=== PATIENT | male | born 1965 | race Caucasian/White ===

== ENCOUNTER 2020-06-07 11:25 | Outpatient (CLI) | payer MEDICARE, MEDICAID, SELFPAY | END 2020-06-07 11:26 | disposition home or self-care (01) | LOC: ANHAUDIO 11:29 | PROVIDERS: PCP Internal Medicine; Visit Provider Internal Medicine | DX: H90.6 Mixed conductive and sensorineural hearing loss, bilateral (principal) | CPT/HCPCS: 92557; 92567 ==

== ENCOUNTER 2020-06-24 10:08 | Outpatient (RCR) | payer MEDICAID, SELFPAY | END 2020-06-24 23:59 | disposition home or self-care (01) | LOC: ANHAUDIO 10:08 | PROVIDERS: PCP Internal Medicine; Visit Provider Internal Medicine | DX: Z46.1 Encounter for fitting and adjustment of hearing aid (principal) | CPT/HCPCS: V5241; V5256 ==

== ENCOUNTER 2023-01-19 16:19 | Emergency (ER) | payer MEDICARE, MEDICAID, SELFPAY ==
[2023-01-19 16:40] VITALS: BP 128/65; PULSE 68; RESP 16; TEMP 36.3; O2SAT 98
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
== END 2023-01-19 17:21 | disposition home or self-care (01) ==
PROVIDERS: Emergency Provider Registered Nurse; PCP Internal Medicine
DX: Z04.1 Encounter for examination and observation following transport accident (principal); I10 Essential (primary) hypertension; V79.50XA Passenger on bus injured in collision with unspecified motor vehicles in traffic accident, initial encounter
CPT/HCPCS: 99211; G0463

== ENCOUNTER 2023-02-16 08:23 | Emergency (ER) | payer MEDICARE, MEDICAID, SELFPAY ==
--- NOTE | ~2023-02-16 | XR_ITS ---
XR ankle RT min 3V 02/16/2023 08:54 Indication: Right ankle pain Procedure: 4 views right ankle Comparison: No prior studies for comparison. Findings: Osteopenia. Ankle mortise intact. There is an oblique lucency of the calcaneus. Cannot excl ude nondisplaced fracture. Talar dome is unremarkable. Impression: 1: Possible nondisplaced calcaneal fracture. Recommend correlation with CT. Reviewed, dictated and finalized at location A. Impression: 1: Possible nondisplaced calcaneal fracture. Recommend correlation with CT.
[2023-02-16 08:39] VITALS: BP 117/65; PULSE 76; RESP 18; TEMP 36.3; O2SAT 99
--- NOTE | 2023-02-16 09:12 | ED.LOWEXIN ---
HPI - Extremity Injury (Lower) General Chief Complaint: Extremity Injury, Lower Stated Complaint: right foot/ankle injury Time Seen by Provider: 02/16/23 09:05 Source: patient, RN notes reviewed, old records reviewed and other (specialist wound care) Mode of arrival: wheelchair Limitations: no limitations History of Present Illness HPI Narrative: 57 year old male accompanied by caregiver presents to [facility] with stated injury to right foot which occurred this morning when he fell. Patient states he bent over to leaf size picker something off of the floor and fell causing pain to his right heel region. Patient does have some developmental disabilities lives in a jail setting. Patient has history of osteopenia and has had previous hip replacement. Caregiver reports that patient is not suppose to be up alone. Patient reports no other injury, states he did not hit his head. MD complaint: foot injury (heel pain posterior) Onset (ago): day(s) (this morning) Type of Injury: other (fall) Treatments prior to arrival: cold therapy Related Data Home Medications Medication Instructions Recorded Confirmed alfuzosin 10 mg tablet,extended 10 mg PO DAILY 01/19/23 02/16/23 release 24 hr aripiprazole 15 mg tablet 15 mg PO DAILY 01/19/23 02/16/23 ferrous sulfate 325 mg (65 mg 325 mg PO DAILY 01/19/23 02/16/23 iron) tablet (Iron (ferrous sulfate)) losartan 25 mg tablet 25 mg PO DAILY 01/19/23 02/16/23 potassium chloride 10 mEq 10 meq PO DAILY 01/19/23 02/16/23 tablet,extended release sertraline 100 mg tablet 100 mg PO DAILY 01/19/23 02/16/23 sertraline 50 mg tablet 50 mg PO DAILY 01/19/23 02/16/23 Allergies Allergy/AdvReac Type Severity Reaction Status Date / Time topiramate Allergy Intermediate Rash Verified 01/19/23 16:45 Review of Systems Review of Systems: CONSTITUTIONAL: Denies fever, chills, or sweats. EYES: Denies visual changes, redness, or discharge. ENT: Denies rhinorrhea, congestion, sore throat, or otalgia. CARDIOVASCULAR: Denies chest pain, palpitations, or edema. RESPIRATORY: Denies cough or dyspnea. GASTROINTESTINAL: Denies abdominal pain, nausea, vomiting, or diarrhea. GENITOURINARY: Denies dysuria or hematuria. SKIN: Denies rash or itching. MUSCULOSKELETAL: Denies back pain, positive joint pain right heel posterior aspect or myalgia. NEUROLOGIC: Denies headache, numbness, or weakness. PSYCHIATRIC: Positive history of anxiety or depression. All systems reviewed & are unremarkable except as noted in HPI and below PMFSH Past Medical History Medical History (Updated 02/18/23 @ 09:30 by Anjali Zavala NP) Anemia Bipolar disorder Eczema Hypertension Impaired vision Moderate intellectual disability Osteoarthritis Retinal detachment, left Urinary incontinence Surgical History Surgical History (Updated 01/22/23 @ 20:32 by Anjali Zavala NP) H/O bilateral hip replacements Social History Social History (Updated 01/22/23 @ 20:32 by Anjali Zavala NP) Living arrangements: jail Gender identity (if verbalized by the patient): Male Comments At time of signature, agree with nursing past medical, surgical, social and family history. There is no relevant family history pertinent to the presenting complaint Exam Narrative: GENERAL: Well-appearing, well-nourished, and in no acute distress. HEAD: Normocephalic, atraumatic. EYES: PERRLA and EOMI. is visually impaired ENT: Nares clear, no rhinorrhea or epistaxis. Mucous membranes moist.TM's normal throat pink with no swelling NECK: Supple.no lymphadenopathy CHEST: Clear to auscultation. No respiratory distress.SAO2 99% on room air HEART: Regular rate and rhythm. No murmur heard. Normal peripheral pulses. ABDOMEN: Soft, nontender, nondistended, normal active bowel sounds. EXTREMITIES: Normal range of motion. No edema. Positive for pain to posterior right heel region and to sides onf heel on palpation, able to flex and extend forefoot on own power, so
== END 2023-02-16 09:33 | disposition short-term general hospital (02) ==
PROVIDERS: Emergency Provider Registered Nurse; PCP Internal Medicine
DX: S92.001A Unspecified fracture of right calcaneus, initial encounter for closed fracture (principal); W19.XXXA Unspecified fall, initial encounter; I10 Essential (primary) hypertension; M19.90 Unspecified osteoarthritis, unspecified site; F71 Moderate intellectual disabilities; D64.9 Anemia, unspecified
CPT/HCPCS: 73610; 99213; G0463

== ENCOUNTER 2023-03-20 08:42 | Outpatient (CLI) | payer MEDICARE, MEDICAID, SELFPAY | END 2023-03-20 08:43 | disposition home or self-care (01) | LOC: ANHBWCAUD 08:58 | PROVIDERS: PCP Internal Medicine; Visit Provider Internal Medicine | DX: H91.93 Unspecified hearing loss, bilateral (principal) | CPT/HCPCS: 99199 ==

== ENCOUNTER 2023-08-10 16:17 | Emergency (ER) | payer MEDICARE, MEDICAID, SELFPAY ==
[2023-08-10 16:27] VITALS: BP 120/63; PULSE 63; RESP 16; TEMP 35.8; O2SAT 98
[2023-08-10 16:40] VITALS: BP 120/63; PULSE 63; RESP 16; TEMP 35.8; O2SAT 98
--- NOTE | 2023-08-10 16:40 | ED.SKABFB ---
HPI - Skin/Abscess/Foreign Bdy General Chief complaint: Wound/Laceration Stated complaint: Right foot sore History of Present Illness HPI narrative: Patient presents with right toe sore. No drainage no streaking to the toe and patient also has been treated for athlete's foot, but the insurance would not pay for the cream that was prescribed by his primary care provider. Related Data Home Medications Medication Instructions Recorded Confirmed alfuzosin 10 mg tablet,extended 10 mg PO DAILY 01/19/23 08/10/23 release 24 hr ferrous sulfate 325 mg (65 mg 325 mg PO DAILY 01/19/23 08/10/23 iron) tablet (Iron (ferrous sulfate)) potassium chloride 10 mEq 10 meq PO DAILY 01/19/23 08/10/23 tablet,extended release sertraline 100 mg tablet 100 mg PO DAILY 01/19/23 08/10/23 sertraline 50 mg tablet 50 mg PO DAILY 01/19/23 08/10/23 alendronate 70 mg tablet 70 mg PO DAILY 08/10/23 08/10/23 aripiprazole 20 mg tablet 20 mg PO DAILY 08/10/23 08/10/23 cholecalciferol (vitamin D3) 25 25 mcg PO DAILY 08/10/23 08/10/23 mcg (1,000 unit) tablet hydroxyzine HCl 25 mg tablet 25 mg PO DAILY 08/10/23 08/10/23 Allergies Allergy/AdvReac Type Severity Reaction Status Date / Time topiramate Allergy Intermediate Rash Verified 08/10/23 16:40 Review of Systems Review of Systems: CONSTITUTIONAL: Denies fever, chills, or sweats. EYES: Denies visual changes, redness, or discharge. ENT: Denies rhinorrhea, congestion, sore throat, or otalgia. CARDIOVASCULAR: Denies chest pain, palpitations, or edema. RESPIRATORY: Denies cough or dyspnea. GASTROINTESTINAL: Denies abdominal pain, nausea, vomiting, or diarrhea. GENITOURINARY: Denies dysuria or hematuria. SKIN: Denies rash or itching. MUSCULOSKELETAL: Denies back pain, joint pain, or myalgia. NEUROLOGIC: Denies headache, numbness, or weakness. PSYCHIATRIC: Denies anxiety or depression. [facility] Past Medical History Medical History (Updated 08/10/23 @ 16:45 by CARLI Lincoln) Anemia Bipolar disorder Eczema Hypertension Impaired vision Moderate intellectual disability Osteoarthritis Retinal detachment, left Urinary incontinence Surgical History Surgical History (Updated 01/22/23 @ 20:32 by Anjali Zavala NP) H/O bilateral hip replacements Social History Social History (Updated 01/22/23 @ 20:32 by Anjali Zavala NP) Living arrangements: alf Gender identity (if verbalized by the patient): Male Comments At time of signature, agree with nursing past medical, surgical, social and family history. There is no relevant family history pertinent to the presenting complaint Exam Narrative: GENERAL: Well-appearing, well-nourished, and in no acute distress. HEAD: Normocephalic, atraumatic. EYES: PERRLA and EOMI. ENT: Nares clear, no rhinorrhea or epistaxis. Mucous membranes moist. NECK: Supple. CHEST: Clear to auscultation. No respiratory distress. HEART: Regular rate and rhythm. No murmur heard. Normal peripheral pulses. ABDOMEN: Soft, nontender, nondistended, normal active bowel sounds. EXTREMITIES: Normal range of motion. No edema. SWELLING AND REDNESS AND FLUCTUANCE CONSISTENT WITH PARONYCHIA. NORMAL CAP REFILL. NORMAL SENSATION OF DISTAL TOE. NORMAL 2 POINT DISCRIMINATION. NORMAL MOVEMENT OF TOE AT PIP, DIP, MCP. NORMAL FOOT EXAM. NO STREAKING OR REDNESS INTO FOOT right great toe SKIN: Warm, dry, no rash. Dry scaly areas between toes consistent with athlete's foot no concern for secondary infection NEURO: No focal deficits. Alert and oriented x3. Carlos Coma Scale Eye Opening: Spontaneous 4 [place] Coma Scale Motor: Obeys Commands 6 Carlos Coma Scale Verbal: Oriented 5 Carlos Coma Scale Total 15 Course Course Level of Care: Express Care Visit Vital Signs Vital signs: Vital Signs Temperature 35.8 C L 08/10/23 16:27 Pulse Rate 63 08/10/23 16:27 Respiratory Rate 16 08/10/23 16:27 Blood Pressure 120/63 08/10/23 16:27 Pulse Oxim
== END 2023-08-10 16:51 | disposition home or self-care (01) ==
PROVIDERS: Emergency Provider Nurse Practitioner Family; PCP Internal Medicine
DX: L03.031 Cellulitis of right toe (principal); B35.3 Tinea pedis; I10 Essential (primary) hypertension; Z79.899 Other long term (current) drug therapy
CPT/HCPCS: 99213; G0463

== ENCOUNTER 2023-08-28 09:49 | Outpatient (CLI) | payer MEDICARE, MEDICAID, SELFPAY | END 2023-08-28 09:50 | disposition home or self-care (01) | LOC: ANHBWCAUD 09:51 | PROVIDERS: PCP Internal Medicine; Visit Provider Internal Medicine | DX: H90.42 Sensorineural hearing loss, unilateral, left ear, with unrestricted hearing on the contralateral side (principal); H90.71 Mixed conductive and sensorineural hearing loss, unilateral, right ear, with unrestricted hearing on the contralateral side | CPT/HCPCS: 92552; 92556; 92567 ==

== ENCOUNTER 2023-09-11 16:47 | Emergency (ER) | payer MEDICARE, MEDICAID, SELFPAY ==
--- NOTE | ~2023-09-11 | XR_ITS ---
EXAM: XR foot RT min 3V DATE: 09/11/2023 17:29 HISTORY: KNI.RASH/SWELLING OF RT. FOOT SINCE 2022. . COMPARISON: 02/16/2023. FINDINGS: Severely decreased mineralization. No fracture or dislocation. No lytic or blastic lesion. Scattered degenerative changes. Loss of the normal Boehler's angle and pes planus. No erosion or per iosteal change. Soft tissues within normal limits. IMPRESSION: Loss of the normal Boehler's angle due to partial collapse of the calcaneus from an old, likely now healed calcaneal fracture. Reviewed, dictated and finalized at location K. PICKER IMPRESSION: Loss of the normal Boehler's angle due to partial collapse of the c alcaneus from an old, likely now healed calcaneal fracture.
--- NOTE | 2023-09-11 16:58 | ED.SKABFB ---
HPI - Skin/Abscess/Foreign Bdy General Chief complaint: Skin/Abscess/Foreign Body Stated complaint: rash on right foot Source: patient and RN notes reviewed Mode of arrival: ambulatory Limitations: no limitations History of Present Illness HPI narrative: Patient is a 58-year-old male who presents to [facility] with staff member from [facility]. Staff member states that patient has had redness and swelling to the webbing of the right foot. She states that the discoloration has been present since May. She denies known foot/toe injury. States that patient has been treated for cellulitis of the foot and athlete's foot without improvement. Patient was given a course of Keflex in May and course of Doxycycline in July. He has also been getting Fluconazole and Tinactin without improvement. Staff member states that the redness and swelling increased in severity today. Patient is neurovascularly intact distally. She denies recent fevers in patient. 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 Related Data Home Medications Medication Instructions Recorded Confirmed alfuzosin 10 mg tablet,extended 10 mg PO DAILY 01/19/23 08/10/23 release 24 hr ferrous sulfate 325 mg (65 mg 325 mg PO DAILY 01/19/23 08/10/23 iron) tablet (Iron (ferrous sulfate)) potassium chloride 10 mEq 10 meq PO DAILY 01/19/23 08/10/23 tablet,extended release sertraline 100 mg tablet 100 mg PO DAILY 01/19/23 08/10/23 sertraline 50 mg tablet 50 mg PO DAILY 01/19/23 08/10/23 alendronate 70 mg tablet 70 mg PO DAILY 08/10/23 08/10/23 aripiprazole 20 mg tablet 20 mg PO DAILY 08/10/23 08/10/23 cholecalciferol (vitamin D3) 25 25 mcg PO DAILY 08/10/23 08/10/23 mcg (1,000 unit) tablet hydroxyzine HCl 25 mg tablet 25 mg PO DAILY 08/10/23 08/10/23 tolnaftate 1 % topical spray spray topical 09/11/23 (Tinactin) Allergies Allergy/AdvReac Type Severity Reaction Status Date / Time topiramate Allergy Intermediate Rash Verified 08/10/23 16:40 Review of Systems Review of Systems: ROS obtained from staff member. CONSTITUTIONAL: Denies fever, chills, or sweats. EYES: Denies visual changes, redness, or discharge. ENT: Denies otalgia and sore throat CARDIOVASCULAR: Denies chest pain, palpitations, or edema. RESPIRATORY: Denies cough or dyspnea. GASTROINTESTINAL: Denies abdominal pain, nausea, vomiting, or diarrhea. GENITOURINARY: Denies dysuria or hematuria. SKIN: Denies rash or itching. MUSCULOSKELETAL: Denies back pain or myalgia. Redness and swelling to the webbing of the right foot. NEUROLOGIC: Denies headache, numbness, or weakness. Pertinent positives per HPI. PMFSH Past Medical History Medical History Anemia Bipolar disorder Eczema Hypertension Impaired vision Moderate intellectual disability Osteoarthritis Retinal detachment, left Urinary incontinence Surgical History Surgical History H/O bilateral hip replacements Social History Social History Living arrangements: skilled nursing Gender identity (if verbalized by the patient): Male Comments At the time of my signature, I reviewed and agree with the nursing past medical, surgical, social, and family history. There is no relevant family history pertinent to the patient complaint. Exam Narrative: GENERAL: This is a well-nourished, well-developed patient, in no apparent distress. HEAD: normocephalic, atraumatic. EYES: PERRL. Sclera clear/white. Vision is grossly intact. EARS: External ears normal, auditory canals clear and without drainage, TMs normal without perforation. Hearing grossly intact. NOSE: External nose normal with no obvious nasal discharge, nares without redness, no rhinorrhea. THROAT: Mucous
[2023-09-11 17:04] VITALS: BP 97/56; PULSE 56; RESP 16; TEMP 36.1; O2SAT 96
== END 2023-09-11 17:47 | disposition home or self-care (01) ==
PROVIDERS: Emergency Provider Nurse Practitioner; PCP Internal Medicine
DX: L03.115 Cellulitis of right lower limb (principal); I10 Essential (primary) hypertension; M19.90 Unspecified osteoarthritis, unspecified site; F71 Moderate intellectual disabilities; D64.9 Anemia, unspecified; Z96.643 Presence of artificial hip joint, bilateral
CPT/HCPCS: 73630; 99213; G0463

== ENCOUNTER 2023-12-18 08:44 | Emergency (ER) | payer MEDICARE, MEDICAID, SELFPAY ==
[2023-12-18 08:52] VITALS: BP 108/62; PULSE 70; RESP 20; TEMP 37.1; O2SAT 98
--- NOTE | 2023-12-18 09:05 | ED.GENADULT ---
HPI - General Adult General Chief complaint: Skin/Abscess/Foreign Body Stated complaint: Left arm wound and left eye Time Seen by Provider: 12/18/23 09:06 Source: patient, RN notes reviewed, old records reviewed and other (usp caregiver) Mode of arrival: ambulatory (walker) Limitations: other (developmentally disabled) History of Present Illness HPI narrative: 58 year old developmentally disabled male accompanied by caregiver from [facility] presents [facility] care with complaints of bilateral eye crusting with mucoid drainage especially to the left eye for the past few days. Patient also has area to the left upper arm that caregiver reports that patient won't stop scratching and picking at it that was from where he had Flu shot in July. Patient has [id number] open wound area that is yellowish in appearance with some scabbing with total area with surrounding redness of skin [id number]. Patient has small area on face that is red with no open wound 0.5cm where caregiver states he has been scratching also. MD complaint: conjunctivitis, wound to left upper arm Onset (ago): month(s) (arm wound, eyes 2-3 days) Severity: mild Treatments prior to arrival: none Related Data Home Medications Medication Instructions Recorded Confirmed alfuzosin 10 mg tablet,extended 10 mg PO DAILY 01/19/23 12/18/23 release 24 hr ferrous sulfate 325 mg (65 mg 325 mg PO DAILY 01/19/23 12/18/23 iron) tablet (Iron (ferrous sulfate)) potassium chloride 10 mEq 10 meq PO DAILY 01/19/23 12/18/23 tablet,extended release sertraline 100 mg tablet 100 mg PO DAILY 01/19/23 12/18/23 sertraline 50 mg tablet 50 mg PO DAILY 01/19/23 12/18/23 alendronate 70 mg tablet 70 mg PO DAILY 08/10/23 12/18/23 aripiprazole 20 mg tablet 20 mg PO DAILY 08/10/23 12/18/23 cholecalciferol (vitamin D3) 25 25 mcg PO DAILY 08/10/23 12/18/23 mcg (1,000 unit) tablet hydroxyzine HCl 25 mg tablet 25 mg PO DAILY 08/10/23 12/18/23 calcium carbonate 500 mg-vitamin 1 tablet PO DAILY 12/18/23 12/18/23 D3 15 mcg (600 unit) tablet miconazole nitrate 2 % topical applic topical DAILY 12/18/23 powder (Miconazorb AF) multivitamin-iron sulfate 15 1 tablet PO DAILY 12/18/23 12/18/23 mg-folic acid 400 mcg tablet (Tab-A-Daria Multivitamin w-iron) Allergies Allergy/AdvReac Type Severity Reaction Status Date / Time topiramate Allergy Intermediate Rash Verified 12/18/23 08:51 Review of Systems Review of Systems: CONSTITUTIONAL: Denies fever, chills, or sweats. EYES: Denies visual changes,positive for bilateral eye redness, and mucoid discharge. ENT: Denies rhinorrhea, congestion, sore throat, or otalgia. CARDIOVASCULAR: Denies chest pain, palpitations, or edema. RESPIRATORY: Denies cough or dyspnea. GASTROINTESTINAL: Denies abdominal pain, nausea, vomiting, or diarrhea. GENITOURINARY: Denies dysuria or hematuria. SKIN: Open wound to left upper arm [id number] inner open tissue with surrounding redness, 0.5cm red area on left face with skin integrity intact MUSCULOSKELETAL: Denies back pain, joint pain, or myalgia. NEUROLOGIC: Denies headache, numbness, or weakness. PSYCHIATRIC: Positive forhistory of anxiety or depression. All systems reviewed & are unremarkable except as noted in HPI and below PMFSH Past Medical History Medical History Anemia Bipolar disorder Eczema Hypertension Impaired vision Moderate intellectual disability Osteoarthritis Retinal detachment, left Urinary incontinence Surgical History Surgical History H/O bilateral hip replacements Social History Social History Living arrangements: [facility] Gender identity (if verbalized by the patient): Male Comments At time of signature, agree with nursing past medical, surgical, social and family history. There is no relevant family history
== END 2023-12-18 09:23 ==
PROVIDERS: Emergency Provider Registered Nurse; PCP Internal Medicine
DX: L02.414 Cutaneous abscess of left upper limb (principal); H10.9 Unspecified conjunctivitis; I10 Essential (primary) hypertension; M19.90 Unspecified osteoarthritis, unspecified site; F79 Unspecified intellectual disabilities; D64.9 Anemia, unspecified
CPT/HCPCS: 99213; G0463

== ENCOUNTER 2024-02-06 08:42 | Emergency (ER) | payer MEDICARE, MEDICAID, SELFPAY ==
[2024-02-06 08:51] VITALS: BP 117/60; PULSE 70; RESP 20; TEMP 36.6; O2SAT 98
--- NOTE | 2024-02-06 09:01 | ED.EXTPRO ---
HPI - Extremity Problem General Chief complaint: Extremity Problem,Nontraumatic Stated complaint: swollen right knee Time Seen by Provider: 02/06/24 09:01 Source: patient, RN notes reviewed and old records reviewed Mode of arrival: ambulatory Limitations: no limitations History of Present Illness HPI Narrative: 58-year-old male to [facility] with caregiver for complaint of right knee pain for 1 week that is becoming increasingly worse and affecting patient's ability to sleep. Patient endorses that pain is worse with weight-bearing activities. Patient's caregiver states that patient had fluid removed from the same knee by ortho over a year ago. Patient's caregiver states they have not attempted to treat at home with OTC medications. Patient in no acute distress. Related Data Home Medications Medication Instructions Recorded Confirmed alfuzosin 10 mg tablet,extended 10 mg PO DAILY 01/19/23 02/06/24 release 24 hr ferrous sulfate 325 mg (65 mg 325 mg PO DAILY 01/19/23 02/06/24 iron) tablet (Iron (ferrous sulfate)) potassium chloride 10 mEq 10 meq PO DAILY 01/19/23 02/06/24 tablet,extended release sertraline 100 mg tablet 100 mg PO DAILY 01/19/23 02/06/24 alendronate 70 mg tablet 70 mg PO DAILY 08/10/23 02/06/24 aripiprazole 20 mg tablet 20 mg PO DAILY 08/10/23 02/06/24 hydroxyzine HCl 25 mg tablet 25 mg PO DAILY 08/10/23 02/06/24 multivitamin-iron sulfate 15 1 tablet PO DAILY 12/18/23 12/18/23 mg-folic acid 400 mcg tablet (Tab-A-Daria Multivitamin w-iron) meloxicam 7.5 mg tablet 7.5 mg PO DAILY 02/06/24 02/06/24 Allergies Allergy/AdvReac Type Severity Reaction Status Date / Time topiramate Allergy Intermediate Rash Verified 12/18/23 08:51 Review of Systems Review of Systems: All systems reviewed & are unremarkable except as noted in HPI and below Constitutional: Constitutional: Reports as per HPI and Denies fever(s) ENT: Reports system reviewed and no additional complaints, except as documented Cardiovascular: Cardiovascular: Reports no additional cardiovascular complaints, Denies chest pain and Denies dyspnea Respiratory: Respiratory: Reports no additional respiratory complaints, Denies cough and Denies dyspnea Musculoskeletal: Musculoskeletal: Reports as per HPI, Reports arthralgias, Reports joint swelling, Denies limited range of motion, Denies muscle cramps, Denies muscle weakness, Denies numbness and Denies tingling Comments: Right knee Neurologic: Reports system reviewed and no additional complaints, except as documented Psychiatric: Psychiatric: Reports no additional psychiatric complaints PMFSH Past Medical History Medical History Anemia Bipolar disorder Eczema Hypertension Impaired vision Moderate intellectual disability Osteoarthritis Retinal detachment, left Urinary incontinence Surgical History Surgical History H/O bilateral hip replacements Social History Social History Living arrangements: senior living Gender identity (if verbalized by the patient): Male Comments At the time of my signature, I reviewed and agree with the nursing past medical, surgical, social, and family history. There is no relevant family history pertinent to the patient complaint. Exam Const: General: cooperative, comfortable, no acute distress, alert and thin Nutritional Appearance: well nourished Orientation/consciousness: patient oriented x3 Limitations: no limitations HENMT: Head: normal to inspection Ears: external ears normal Face/Nose/Sinus: Normal external nose present, Normal nares present, normal facial exam, No erythema and No edema Face and sinus: normal facial exam, no erythema and no edema Mouth: Yes Normal oral and palatal mucosa present Eyes: General: appearance normal, both eyes and a
--- NOTE | 2024-02-06 09:03 | PC.NURSE ---
unable to get a weight due to scale timing out by the time pt stands on it and lets go of bars
== END 2024-02-06 09:48 | disposition home or self-care (01) ==
PROVIDERS: Emergency Provider Nurse Practitioner Family; PCP Internal Medicine
DX: M25.561 Pain in right knee (principal); I10 Essential (primary) hypertension; M19.90 Unspecified osteoarthritis, unspecified site; F71 Moderate intellectual disabilities; Z96.643 Presence of artificial hip joint, bilateral; D64.9 Anemia, unspecified
CPT/HCPCS: 99212; G0463

== ENCOUNTER 2024-05-22 08:38 | Emergency (ER) | payer MEDICARE, MEDICAID, SELFPAY ==
[2024-05-22 08:54] VITALS: BP 102/51; PULSE 75; RESP 20; TEMP 36.1; O2SAT 100
--- NOTE | 2024-05-22 09:04 | ED.WOUNDLAC ---
HPI - Wound/Laceration General Chief Complaint: Skin/Abscess/Foreign Body Stated Complaint: Left Leg Skin Sore History of Present Illness HPI narrative: patient is a 58-year-old male, past medical history significant for profound MR, presents to [facility] with staff member from a local alf with complaints of persistent left medial lower leg wound, for which he was started on Bactrim DS approximately 2-3 days ago. They suspect the area is secondary to a brace he was wearing following a knee surgery that is caused skin surface injury and subsequently resulted in folliculitis or furuncle. He was sent today by staff to re-evaluate. He started Bactrim DS on Sunday evening, no other modifying factors reported. He is no longer wearing the brace. He reports some discomfort to the area when palpated however no other complaints are reported. He has no known history of MRSA per staff at bedside. Related Data Home Medications Medication Instructions Recorded Confirmed alfuzosin 10 mg tablet,extended 10 mg PO DAILY 01/19/23 05/22/24 release 24 hr ferrous sulfate 325 mg (65 mg 325 mg PO DAILY 01/19/23 05/22/24 iron) tablet (Iron (ferrous sulfate)) potassium chloride 10 mEq 10 meq PO DAILY 01/19/23 05/22/24 tablet,extended release sertraline 100 mg tablet 100 mg PO DAILY 01/19/23 05/22/24 alendronate 70 mg tablet 70 mg PO DAILY 08/10/23 05/22/24 aripiprazole 20 mg tablet 20 mg PO DAILY 08/10/23 05/22/24 hydroxyzine HCl 25 mg tablet 25 mg PO DAILY 08/10/23 05/22/24 multivitamin-iron sulfate 15 1 tablet PO DAILY 12/18/23 05/22/24 mg-folic acid 400 mcg tablet (Tab-A-Daria Multivitamin w-iron) meloxicam 7.5 mg tablet 7.5 mg PO DAILY 02/06/24 05/22/24 calcium carbonate 500 mg-vitamin 1 tablet PO BID 05/22/24 05/22/24 D3 15 mcg (600 unit) tablet cholecalciferol (vitamin D3) 25 05/22/24 mcg (1,000 unit) tablet cholecalciferol (vitamin D3) 25 25 mcg PO DAILY 05/22/24 05/22/24 mcg (1,000 unit) tablet mirabegron 25 mg tablet,extended 25 mg PO DAILY 05/22/24 05/22/24 release 24 hr (Myrbetriq) pantoprazole 40 mg tablet,delayed 40 mg PO DAILY 05/22/24 05/22/24 release Allergies Allergy/AdvReac Type Severity Reaction Status Date / Time topiramate Allergy Intermediate Rash Verified 05/22/24 08:56 Review of Systems Integumentary/Breasts: Comments: Refer to [facility] Past Medical History Medical History Anemia Bipolar disorder Eczema Hypertension Impaired vision Moderate intellectual disability Osteoarthritis Retinal detachment, left Urinary incontinence Surgical History Surgical History H/O bilateral hip replacements Social History Social History Living arrangements: alf Gender identity (if verbalized by the patient): Male Exam Const: General: cooperative, healthy appearing, comfortable and no acute distress Nutritional Appearance: average body habitus Orientation/consciousness: Other orientation findings ( patient converses at baseline per staff) Limitations: other limitations ( cognitive delays) HENMT: Head: normal to inspection Ears: hearing grossly normal bilaterally Face and sinus: normal facial exam Mouth: Yes Normal oral and palatal mucosa present, Yes lip normal and Yes tongue normal Throat: posterior oropharynx normal Neck: Neck: normal visual inspection, full ROM, no lymphadenopathy and no meningeal signs Resp: Effort & Inspection: normal respiratory effort Auscultation: clear to auscultation bilaterally Percussion: percussion normal Cardio: Palpation: normal PMI Rate: regular rate Rhythm: regular rhythm Heart sounds: S1 normal heart sound present and S2 normal heart sound present Peripheral pulses: Peripheral pulses 2+ throughout Skin: Wounds: wounds noted left proximal
== END 2024-05-22 09:20 | disposition home or self-care (01) ==
PROVIDERS: Emergency Provider Nurse Practitioner Family
DX: L73.9 Follicular disorder, unspecified (principal); I10 Essential (primary) hypertension; M19.90 Unspecified osteoarthritis, unspecified site; F71 Moderate intellectual disabilities; Z96.643 Presence of artificial hip joint, bilateral; D64.9 Anemia, unspecified; Z86.14 Personal history of Methicillin resistant Staphylococcus aureus infection
CPT/HCPCS: 99213; G0463

== ENCOUNTER 2024-06-13 09:24 | Emergency (ER) | payer MEDICARE, MEDICAID, SELFPAY ==
[2024-06-13 09:30] VITALS: BP 105/62; PULSE 77; RESP 16; TEMP 36.2; O2SAT 96
--- NOTE | 2024-06-13 09:36 | ED.MALEGU ---
HPI - Male Genitourinary General Chief complaint: Urogenital-Male Stated complaint: Urinary Problems Time Seen by Provider: 06/13/24 09:36 Source: patient, RN notes reviewed and old records reviewed Mode of arrival: ambulatory Limitations: no limitations History of Present Illness HPI Narrative: 58-year-old male who resides in a intermediate presents with caregiver with complaints of abnormal urine color, abdominal discomfort, back pain. Vague symptoms started on Sunday, 2 days ago. Caregivers noted yesterday that he had a red tinged urine in his depends. Today it is black to brown in color. Brought into the [facility] for an evaluation. Onset (ago): day(s) (2) Related Data Home Medications Medication Instructions Recorded Confirmed alfuzosin 10 mg tablet,extended 10 mg PO DAILY 01/19/23 06/13/24 release 24 hr ferrous sulfate 325 mg (65 mg 325 mg PO DAILY 01/19/23 06/13/24 iron) tablet (Iron (ferrous sulfate)) potassium chloride 10 mEq 10 meq PO DAILY 01/19/23 06/13/24 tablet,extended release sertraline 100 mg tablet 100 mg PO DAILY 01/19/23 06/13/24 alendronate 70 mg tablet 70 mg PO DAILY 08/10/23 06/13/24 aripiprazole 20 mg tablet 20 mg PO DAILY 08/10/23 06/13/24 hydroxyzine HCl 25 mg tablet 25 mg PO DAILY 08/10/23 06/13/24 multivitamin-iron sulfate 15 1 tablet PO DAILY 12/18/23 06/13/24 mg-folic acid 400 mcg tablet (Tab-A-Daria Multivitamin w-iron) meloxicam 7.5 mg tablet 7.5 mg PO DAILY 02/06/24 06/13/24 calcium carbonate 500 mg-vitamin 1 tablet PO BID 05/22/24 06/13/24 D3 15 mcg (600 unit) tablet cholecalciferol (vitamin D3) 25 25 mcg PO DAILY 05/22/24 06/13/24 mcg (1,000 unit) tablet mirabegron 25 mg tablet,extended 25 mg PO DAILY 05/22/24 06/13/24 release 24 hr (Myrbetriq) pantoprazole 40 mg tablet,delayed 40 mg PO DAILY 05/22/24 06/13/24 release albuterol sulfate 2.5 mg/3 mL See Rx Instructions .Route .COMPLEX 06/13/24 06/13/24 (0.083 %) solution for nebulization albuterol sulfate 90 mcg/actuation 1 puff inhalation PRN PRN Wheezing 06/13/24 06/13/24 aerosol inhaler diphenhydramine HCl 25 mg capsule 25 mg PO QID PRN Constipation 06/13/24 06/13/24 (Banophen) docusate sodium 100 mg capsule 100 mg PO DAILY PRN Constipation 06/13/24 06/13/24 guaifenesin 100 mg/5 mL oral 200 mg PO Q4H PRN Cough 06/13/24 06/13/24 liquid (Cici-Tussin) naltrexone 50 mg tablet 50 mg PO DAILY 06/13/24 06/13/24 ondansetron HCl 4 mg tablet 4 mg PO DAILY PRN Nausea 06/13/24 06/13/24 sulfamethoxazole 800 1 tablet PO Q12H 06/13/24 06/13/24 mg-trimethoprim 160 mg tablet Allergies Allergy/AdvReac Type Severity Reaction Status Date / Time topiramate Allergy Intermediate Rash Verified 06/13/24 10:13 Review of Systems Review of Systems: All systems reviewed & are unremarkable except as noted in HPI and below Constitutional: Constitutional: Reports no additional constitutional complaints Eyes: Eyes: Reports no additional eye complaints ENT: Reports system reviewed and no additional complaints, except as documented Cardiovascular: Cardiovascular: Reports no additional cardiovascular complaints, Denies chest pain and Denies dyspnea Respiratory: Respiratory: Reports no additional respiratory complaints, Denies chest congestion, Denies cough and Denies dyspnea Gastrointestinal: Gastrointestinal: Reports no additional gastrointestinal complaints, Denies abdominal pain, Denies nausea and Denies vomiting Genitourinary: Genitourinary: Reports as per HPI Musculoskeletal: Musculoskeletal: Reports no additional musculoskeletal complaints Integumentary/Breasts: Skin/Breast: Reports system reviewed and no additional complaints, except as docu Neurologic: Reports system reviewed and no additional complaints, except as documented Psychiatric: Psychiatric: Reports no additional psychiatric complaints Allergic/Immunologic: Allergic/Immunologic: Reports no additional allergic/immunologic complaints PMFSH Past M
[2024-06-13 09:55] LABS: EDUAAPPEAR Cloudy; EDUABILI 3+; EDUABLOOD 3+; EDUACOLOR1 Brown; EDUAGLUCOSE Trace; EDUAKETONE 2+; EDUALEUKO 3+; EDUANITRATE Negative; EDUAPROTEIN 3+; EDUASPGRAVITY 1.025
== END 2024-06-13 10:00 | disposition short-term general hospital (02) ==
PROVIDERS: Emergency Provider Nurse Practitioner
DX: R82.90 Unspecified abnormal findings in urine (principal); I10 Essential (primary) hypertension; F71 Moderate intellectual disabilities; M19.90 Unspecified osteoarthritis, unspecified site; D64.9 Anemia, unspecified; Z96.643 Presence of artificial hip joint, bilateral
CPT/HCPCS: 81003; 99212; G0463

== ENCOUNTER 2025-01-01 13:15 | Emergency (ER) | payer MEDICARE, MEDICAID, SELFPAY ==
[2025-01-01 13:53] VITALS: BP 91/57; PULSE 73; RESP 16; TEMP 36.2; O2SAT 96
--- NOTE | 2025-01-01 14:06 | ED.EYEPROB ---
HPI - Eye Problem General Chief complaint: Eye Problems Stated complaint: Eye Problem Time Seen by Provider: 01/01/25 14:07 Source: patient Mode of arrival: ambulatory Limitations: no limitations History of Present Illness HPI Narrative: 59-year-old male with intellectual disability presented with caregiver from the custodial stating that the left eye is red and crusty. First reported today. Patient said it was crusted shut this morning. 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 Pt does not wear contact lenses. Denies eye pain, light sensitivity, foreign body, injury. Says his vision is at baseline. chief complaint: eye pain Related Data Home Medications ?Medication ?Instructions ?Recorded ?Confirmed ?Last Taken ?Type alfuzosin 10 mg tablet,extended 10 mg PO DAILY 01/19/23 01/01/25 Unknown History release 24 hr ferrous sulfate 325 mg (65 mg 325 mg PO DAILY 01/19/23 01/01/25 Unknown History iron) tablet (Iron (ferrous sulfate)) potassium chloride 10 mEq 10 meq PO DAILY 01/19/23 06/13/24 Unknown History tablet,extended release sertraline 100 mg tablet 100 mg PO DAILY 01/19/23 01/01/25 Unknown History alendronate 70 mg tablet 70 mg PO DAILY 08/10/23 01/01/25 Unknown History aripiprazole 20 mg tablet 20 mg PO DAILY 08/10/23 01/01/25 Unknown History hydroxyzine HCl 25 mg tablet 25 mg PO DAILY 08/10/23 01/01/25 Unknown History multivitamin-iron sulfate 15 1 tablet PO DAILY 12/18/23 06/13/24 Unknown History mg-folic acid 400 mcg tablet (Tab-A-Daria Multivitamin w-iron) meloxicam 7.5 mg tablet 7.5 mg PO DAILY 02/06/24 06/13/24 Unknown History calcium 500 mg (as 1 tablet PO BID 05/22/24 01/01/25 Unknown History carbonate)-vitamin D3 15 mcg (600 unit) tablet cholecalciferol (vitamin D3) 25 25 mcg PO DAILY 05/22/24 06/13/24 Unknown History mcg (1,000 unit) tablet mirabegron 25 mg tablet,extended 25 mg PO DAILY 05/22/24 06/13/24 Unknown History release 24 hr (Myrbetriq) pantoprazole 40 mg tablet,delayed 40 mg PO DAILY 05/22/24 01/01/25 Unknown History release albuterol sulfate 2.5 mg/3 mL See Rx Instructions .Route .COMPLEX 06/13/24 06/13/24 Unknown History (0.083 %) solution for nebulization albuterol sulfate 90 mcg/actuation 1 puff inhalation PRN PRN Wheezing 06/13/24 06/13/24 Unknown History aerosol inhaler diphenhydramine HCl 25 mg capsule 25 mg PO QID PRN Constipation 06/13/24 06/13/24 Unknown History (Banophen) docusate sodium 100 mg capsule 100 mg PO DAILY PRN Constipation 06/13/24 01/01/25 Unknown History guaifenesin 100 mg/5 mL oral 200 mg PO Q4H PRN Cough 06/13/24 06/13/24 Unknown History liquid (Cici-Tussin) naltrexone 50 mg tablet 50 mg PO DAILY 06/13/24 01/01/25 Unknown History ondansetron HCl 4 mg tablet 4 mg PO DAILY PRN Nausea 06/13/24 06/13/24 Unknown History sulfamethoxazole 800 1 tablet PO Q12H 06/13/24 06/13/24 Unknown History mg-trimethoprim 160 mg tablet Allergies Allergy/AdvReac Type Severity Reaction Status Date / Time topiramate Allergy Intermediate Rash Verified 01/01/25 13:51 Review of Systems Review of Systems: CONSTITUTIONAL: Denies body aches, fever, chills EYES:Endorses Itching and drainage from the left eye Denies visual changes, FB sensation, photophobia ENT: Denies rhinorrhea, congestion, sore throat, or otalgia. CARDIOVASCULAR: Denies chest pain, palpitations SKIN: Denies rash, itching, or wounds. NEUROLOGIC: Denies headache, numbness, tingling, or weakness. All systems reviewed & are unremarkable except as noted in HPI and below PMFSH Past Medical History Medical History Anemia Bipolar disorder Eczema Hypertension Impaired vision Moderate intellectual disability Osteoarthritis Retinal detachment, left Urinary incontinence Surgical History Surgical History H/O bilateral hip replacements Social History Social History (Reviewed 06/13/24 @ 09:55 by CHRISTY Mosher Living arrangements: custodial Gender identity (if verbalized by the patient): Male Comments At time of signature, I have reviewed and agree with nursing past medical, surgical, social and family history unless otherwise noted. Please see nursing chart for further information. There is no relevant family history pertinent to the presenting complaint Exam Narrative: GENERAL: Well-appearing HEAD: Normocephalic, atraumatic. EYES: Left eye with chronic cloudy iris/pupil. left conjunctival injection, thick purulent discharge and crust. no eye lid swelling. EOMI. Lid eversion shows no FB. ENT: Mucous membranes pink and moist. No rhinorrhea. TMs normal bilaterally. Throat normal. Uvula midline. CHEST: Clear to auscultation. HEART: Regular rate and rhythm. SKIN: Warm, dry, no rash. Normal skin turgor. NEURO: No focal deficits. Alert and oriented x3 PSYCH: Normal affect. Course Course Emergency Course: Patient is aware of diagnosis, understands and agrees to treatment plan. Anticipatory guidance given. Patient agrees to follow-up as directed and is aware of reasons to seek care at the emergency department. Portions of this record may have been created with voice recognition software Level of Care: Express Care Visit Vital Signs Vital signs: Vital Signs Temperature 97.1 F L 01/01/25 13:53 Pulse Rate 73 01/01/25 13:53 Respiratory Rate 16 01/01/25 13:53 Blood Pressure 91/57 L 01/01/25 13:53 Pulse Oximetry 96 01/01/25 13:53 Oxygen Delivery Room Air 01/01/25 13:53 Temperature 97.1 F L 01/01/25 13:53 Pulse Rate 73 01/01/25 13:53 Respiratory Rate 16 01/01/25 13:53 Blood Pressure 91/57 L 01/01/25 13:53 Pulse Oximetry 96 01/01/25 13:53 Oxygen Delivery Room Air 01/01/25 13:53 MDM - Eye Problem MDM Narrative Medical decision making narrative: Discussed physical exam findings c/w left bacterial conjunctivitis. Advised supportive measures and signs/symptoms to go to the ER. Pt is appropriate for outpt treatment and f/u. Differential Diagnosis Differential diagnosis: Likely corneal abrasion, conjunctivitis, acute iritis and other Discharge Plan Discharge Clinical Impression: Bacterial conjunctivitis Patient Disposition: Home, Self-Care Condition: Stable Instructions: Antibiotic Form, Conjunctivitis (ED) Additional Instructions: Avoid touching or rubbing your eye. Use over the counter lubricating eye drops as needed for irritation Use a warm or cool washcloth on your eye for comfort Use eyedrops as directed - you are contagious for 24 hours after starting the antibiotic Practice good handwashing and hygiene to prevent spread of infection You may take Tylenol or ibuprofen for pain Follow-up with PCP or cigarette paper tester if condition is not improving in 2-3days. Go to the emergency room if you have severe pain or pressure behind your eye, difficulty seeing, or other severe symptoms [facility] [phone] [facility] [phone] [facility] [phone] [facility] [phone] Patient Language: Sinhala Prescriptions: New polymyxin B sulf-trimethoprim 10,000 unit- 1 mg/mL drops 1 drp LEFT EYE Q3H 7 Days Qty: 10 0RF Rx Instructions: while awake; do not exceed 6 doses in 24 hours No Action Tab-A-Daria Multivitamin w-iron 15 mg iron- 400 mcg tablet 1 tablet PO DAILY meloxicam 7.5 mg tablet 7.5 mg PO DAILY naltrexone 50 mg Tablet 50 mg PO DAILY sulfamethoxazole-trimethoprim 800-160 mg Tablet 1 tablet PO Q12H albuterol sulfate 2.5 mg /3 mL (0.083 %) solution for nebulization See Rx Instructions .ROUTE .COMPLEX Rx Instructions: wheezing ondansetron HCl 4 mg tablet 4 mg PO DAILY PRN (Reason: Nausea) diphenhydramine HCl [Banophen] 25 mg capsule 25 mg PO QID PRN (Reason: Constipation) docusate sodium 100 mg capsule 100 mg PO DAILY PRN (Reason: Constipation) albuterol sulfate 90 mcg/actuation HFA aerosol inhaler 1 puff INHALATION PRN PRN (Reason: Wheezing) guaifenesin [Cici-Tussin] 100 mg/5 mL Liquid 200 mg PO Q4H PRN (Reason: Cough) sertraline 100 mg Tablet 100 mg PO DAILY potassium chloride 10 mEq Tablet Extended Release 10 meq PO DAILY ferrous sulfate [Iron (ferrous sulfate)] 325 mg (65 mg iron) Tablet 325 mg PO DAILY alfuzosin 10 mg Tablet Extended Release 24 Hr 10 mg PO DAILY Rx Instructions: administer after the same meal each day aripiprazole 20 mg tablet 20 mg PO DAILY alendronate 70 mg tablet 70 mg PO DAILY hydroxyzine HCl 25 mg tablet 25 mg PO DAILY pantoprazole 40 mg tablet,delayed release (DR/EC) 40 mg PO DAILY calcium carbonate-vitamin D3 500 mg-15 mcg (600 unit) tablet 1 tablet PO BID mirabegron [Myrbetriq] 25 mg tablet extended release 24 hr 25 mg PO DAILY cholecalciferol (vitamin D3) 25 mcg (1,000 unit) tablet 25 mcg PO DAILY mupirocin 2 % ointment 1 applic topical TID 7 Days Qty: 22 0RF Follow-up/Referrals: UNKNOWN,DOCTOR [Primary Care Provider] - Time of Disposition: 14:13
--- OUTSIDE RECORDS SUMMARY | 2025-01-01 14:33 | XMS_ITS | Referral Summary ---
Author Organization [facility] Medical Office Building B Address [address] [place] [address] Care Team Providers Care Seconds Handler Name Role Phone Carla Pavon MD Primary Care Provider [phone] Encounters Date Type Department Care Team Description 12/31/2024 2:00 PM LIFTER/DRIVER Therapy [facility] Occupational Therapy [address] [place] [address] Juan Miguel aCbrera OT Other specified arthritis, right knee; Other specified arthritis, left knee; Age-related osteoporosis with current pathological fracture, vertebra(e), sequela 12/30/2024 Telephone Radiology [address] [place] [address] Jyotsna De La Rosa NP 12/26/2024 12:30 PM LIFTER/DRIVER - 12/26/2024 11:59 PM LIFTER/DRIVER Hospital Encounter [facility] Nuclear Medicine [address] [place] [phone] Discharge Disposition: Discharge to home or self care 12/26/2024 8:41 AM LIFTER/DRIVER - 12/26/2024 11:59 PM LIFTER/DRIVER Hospital Encounter [facility] Nuclear Medicine [address] [place] [phone] Compression fracture of L1 lumbar vertebra, sequela Discharge Disposition: Discharge to home or self care 12/24/2024 Orders Only [facility] Medical [facility] Orthopedic and Sports Medicine [address] [place] [phone] Jay Lamas PA Primary osteoarthritis of right knee (Primary Dx); Acquired valgus deformity knee, right 12/24/2024 10:00 AM LIFTER/DRIVER Office Visit [facility] Medical [facility] Orthopedic and Sports Medicine [address] [place] [phone] Jay Lamas PA Primary osteoarthritis of right knee (Primary Dx); Acquired valgus deformity knee, right 12/15/2024 Telephone Radiology 1 [place] [address] Jyotsna De La Rosa NP 12/09/2024 8:36 AM LIFTER/DRIVER - 12/09/2024 11:59 PM LIFTER/DRIVER Hospital Encounter [facility] Pain Management Clinic 2 [facility], [place] [place] [address] Warren Sullivan MD Primary osteoarthritis of right knee; Acquired valgus deformity knee, right Discharge Disposition: Discharge to home or self care 12/08/2024 7:52 AM LIFTER/DRIVER - 12/08/2024 11:59 PM LIFTER/DRIVER Hospital Encounter [facility] Imaging Center [address] [place] [address] Compression fracture of L1 vertebra with delayed healing, subsequent encounter Discharge Disposition: Discharge to home or self care 11/24/2024 Telephone [facility] Medical [facility] Orthopedic and Sports Medicine [address] [place] [phone] Jay Lamas PA 11/19/2024 Orders Only [facility] Medical Group Orthopedic and Sports Medicine [address] [place] [phone] Jay Lamas PA Primary osteoarthritis of right knee (Primary Dx); Acquired valgus deformity knee, right 11/19/2024 9:40 AM LIFTER/DRIVER Ancillary Procedure [facility] Medical Group Imaging at [address] [phone] Chronic pain of both knees 11/19/2024 9:30 AM LIFTER/DRIVER Office Visit [facility] Medical [facility] Orthopedic and Sports Medicine [address] [place] [phone] Jay Lamas PA Primary osteoarthritis of right knee (Primary Dx); Acquired valgus deformity knee, right 11/11/2024 Telephone Radiology 1 [place] [address] Jyotsna De La Rosa, MOLLY 11/07/2024 Telephone Radiology 1 [place] [address] Jyotsna De La Rosa NP 11/05/2024 10:14 AM LIFTER/DRIVER - 11/05/2024 11:59 PM LIFTER/DRIVER Hospital Encounter [facility] Imaging Center [address] [place] [address] Compression fracture of L1 vertebra with delayed healing, subsequent encounter; Other osteoporosis without current pathological fracture Discharge Disposition: Discharge to home or self care 10/24/2024 1:50 PM LIFTER/DRIVER Clinical Support [facility] [address] [facility] 5th [place] [address] [place] [phone] custodial current use of bisphosphonates (Primary Dx); Compression fracture of L1 vertebra with delayed healing, subsequent encounter; Other osteoporosis without current pathological fracture; Osteoporosis, unspecified osteoporosis type, unspecified pathological fracture presence from Last 3 Months Allergies Active Allergy Reactions Criticality Noted Date Comments Topiramate Rash Medium 03/13/2011 Medications acetaminophen (TYLENOL) 325 mg tablet Take 2 tablets (650 mg total) by mouth every 4 (four) hours as needed for pain, headaches or fever Active alendronate (FOSAMAX) 70 mg tablet Take 1 tablet (70 mg total) by mouth every 7 days 1 tablet by mouth weekly on Sunday at least 30 minutes prior to meal with 8 oz water and sit upright for 1 hour. Active ferrous sulfate 325 mg (65 mg of elemental iron) tablet Take 1 tablet (325 mg total) by mouth daily with breakfast Active hydrocortisone 2.5 % cream Apply 1 Application topically 2 (two) times a day as needed for rash Apply a thin layer topically to rash on forehead and nose twice daily as needed. 11/15/19 18 Active POTASSIUM CHLORIDE ER 10 mEq CR tablet Take 1 tablet/capsule (10 mEq total) by mouth every evening 5pm 01/28/20 18 Active albuterol 2.5 mg /3 mL (0.083 %) nebulizer solution Take 3 mL (2.5 mg total) by nebulization every 6 (six) hours as needed for wheezing Active ARIPiprazole (ABILIFY) 10 mg tablet Take 2 tablets (20 mg total) by mouth every evening At 5 PM 06/15/20 21 Active bismuth subsalicylate (PEPTO-BISMOL) suspension Take 30 mL by mouth every 3 (three) hours as needed for diarrhea or indigestion Take 30 mL PO as needed for each loose stool or upset stomach. May repeat in 30 min under direction of nurse. Max 8 doses/24 hr. Active hydrOXYzine (ATARAX) 25 mg tablet Take 1 tablet (25 mg total) by mouth nightly 9PM 06/07/20 21 Active aluminum-magnesiu m hydroxide-simethi cone (MAALOX) suspension 200-200-20 mg/5 mL Take 30 mL by mouth every 4 (four) hours as needed for indigestion Take 30 mL by mouth every 4 hours as needed for indigestion. Not to exceed 6 doses in 24 hours. Active sertraline (ZOLOFT) 100 mg tablet Take 1 tablet (100 mg total) by mouth daily 06/15/20 21 Active alfuzosin ER (UROXATRAL) 10 mg 24 hr tablet Take 1 tablet (10 mg total) by mouth nightly At 9 PM Active calcium carbonate-vitamin D3 1,250 mg (500 mg elemental)-600 unit tablet Take 2 tablets by mouth daily Active carbamide peroxide (DEBROX) 6.5 % otic solution Administer 5 drops into the left ear 2 (two) times a day Instill 5 drops into affected ear (left) twice daily for 4 days for ear wax blockade (written February 28, 2024) Active miconazole 2 % powder Apply 1 g (1 Application total) topically 2 (two) times a day Apply a thin layer of feet twice daily until healed. Active multivitamin with iron tablet Take 1 tablet by mouth daily Active cholecalciferol, vitamin D3, 1,000 unit tablet,chewable Take 1 tablet/chew tab by mouth daily Active albuterol HFA (PROVENTIL HFA,VENTOLIN HFA,PROAIR HFA) 90 mcg/actuation inhaler Inhale 1 puff every 4 (four) hours as needed for wheezing Active bisacodyl EC (DULCOLAX EC) 5 mg EC tablet Take 1 tablet (5 mg total) by mouth daily as needed for constipation Take 2 tabs by mouth for 1 dose with 8 oz water as needed for constipation. If no BM may repeat dose in 24 hours. Max 2 doses/48 hours. Active guaiFENesin (ROBITUSSIN) syrup 100 mg/5 mL Take 10 mL by mouth every 4 (four) hours as needed (cough) Active ondansetron (ZOFRAN) 4 mg tablet Take 1 tablet (4 mg total) by mouth every 8 (eight) hours as needed for nausea or vomiting Active triamcinolone (KENALOG) 0.1 % cream Apply 1 g topically 2 (two) times a day as needed for irritation Apply a thin layer topically to scalp twice daily as needed. Active bacitracin-neomyc in-polymyxin B (NEOSPORIN) ointment Apply 1 Application topically every 4 (four) hours as needed (minor wounds) Apply thin layer topically to minor wounds every 4 hours as needed until healed Active pantoprazole DR (PROTONIX) 40 mg EC tabletIndications :Treatment of Non-Bleeding Gastric Disorder Take 1 tablet (40 mg total) by mouth 2 (two) times a day 60 tablet 3 03/05/20 24 Active mirabegron ER (MYRBETRIQ) 25 mg tablet extended release 24 hr Take 1 tablet (25 mg total) by mouth daily Active naltrexone (DEPADE) 50 mg tablet Take 1 tablet (50 mg total) by mouth daily Active polyethylene glycol (MIRALAX) 17 gram packetIndications :constipation Take 1 packet (17 g total) by mouth daily Active senna-docusate (PERICOLACE) 8.6-50 mg Take 1 tablet by mouth daily Active diphenhydrAMINE 25 mg capsule Take 1 tablet/capsule (25 mg total) by mouth every 6 (six) hours as needed for itching Active docusate sodium (DOK) 100 mg tabletIndications :constipation Take 1 tablet (100 mg total) by mouth daily as needed for constipation Active bacitracin 500 unit/gram ointment Apply topically 3 (three) times a day 07/25/20 24 Active cefdinir (OMNICEF) 300 mg capsule 08/12/20 24 Active cephalexin (KEFLEX) 500 mg capsule 07/25/20 24 Active ketoconazole (NIZORAL) 2 % cream Apply topically daily Active Tab-A-Daria Multivitamin w-iron 15 mg iron- 400 mcg tablet 08/15/20 24 Active mupirocin (BACTROBAN) 2 % ointment 05/22/20 24 Active nystatin ointment 07/15/20 24 Active simethicone (GAS-X) 180 mg capsule Take as directed per colon prep instructions 10/10/20 23 Active tolnaftate (Tinactin) 1 % aerosol,spray Apply topically 2 (two) times a day Active traMADoL (ULTRAM) 50 mg tablet Take 1 tablet (50 mg total) by mouth every 6 (six) hours as needed 07/25/20 24 Active Desitin 40 % paste 08/06/20 24 Active methocarbamoL (ROBAXIN) 500 mg tabletIndications :Compression fracture of L1 vertebra with delayed healing, subsequent encounter Take 1 tablet (500 mg total) by mouth 3 (three) times a day 90 tablet 1 09/11/20 24 Active celecoxib (CeleBREX) 100 mg capsuleIndication s:Osteoarthritis Take 1 capsule (100 mg total) by mouth 2 (two) times a day 60 capsule 1 12/24/19 25 025 Active celecoxib (CeleBREX) 100 mg capsuleIndication s:Osteoarthritis Take 1 capsule (100 mg total) by mouth 2 (two) times a day 60 capsule 1 11/19/19 25 025 Discontin ued(Reord er) Active Problems Problem Noted Date Diagnosed Date Conductive hearing loss, external ear 08/27/2024 Dysphagia 03/06/2024 Esophagitis 03/06/2024 Schatzki's ring 03/06/2024 Acute respiratory distress 03/05/2024 Food impaction of esophagus 03/04/2024 Moderate intellectual disability 03/04/2024 Syndrome of inappropriate vasopressin secretion 03/04/2024 Osteoarthritis of right knee 03/04/2024 Choking, initial encounter 03/03/2024 Impacted cerumen of left ear 06/27/2023 Assessment & Plan (06/27/2023 9:16 AM CDT): Continue Hearing aid Avoid ear cleaning techniques Follow up as needed Sensorineural hearing loss ( SNHL) of left ear with unrestricted hearing of right ear 06/27/2023 Assessment & Plan (06/27/2023 9:16 AM CDT): Continue Hearing aid Avoid ear cleaning techniques Follow up as needed Anemia 03/21/2023 Lower GI bleed 03/21/2023 Post-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 stricture 9 Incontinence 04/07/2016 Pain of left great toe 11/16/2015 Skin ulcer of left great toe with fat layer expo sed 11/16/2015 Bipolar affective disorder 12/30/2009 Arthralgia of hip 12/30/2009 Obsessive-compulsive disorder 12/30/2009 Immunizations Immunization Administration Dates Next Due Influenza, Quadrivalent, Lay l Culture-based MDCK, Antibiotic Free, Intramuscular 08/21/2019 Influenza, Quadrivalent, Spl it, Intramuscular 07/30/2021,07/30/2019,08/13/2017,08/25 Influenza, Quadrivalent, Spl it, Preservative Free, Intramuscular 07/19/2023,08/03/2022,08/01/2021,08/12,07/25/2018,08/16/2017 Influenza, Trivalent, IM (MDV) 5,07/28/2015,08/04/2014,10/10 Influenza, Unspecified 07/27/2023,08/17/2022,09/2016 Moderna SARS-CoV-2 Monovalen t Vaccination (12+ YRS) 09/20/2021 Pneumococcal Polysaccharide PPV23 08/28/2009 TD Preservative Free 04/23/2015 Tdap 03/27/2013,07/08/2007 Social History Tobacco Use Types Packs/Day Years Used Date Smoking Tobacco: Never Smokeless Tobacco: Never Tobacco Cessation:Counseling Given: No Alcohol Use Standard Drinks/Week Comments No 0 (1 standard drink = 0.6 oz pur e alcohol) [facility] Utilities Answer Date Recorded In the past 12 months has [employer], gas, oil, or water [employer] threatened to shut off services in your home? No 03/04/2024 Social Connection and Isolation Panel [NHANES] A nswer Date Recorded In a typical week, how many times do you talk on the phone with family, friends, or neighbors? Patient unable to answer 03/04/2024 How often do you get togethe r with friends or relatives? Patient unable to answer 03/04/2024 How often do you attend chur or anglican services? Patient unable to answer 03/04/2024 Do you belong to any clubs o r organizations such as episcopal groups, unions, fraternal or athletic groups, or school groups? Patient unable to answer 03/04/2024 How often do you attend meet ings of the clubs or organizations you belong to? Patient unable to answer 03/04/2024 Are you , , di vorced, , never , or living with a partner? Never 03/04/2024 AUDIT-C Answer Date Recorded Q1: How often do you have a drink containing alcohol? Never 12/24/2024 Q2: How many drinks containi ng alcohol do you have on a typical day when you are drinking? Patient does not drink Q3: How often do you have si x or more drinks on one occasion? Never 12/24/2024 Overall Financial Resource Strain (CARDIA) Answe r Date Recorded How hard is it for you to pa y for the very basics like food, housing, medical care, and heating? Hard 03/04/2024 PHQ-2 Answer Date Recorded PHQ-2 Total Score (If total score is 3 or more points, staff should administer the PHQ-9) 2 12/09/2024 PRAPARE - Transportation Answer Date Re corded In the past 12 months, has l ack of transportation kept you from medical appointments or from getting medications? No 04/2024 In the past 12 months, has l ack of transportation kept you from meetings, work, or from getting things needed for daily living? No 03/04/2024 Housing Stability Vital Sign Answer Steven e Recorded In the last 12 months, was t here a time when you were not able to pay the mortgage or rent on time? Patient unable to answer 03/04/2024 Number of Places Lived in the Last Year Not on f ile 03/04/2024 In the last 12 months, was t here a time when you did not have a steady place to sleep or slept in a usp (including now)? Patient unable to answer 03/04/2024 PHQ-9 Answer Date Recorded PHQ-9 Total Score 5 12/09/2024 Personal Safety Answer Date Recorded Have you ever been in or are you currently in a harmful physical or emotional relationship or is someone making you feel afraid or unsafe? Denies 08/18/2024 Sex and Gender Information Value Date Recorded Sex Assigned at Not on file Legal Sex Male 3:46 AM LIFTER/DRIVER Gender Identity Not on file Sexual Orientation Not on file Last Filed Vital Signs Vital Sign Reading Time Taken Comments Blood Pressure 105/64 12/24/2024 10:12 AM LIFTER/DRIVER Pulse 76 12/24/2024 10:12 AM LIFTER/DRIVER Temperature 37.1 C (98.8 F) 08/18/2024 12:56 PM CDT Respiratory Rate 17 12/09/2024 8:53 AM LIFTER/DRIVER Oxygen Saturation 98% 12/09/2024 8:53 AM LIFTER/DRIVER Inhaled Oxygen Concentration - - Weight 58.1 kg (128 lb) 12/24/2024 10:12 AM LIFTER/DRIVER Height 157.5 cm (5' 2 ) 12/24/2024 10:12 AM LIFTER/DRIVER Body Mass Index 23.41 12/24/2024 10:12 AM LIFTER/DRIVER Plan of Treatment Not on file Procedures Procedure Name Priority Date/Time Associated Diagnosis Comments NM BONE IMAGING SPECT/CT Schedule Routine, Read Routine (OP Routine) 12/26/2024 3:01 PM LIFTER/DRIVER Compression fracture of L1 lumbar vertebra, sequela XR SPINE THORACIC 3 VIEWS Schedule Routine, Read Routine (OP Routine) 12/08/2024 8:13 AM LIFTER/DRIVER Compression fracture of L1 vertebra with delayed healing, subsequent encounter XR SPINE LUMBAR 2 OR 3 VIEWS Schedule Routine, Read Routine (OP Routine) 12/08/2024 8:13 AM LIFTER/DRIVER Compression fracture of L1 vertebra with delayed healing, subsequent encounter XR KNEE BILATERAL 4 OR MORE VIEWS Schedule Routine, Read Routine (OP Routine) 11/19/2024 9:45 AM LIFTER/DRIVER Chronic pain of both knees XR SPINE LUMBAR 2 OR 3 VIEWS Schedule Routine, Read Routine (OP Routine) 11/05/2024 10:22 AM LIFTER/DRIVER Compression fracture of L1 vertebra with delayed healing, subsequent encounter Other osteoporosis without current pathological fracture DEXA AXIAL SKELETON BONE DENSITY 1 OR MORE SITES Schedule Routine, Read Routine (OP Routine) 10/24/2024 3:26 PM LIFTER/DRIVER Compression fracture of L1 vertebra with delayed healing, subsequent encounter Other osteoporosis without current pathological fracture from Last 3 Months Results * NM Bone Imaging SPECT/CT (12/26/2024 3:01 PM LIFTER/DRIVER) Anatomical Region Laterality Modality N/A Nuclear Medicine 12/26/2024 4:57 PM LIFTER/DRIVER Impressions 12/26/2024 4:57 PM LIFTER/DRIVER FINDINGS/IMPRESSION: Examination is compromised by significant degree of motion artifact. Also bilateral hip replacements demonstrating a marked degree of artifact as well. There is a moderate degree of spinal scoliosis. There appears to be moderate increased activity through the width of the T12 which is nearly 75-80% compressed on recent CT images and is the last rib containing vertebral body and with moderately increased activity consistent with acute to subacute compression fracture... Slightly less but increased activity is seen at T11 could be degenerative or subacute mild compression.. Another small focus of acutely increased activity is seen in one of the upper posterior ribs or vertebral body perhaps around the T3 or T4 level which is difficult to exactly localize because of the limited spatial resolution but most likely represents an acute compression fracture of the vertebra.. There is increased activity generally throughout the manubrium of the sternum.. Electronically signed by: Toan Graham M.D. Narrative 12/26/2024 4:57 PM LIFTER/DRIVER EXAMINATION: NM BONE IMAGING SPECT/CT HISTORY: Multiple compression fractures suspected especially at L1 with back pain ORDER DATE: 12/26/2024 9:30 AM TECHNIQUE: A thoracoabdominal SPECT nuclear bone scan is obtained. The imaging study utilized 24.9 mCi of technetium labeled MDP. Procedure Note Toan Graham MD - 12/26/2024 EXAMINATION: NM BONE IMAGING SPECT/CT HISTORY: Multiple compression fractures suspected especially at L1 with back pain ORDER DATE: 12/26/2024 9:30 AM TECHNIQUE: A thoracoabdominal SPECT nuclear bone scan is obtained. The imaging study utilized 24.9 mCi of technetium labeled MDP. IMPRESSION: FINDINGS/IMPRESSION: Examination is compromised by significant degree of motion artifact. Also bilateral hip replacements demonstrating a marked degree of artifact as well. There is a moderate degree of spinal scoliosis. There appears to be moderate increased activity through the width of the T12 which is nearly 75-80% compressed on recent CT images and is the last rib containing vertebral body and with moderately increased activity consistent with acute to subacute compression fracture... Slightly less but increased activity is seen at T11 could be degenerative or subacute mild compression.. Another small focus of acutely increased activity is seen in one of the upper posterior ribs or vertebral body perhaps around the T3 or T4 level which is difficult to exactly localize because of the limited spatial resolution but most likely represents an acute compression fracture of the vertebra.. There is increased activity generally throughout the manubrium of the sternum.. Electronically signed by: Toan Graham M.D. Jyotsna Nena De La Rosa FLY SETTER IMG NM PROCEDURES Fin al Result * XR Spine Lumbar 2 or 3 Views (12/08/2024 8:13 AM LIFTER/DRIVER) Anatomical Region Laterality Modality Spine N/A Computed Radiogr aphy 12/09/2024 12:1 1 PM LIFTER/DRIVER Narrative 12/09/2024 12:22 PM LIFTER/DRIVER EXAM DESCRIPTION: XR SPINE THORACIC 3 VIEWS; XR SPINE LUMBAR 2 OR 3 VIEWS REASON FOR STUDY: L1 compression fracture and questionable T12 compression fracture. Fx 1 yr ago Scoliosis No surgery No recent injury TECHNIQUE: Frontal, lateral and swimmer's radiographic view(s) of the thorax spine. Frontal, lateral and cone-down radiographic view(s) of the lumbar spine. COMPARISON: Thoracic and lumbar spine MRI dated 08/18/2024. Scoliosis radiographs dated 09/11/2024. Lumbar spine radiographs dated 11/05/2024. FINDINGS: There is transitional anatomy. To maintain continuity with nomenclature used on the thoracic and lumbar spine MRI dated 08/18/2024 there is lumbarized S1 segment and the last well-formed disc space will be labeled as S1-S2. In this system of nomenclature the L1 vertebral body severe compression deformity is again seen. The T12 superior endplate irregularity is grossly similar when compared to the lumbar spine radiographs dated 11/05/2024. The T10 vertebral body deformity appears more pronounced when compared to the previous MRI dated 08/09/2024. The T4 and T7 vertebral body deformities are again seen. Dextroconvex thoracic and levoconvex lumbar curvature. [id number] intervertebral disc height loss with endplate degenerative changes and marginal spur formation. Mid to lower lumbar predominant facet arthropathy. Partially imaged bilateral hip joint prosthesis. IMPRESSION: 1. There is transitional anatomy. The nomenclature used on the thoracic and lumbar spine radiographs dated 08/18/2024 will be adopted for the current radiographs. This system differs from the nomenclature used on the lumbar spine radiographs dated 11/05/2024. 2. The L1 vertebral body severe compression fracture as seen on the lumbar spine radiographs dated 11/05/2024. 3. The T12 superior endplate irregularity is similar when compared to the lumbar spine radiographs dated 11/05/2024. 4. The T10 vertebral body deformity appears more pronounced when compared to the thoracic spine MRI dated 08/18/2024. 5. The thoracolumbar degenerative changes are similar. 6. Further evaluation with MRI as clinically indicated. THIS IS AN ELECTRONICALLY VERIFIED FINAL REPORT 12/09/2024 12:22 PM - Electronically signed by Ankit Ware D.O. AP: AP Report ID: [id number] Reading Location: [place] [id number] Procedure Note Ankit Ware, DO - 12/09/2024 EXAM DESCRIPTION: XR SPINE THORACIC 3 VIEWS; XR SPINE LUMBAR 2 OR 3 VIEWS REASON FOR STUDY: L1 compression fracture and questionable T12 compression fracture. Fx 1 yr ago Scoliosis No surgery No recent injury TECHNIQUE: Frontal, lateral and swimmer's radiographic view(s) of thethorax spine. Frontal, lateral and cone-down radiographic view(s) of the lumbarspine. COMPARISON: Thoracic and lumbar spine MRI dated 08/18/2024. Scoliosis radiographs dated 09/11/2024. Lumbar spine radiographs dated 11/05/2024. FINDINGS: There is transitional anatomy. To maintain continuity with nomenclatureused on the thoracic and lumbar spine MRI dated 08/18/2024 there is lumbarizedS1 segment and the last well-formed disc space will be labeled as S1-S2. Inthis system of nomenclature the L1 vertebral body severe compression deformityis again seen. The T12 superior endplate irregularity is grossly similarwhen compared to the lumbar spine radiographs dated 11/05/2024. The [id number] body deformity appears more pronounced when compared to the previous MRIdated 08/09/2024. The T4 and T7 vertebral body deformities are again seen. Dextroconvex thoracic and levoconvex lumbar curvature. [id number] intervertebral disc height loss with endplate degenerative changes and marginal spur formation. Mid to lower lumbar predominant facetarthropathy. Partially imaged bilateral hip joint prosthesis. IMPRESSION: 1. There is transitional anatomy. The nomenclature used on the thoracicand lumbar spine radiographs dated 08/18/2024 will be adopted for the current radiographs. This system differs from the nomenclature used on the lumbar spine radiographs dated 11/05/2024. 2. The L1 vertebral body severe compression fracture as seen on thelumbar spine radiographs dated 11/05/2024. 3. The T12 superior endplate irregularity is similar when compared tothe lumbar spine radiographs dated 11/05/2024. 4. The T10 vertebral body deformity appears more pronounced whencompared to the thoracic spine MRI dated 08/18/2024. 5. The thoracolumbar degenerative changes are similar. 6. Further evaluation with MRI as clinically indicated. THIS IS AN ELECTRONICALLY VERIFIED FINAL REPORT 12/09/2024 12:22 PM - Electronically signed by Ankit Ware D.O. AP: AP Report ID: [id number] Reading Location: [place] [id number] Jyotsna De La Rosa NP IMG XR PROCEDURES Fin al Result * XR Spine Thoracic 3 Vw (12/08/2024 8:13 AM LIFTER/DRIVER) Anatomical Region Laterality Modality Spine N/A Computed Radiogr aphy 12/09/2024 12:1 1 PM LIFTER/DRIVER Narrative 12/09/2024 12:22 PM LIFTER/DRIVER EXAM DESCRIPTION: XR SPINE THORACIC 3 VIEWS; XR SPINE LUMBAR 2 OR 3 VIEWS REASON FOR STUDY: L1 compression fracture and questionable T12 compression fracture. Fx 1 yr ago Scoliosis No surgery No recent injury TECHNIQUE: Frontal, lateral and swimmer's radiographic view(s) of the thorax spine. Frontal, lateral and cone-down radiographic view(s) of the lumbar spine. COMPARISON: Thoracic and lumbar spine MRI dated 08/18/2024. Scoliosis radiographs dated 09/11/2024. Lumbar spine radiographs dated 11/05/2024. FINDINGS: There is transitional anatomy. To maintain continuity with nomenclature used on the thoracic and lumbar spine MRI dated 08/18/2024 there is lumbarized S1 segment and the last well-formed disc space will be labeled as S1-S2. In this system of nomenclature the L1 vertebral body severe compression deformity is again seen. The T12 superior endplate irregularity is grossly similar when compared to the lumbar spine radiographs dated 11/05/2024. The T10 vertebral body deformity appears more pronounced when compared to the previous MRI dated 08/09/2024. The T4 and T7 vertebral body deformities are again seen. Dextroconvex thoracic and levoconvex lumbar curvature. Ezhg-an-ywqwwkxj intervertebral disc height loss with endplate degenerative changes and marginal spur formation. Mid to lower lumbar predominant facet arthropathy. Partially imaged bilateral hip joint prosthesis. IMPRESSION: 1. There is transitional anatomy. The nomenclature used on the thoracic and lumbar spine radiographs dated 08/18/2024 will be adopted for the current radiographs. This system differs from the nomenclature used on the lumbar spine radiographs dated 11/05/2024. 2. The L1 vertebral body severe compression fracture as seen on the lumbar spine radiographs dated 11/05/2024. 3. The T12 superior endplate irregularity is similar when compared to the lumbar spine radiographs dated 11/05/2024. 4. The T10 vertebral body deformity appears more pronounced when compared to the thoracic spine MRI dated 08/18/2024. 5. The thoracolumbar degenerative changes are similar. 6. Further evaluation with MRI as clinically indicated. THIS IS AN ELECTRONICALLY VERIFIED FINAL REPORT 12/09/2024 12:22 PM - Electronically signed by Ankit Ware D.O. AP: AP Report ID: [id number] Reading Location: [place] [id number] Procedure Note Ankit Ware, DO - 12/09/2024 EXAM DESCRIPTION: XR SPINE THORACIC 3 VIEWS; XR SPINE LUMBAR 2 OR 3 VIEWS REASON FOR STUDY: L1 compression fracture and questionable T12 compression fracture. Fx 1 yr ago Scoliosis No surgery No recent injury TECHNIQUE: Frontal, lateral and swimmer's radiographic view(s) of thethorax spine. Frontal, lateral and cone-down radiographic view(s) of the lumbarspine. COMPARISON: Thoracic and lumbar spine MRI dated 08/18/2024. Scoliosis radiographs dated 09/11/2024. Lumbar spine radiographs dated 11/05/2024. FINDINGS: There is transitional anatomy. To maintain continuity with nomenclatureused on the thoracic and lumbar spine MRI dated 08/18/2024 there is lumbarizedS1 segment and the last well-formed disc space will be labeled as S1-S2. Inthis system of nomenclature the L1 vertebral body severe compression deformityis again seen. The T12 superior endplate irregularity is grossly similarwhen compared to the lumbar spine radiographs dated 11/05/2024. The [id number] body deformity appears more pronounced when compared to the previous MRIdated 08/09/2024. The T4 and T7 vertebral body deformities are again seen. Dextroconvex thoracic and levoconvex lumbar curvature. Iykq-ot-fhasggdr intervertebral disc height loss with endplate degenerative changes and marginal spur formation. Mid to lower lumbar predominant facetarthropathy. Partially imaged bilateral hip joint prosthesis. IMPRESSION: 1. There is transitional anatomy. The nomenclature used on the thoracicand lumbar spine radiographs dated 08/18/2024 will be adopted for the current radiographs. This system differs from the nomenclature used on the lumbar spine radiographs dated 11/05/2024. 2. The L1 vertebral body severe compression fracture as seen on thelumbar spine radiographs dated 11/05/2024. 3. The T12 superior endplate irregularity is similar when compared tothe lumbar spine radiographs dated 11/05/2024. 4. The T10 vertebral body deformity appears more pronounced whencompared to the thoracic spine MRI dated 08/18/2024. 5. The thoracolumbar degenerative changes are similar. 6. Further evaluation with MRI as clinically indicated. THIS IS AN ELECTRONICALLY VERIFIED FINAL REPORT 12/09/2024 12:22 PM - Electronically signed by Ankit Ware D.O. AP: AP Report ID: [id number] Reading Location: [place] [id number] [place] Jyotsna Nena Juengling FLY SETTER IMG XR PROCEDURES Fin al Result * XR Knee Bilateral 4 or More Views (11/19/2024 9:45 AM LIFTER/DRIVER) Anatomical Region Laterality Modality Lower Extremities, Knee Digital Radiography Narrative 11/19/2024 10:03 AM LIFTER/DRIVER Four views of bilateral knees are negative for acute fracture dislocation or osseous lesion. Severe arthritic changes noted on the right side with a valgus deformity and remodeling of the lateral compartment. Left knee demonstrates moderate arthritic changes noted. Jay GILBERT IMG XR PROCEDURES Final Res ult * XR Spine Lumbar 2 or 3 Views (11/05/2024 10:22 AM LIFTER/DRIVER) Anatomical Region Laterality Modality Spine N/A Computed Radiogr aphy 11/06/2024 5:34 AM LIFTER/DRIVER Narrative 11/06/2024 5:38 AM LIFTER/DRIVER EXAM DESCRIPTION: XR SPINE LUMBAR 2 OR 3 VIEWS REASON FOR STUDY: F/u L1 compression fracture F/u L1 compression fracture No surgery TECHNIQUE: Three views COMPARISON: 09/11/2024, 08/18/2024. FINDINGS: 5 non rib-bearing lumbar type vertebra demonstrated. Severe compression deformity T12 vertebra redemonstrated unchanged. T11 vertebra demonstrates irregularity along superior endplate which could indicate severe degenerative change with mild compression deformity probably less likely and not defined on prior exams. This region is somewhat obscured. Other lumbar vertebra maintain height demonstrating zore-mc-deovlfup degenerative changes along endplates most severe T12-L1, L1-L2. No subluxation. SI joints demonstrate moderate degenerative change. Paravertebral soft tissues are unremarkable. IMPRESSION: Severe compression deformity T12 vertebra unchanged from previous. Irregularity T11 vertebra could indicate severe degenerative change with mild compression deformity probably less likely. THIS IS AN ELECTRONICALLY VERIFIED FINAL REPORT 11/06/2024 5:38 AM - Electronically signed by Cosmo Beal M.D. RB: NICOLA Report ID: [id number] Reading Location: [id number] Procedure Note Cosmo Beal MD - 11/06/2024 EXAM DESCRIPTION: XR SPINE LUMBAR 2 OR 3 VIEWS REASON FOR STUDY: F/u L1 compression fracture F/u L1 compression fracture No surgery TECHNIQUE: Three views COMPARISON: 09/11/2024, 08/18/2024. FINDINGS: 5 non rib-bearing lumbar type vertebra demonstrated. Severe compression deformity T12 vertebra redemonstrated unchanged. T11 vertebra demonstrates irregularity along superior endplate which could indicate severe degenerative change with mild compression deformityprobably less likely and not defined on prior exams. This region is somewhatobscured. Other lumbar vertebra maintain height demonstrating cgov-jk-fmcqpjvq degenerative changes along endplates most severe T12-L1, L1-L2. No subluxation. SI joints demonstrate moderate degenerative change. Paravertebral soft tissues are unremarkable. IMPRESSION: Severe compression deformity T12 vertebra unchanged from previous. Irregularity T11 vertebra could indicate severe degenerative change withmild compression deformity probably less likely. THIS IS AN ELECTRONICALLY VERIFIED FINAL REPORT 11/06/2024 5:38 AM - Electronically signed by Cosmo Beal M.D. RB: NICOLA Report ID: [id number] Reading Location: [place] [id number] Jyotsna De La Rosa FLY SETTER IMG XR PROCEDURES Fin al Result * DEXA Axial Skeleton Bone Density Multi Site (10/24/2024 3:26 PM LIFTER/DRIVER) Anatomical Region Laterality Modality Body N/A Radiographic Kaylah ging Narrative 10/24/2024 4:53 PM LIFTER/DRIVER Patient Name: Cosmo Alvarado Date of : 1965 Date of scan: 10/24/2024 Bone mineral density was performed on a [employer] Densitometer. Based on machine cross-calibration and precision studies the least significant changes of this densitometer is 0.024 g/cm2 at the spine, 0.020 g/cm2 at the total proximal femur, and 0.014g/cm2 at the forearm. HISTORY: This is a 59 y.o. male with a history of asthma, osteoporosis, and vitamin D deficiency. He reports that he has never smoked. He has never used smokeless tobacco. Currently on treatment with vitamin D and alendronate (Fosamax). INDICATIONS: Vitamin D deficiency and history of osteoporosis. FINDINGS: BONE MINERAL DENSITY OF THE LUMBAR SPINE Bone Mineral Density (BMD) of the lumbar spine was measured from L2-L4 and the average density was calculated to be 0.794 gm/cm2. This corresponds to a T-score (standard deviations from the mean of young adults) of -2.9. There is no previous study available for comparison. BONE MINERAL DENSITY OF THE FOREARM Bone Mineral density (BMD) of the left proximal 1/3 of the radius measures 0.618 gm/cm2. This corresponds to a T-score (standard deviations from the mean of young adults) of -3.8. There is no previous study available for comparison. A forearm bone density study was performed instead of a proximal femur study due to bilateral hip replacements SUMMARY: Bone mineral density shows evidence of osteoporosis and marked increase risk of fracture. L1 excluded from bone mineral density analysis of the lumbar spine due to history of compression deformity. ADDITIONAL COMMENTS: Postmenopausal Women and Men Over 50: Diagnostic criteria: Osteoporosis: BMD at or below -2.5 T-score; Osteopenia (low bone mass): BMD between -1.0 and -2.5 T-score. If the patient has a history of a fragility fracture, a fracture that occurred with trauma equivalent to a fall from a standing position or less, then the diagnosis is osteoporosis regardless of bone density. The history and data sections of the bone mineral density scan were prepared by Addie Walters) NNAMDI who is accredited by the International Society of Clinical Densitometry. The overall patient assessment and scan interpretation were performed by Dayana Dai M.D. who is certified by the International Society of Clinical Densitometry. [id number] Azael Newman NP IM DXA PROCEDURES Final Result from Last 3 Months Insurance MEDICARE [facility] MEDIC[place] [facility] [place] [id number] MEDICARE [facility] MEDICARE [facility] Advance Directives For more information, please contact: [phone] * Full Code (Latest Code Status on File) Date Activated Date Inactivated Comments 06/26/2024 1:41 PM 06/26/2024 8:06 PM * Full Code Date Activated Date Inactivated Comments 06/26/2024 1:41 PM 06/26/2024 1:41 PM * Full Code Date Activated Date Inactivated Comments 03/04/2024 2:40 PM 03/05/2024 5:47 PM * Full Code Date Activated Date Inactivated Comments 03/03/2024 7:33 AM 03/04/2024 2:40 PM * Full Code Date Activated Date Inactivated Comments 03/03/2024 1:37 AM 03/03/2024 7:33 AM Care Teams Seconds Handler Relationship Specialty Start Date End Date Carla Pavon MD [address] [place] [address] DR SUÁREZ [address] [place] [id number] PCP - General Family Medicine 02/28/24
--- OUTSIDE RECORDS SUMMARY | 2025-01-01 14:33 | XMS_ITS | Encounter Summary ---
Author Organization [facility] Healthcare Address [address] [place] [address] Care Team Providers Care Museum Service Scheduler Name Role Phone Carla Pavon MD Primary Care Provider [phone] Reason for Visit * Reason Comments OT Initial Eval Mobility evaluation * Consultation (Routine) - Closed Specialty Diagnoses / Procedures Referred By Contac t Referred To Contact Occupational Therapy Diagnoses Other specified arthritis, right knee Other specified arthritis, left knee Age-related osteoporosis with current pathological fracture, vertebra(e), sequela Carla Pavon MD [address] [place] [id number] Phone: tel: fax: [facility] Occupational Therapy [address] [place] [address] Phone: tel: fax: Referral ID Status Reason Start Date Expiration Date V isits Requested Visits Authorized [id number] Closed Evaluate and Treat 12/19/2024 01/18/2026 1 1 Encounter Details Date Type Department Care Team (Late st Contact Info) Description 12/31/2024 2:00 PM TICKET TAKER Therapy [facility] Occupational Therapy [address] [place] [id number] Juan Miguel Cabrera, SONAL Other specified arthritis, right knee; Other specified arthritis, left knee; Age-related osteoporosis with current pathological fracture, vertebra(e), sequela Social History Tobacco Use Types Packs/Day Years Used Date Smoking Tobacco: Never Smokeless Tobacco: Never Alcohol Use Standard Drinks/Week Comments No 0 (1 standard drink = 0.6 oz pur e alcohol) [facility] Utilities Answer Date Recorded In the past 12 months has th e electric, gas, oil, or water company threatened to shut off services in your [...] 03/04/2024 How often do you attend chur ch or yazidism services? Patient unable to answer 03/04/2024 Do you belong to any clubs o r organizations such as anabaptism groups, unions, fraternal or athletic groups, or [...] place to sleep or slept in a fpc (including now)? Patient unable to answer 03/04/2024 [...] on file Legal Sex Male 3:46 AM TICKET TAKER Gender Identity Not on file Sexual Orientation Not on file documented as of this encounter Progress Notes * Juan Miguel Cabrera OT - 12/31/2024 2:00 PM CST Images from the original note were not included. OT Initial Eval Time in: 1:58 PM Time out:2:56 PM [facility] 3701H ([id number]) [id number] Seating/Mobility Evaluation To be completed by Technology Architect or Physical/Occupational Therapist In Association With Mobility Device Specialist PATIENT INFORMATION: Name:Jovani Wade : 1965 Sex:M Evaluation Date: 12/31/24 [address]: [address] [place] [id number] Physician:Carla Pavon MD [address] [place] [address] Mobility Device Therapist: Juan Miguel Cabrera OT License #: [id number] Phone #: [phone] This form will serve as the LMN for the following suppliers: Primary: [facility] Contact Name: Elliot Zuluaga Phone #: [phone] Fax #: [phone] Phone #: [phone] Mobility Device Specialist: Title & Phone#: [employer] Program or 2nd Supplier: Contact Name: Phone #: Spouse / Parent / Caregiver / Guardian Name: Tami Connell (Other) [phone] (Home Phone) Primary Therapist: Phone #: Insurance / Payer:MEDICARE PART A & B Patient Recipient #: Reason for Referral: Lt brake does not lock on current chair, reports maintenance fixes regularly but still does not lock Patient Goals: Pt does not state specific goals. Caregiver Goals and Specific Limitations that May Effect Care: Pt's caregiver, Shannon states that she would like brakes that will lock safely to improve independence and safety with transfer. MEDICAL HISTORY: Primary Diagnosis: frequent falls at [facility], compression fracture: thoracic spine, wears TLSO at all times, bilateral knee pain. Onset: ongoing, several years Secondary Diagnoses : moderate intellectual disability and bipolar disorder, arthritis, osteoporosis, hypertension, Osteoporosis, Urinary retention, and Vitamin D deficiency, gabino hip arthroplasty, [ ] Progressive Disease Relevant Past and Future Surgeries: bilateral hip arthroplasties Height: 5'2 Weight: 128 pounds Describe Changes Past 2-5 years - Include Seating Measurements If Relevant: pt's caregiver reports pt had significant weight loss over last year from 180 to 124, his caregiver states he is gaining back slowly. Cardio Status: Functional Limitations: fatigues with activity, H/O HTN, [ ] Intact [ X ] Impaired [ ] Severely Impaired Respiratory Status: Functional Limitations: [ X ] Intact [ ] Impaired [ ] Severely Impaired Orthotics: TLSO Amputee [ ] Yes [ X ] No HOME ENVIRONMENT: [ X ] House [ ] Condo / Town Home [ ] Apartment [ ] Asst Living [ ] LTCF [ ] Own [ ] Rent [ ] Lives Alone [ X ] Lives with Others (Who?): [facility] with 3 other residents, Jovani has 1:1 care Hours with caregiver: 21/05 Home is Accessible to Equipment Storage of Wheelchair: [ X ] In Home [ ] Other: Stairs: [ ] Yes [ X ] No Ramp: [ ] Yes [ X ] No level entry Comments:(Describe management of equipment if stairs present - Describe security of Storage if Other is Checked) COMMUNITY ADL: TRANSPORTATION: [ ] Car [ ] Van [ ] Public Transportation [ ] Adapted W/C Lift [ ] Ambulance [ ] Other: [ X ] Sits in Wheelchair During Transport Where is W/C Stored During Transport? 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 School:N/A Specific Requirements Pertaining to Mobility: Other: FUNCTIONAL/SENSORY PROCESSING SKILLS: Handedness: [ X ] Right [ ] Left Comments: Visual Acuity is Adequate For Safe Wheelchair Operation: [ ] Yes [ X ] No Jovani states he is able to see lights and sometimes shadows Processing Skills are Adequate for Safe Wheelchair Operation: [ X ] Yes [ ] No Comments - Describe Limitations: decreased safety with w/c mobility due to cognition and history ofmoderate intellectual disability and bipolar disorder. COMMUNICATION: Verbal Communication [ X ] WFL Receptive [ X ] WFL Expressive [ X ] Understandable [ ] Difficult to Understand [ ] Non-Communicative [ ] Uses an Augmentative Communication Device - Plastic Technician/Model : AAC Mount Needed: SENSATION and SKIN ISSUES: Sensation [ X ] Intact [ ] Impaired [ ] Absent [ ] Hyposensate [ ] Hypersensate [ ] Defensiveness Level of sensation: Pressure Relief: Able to Perform Effective Pressure Relief : [ ] Yes [ X ] No Method: If not, Why?: Skin Issues/Skin Integrity Current Skin Issues [ ] Yes [ ] No [ X ] Intact [ ] Red Area [ ] Open Area [ ] Scar Tissue [ ] At Risk from Prolonged Sitting Where: History of Skin Issues [ ] Yes [ X ] No Where: When: per caregiver, pt has had sores on arms and legs due to digging but no pressure areas Hx of Skin Flap Surgeries [ ]Yes [ X ] No Where: When: Complaint of Pain: (Describe Location, Severity (Scale 1-10), Acute or Chronic, And How It Interferes With Ability To Operate Equip.): Pt reports no pain at this time, does reportthat standing and transfers cause knee pain. Jovani is wearing TLSO at this time, he states this alleviates back pain with sitting. ADL STATUS (In Reference to Wheelchair Use): Indep Assist Unable Indep with Equipment Not assessed Comments Dressing X Caregiver assists with dressing Eating X Describe Oral Motor Skills: WFL, ind with self feeding after setup Grooming/Hygiene X Independent after setup Meal Prep X Caregiver completes all meal prep IADLS X Caregiver completes all IADLs Bowel Mngmnt: [ ] Continent [ ] Incontinent [ X ] Accidents Comments: pt has had increased accidents in bed and chair recently Bladder Mngmnt: [ ] Continent [ ] Incontinent [ X ] Accidents Comments: pt has had increased accidents in bed and chair recently CURRENT SEATING / MOBILITY: Current Mobility Base: [ ] None [ ] Dependent [ ] Dependent with Tilt [ X ] Manual [ ] Scooter [ ] Power Type of Control: Plastic Technician: EDUS Size: Model: Jensen Butler Serial #: Pediatric [ ] Adult [ X ] Color: black/españa Age: uncertain Current Condition of Mobility Base: used, worn, tires with tread worn off, Current Seating System: Age of Seating System: COMPONENT METAL FITTERS AND MACHINISTS/CONDITION Seat Base Sling seat Cushion Back Sling seat Lateral Trunk Supports Thigh Support Knee Support Foot Support No leg rests on chair Foot Strap Head Support Pelvic Stabilization Anterior Chest Shoulder Support UE support Long arm supports Other (Tilt/Recline, etc) When Relevant: Overall Seat Height: Overall W/C Length: Overall W/C Width: Describe Posture in Present Seating System: Number of Hours/Day Spent in Wheelchair? Pt spends all time out of bed up in chair, he does not ambulate and transfers with assist of one only. WHEELCHAIR SKILLS: (Shown by Trial) PT. IS TOTALLY DEPENDENT FOR MOBILITY YES [ ] NO [ ] Indep Assist Dependent/ Unable N/A Comments Bed<->W/C Chair Transfers X CGA of one and cues for locking brakes with each transfer W/C<->Commode Transfers X CGA of one and cues to lock breaks for each transfer Manual W/C Propulsion: [ X ] UE or LE Strength and Endurance Sufficient to Participate in ADLs using Manual Wheelchair Arm: [ ] Left [ ] Right [ X ] Both Foot: [ ] Left [ ] Right [ X ] Both Operate Scooter: [ ] Strength, Hand Grinding Machine Operator, Balance, Transfer Appropriate for Use [ ] Living Environment Appropriate for Scooter Use Indep Assist Dependent/ Unable N/A Comments Operate Power W/C: Std. Joystick X [ ] Safe [ ] Functional Distance: Operate Power W/C: W/Alternative Controls X [ ] Safe [ ] Functional Distance: MOBILITY/BALANCE: Balance Balance Transfers Ambulation Sitting Balance Standing Balance [ ] Independent [ ] Independent [ X ] WFL [ ] WFL [ X ] Min Assist CGA [ ] Ambulates with Assist [ ] Uses UE for Balance in Sitting [ X] Min Assist [ ] Mod Assist [ ] Ambulates with Device [ ] Min Assist [ ] Mod Assist [ ] Max Assist [ ] Indep Short Distance Only [ ] Mod Assist [ ] Max Assist [ ] Dependent [ X ] Unable to Ambulate [ ] Max Assist [ ] Unable [ ] Sliding Board [ ] Unable [ ] Lift / Sling Required Comments:pt unable to ambulate due to limited RT knee ROM, OA, pain with weight bearing and weakness. MAT EVALUATION: per ATP Measurements in Sitting: Left Right Measurments in Sitting: A: Shoulder Width H: Seat to Top of Shoulder B: Chest Width I: Acromion Process C: Chest Depth (Front - Back) J: Inferior Angle of Scapula D: Hip Width K: Seat to Elbow E: Between Knees L: Seat to Iliac Crest F: Top of Head M: Upper leg length G: Occiput N: Lower leg length ++ Overall Width (asymmetrical width for windswept legs or scoliotic posture O: Foot Length Additional Comments: Hamstring flexibility: Pelvis to thigh angle [ ] accommodate greater than 90 Thigh to calf angle [ ] accommodate less than 90 DESCRIBE REFLEXES/TONAL INFLUENCE ON BODY: UB tone WFL, LB tone decreased due to weakness EXPLAIN WHY PATIENT IS NON-AMBULATORY: pt limited due to RT knee pain with h/o arthritis as well asfrequent falls with thoracic compression fx. POSTURE: COMMENTS: PELVIS [ ] [ X ] [ ] Neutral Posterior Anterior [ ] Fixed [ ] Other [ X ] Partly Flexible [ ] Flexible [ ] [ ] [ X ] WFL R elev L elev [ ] Fixed [ ] Other [ X ] Partly Flexible [ ] Flexible PELVIS [ X ] [ ] [ ] WFL Right Left Anterior Anterior [ ] Fixed [ ] Other [ X ] Partly Flexible [ ] Flexible TRUNK [ ] [ X ] [ ] WFL Inc. Thoracic Inc. Lumbar Kyphosis Lordosis [ ] Fixed [ ] Flexible [ X ] Partly Flexible [ ] Other [ ] [ X ] [ ] WFL Convex Convex Left Right [ ] c-curve [ ] s-curve [ ] multiple [ ] Fixed [ ] Flexible [ X ] Partly Flexible [ X ] Other Has TLSO at this time, unable to fully assess, does lean to RT in chair TRUNK [ X ] Neutral [ ] Left-anterior [ ] Right-anterior [ ] Fixed [ ] Flexible [ ] Partly Flexible [ ] Other Describe LE Neurological Influence/Tone: POSTURE: COMMENTS: HIPS [ X ] [ ] [ ] Neutral ABduct Adduct [ ] Fixed [ ] Subluxed [ X] Partly Flexible [ ] Dislocated [ ] Flexible [ X ] [ ] [ ] Neutral Right Left [ ] Fixed [ ] Other [ X ] Partly Flexible [ ] Flexible HIPS Hip Flexion / Extension Limitations: hip ROM WFL, strength grossly 3+/5 HIPS Hip Internal / External Range of Motion Limitations: ROM WFL, strength grossly 3+/5 KNEES & FEET Knee ROM: Left Right [ X ] WFL [ ] WFL [ ] Limitations [ X ] Limitations RT knee lacking 15* extension, crepitus noted at bilateral knee extension and flexion with strength3+/5 and c/o pain with MMT. Foot Positioning: [ X ] WFL [ ] L [ ] R Foot positioning WFL while seated on mat, strength grossly 3+/5 ROM concerns: Dorsiflexed [ ] L [ ] R Plantarflexed [ ] L [ ] R Inversion [ ] L [ ] R Eversion [ ] L [ ] R POSTURE: COMMENTS: HEAD & NECK [ ] Functional [ X ] Flexed [ ] Extended [ ] Rotated L [ ] Lat Flexed L [ ] Rotated R [ ] Lat Flexed R [ ] Cervical Hyperextension [ X ] Good Head Control [ ] Adequate Head Control [ ] Limited Head Control [ ] Absent Head Control Describe Tone / Movement Of Head And Neck: UPPER EXTREMITY SHOULDERS Left Right [X] Functional [X] Functional [ ] Elev / Dep [ ] Elev / Dep [ ] Pro-retract [ ] Pro-retract [ ] Subluxed [ ] Subluxed ROM for Upper Extremity [ ] WNL [ X ] WFL Limitations: UE Strength (X/5): [ ] N/A [ ] None [ ] Concerns: Describe Tone / Movement Of UE: ROM WFL, strength grossly 4/5 UPPER EXTREMITY ELBOWS Left Right ROM WFL Strength (4/5) Strength concerns: WRIST & HAND Left Right [ ] Fisting Strength / Dexterity: (4/5) Goals for Wheelchair Mobility [ X ] [place] with mobility in the home and mobility related ADLs (MRADLs) in the community [ X ] [place] with MRADLs in the community [ X ] Provide dependent mobility (in the community) [ ] Provide recline [ ] Provide tilt [ ] Goals for Seating system [ X ] Optimize pressure distribution [ X ] Provide support needed to facilitate function or safety [ X ] Provide corrective forces to assist with maintaining or improving posture [ X ] Accommodate client???s posture: current seated postures and positions are not flexible or wilnot tolerate corrective forces [ ] Client to be independent with relieving pressure in the wheelchair [ ] Enhance physiological function such as breathing, swallowing, digestion Equipment Trial: (Must be of adequate duration to demonstrate independence for patient with previous dependent mobility. Describe Duration and Location of Trial: Not completed at this time Patient Demonstrated Ability To Use Equipment Safely & Efficiently [ ] Yes [ ] No Comments: State why other equipment was unsuccessful: RECOMMENDATIONS & JUSTIFICATION (Lowest Appropriate Group Must Be Recommended) MOBILITY BASE JUSTIFICATION [facility]:K0005 Model: Seat Width: Seat Depth: Can Be Grown To: (Must Complete) Seat Width: Seat Depth: [ X ] provide transport from point A to B [ X ] non- standard width/depth necessary [ X ] promote Indep mobility to accommodate anatomical measurement [ X] is not a safe, functional ambulator [ X ] walker or cane inadequate [ ] [ X] Manual Mobility Base [ X ] non-functional ambulator [ ] Scooter / POV [ ] can safely operate [ ] has adequate trunk stability [ ] can safely transfer [ ] can not functionally propel manual wheelchair [ ] Power Mobility Base [ ] non-ambulatory [ ] can not functionally and safely [ ] can not functionally propel operate scooter / POV Manual wheelchair [ ] Stroller Base [ ] / child [ ] non-functional ambulator [ ] unable to propel manual wheelchair [ ] non-functional UE [ ] allows for growth [ ] Indep mobility is not a goal at this time Reasons This Particular WC Was Chosen for Patient? Why Isn???t a Lower Group Appropriate for Patient? MOBILITY BASE JUSTIFICATION Tilt Base or added [ ] Forward [ ] Backward [ ] Powered tilt on powered chair [ ] Powered tilt on manual chair [ ] Manual tilt on manual base [ ] change position against gravitational [ ] management of tone Force on head and shoulders [ ] rest periods [ ] change in position for pressure [ ] control edema Relief/ Can not weight shift [ ] facilitate postural control [ ] transfers [ ] Recline [ ] Power recline on power base [ ] Manual recline on manual base [ ] accommodate femur to back angle [ ] rest periods [ ] bring to full recline for ADL care [ ] repositioning for transfers or [ ] change position for pressure clothing / diaper / catheter changes Relief / can not weight shift [ ] head positioning Transportation tie-down option [ ] to provide crash tested tie down brackets Elevator on Mobility Base [ ] Wheelchair [ ] Scooter [ ] Increase Indep in transfers [ ] raise height for communication at [ ] Increase Indep in ADLs standing level [ ] Push handles [ ] extended [ ] angle adjustable [ X ] standard [ X ] caregiver access [ ] allows hooking to enable [ X ] caregiver assist increased ability to perform ADL's or maintain balance Cinder Block Maker weight required X [ X ] self propulsion [ ] [ X ] lifting Heavy Duty required [ ] user weight greater than 250 pounds [ ] broken frame on previous chair [ ] extreme tone [ ] multiple seat functions [ ] over active movement [ ] Specific seat height required Floor to seat height [ ] foot propulsion [ ] access to table or desk top [ ] transfers [ ] [ ] accommodation of leg length MOBILITY BASE JUSTIFICATION Rear wheel placement / Axle Adjustability [ ] None [ ] semi adjustable [ X ] fully adjustable [ X ] improved UE access to wheels [ ] 1-arm drive access [ ] improved stability [ ] amputee placement [ ] changing angle in space for Improvement of postural stability Angle Adjustable Back X [ X] postural control [ X ] UE functional control [ ] control of tone / spasticity [ X ] accommodation for seating system [ ] accommodation of range of motion POWER WHEELCHAIR CONTROLS [ ] Proportional Type Body Parts Left Right [ ] Non-proportional / switches Type Body Parts Upgraded Electronics [ ] [ ] Display box [ ] Digital interface electronics [ ] ASL Head Array [ ] Sip and puff tubing kit [ ] Upgraded tracking electronics [ ] Safety Reset Switches [ ] Single or Multiple Actuator Control Module [ ] provides access for controlling wheelchair [ ] lacks motor control to operate proportional drive control [ ] unable to understand proportional controls [ ] programming for accurate control [ ] progressive disease / changing condition [ ] needed in order to operate power / tilt Through joystick control [ ] allows user to see in which mode and drive the wheelchair is set; necessary for alternate drive controls [ ] allows w/c to operate when using [ ] non-proportional drive alternative drive controls control needed (Explain) [ ] allows client to operate wheelchair through switches placed in tri-panel headrest [ ] needed to operate sip and puff drive controls [ ] increase safety when driving [ ] correct tracking when on uneven surfaces [ ] Used to change modes and stop the wheelchair when driving in latch mode [ ] Allow the client to operate the power seat function(s) through the joystick control If Expandable Controller Recommended, Provide Additional Narrative In Space At End Of Form regarding Why Patient Requires Expandable Controller vs. Non-Expandable Controller MOBILITY BASE JUSTIFICATION JUSTIFICATION [ ] Mount for switches or joystick [ ] attaches switches to w/c [ ] Swing away for acces or transfers [ ] midline for optimal placement [ ] provides for consistent access Attendant controlled joystick plus mount [ ] safety [ ] long distance driving [ ] operation of seat functions [ ] compliance with transportation regulations [ ] Battery [ ] power motor on wheelchair Maturity Checker [ ] charge battery for wheelchair Push rim active assist [ ] enable propulsion of manual wheelchair on sloped terrain [ ] enable propulsion of manual wheelchair for distance Hangers / Leg rests [ ] 60 [ X ] 70 [ ] 90 [ ] elevating [ ]heavy duty [ ] articulating [ ] fixed [ X ] lift off [ ] swing away [ ] rotational picture hanger brackets [ ] adjustable knee angle [ ] adjustable calf panel [ ] Longer extension tube [ X ] provide LE support [ ] accommodate to hamstring tightness [ ] elevate legs during recline [ ] provide change in position for Les [ X ] maintain placement of feet on footplate [ ] durability [ X ] enable transfers [ ] decrease edema [ ] Accommodate lower leg length [ ] Foot support [ ] adjustable Footplate [ ] R [ ] L [ ] flip up [ ] depth/angle adjustable [ ] provide foot support [ ] accommodate to ankle ROM [ ] allow foot to go under wheelchair base [ ] transfers [ ] Armrests [ ] fixed [ X ] adjustable height [ X ] removable [ ] swing away [ ] flip back [ ] reclining [ ] full length pads [ ] desk [ ] pads tubular [X ] provide support with elbow at 90 [ ] provide support for w/c tray [ ] change of height / angles for variable activities [ X ] remove for transfers [ X ] allow to come closer to table top [ X ] remove for access to tables [ ] Side guards X [ X] prevent clothing getting caught in wheel or becoming soiled Wheel size: Wheel style [ ] mag [ ] spokes [ ] [ ] increase access to wheel [ ] allow for seating system to fit on base [ ] increase propulsion ability [ ] maintenance [ ] Quick Release Wheels X [ X ] allows wheels to be removed to decrease width of w/c for storage [ X ] decrease weight for lifting [ ] Wheel rims / hand rims [ ] metal [ X ] plastic coated [ ] vertical projections [ ] oblique projections [ X ] provide ability to propel manual wheelchair [ ] increase self-propulsion with hand weakness / decreased venetian blind assembler Tires: [ X ] pneumatic [ ] flat free inserts [ ] solid [ ] decrease maintenance [ ] prevent frequent flats [X] increase shock absorbency [ X ] decrease pain from road shock [ ] decrease spasms from road shock [ ] Radha housing: Radha size: Style: [ ] maneuverabilty [ ] stability of wheelchair [ ] increase shock absorbency [ ] durability [ ] maintenance [ ] angle adjustment for posture [ ] decrease pain from road shock [ ] decrease spasms from road shock [ ] allow for feet to come under wheelchair base [ ] allows change in seat to floor height [ ] Shock absorbers [ ] decrease vibration [ ] provide smoother ride over rough terrain Spoke Protector [ ] prevent hands from getting caught in spokes [ ] One armed device [ ] L [ ] R [ ] enable propulsion of manual wheelchair with one arm [ ] Anti-tippers X [ X ] prevent wheelchair from tipping backward [ ] Amputee adapter [ ] provide support for stump/residual extremity [ ] Crutch/cane mcdaniel [ ] Oxygen Cylinder mcdaniel [ ] IV picture hanger [ ] stabilize accessory on wheelchair Brake/wheel lock extension [ X ] R [ X ] L [ X ] increase indep in applying wheel locks Other: Other: SEATING COMPONENT RECOMMENDATIONS AND JUSTIFICATION Component Manuf/mod/size Justification Justification Seat Cushion X [ X ] accommodate impaired sensation [ ] decubitus ulcers present [ X ] prevent pelvic extension [ X ] low maintenance [ X ] stabilize pelvis [ ] accommodate obliquity [ ] accommodate multiple deformity [ ] neutralize LE [ X ] increase pressure distribution [ ] Seat Wedge [ ] accommodate ROM [ ] Provide increased aggressiveness of seat shape to decrease sliding down in the seat Cover Replacement X [ X ] protect back or seat cushion [ ] Mounting hardware Lateral trunk supports Headrest Medial thigh support Back Seat Fixed Swing away for: [ ] attach seat platform / cushion to w/c frame [ ] attach back cushion to w/c frame [ ] mount headrest [ ] swing medial thigh support away [ ] swing lateral supports away for transfers Seat Board Back Board [ ] support cushion to prevent hammocking [ ] allows attachment of cushion to mobility base Back [ ] provide lateral trunk support [ ] accommodate deformity [ ] accommodate or decrease tone [ ] facilitate tone [ ] provide posterior trunk support [ ] provide lumbar/sacral support [ ] support trunk in midline [ ] Lateral pelvic/thigh support [ ] pelvis in neutral [ ] accommodate pelvis [ ] position upper legs [ ] accommodate tone [ ] removable for transfers [ ] Medial Knee Support [ ] decrease adduction [ ] accommodate ROM [ ] remove for transfers [ ] alignment Foot Support [ ] position foot [ ] accommodate deformity [ ] stability [ ] decrease tone [ ] control position Ankle strap/heel loops [ ] support foot on foot support [ ] decrease extraneous [ ] provide input to heel [ ] protect foot movement Lateral trunk supports [ ] R [ ] L [ ] decrease lateral trunk leaning [ ] accommodate asymmetry [ ] contour for increased contact [ ] safety [ ] control of tone [ ] Anterior chest strap, vest, or shoulder retractors [ ] decrease forward movement of shoulder [ ] accommodation of TLSO decrease forward movement of trunk [ ] added abdominal support [ ] alignment [ ] assistance with shoulder control [ ] decrease shoulder elevation [ ] Headrest [ ] provide posterior head support [ ] provide posterior neck support [ ] provide lateral head support [ ] provide anterior head support [ ] support during tilt and recline [ ] improve feeding [ ] improve respiration [ ] placement of switches [ ] safety [ ] accommodate ROM [ ] accommodate tone [ ] improve visual orientation Neck Support [ ] decrease neck rotation [ ] decrease forward neck flexion Upper Extremity Support Arm trough Posterior hand support 1/2 tray Full tray Swivel mount [ ] R [ ] L [ ] decrease edema [ ] decrease subluxation [ ] control tone [ ] provide work surface [ ] placement for AAC/Computer/EADL [ ] decrease gravitational pull on shoulders [ ] provide midline positioning [ ] provide support to increase UE function [ ] provide hand support in natural position Pelvic Positioner Belt X SubASIS bar Dual Pull [ ] stabilize tone [ X ] decrease falling out of chair will not decrease potential for sliding due to pelvic tilting [ ] prevent excessive rotation [ ] pad for protection over maya prominence [ ] prominence comfort [ ] special pull angle to control rotation [ ] Bag or pouch Holds: [ ] medicines [ ] special food [ ] orthotics [ ] clothing changes [ ] diapers [ ] catheter / hygiene [ ] ostomy supplies [ ] OTHER: Pt cannot use an appropriately fitted cane or walker due to 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 Pt requires K5 ultralightweight wheelchair with an adjustable stiven to allow for efficient propulsion compared to the lesser wheelchair which requires more strokes with less distance achieved. Patient requires adjustable axle placement will load greater trochanters and femurs for anterior/ posterior dispersion to significantly decrease risk of pressure injury, and restore upright midline postural control for functional mobility and ADLs. K1-K4 do not allow for custom configuration of center of gravity, or adjustable axle placement to remedy patient destructive postural tendencies. 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 ADDITIONAL NARRATIVE DOCUMENTATION (MUST BE LEGIBLE): Jovani is 59 year old male who lives in a [facility] and receives 1:1 care at all times. He has hadfrequent falls and currently has a thoracic compression fracture, he wears a TLSO at all times. He also has a history of bilateral knee pain, moderate intellectual disability and bipolar disorder, arthritis, legally blind, osteoporosis, hypertension, Osteoporosis, Urinary retention, and Vitamin D deficiency, and gabino hip arthroplasty. He is unable to safely ambulate with an adaptive device and assistance, he has had falls during pivot transfers and he has a history of bilateral hip arthroplasty,thoracic compression fx, bilateral knee OA with RT knee ROM limitation and gabino LE weakness. 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 His caregiver Shannon who accompanies Jovani at this mobility evaluation states his current chair is broken and is not safe due to wheels that do not lock. She also reports that his coatis always dirty or getting caught in his wheels as he does not have guards on his current chair. Jovani will require a K-5 wheelchair with adjustable axle, angle adjustable back, and pressure relief cushion. SIGNATURES SHOWN BELOW MUST BE COMPLETED! Patient/Client/Caregiver/ Guardian Signature: Date: Therapist Name/Title Printed: Juan Miguel Cabrrea OT Therapist???s Signature: Juan Miguel Cabrera OT Date:12/31/24 Supplier???s Rep/Title Printed: Supplier???s Rep Signature: Date: This is to certify that I, the above signed therapist have the following affiliations: [ ] This DME Provider [ ] Plastic Technician of Recommended Equipment [ ] Patient???s [facility] [ X ] None of the above My signature below certifies that I agree with the recommendations above and order the equipment shown on the provider???s itemized haque list. Physician???s Signature: Date: HFS [id number] () [id number] ET TAKER documented in this encounter Plan of Treatment Not on file documented as of this encounter Visit Diagnoses Diagnosis Other specified arthritis, right knee Other specified arthritis, left knee Age-related osteoporosis with current pathological fracture, vertebra(e), sequela documented in this encounter Orders Outpatient Referral Count Last Ordered Date st Ordered Date AMB REFERRAL ORDER TO OCCUPATIONAL THERAPY 1 12/31/2024 documented in this encounter Care Teams Museum Service Scheduler Relationship Specialty Start Date End Date Carla Pavon MD [address] [facility] [place] [address] PCP - General Family Medicine 02/28/24 documented as of this encounter
--- OUTSIDE RECORDS SUMMARY | 2025-01-01 14:33 | XMS_ITS | Patient Health Summary ---
Author Organization [facility] Address [address] [place] [address] Care Team Providers Care Gravity Meter Observer Name Role Phone Unavailable Primary Care Provider Unavailabl e Note from [facility],non-owned Affiliates and Associated Physician Practices is amultiple site organization consisting of ambulatory clinics and hospital sitesin [place], [place], [place] and [place]. This disclosure is being madepursuant to the Care Everywhere program and may not contain all information available regarding this patient. Last updated 18.[facility] [employer] Allergies * Topiramate(Rash) -Low Criticality Medications * Be aware that medications may not be up to date on this document. Alwaysverify current medications with the patient. * alendronate (FOSAMAX) 70 MG tablet Take 70 mg by mouth every 14 days. Take in morning with full glass of water on empty stomach and remain upright for 30 min * ARIPiprazole (ABILIFY) 20 MG tablet Take 20 mg by mouth daily. * sertraline (ZOLOFT) 100 MG tablet Take 150 mg by mouth daily after breakfast. * multivitamin daily (THERAGRAN) tablet Take 1 Tab by mouth daily with food. * calcium carbonate (TUMS) 500 MG chew tablet Take 1 Tab by mouth daily with food. * potassium chloride (KLOR-CON) 10 MEQ tablet Take 10 mEq by mouth at bedtime. * hydrocodone-acetaminophen (NORCO) 5-325 MG tablet(Started 03/31/2011) Take 1-2 Tabs by mouth every 6 hours as needed for Pain. * ranitidine (ZANTAC) 150 MG tablet(Started 03/31/2011) Take 1 Tab by mouth at bedtime. FOR 6 WEEKS * calcium carbonate-vitamin D (OYSTER CALCIUM 500 + D) 500-200 MG-UNIT tablet Take 1 Tab by mouth 2 times daily. * Simethicone LIQD Use 30 mL every 4 hours. * ferrous sulfate 325 (65 FE) MG tablet(Started 06/02/2011) Take 1 Tab by mouth daily with breakfast. * docusate sodium (COLACE) 100 MG capsule(Started 06/02/2011) Take 1 Cap by mouth 2 times daily as needed for Constipation. Immunizations * PNEUMOCOCCAL PPSV23(Given 08/28/2009) Social History Tobacco Use Types Packs/Day Years Used Date Smoking Tobacco: Never Smokeless Tobacco: Never Alcohol Use Standard Drinks/Week Comments No 0 (1 standard drink = 0.6 oz pur e alcohol) Sex and Gender Information Value Date Recorded Sex Assigned at Not on file Gender Identity Not on file Sexual Orientation Not on file Last Filed Vital Signs Vital Sign Reading Time Taken Comments Blood Pressure 129/94 06/02/2011 6:47 AM CDT Pulse 83 06/02/2011 6:47 AM CDT Temperature 37 C (98.6 F) 06/02/2011 6:47 AM CDT Respiratory Rate 18 06/02/2011 6:47 AM CDT Oxygen Saturation 99% 06/02/2011 6:47 AM CDT Inhaled Oxygen Concentration - - Weight 66.2 kg (146 lb) 05/30/2011 8:59 AM CDT Height 165.1 cm (5' 5 ) 05/30/2011 8:59 AM CDT Body Mass Index 24.3 05/30/2011 8:59 AM CDT Procedures * XR HIP RIGHT 2VW OR MORE(Performed 03/21/2012) Performed for Pain in joint, pelvic region and thigh * XR HIP LEFT 2VW OR MORE(Performed 03/21/2012) Performed for Pain in joint, pelvic region and thigh * IP CONSULT TO HOME HEALTH CARE(Performed 06/02/2011) * HGB HCT PANEL(Performed 06/01/2011) * IP CONSULT TO CASE MANAGEMENT FOR HOME(Performed 05/31/2011) * HGB HCT PANEL(Performed 05/31/2011) * IP CONSULT TO HOSPITALIST(Performed 05/30/2011) * XR HIP RIGHT 1VW(Performed 05/30/2011) Performed for Primary localized osteoarthrosis, pelvic region and thigh * OT EVAL AND TREAT(Performed 05/30/2011) * URINALYSIS REFLEX MICROSCOPIC REFLEX CULTURE(Performed 05/26/2011) Performed for Unspecified pre-operative examination * COMPREHENSIVE METABOLIC PANEL(Performed 05/26/2011) Performed for Unspecified pre-operative examination * CBC W AUTO DIFFERENTIAL(Performed 05/26/2011) Performed for Unspecified pre-operative examination * CULTURE MSSA/MRSA(Performed 05/26/2011) Performed for Unspecified pre-operative examination * LAB RESULTS ORDER(Performed 04/01/2011) * IMAGING/RADIOLOGY/XRAY RESULTS ORDER(Performed 04/01/2011) * CARDIAC EKG ORDER(Performed 04/01/2011) * HGB HCT PANEL(Performed 03/30/2011) * HGB HCT PANEL(Performed 03/29/2011) * XR HIP LEFT 1VW(Performed 03/28/2011) Performed for Osteoarth NOS-unspec * CARDIAC EKG ORDER(Performed 03/14/2011) * URINALYSIS REFLEX TO MICROSCOPIC NO CULTURE(Performed 03/13/2011) Performed for Other specified pre-operative examination * CULTURE MSSA/MRSA(Performed 03/13/2011) Performed for Other specified pre-operative examination Results * XR HIP 2+ VW RIGHT (03/21/2012 12:24 PM CDT) Anatomical Region Laterality Modality Pelvis, Lower Extremity Other Narrative 03/21/2012 12:24 PM CDT Yoana Kim 03/21/2012 12:24 PM See progress notes for results Procedure Note Yoana Kim - 03/21/2012 12:24 PM CDT See progress notes for results Thomas Nino IV, MD DIAGNOSTIC IMAGING O RDERABLES * XR HIP 2+ VW LEFT (03/21/2012 12:24 PM CDT) Anatomical Region Laterality Modality Pelvis, Lower Extremity Other Narrative 03/21/2012 12:24 PM CDT Yoana Kim 03/21/2012 12:24 PM See progress notes for results Procedure Note Yoana Kim - 03/21/2012 12:24 PM CDT See progress notes for results Thomas Nino IV, MD DIAGNOSTIC IMAGING O RDERABLES * IP CONSULT TO HOME CARE (06/02/2011 10:54 AM CDT) Thomas Nino IV, MD INPATIENT ANCILLARY CONSULT * (ABNORMAL) HGB HCT PANEL (06/01/2011 3:45 AM CDT) Only the most recent of4 resultswithin the time period is included. Hemoglobin 8.7(L) 13.0 - 18.0 gm/dl [facility] Hematocrit 26.7(L) 39.0 - 54.0 % [facility] BLOOD SPECIMEN / Unknown 06/01/2011 3:45 AM CDT 06/01/2011 4:13 AM CDT Thomas Nino IV, MD LAB - HEMATOLOGY ORD ERABLES [facility] [address] [place] [address] * NURSING REFERRAL TO CASE MANAGEMENT FOR DISCHARGE PLANNING (05/31/2011 9:46 AM CDT) Thomas Nino IV, MD INPATIENT ANCILLARY CONSULT * IP CONSULT TO HOSPITALIST (05/30/2011 2:06 PM CDT) Thomas Nino IV, MD INPATIENT CONSULT OR DERABLES * XR HIP 1 VW RIGHT AP (IN PACU) (05/30/2011 1:18 PM CDT) Anatomical Region Laterality Modality Pelvis, Lower Extremity Radiogra phic Imaging 05/30/2011 1:29 PM CDT Narrative 05/30/2011 3:13 PM CDT PORTABLE RADIOGRAPH OF THE RIGHT HIP CLINICAL INDICATION: Right hip arthroplasty. COMPARISON: Correlation is made to left hip radiograph dated 03/28/2011. FINDINGS: The patient is status post right total hip arthroplasty. There is no evidence of jaspreet implant fracture. The femoral head overlies the acetabular component. There is slight irregularity of the superolateral aspect of the acetabulum which appears thinned; correlation with preoperative radiographs would be recommended. The pubis symphysis remains widened, measuring 1.8 cm. Procedure Note Tae Melendez MD - 05/30/2011 PORTABLE RADIOGRAPH OF THE RIGHT HIP CLINICAL INDICATION: Right hip arthroplasty. COMPARISON: Correlation is made to left hip radiograph dated 03/28/2011. FINDINGS: The patient is status post right total hip arthroplasty. There is no evidence of jaspreet implant fracture. The femoral head overlies the acetabular component. There is slight irregularity of the superolateral aspect of the acetabulum which appears thinned; correlation with preoperative radiographs would be recommended. The pubis symphysis remains widened, measuring 1.8 cm. Thomas Nino IV, MD DIAGNOSTIC IMAGING O [place] * CULTURE MSSA/MRSA (05/26/2011 9:25 AM CDT) Only the most recent of2 resultswithin the time period is included. Result [facility] Comment: Final CULTURE NO growth S.aureus/NO growth S.aureus (MRSA) SPECIMEN FROM NASAL FOSSAE / Unknown 05/26/2011 9:25 AM CDT 05/26/2011 9:55 AM CDT Narrative Resulting Agency Comment Performed By [facility];[address];[place] [address] Thomas Nino IV, MD LAB - MICROBIOLOGY O [place] Performing Organization Address City/State/[facility] Co de Phone Number [facility] [address] [place] [address] * URINALYSIS ROUTINE W/REFLEX TO CULTURE (05/26/2011 9:25 AM CDT) Color UA YELLOW [facility] Character UA CLOUDY [facility] Specific Bim UA 1.016 1.005 - 1.0300 [facility] pH UA 7.0 4.6 - 8.0 pH Units [facility] Leukocyte UA NEGATIVE Negative /ul [facility] Nitrite UA NEGATIVE Negative [facility] Protein UA NEGATIVE Negative mg/dl [facility] Glucose UA NEGATIVE Normal mg/dl [facility] Ketone UA NEGATIVE Negative mg/dl [facility] Urobilinogen UA 0.2 Normal [place] Units [facility] Bilirubin UA NEGATIVE Negative mg/dl [facility] Blood UA NEGATIVE Negative /ul [facility] WBC UA 0-2 <5 /HPF [facility] RBC UA 2-5 <5 /HPF [facility] Epithelial Cell UA 0-2 <5 /HPF [facility] Casts UA 0-2 <2 /LPF [facility] Bacteria UA NEGATIVE [facility] Urine Culture No culture to be done per protocol. [facility] URINE SPECIMEN OBTAINED BY CLEAN CATCH PROCEDURE / Unknown 05/26/2011 9:25 AM CDT 05/26/2011 9:55 AM CDT Thomas Nino IV, MD LAB - URINALYSIS ORD ERABLES Performing Organization Address City/[facility] Co de Phone Number [facility] [address] [place] [address] * (ABNORMAL) CBC W AUTO DIFFERENTIAL (05/26/2011 9:25 AM CDT) WBC 5.9 4.5 - 11.0 1000/mm3 [facility] RBC 4.68(L) 4.7 - 6.1 10X6 [facility] Hemoglobin 12.5(L) 13.0 - 18.0 gm/dl [facility] Hematocrit 38.5(L) 39.0 - 54.0 % [facility] MCV 82.3 80.0 - 99.0 fl [facility] MCH 26.7 25.0 - 31.0 pg [facility] MCHC 32.5 32.0 - 36.0 gm/dl [facility] RDW 13.8 11.5 - 14.5 % [facility] Platelet Count 296 130.0 - 400.0 1000/mm3 [facility] Granulocytes % 60.7 40.0 - 70.0 % [facility] Lymphocytes % 26.5 22.0 - 40.0 % [facility] Monocytes % 10.2(H) 2.0 - 10.0 % [facility] Eosinophils % 1.2 0.0 - 6.0 % [facility] Basophils % 1.4 0.0 - 3.0 % [facility] Granulocytes Absolute 3.56 1.8 - 7.7 [facility] Lymphocytes Absolute 1.55 1.0 - 5.4 [facility] Monocytes Absolute 0.60 0.1 - 1.1 [facility] Eosinophils Absolute 0.07 0.0 - 0.7 [facility] Basophils Absolute 0.08 0.0 - 0.2 [facility] Comment Manual Diff Not Indicated [facility] BLOOD SPECIMEN / Unknown 05/26/2011 9:25 AM CDT 05/26/2011 9:54 AM CDT Thomas Nino IV, MD LAB - HEMATOLOGY ORD ERABLES Performing Organization Address City/State/[facility] Co de Phone Number [facility] [address] [place] [address] * (ABNORMAL) COMPREHENSIVE METABOLIC PANEL (05/26/2011 9:25 AM CDT) BUN 14 9.0 - 20.0 mg/dl [facility] Sodium 141 137 - 145 mmol/L [facility] Potassium 4.3 3.6 - 5.0 mmol/L [facility] Chloride 99 98.0 - 107.0 mmol/L [facility] Glucose 75 70 - 105 mg/dl [facility] Creatinine 0.6(L) 0.66 - 1.25 mg/dl [facility] AST 49 17.0 - 59.0 U/L [facility] Alkaline Phosphatase 94 38.0 - 126.0 U/L [facility] Calcium 9.1 8.4 - 10.2 mg/dl [facility] Bilirubin Total 0.2 0.2 - 1.3 mg/dl [facility] Albumin 4.2 3.5 - 5.0 gm/dl [facility] Protein Total 8.2 6.3 - 8.2 gm/dl [facility] CO2 32(H) 22.0 - 30.0 mEq/L [facility] ALT 17(L) 21.0 - 72.0 U/L [facility] eGFR by MDRD 147.05 mL/min/1.7 3m2 [facility] BLOOD SPECIMEN / Unknown 05/26/2011 9:25 AM CDT 05/26/2011 9:54 AM CDT Thomas Nino IV, MD LAB - CHEMISTRY [facility] Organization Address City/State/ZIP Co de Phone Number [facility] [address] [place] [address] * LAB RESULTS ORDER (04/01/2011 1:52 PM CDT) Narrative Procedure Note Document, Scanned - 04/01/2011 1:52 PM CDT Scanned Document LAB - THERAPEUTIC DR ADRIAN MONITORING ORDERABLES * IMAGING/RADIOLOGY/XRAY RESULTS ORDER (04/01/2011 1:52 PM CDT) Anatomical Region Laterality Modality Other Narrative Procedure Note Document, Scanned - 04/01/2011 1:52 PM CDT Scanned Document IMAGING * CARDIAC EKG ORDER (04/01/2011 1:52 PM CDT) Only the most recent of2 resultswithin the time period is included. Narrative Procedure Note Document, Scanned - 04/01/2011 1:52 PM CDT Scanned Document CARDIAC SERVICES ORD ERABLES * XR HIP 1 VW LEFT AP (IN PACU) (03/28/2011 2:46 PM CDT) Anatomical Region Laterality Modality Pelvis, Lower Extremity Radiogra [facility] 03/28/2011 3:10 PM CDT Narrative 03/28/2011 3:32 PM CDT SINGLE PORTABLE AP VIEW OF THE LEFT HIP CLINICAL INDICATION: Left hip pain and left hip surgery. FINDINGS: There is a noncemented prosthesis in place. Soft tissue swelling and gas noted. Skin phillip are present. No immediate hardware complications. Procedure Note Johanny Dubois MD - 03/28/2011 SINGLE PORTABLE AP VIEW OF THE LEFT HIP CLINICAL INDICATION: Left hip pain and left hip surgery. FINDINGS: There is a noncemented prosthesis in place. Soft tissue swelling and gas noted. Skin phillip are present. No immediate hardware complications. Thomas Nino IV, MD DIAGNOSTIC IMAGING O RDERABLES * URINALYSIS ROUTINE AUTO (03/13/2011 11:40 AM CDT) Color UA YELLOW [facility] Character UA CLEAR [facility] Specific Bim UA 1.019 1.005 - 1.0300 [facility] pH UA 7.0 4.6 - 8.0 pH Units [facility] Leukocyte UA SMALL Negative /ul [facility] Nitrite UA NEGATIVE Negative [facility] Protein UA NEGATIVE Negative mg/dl [facility] Glucose UA NEGATIVE Normal mg/dl [facility] Ketone UA NEGATIVE Negative mg/dl [facility] Urobilinogen UA 0.2 Normal [place] Units [facility] Bilirubin UA NEGATIVE Negative mg/dl [facility] Blood UA NEGATIVE Negative /ul [facility] WBC UA 2-5 <5 /HPF [facility] RBC UA 5-10 <5 /HPF [facility] Epithelial Cell UA 0-2 <5 /HPF [facility] Casts UA 0-2 <2 /LPF [facility] Bacteria UA NEGATIVE [facility] URINE / Unknown 03/13/2011 1 1:40 AM CDT 03/13/2011 11:44 AM CDT Thomas Nino IV, MD LAB - URINALYSIS ORD ERABLES [facility] [address] [place] [address]
--- OUTSIDE RECORDS SUMMARY | 2025-01-01 14:33 | XMS_ITS | Clinical Summary ---
Author Organization [facility] Address [address] [place] [address] Care Team Providers Care Building Trades Teacher Name Role Phone Unavailable Primary Care Provider Unavailabl e Source Comments [facility],non-owned Affiliates and Associated Physician Practices is amultiple site organization consisting of ambulatory clinics and hospital sitesin [place], [place], [place] and [place]. This disclosure is being madepursuant to the Care Everywhere program and may not contain all information available regarding this patient. Last updated 18.[facility] Allergies Active Allergy Reactions Criticality Noted Date Comments Topiramate Rash Low 03/13/2011 Medications * Be aware that medications may not be up to date on this document. Alwaysverify current medications with the patient. Medication Sig Dispensed Refills Start Date End Date Status alendronate (FOSAMAX) 70 MG tablet Take 70 mg by mouth every 14 days. Take in morning with full glass of water on empty stomach and remain upright for 30 min Active ARIPiprazole (ABILIFY) 20 MG tablet Take 20 mg by mouth daily. Active sertraline (ZOLOFT) 100 MG tablet Take 150 mg by mouth daily after breakfast. Active multivitamin daily (THERAGRAN) tablet Take 1 Tab by mouth daily with food. Active calcium carbonate (TUMS) 500 MG chew tablet Take 1 Tab by mouth daily with food. Active potassium chloride (KLOR-CON) 10 MEQ tablet Take 10 mEq by mouth at bedtime. Active hydrocodone-acetaminop hen (NORCO) 5-325 MG tablet Take 1-2 Tabs by mouth every 6 hours as needed for Pain. 03/31/2011 Active ranitidine (ZANTAC) 150 MG tablet Take 1 Tab by mouth at bedtime. FOR 6 WEEKS 30 Tab 0 03/31/2011 Active calcium carbonate-vitamin D (OYSTER CALCIUM 500 + D) 500-200 MG-UNIT tablet Take 1 Tab by mouth 2 times daily. Active Simethicone LIQD Use 30 mL every 4 hours. Active ferrous sulfate 325 (65 FE) MG tablet Take 1 Tab by mouth daily with breakfast. 30 0 06/02/2011 Active docusate sodium (COLACE) 100 MG capsule Take 1 Cap by mouth 2 times daily as needed for Constipation. 60 0 06/02/2011 Active Immunizations Name Administration Dates Next Due PNEUMOCOCCAL PPSV23 08/28/2009 Social History Tobacco Use Types Packs/Day Years [...] Mass Index 24.3 05/30/2011 8:59 AM CDT Plan of Treatment Health Maintenance Due Date Last Done Comments COLOGUARD (AGES 45-75) - COL ON CA SCREENING 1967 COLON MONITORING 1967 COLONOSCOPY - COLON CA SCREENING 1967 CT COLONOGRAPHY - COLON CA SCREENING 1967 Colorectal Cancer Screening 1967 FIT - COLON CA SCREENING 1967 FLEX SIG - COLON CA SCREENING 1967 LIPID TESTING 1967 MEDICARE AWV 12 MONTHS 1967 HIV SCREENING 1982 HEPATITIS C SCREENING 06/26/1985 DTAP/TDAP/TD VACCINES (1 - Tdap) 1986 HEPATITIS B VACCINE (1 of 3 - 19+ 3-dose series) 1986 PNEUMOCOCCAL VACCINE 50+ (2 of 2 - PCV) 2017 08/28/2009 ZOSTER VACCINE (1 of 2) 2017 COVID-19 VACCINE (1 - 2023-2 5 season) 2024 INFLUENZA VACCINE (#1) 2024 DEPRESSION SCREENING 10/29/2024 PNEUMOCOCCAL VACCINE Aged Out 08/28/2009 No long er eligible based on patient's age to complete this topic HIB VACCINE Aged Out No longer eligi ble based on patient's age to complete this topic HPV VACCINE Aged Out No longer eligi ble based on patient's age to complete this topic MENINGOCOCCAL (Group B) VACCINE Aged Out No longer eligible based on patient's age to complete this topic MENINGOCOCCAL VACCINE Aged Out No thong balbina eligible based on patient's age to complete this topic Additional Health Concerns Infection Onset Date Last 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
--- OUTSIDE RECORDS SUMMARY | 2025-01-01 14:33 | XMS_ITS | Encounter Summary ---
Author Organization [facility] Address [address] [place] [address] Phone Care Team Providers Care Assistant Office Manager Name Role Phone Aparna Lester MD Primary Care Provider Farhana Chino WIND UP OPERATOR, CONSOLE OPERATOR Unavailable Faraz Ozuna MD Unavailable Jorje Hicks LIMOUSINE AND HEARSE UPHOLSTERER, CONSOLE OPERATOR Unavailable [phone] Rebeca Chisholm MD Unavailable [phone] Kerrie Wilson APRN, CONSOLE OPERATOR Unavailable Carla Pavon MD Primary Care Provider Encounter Details Date Type Department Care Team (Late st Contact Info) Description 07/25/2024 Telephone [facility] [address] [place] [address] Rebeca Chisholm MD [address] [address] Social History Tobacco Use Types Packs/Day Years Used Date Smoking Tobacco: Never Smokeless Tobacco: Never Alcohol Use Standard Drinks/Week Comments No 0 (1 standard drink = 0.6 oz pur e alcohol) Sexually Active Control Partners Comments Never Sex and Gender Information Value Date Recorded Sex Assigned at Not on file Legal Sex Male 11:08 PM CDT Gender Identity Not on file Sexual Orientation Not on file documented as of this encounter Miscellaneous Notes * Telephone Encounter - Serena Morales - 07/28/2024 1:18 PM CDT Pt scheduled 08-05-2024 with Ari * Telephone Encounter - Rebeca Chisholm MD - 07/25/2024 3:53 PM CDT OV with Ari in 1-2 weeks for voiding trial, wound check documented in this encounter Plan of Treatment Upcoming Encounters Date Type Department Care Team (Latest Contact Info) Description 01/07/2025 8:00 AM CDT Appointment [facility] [address] [place] [address] Jorje Hicks, LIMOUSINE AND HEARSE UPHOLSTERER, CONSOLE OPERATOR [address] [place] [address] Discharge Disposition: Discharged to home or Selfcare 01/13/2025 3:00 PM CDT Physical [facility] [address] [facility], [address] [phone] Jay Lamas, PAC [address] [place] [address] Kizzy Trujillo, PT [place] Discharge Disposition: Discharged to home or Selfcare 03/16/2025 9:00 AM CDT [facility] - [place] [address] [place] [id number] Faraz Ozuna MD #[address] [address] documented as of this encounter Visit Diagnoses Not on filedocumented in this encounter Additional Health Concerns Infection Onset Date Last Indicated Resolved Time 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 12/18/2024 documented as of this encounter Care Teams Assistant Office Manager Relationship Specialty Start Date End Date Aparna Lester MD [address] [facility] [place] [address] PCP - General Internal Medicine 10/26/15 11/11/24 Carla Pavon MD [address] [place] [address] [address] [place] [address] PCP - General Family Medicine 11/12/24 Farhana Chino APN, CONSOLE OPERATOR [address] [place] [address] [address] [facility] [place] [address] Nurse Practitioner Advanced Practice Nurse 04/07/16 Faraz Ozuna MD #2 [facility] [address] [place] [address] Consulting Physician Internal Medicine 06/23/16 Jorje Hicks APRN, CONSOLE OPERATOR [address] [place] [address] Nurse Practitioner Advanced Practice Nurse 06/06/22 Rebeca Chisholm MD #2 [facility] [address] [place] [address] Consulting Physician Urology 09/15/22 Kerrie Wilson APRN, CONSOLE OPERATOR [address]2 [place] [address] Nurse Practitioner Advanced Practice Nurse 08/14/23 documented as of this encounter
--- OUTSIDE RECORDS SUMMARY | 2025-01-01 14:33 | XMS_ITS | Encounter Summary ---
Author Organization [facility] Address [facility] [place] [address] Phone Care Team Providers Care It Service Delivery Manager Name Role Phone Farhana Chino APN, RECOVERY AUDITOR Unavailable Faraz Ozuna MD Unavailable Jorje Hicks APRN, RECOVERY AUDITOR Unavailable [phone] Rebeca Chisholm MD Unavailable [phone] Kerrie Wilson APRN, RECOVERY AUDITOR Unavailable Carla Pavon MD Primary Care Provider [phone] Encounter Details Date Type Department Care Team (Late st Contact Info) Description 12/23/2024 Results Follow-Up [facility] [address]2 [place] [phone] Jorje Hicks APRN, RECOVERY AUDITOR [address]2 [place] [address] 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) Social History Tobacco Use Types Packs/Day Years [...] on file documented as of this encounter Plan of Treatment Upcoming Encounters Date Type Department Care Team (Latest Contact Info) Description 01/07/2025 8:00 AM CDT [facility] [address] [place] [address] Jorje Hicks APRN, RECOVERY AUDITOR [address] [place] [address] Discharge Disposition: Discharged to home or Selfcare 01/13/2025 3:00 PM CDT Physical [facility] [address] [facility], [facility] [address] [place] [address] Jay Lamas PAC [address] [place] [address] Kizzy Trujillo, PT [place] Discharge Disposition: Discharged to home or Selfcare 03/16/2025 9:00 AM CDT Office Visit [facility] - Endocrinology 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 [address] [place] [address] PCP - General Family Medicine 11/12/24 Farhana Chino, LEAD NETWORK ARCHITECT, RECOVERY AUDITOR Nurse Practitioner Advanced Practice Nurse 04/07/16 [facility]az Oz[facility] MD [facility] [address] [place] [address] Consulting Physician Internal Medicine 06/23/16 Jorje Hicks APRN, RECOVERY AUDITOR [address]2 [place] [address] Nurse Practitioner Advanced Practice Nurse 06/06/22 Rebeca [facility]isholm MD [facility] [facility] [address] Consulting Physician Urology 09/15/22 Kerrie Wilson APRN, RECOVERY AUDITOR [address]2 [place] [address] Nurse Practitioner Advanced Practice Nurse 08/14/23 documented as of this encounter
--- OUTSIDE RECORDS SUMMARY | 2025-01-01 14:33 | XMS_ITS | Referral Summary ---
Author Organization [facility] Address [address] [place] [address] Care Team Providers Care Senior Net Application Developer Name Role Phone Unavailable Primary Care Provider Unavailabl e Source Comments [facility],non-owned Affiliates and Associated Physician Practices is amultiple site organization consisting of ambulatory clinics and hospital sitesin [place], [place], [place] and [place]. This disclosure is being madepursuant to the Care Everywhere program and may not contain all information available regarding this patient. Last updated 18.[facility] Allergies Active Allergy Reactions Criticality Noted Date [...] 05/30/2011 8:59 AM CDT Plan of Treatment Not on file Additional Health Concerns Infection Onset Date Last Indicated MRSA 03/15/2011 03/15/2011 Advance Directives Documents on File Type Date Recorded Patient Sealer Sander Expl anation Adv Directive/Living Will/POA 04/01/2011 11:57 AM * FULL RESUSCITATION (Latest Code Status on File) Date Activated Date Inactivated Comments 05/30/2011 12:47 PM 06/03/2011 12:27 AM * Full Code Date Activated Date Inactivated Comments 03/28/2011 2:15 PM 04/01/2011 5:27 AM
--- OUTSIDE RECORDS SUMMARY | 2025-01-01 14:33 | XMS_ITS | Encounter Summary ---
Author Organization [facility] Address [address] [place], [place] [address] [place] [address] Phone Care Team Providers Care Elocution Teacher Name Role Phone Farhana Chino APN, MUNITIONS FACTORY WORKER Unavailable Faraz Ozuna MD Unavailable Jorje Hicks EXTENSION DIVISION DIRECTOR, MUNITIONS FACTORY WORKER Unavailable Rebeca Chisholm MD Unavailable [phone] Kerrie Wilson APRN, MUNITIONS FACTORY WORKER Unavailable Carla Pavon MD Primary Care Provider Reason for Referral * PT/OT/ST (Routine) - Authorized Specialty Diagnoses / Procedures Referred By Hari lanza Referred To Contact Physical Therapy Diagnoses Primary osteoarthritis of right knee Acquired valgus deformity knee, right Jay Lamas PAC [address] [place] [address] Phone: tel: fax: [facility] [address], [place] [address] [address] Phone: tel: fax: Referral ID Status Reason Start Date Expiration Date V isits Requested Visits Authorized [id number] Authorized 12/24/2024 50 50 Scheduling Instructions IGN LANGUAGE PROFESSOR Encounter Details Date Type Department Care Team (Latest Contact Info) Description 12/24/2024 Transcribe Orders [facility] [address] [place] [address] Jay Lamas, PAC [address] [place] [address] Primary osteoarthritis of right knee (Primary Dx); Acquired valgus deformity knee, right Social History Tobacco Use Types Packs/Day Years [...] Info) Description 01/07/2025 8:00 AM CDT Appointment [facility] [address] [place] [address] Jorje Hicks, EXTENSION DIVISION DIRECTOR, MUNITIONS FACTORY WORKER [address] [place] [address] Discharge Disposition: Discharged to home or Selfcare 01/13/2025 3:00 PM CDT Physical Therapy [facility] at [address], [address] [phone] Jay Lamas, PAC [address] [place] [address] Kizzy Trujillo, PT [place] Discharge Disposition: Discharged to home or Selfcare 03/16/2025 9:00 AM CDT [facility] Visit [facility] - [place] [address]2 [place] [address] Faraz Ozuna MD #[address] [address] Scheduled Referrals Name Type Priority Associated Diagnoses Orde r Schedule PHYSICAL THERAPY REFERRAL Outpatient Referral Routine Primary osteoarthritis of right knee Acquired valgus deformity knee, right Expected: 12/24/2024, Expires: 12/24/2025 documented as of this encounter Visit Diagnoses Diagnosis Primary osteoarthritis of right knee- Primary Primary localized osteoarthrosis, lower leg Acquired valgus deformity knee, right documented in this encounter Additional Health Concerns Infection Onset Date Last Indicated Resolved Time 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 12/18/2024 documented as of this encounter Care Teams Elocution Teacher Relationship Specialty Start Date End Date Carla Pavon MD [address] [place] [address] [address] [place] [address] PCP - General Family Medicine 11/12/24 Farhana Chino APN, MUNITIONS FACTORY WORKER Nurse Practitioner Advanced Practice Nurse 04/07/16 Faraz Ozuna MD #2 [facility] [address] [place] [address] Consulting Physician Internal Medicine 06/23/16 Jorje Hicks APRN, MUNITIONS FACTORY WORKER [address] [place] [address] Nurse Practitioner Advanced Practice Nurse 06/06/22 Rebeca Chisholm MD #2 [facility] [address] [place] [address] Consulting Physician Urology 09/15/22 Kerrie Wilson APRN, MUNITIONS FACTORY WORKER [address]2 [place] [address] Nurse Practitioner Advanced Practice Nurse 08/14/23 documented as of this encounter
--- OUTSIDE RECORDS SUMMARY | 2025-01-01 14:33 | XMS_ITS | Clinical Summary ---
Author Organization [facility] Address [address] [place] [address] Phone Care Team Providers Care Livestock Rancher Name Role Phone Farhana Chino APN, AUTOMOTIVE WORKER Unavailable Faraz Ozuna MD Unavailable Jorje Hicks INFANTRYMAN, AUTOMOTIVE WORKER Unavailable Rebeca Chisholm MD Unavailable [phone] Kerrie Wilson APRN, AUTOMOTIVE WORKER Unavailable Carla Pavon MD Primary Care Provider [phone] Allergies Active Allergy Reactions Criticality Noted Date Comments Topiramate Unknown 11/16/2015 Medications acetaminophen (TYLENOL) 325 MG Tablet Take 650 mg by mouth every 4 hours as needed. Active alendronate (FOSAMAX) 70 MG Tablet Take 70 mg by mouth once a week. Takes on Sunday Active calcium carbonate (TUMS) 500 MG Chewable Tablet 1 Tablet daily. Acti ve ferrous sulfate 325 (65 FE) MG Tablet Take 325 mg by mouth every morning. Active Potassium Chloride (KLOR-CON 10 PO) Take 10 mg by mouth every evening. Active bisacodyl EC (DULCOLAX) 5 MG Tablet Delayed ResponseIndicati ons:IF NO BM FOR 2 DAYS Take 10 mg by mouth daily as needed for Constipation - 1st line. Indications: IF NO BM FOR 2 DAYS Active albuterol (PROVENTIL, VENTOLIN) (2.5 MG/3ML) 0.083% Nebulizer Soln 2.5 mg by Nebulization route every 6 hours as needed. Active Oyster Shell 500 MG Tablet Take by mouth 2 times daily. Active hydrocortisone 2.5 % Cream Apply 2 times daily as needed for Rash (APPLY TO FOREHEAD AND NOSE). prn Active selenium sulfide (SELSUN) 2.5 % Lotion Apply daily. Apply, leave 10min, rinse. Use daily x 7 days, then monthly x 3 months. Active betamethasone dipropionate (DIPROLENE) 0.05 % Ointment 2 times daily. 06/24/20 Active mupirocin (BACTROBAN) 2 % Ointment Apply daily. Apply to small wounds twice daily til healed 07/02/20 Active QUEtiapine Fumarate 300 MG Tablet 2 times daily. 06/26/20 Active Nutritional Supplements (ENSURE NUTRITION SHAKE PO)Indications:v anilla Take 1 Can by mouth 2 times daily. Active Cholecalciferol (VITAMIN D3) 1000 UNIT Tablet Take 1,000 Units by mouth every morning. Active sertraline (ZOLOFT) 50 MG Tablet Take 150 mg by mouth daily. Active Multiple Vitamins-Iron (TAB-A-OMI/IRON PO) Take 1 Tablet by mouth every morning. Active bismuth subsalicylate (PEPTO-BISMOL) 262 MG/15ML Suspension Take 30 mL by mouth as needed. Active aluminum & magnesium hydroxide-simeth icone (MAALOX, MYLANTA) 200-200-20 MG/5ML Suspension Take 30 mL by mouth every 6 hours as needed. Active guaiFENesin (ROBITUSSIN) 100 MG/5ML Syrup Take 10 mL by mouth every 4 hours as needed for Cough. Active triamcinolone (KENALOG) 0.1 % Lotion Apply daily as needed. Apply thin film to affected area(s) twice daily until healed. Active losartan (COZAAR) 25 MG Tablet Take by mouth daily. Active Aripiprazole 20 MG Tablet Take 20 mg by mouth every evening. 12/16/19 Active hydrOXYzine (ATARAX) 25 MG Tablet Take 25 mg by mouth nightly. 06/07/20 Active triamcinolone (KENALOG) 0.1 % Cream Apply 2 times daily as needed for Other (APPLY TO SCALP). 07/12/20 Active sertraline (ZOLOFT) 100 MG Tablet Take 100 mg by mouth every morning. 06/15/20 22 Active hydrocortisone (ANUSOL-HC) 25 MG Suppository 25 mg by Rectal route daily. 30 Suppository 1 03/23/20 23 Active ondansetron (ZOFRAN-ODT) 4 MG TABLET DISPERSIBLE Take 1 Tablet by mouth every 6 hours as needed for Nausea - 1st line. 10 Tablet 03/23/20 23 Active polyethylene glycol (GLYCOLAX, MIRALAX) 17 g Pack Take 1 Packet by mouth daily. Dissolve in 4-8 oz of liquid. 90 Packet 03/23/20 23 Active ondansetron (ZOFRAN) 4 MG Tablet Take 1 Tablet by mouth every 8 hours as needed for Nausea - 1st line. 15 Tablet 10/10/20 23 Active polyethylene glycol (MiraLax) 17 GM/SCOOP Powder Mix one 238 bottle of Miralax with 64 ounces of fluid of choice 238 g 1 10/10/20 23 Active simethicone (Gas-X Ultra Strength) 180 MG Capsule Follow instructions per colonoscopy prep 6 Capsule 10/10/20 23 Active alfuzosin (UROXATRAL) 10 MG TABLET SR 24 HR Take 10 mg by mouth nightly. Active Calcium Carb-Cholecalcif anjelica (CALCIUM + VITAMIN D3 PO) Take 2 Tablets by mouth daily. Active ketoconazole (NIZORAL) 2 % Cream Apply daily. APPLY TO RIGHT FOOT Active Tolnaftate (Tinactin) 1 % Aerosol by Apply externally route 2 times daily. RASH ON RIGHT FOOT Active albuterol 108 (90 Base) MCG/ACT Aerosol Solution take 1 Puff by inhalation every 4 hours as needed for Wheezing. Active Calcium & Magnesium Carbonates (MYLANTA PO) Take 30 mL by mouth every 4 hours as needed for Other (INDIGESTION). Active docusate sodium (COLACE) 100 MG Capsule Take 100 mg by mouth daily as needed for Constipation - 1st line. Active Neomycin-Bacitra cobry-Polymyxin (HCA TRIPLE ANTIBIOTIC OINTMENT EX) Apply 2 times daily as needed for Other (MINOR WOUNDS). Active polyethylene glycol (MiraLax) 17 GM/SCOOP PowderIndication s:Anal bleeding Disepense two 238 gram bottle of Miralax (Polyethylene Glycol) 238 g 1 11/06/19 24 Active Additional Information Patient not taking.Reported on 09/15/2024 simethicone (Gas-X Ultra Strength) 180 MG CapsuleIndicatio ns:Anal bleeding Take as directed per double colon prep instructions 8 Capsule 11/06/19 24 Active meloxicam (MOBIC) 7.5 MG Tablet Take 7.5 mg by mouth daily. Active miconazole 2 % Powder Apply 2 times daily. Active polyethylene glycol (MiraLax) 17 GM/SCOOP Powder Disepense two 238 gram bottle of Miralax (Polyethylene Glycol), take per colonoscopy double prep instructions 238 g 1 11/23/19 24 Active simethicone (Gas-X Ultra Strength) 180 MG Capsule Take as directed per colon prep instructions 6 Capsule 11/23/19 24 Active Mirabegron ER (Myrbetriq) 25 MG TABLET SR 24 HRIndications:Ur ge incontinence of urine,Nocturnal enuresis Take 25 mg by mouth daily. 30 Tablet 1 05/05/20 24 Active naltrexone (DEPADE) 50 MG Tablet Take 50 mg by mouth daily. Active pantoprazole (PROTONIX) 40 MG Tablet Delayed Response Take 40 mg by mouth daily. Active OMEPRAZOLE PO Take 1 Tablet by mouth daily. Active traMADol (ULTRAM) 50 MG TabletIndication s:Phimosis Take 1 Tablet by mouth every 6 hours as needed for Severe pain. 10 Tablet 07/25/20 24 Active bacitracin 500 UNIT/GM Ointment Apply 2 times daily. Application Site: Apply to penis incision twice a day (Description and Location) 30 g 1 07/25/20 24 Active bacitracin 500 UNIT/GM OintmentIndicati ons:Phimosis Apply 3 times daily. Application Site: foreskin 28 g 1 08/12/20 24 Active zinc 0xide (Desitin) 40 % Paste 08/06/20 24 Active nystatin (MYCOSTATIN) 358700 UNIT/GM Ointment 07/15/20 24 Active levoFLOXacin (LEVAQUIN) 500 MG TabletIndication s: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 diseases classified elsewhere Take 1 Tablet by mouth daily for 7 days. 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 stricture 9 Frequency 04/07/2016 Incontinence 04/07/2016 Pain of left great toe 11/16/2015 Skin ulcer of left great toe with fat layer expo sed 11/16/2015 Conductive hearing loss, external ear Impacted cerumen of both ears Encounters Date Type Department Care Team Description 12/24/2024 Transcribe Orders [facility] [address] [place] [address] Jay Lamas PAC Primary osteoarthritis of right knee (Primary Dx); Acquired valgus deformity knee, right 12/23/2024 Results Follow-Up [facility] [address] [place] [address] Jorje Hicks APRN, CNP 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) 12/18/2024 11:00 AM SPOTLIGHT OPERATOR Clinical Support [facility] [address] [place] [address] NurseChaitanya Urology Burning with urination (Primary Dx) Discharge Disposition: Discharged to home or Selfcare 12/18/2024 Travel 11/11/2024 Results Follow-Up [facility] [address] [place] [address] Jorje Hicks APRN, CNP Acquired renal cyst of right kidney (Primary Dx) 11/05/2024 8:29 AM SPOTLIGHT OPERATOR - 11/05/2024 11:59 PM SPOTLIGHT OPERATOR Hospital Encounter [facility]ound [address] [place] [address] Jorje Hicks APRN, CNP Discharge Disposition: Discharged to home or Selfcare 11/05/2024 Travel from Last 3 Months Immunizations Immunization Administration Dates Next Due Covid-19, Mrna, Lnp-s, Pf, 1 00 Mcg Or 50 Mcg Dose (MODERNA) 09/20/2021 Influenza Vaccine greater than 3 yrs 08/10/2015 Influenza Vaccine, Quadrivalent, PF 06/30,08/03/2022,08/01/2021,2019,07/25/2018,08/16/2017 Influenza Vaccine,unspecifie d Formulation 07/27/2023,08/17/2022,08/09/2016 Influenza, Injectable, Mdck,quadrivalent,with Preservative 08/21/2019 Influenza, Injectable, Quadrivalent 11/2020,07/30/2019,08/13/2017,2015 Influenza, Seasonal, Injecta ble, Undefined 07/28/2015,08/04/2014,10/10/2013 Influenza,Split Virus,Trivalent,Injectable,PF 07/23/2024 Pneumococcal Vaccine Adult - 23 Valent 08/28/2009 Sars-cov-2 (Covid-19) Vaccin e, Unspecified 12/27/2022 TDAP Vaccine 03/27/2013,07/08/2007 Td Vaccine (preservative free) 04/23/2015 Social History Tobacco Use Types Packs/Day Years Used Date Smoking Tobacco: Never Smokeless Tobacco: Never Tobacco Cessation:Counseling Given: Not Answered Alcohol Use Standard Drinks/Week Comments No 0 (1 standard drink = 0.6 oz pur e alcohol) Sexually Active Control Partners Comments Never Sex and Gender Information Value Date Recorded Sex Assigned at Not on file Legal Sex Male 11:08 PM CDT Gender Identity Not on file Sexual Orientation Not on file Last Filed Vital Signs Vital Sign Reading Time Taken Comments Blood Pressure 112/76 09/15/2024 2:06 PM SPOTLIGHT OPERATOR Pulse 72 09/15/2024 2:06 PM SPOTLIGHT OPERATOR Temperature 36.3 C (97.3 F) 09/15/2024 2:06 PM SPOTLIGHT OPERATOR Respiratory Rate 22 09/15/2024 2:06 PM SPOTLIGHT OPERATOR Oxygen Saturation 98% 09/15/2024 2:06 PM SPOTLIGHT OPERATOR Inhaled Oxygen Concentration - - Weight 45.4 kg (100 lb) 12/18/2024 10:56 AM SPOTLIGHT OPERATOR Height 157.5 cm (5' 2 ) 12/18/2024 10:56 AM SPOTLIGHT OPERATOR Body Mass Index 18.29 12/18/2024 10:56 AM SPOTLIGHT OPERATOR Plan of Treatment Upcoming Encounters Date Type Department Care Team (Latest Contact Info) Description 01/07/2025 8:00 AM CDT Appointment [facility] [address] [place] [address] Jorje Hicks, INFANTRYMAN, AUTOMOTIVE WORKER [address] [place] [address] Discharge Disposition: Discharged to home or Selfcare 01/13/2025 3:00 PM CDT Physical Therapy [facility] [address], [address] [place] [address] Jay Lamas, PAC [address] [place] [address] Kizzy Trujillo, PT [place] Discharge Disposition: Discharged to home or Selfcare 03/16/2025 9:00 AM CDT [facility] Visit [facility] [address] [place] [phone] Faraz Ozuna MD [address] [address] Health Maintenance Due Date Last Done Comments Hepatitis C Virus (HCV) Screening 1965 Hepatitis B Immunization (1 of 3 - 19+ 3-dose series) 1986 Cologuard 2017 Immunochemical Fecal Occult Blood 2017 Pneumococcal Immunization (50+ years) (2 of 2 - PCV) 2017 08/28/2009 Zoster Immunization (1 of 2) 2017 Td Immunization Every 10 Years (Adults With 1 Tdap) 04/23/2025 04/23/2015, 03/27/2013, 07/08/2007 Colonoscopy 11/27/2033 11/27/2023, 03/23/2023 Colorectal Cancer Screening 11/27/2033 Respiratory Syncytial Virus (RSV) Immunization (Adult) (1 - 1-dose 75+ series) 2042 11/27/2023, 03/23/2023 Pneumococcal Immunization Combined Discontinued 08/28/2009 DTaP/Tdap/Td Immunization Discontinued 2014, 03/27/2013, 07/08/2007 PSA Discussion Completed 08/29/2023, 09/30, 07/18/2016 Influenza Immunization Completed 4, 07/27/2023, 07/19/2023, Additional history exists SARS-COV-2 Immunization Completed 07/23/20 24, 09/24/2023, 12/27/2022, Additional history exists Meningococcal Immunization (ACWY) Aged Out No longer eligible based on patient's age to complete this topic Rotavirus Immunization Aged Out No lo nger eligible based on patient's age to complete this topic Procedures Procedure Name Priority Date/Time Associated Diagnosis Comments CULTURE, URINE Routine 12/18/2024 10:47 AM SPOTLIGHT OPERATOR Burning with urination RENAL COMPLETE Routine 11/05/2024 9:0 5 AM SPOTLIGHT OPERATOR Incomplete bladder emptying Acquired renal cyst of right kidney PSA SCREEN 08/29/2023 12:00 AM CDT from Last 3 Months or Most Recently Relevant to Health Maintenance Results * CULTURE, URINE (12/18/2024 10:47 AM SPOTLIGHT OPERATOR) CULTURE RESULTS PSEUDOMONAS AERUGINOSA 12/20/2024 9:22 PM SPOTLIGHT OPERATOR [facility] CULTURE RESULTS METHICILLIN RESISTANT STAPHYLOCOCCUS AUREUS 12/20/2024 9:22 PM SPOTLIGHT OPERATOR [facility] Comment:SENSITIVITY NOT PERF ORMED Culture URINE SPECIMEN OBTAINED BY CLEAN CATCH PROCEDURE / Unknown Non-Phlebotomy Collection / Unknown 12/18/2024 10:47 AM SPOTLIGHT OPERATOR 12/18/2024 10:47 AM SPOTLIGHT OPERATOR Narrative Organism Antibiotic Method Susceptibility Pseudomonas aeruginosa Cefepime ETEST 2 mcg/ml: Susceptible Pseudomonas aeruginosa Levofloxacin ETEST 0.25 mcg/ml: Susceptible Pseudomonas aeruginosa Meropenem ETEST 0.5 mcg/ml: Susceptible Pseudomonas aeruginosa Piperacillin/Tazobactam RAMONE FORBES 32 mm: Susceptible Pseudomonas aeruginosa Tobramycin RAMONE GAINES 26 mm: Susceptible Jorje Hicks INFANTRYMAN, AUTOMOTIVE WORKER MICROBIOLOGY - GENERAL ORDERABLES Final Result [facility] [address] [place] [address], [place] * US RENAL COMPLETE (11/05/2024 9:05 AM SPOTLIGHT OPERATOR) Anatomical Region Laterality Modality , Abdomen N/A Ultrasound 11/05/2024 3:37 PM SPOTLIGHT OPERATOR Impressions 11/05/2024 3:40 PM SPOTLIGHT OPERATOR IMPRESSION: The previously described right renal cyst is not visualized secondary to bowel gas. Consider MRI if characterization desired. Debris within the bladder. Correlate with urinalysis. Narrative 11/05/2024 3:40 PM SPOTLIGHT OPERATOR EXAM DESCRIPTION: US RENAL COMPLETE REASON FOR STUDY: right renal cyst TECHNIQUE: Ultrasound of the kidneys and urinary bladder was performed with grayscale imaging. COMPARISON: 05/05/2024 FINDINGS: RIGHT KIDNEY: The right kidney measures 11.1 cm in length. There is no hydronephrosis. There is normal cortical thickness and echogenicity. The inferior pole of the right kidney is obscured secondary to bowel gas. The previously described cyst is not visualized. LEFT KIDNEY: The left kidney measures 11.0 cm in length. There is no hydronephrosis. There is normal cortical thickness and echogenicity. URINARY BLADDER: Debris is seen within the bladder. Postvoid residual 74 mL. Ureteral jets are not visualized. OTHER: No other additional findings. THIS IS AN ELECTRONICALLY VERIFIED FINAL REPORT 11/05/2024 3:37 PM - Electronically signed by Mayur Henry M.D. KN: [id number] Report ID: [id number] Reading Location: [id number] Procedure Note Mayur Henry MD - 11/05/2024 EXAM DESCRIPTION: US RENAL COMPLETE REASON FOR STUDY: right renal cyst TECHNIQUE: Ultrasound of the kidneys and urinary bladder was performed with grayscale imaging. COMPARISON: 05/05/2024 FINDINGS: RIGHT KIDNEY: The right kidney measures 11.1 cm in length. There is no hydronephrosis. There is normal cortical thickness and echogenicity. The inferior pole of the right kidney is obscured secondary to bowel gas. The previously described cyst is not visualized. LEFT KIDNEY: The left kidney measures 11.0 cm in length. There is no hydronephrosis. There is normal cortical thickness and echogenicity. URINARY BLADDER: Debris is seen within the bladder. Postvoid residual 74 mL. Ureteral jets are not visualized. OTHER: No other additional findings. THIS IS AN ELECTRONICALLY VERIFIED FINAL REPORT 11/05/2024 3:37 PM - Electronically signed by Mayur Henry M.D. KN: [email or web address] Report ID: [id number] Reading Location: [id number] IMPRESSION: The previously described right renal cyst is not visualized secondary to bowel gas. Consider MRI if characterization desired. Debris within the bladder. Correlate with urinalysis. 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 PRE-ARREST: Use entire range of life support measures to stabilize the patient. Care Teams Livestock Rancher Relationship Specialty Start Date End Date Carla Pavon MD [address] [place] [address] [address] [place] [address] PCP - General Family Medicine 11/12/24 Farhana Chino APN, AUTOMOTIVE WORKER Nurse Practitioner Advanced Practice Nurse 04/07/16 Faraz Ozuna MD [address] [facility] [address] [place] [id number] Consulting Physician Internal Medicine 06/23/16 Jorje Hicks APRN, AUTOMOTIVE WORKER [address] [place] [address] Nurse Practitioner Advanced Practice Nurse 06/06/22 Rebeca Chisholm MD #[address] [facility] [address] [place] [address] Consulting Physician Urology 09/15/22 Kerrie Wilson APRN, AUTOMOTIVE WORKER [address] [place] [address] Nurse Practitioner Advanced Practice Nurse 08/14/23
--- OUTSIDE RECORDS SUMMARY | 2025-01-01 14:33 | XMS_ITS | Clinical Summary ---
Author Organization [facility] Medical Office Building B Address [address] [place] [address] Care Team Providers Care Arts Manager Name Role Phone Carla Pavon MD Primary Care Provider [phone] Allergies Active Allergy Reactions Criticality Noted Date [...] Arthralgia of hip 12/30/2009 Obsessive-compulsive disorder 12/30/2009 Encounters Date Type Department Care Team Description 12/31/2024 2:00 PM LEGISLATIVE ASSISTANT Therapy [facility] Occupational Therapy [address] [place] [address] Juan Miguel Cabrera OT Other specified arthritis, right knee; Other specified arthritis, left knee; Age-related osteoporosis with current pathological fracture, vertebra(e), sequela 12/30/2024 Telephone Radiology [address] [place] [address] Jyotsna De La Rosa NP 12/26/2024 12:30 PM LEGISLATIVE ASSISTANT - 12/26/2024 11:59 PM LEGISLATIVE ASSISTANT Hospital Encounter [facility] Nuclear Medicine [id number] [place] [id number] Discharge Disposition: Discharge to home or self care 12/26/2024 8:41 AM LEGISLATIVE ASSISTANT - 12/26/2024 11:59 PM LEGISLATIVE ASSISTANT Hospital Encounter [facility] Nuclear Medicine [id number] [place] [phone] Compression fracture of L1 lumbar vertebra, sequela Discharge Disposition: Discharge to home or self care 12/24/2024 10:00 AM LEGISLATIVE ASSISTANT Office Visit [facility] Orthopedic and Sports Medicine [address] [place] [phone] Jay Lamas PA Primary osteoarthritis of right knee (Primary Dx); Acquired valgus deformity knee, right 12/24/2024 Orders Only [facility] Orthopedic and Sports Medicine [address] [place] [phone] Jay Lamas PA Primary osteoarthritis of right knee (Primary Dx); Acquired valgus deformity knee, right 12/15/2024 Telephone Radiology [address] [place] [address] Jyotsna De La Rosa NP 12/09/2024 8:36 AM LEGISLATIVE ASSISTANT - 12/09/2024 11:59 PM LEGISLATIVE ASSISTANT Hospital Encounter [facility] 2 [facility] [address], [place] [place] [address] Warren Sullivan MD Primary osteoarthritis of right knee; Acquired valgus deformity knee, right Discharge Disposition: Discharge to home or self care 12/08/2024 7:52 AM LEGISLATIVE ASSISTANT - 12/08/2024 11:59 PM LEGISLATIVE ASSISTANT Hospital Encounter [facility] [address] [place] [phone] Compression fracture of L1 vertebra with delayed healing, subsequent encounter Discharge Disposition: Discharge to home or self care 11/24/2024 Telephone [facility] Orthopedic and Sports Medicine [address] [place] [phone] Jay Lamas PA 11/19/2024 9:40 AM LEGISLATIVE ASSISTANT Ancillary Procedure [facility] Imaging at [address] [phone] Chronic pain of both knees 11/19/2024 9:30 AM LEGISLATIVE ASSISTANT Office Visit [facility] Orthopedic [facility] Sports Medicine [address] [place] [phone] Jay Lamas PA Primary osteoarthritis of right knee (Primary Dx); Acquired valgus deformity knee, right 11/19/2024 Orders Only [facility] Orthopedic and Sports Medicine [address] [place] [phone] Jay Lamas PA Primary osteoarthritis of right knee (Primary Dx); Acquired valgus deformity knee, right 11/11/2024 Telephone Radiology [address] [place] [address] Jyotsna De La Rosa, MOLLY 11/07/2024 Telephone Radiology [address] [place] [address] Jyotsna De La Rosa, MOLLY 11/05/2024 10:14 AM LEGISLATIVE ASSISTANT - 11/05/2024 11:59 PM LEGISLATIVE ASSISTANT Hospital Encounter [facility] [address] [place] [phone] Compression fracture of L1 vertebra with delayed healing, subsequent encounter; Other osteoporosis without current pathological fracture Discharge Disposition: Discharge to home or self care 10/24/2024 1:50 PM LEGISLATIVE ASSISTANT Clinical Support [address] [place] [address] [place] [address] [facility] current use of bisphosphonates (Primary Dx); Compression fracture of L1 vertebra with delayed healing, subsequent encounter; Other osteoporosis without current pathological fracture; Osteoporosis, unspecified osteoporosis type, unspecified pathological fracture presence from Last 3 Months Immunizations Immunization Administration Dates Next Due Influenza, Quadrivalent, Lay l Culture-based MDCK, Antibiotic Free, Intramuscular 08/21/2019 Influenza, Quadrivalent, Spl it, Intramuscular 07/30/2021,07/30/2019,08/13/2017,08/25 Influenza, Quadrivalent, Spl it, Preservative Free, Intramuscular 07/19/2023,08/03/2022,08/01/2021,08/12,07/25/2018,08/16/2017 Influenza, Trivalent, IM (MDV) 5,07/28/2015,08/04/2014,10/10 Influenza, Unspecified 07/27/2023,08/17/2022,09/2016 Moderna SARS-CoV-2 Monovalen t Vaccination (12+ YRS) 09/20/2021 Pneumococcal Polysaccharide PPV23 08/28/2009 TD Preservative Free 04/23/2015 Tdap 03/27/2013,07/08/2007 Surgical History Surgery Date Site/Laterality Comments OTHER SURGICAL HISTORY B hip surgery HIP ARTHROPLASTY Bilateral Medical History Medical History Date Comments Hx Other Medical moderate mental retardation Hypertension Hypertension Hx Other Medical hearing impaire ment. Asthma Anemia Arthritis Vitamin D deficiency Osteoporosis Urinary retention Eczema Organic mental disorder Anxiety Depression Social History Tobacco Use Types Packs/Day Years Used Date Smoking Tobacco: Never Smokeless Tobacco: Never Tobacco Cessation:Counseling Given: No Alcohol Use Standard Drinks/Week Comments No 0 (1 standard drink = 0.6 oz pur e alcohol) [employer] Answer Date Recorded In the past 12 months has [employer], oil, or water [employer] threatened to shut off services in your [...] answer 03/04/2024 How often do you attend [facility] or church services? Patient unable to answer 03/04/2024 Do you belong to any clubs o r organizations such as [employer] groups, unions, fraternal or athletic groups, or [...] place to sleep or slept in a skilled nursing (including now)? Patient unable to answer 03/04/2024 [...] on file Legal Sex Male 3:46 AM LEGISLATIVE ASSISTANT Gender Identity Not on file Sexual Orientation Not on file Obstetrics History Last Filed Vital Signs Vital Sign Reading Time Taken Comments Blood Pressure 105/64 12/24/2024 10:12 AM LEGISLATIVE ASSISTANT Pulse 76 12/24/2024 10:12 AM LEGISLATIVE ASSISTANT Temperature 37.1 C (98.8 F) 08/18/2024 12:56 PM CDT Respiratory Rate 17 12/09/2024 8:53 AM LEGISLATIVE ASSISTANT Oxygen Saturation 98% 12/09/2024 8:53 AM LEGISLATIVE ASSISTANT Inhaled Oxygen Concentration - - Weight 58.1 kg (128 lb) 12/24/2024 10:12 AM LEGISLATIVE ASSISTANT Height 157.5 cm (5' 2 ) 12/24/2024 10:12 AM LEGISLATIVE ASSISTANT Body Mass Index 23.41 12/24/2024 10:12 AM LEGISLATIVE ASSISTANT Plan of Treatment Health Maintenance Due Date Last Done Comments Colon Cancer Screening-Colonoscopy 1965 Hepatitis C Screening 1965 Prostate Cancer Screening-PSA 1965 Hepatitis B Screening 1985 Regular Well Visit/Exam 18-64 1985 Zoster Vaccine (1 of 2) 2017 Covid-19 Vaccine ( - 2023- season) 2024 09/20/2021, 12/29/2020, 11/30/2020 DTaP/Tdap/Td Vaccine (4 - Td or Tdap) 04/23/2025 04/23/2015, 03/27/2013, 07/08/2007 Depression Screening 12/09/2025 12/09/2024, 12/09/19 25 Pneumococcal vaccine <65 Aged Out 08/28/2009 No longer eligible based on patient's age to complete this topic Influenza Vaccine Completed 07/23/2024, , 07/19/2023, Additional history exists Procedures Procedure Name Priority Date/Time Associated Diagnosis Comments NM BONE IMAGING SPECT/CT Schedule Routine, Read Routine (OP Routine) 12/26/2024 3:01 PM LEGISLATIVE ASSISTANT Compression fracture of L1 lumbar vertebra, sequela XR SPINE THORACIC 3 VIEWS Schedule Routine, Read Routine (OP Routine) 12/08/2024 8:13 AM LEGISLATIVE ASSISTANT Compression fracture of L1 vertebra with delayed healing, subsequent encounter XR SPINE LUMBAR 2 OR 3 VIEWS Schedule Routine, Read Routine (OP Routine) 12/08/2024 8:13 AM LEGISLATIVE ASSISTANT Compression fracture of L1 vertebra with delayed healing, subsequent encounter XR KNEE BILATERAL 4 OR MORE VIEWS Schedule Routine, Read Routine (OP Routine) 11/19/2024 9:45 AM LEGISLATIVE ASSISTANT Chronic pain of both knees XR SPINE LUMBAR 2 OR 3 VIEWS Schedule Routine, Read Routine (OP Routine) 11/05/2024 10:22 AM LEGISLATIVE ASSISTANT Compression fracture of L1 vertebra with delayed healing, subsequent encounter Other osteoporosis without current pathological fracture DEXA AXIAL SKELETON BONE DENSITY 1 OR MORE SITES Schedule Routine, Read Routine (OP Routine) 10/24/2024 3:26 PM LEGISLATIVE ASSISTANT Compression fracture of L1 vertebra with delayed healing, subsequent encounter Other osteoporosis without current pathological fracture from Last 3 Months Results * NM Bone Imaging SPECT/CT (12/26/2024 3:01 PM LEGISLATIVE ASSISTANT) Anatomical Region Laterality Modality N/A Nuclear Medicine 12/26/2024 4:57 PM LEGISLATIVE ASSISTANT Impressions 12/26/2024 4:57 PM LEGISLATIVE ASSISTANT FINDINGS/IMPRESSION: Examination is compromised by significant degree [...] Toan Graham M.D. Narrative 12/26/2024 4:57 PM LEGISLATIVE ASSISTANT EXAMINATION: NM BONE IMAGING SPECT/CT HISTORY: Multiple compression fractures suspected especially at L1 with back pain ORDER DATE: 12/26/2024 9:30 AM TECHNIQUE: A thoracoabdominal SPECT nuclear bone scan is obtained. The imaging study utilized 24.9 mCi of technetium labeled MDP. Procedure Note Toan Graham MD - 12/26/2024 EXAMINATION: [place] BONE IMAGING SPECT/CT HISTORY: Multiple compression fractures [...] Electronically signed by: Toan Graham M.D. Jyotsna De La Rosa NP [facility] PROCED[facility] Fin al Result * XR Spine Lumbar 2 or 3 Views (12/08/2024 8:13 AM LEGISLATIVE ASSISTANT) Anatomical Region Laterality Modality Spine N/A Computed Radiogr aphy 12/09/2024 12:1 1 PM LEGISLATIVE ASSISTANT Narrative 12/09/2024 12:22 PM LEGISLATIVE ASSISTANT EXAM DESCRIPTION: XR SPINE THORACIC 3 VIEWS; [...] seen. Dextroconvex thoracic and levoconvex lumbar curvature. Mdhs-tq-dlotkmfv intervertebral disc height loss with endplate degenerative [...] Ankit Ware D.O. AP: AP Report ID: [id number] Reading Location: [place] [address] Procedure Note Ankit Ware, DO - 12/09/2024 [...] the lumbar spine radiographs dated 11/05/2024. The [id number] body deformity appears more pronounced when compared to the previous MRIdated 08/09/2024. The T4 and T7 vertebral body deformities are again seen. Dextroconvex thoracic and levoconvex lumbar curvature. Vkci-ly-grbqgrvv intervertebral disc height loss with endplate degenerative [...] 12:22 PM - Electronically signed by Ankit Chaz Ware D.O. AP: AP Report ID: [id number] Reading Location: [id number] Jyotsna Barrett Estrella BARNES IMG XR PROCEDURES Fin al Result * XR Spine Thoracic 3 Vw (12/08/2024 8:13 AM LEGISLATIVE ASSISTANT) Anatomical Region Laterality Modality Spine N/A Computed Radiogr aphy 12/09/2024 12:1 1 PM LEGISLATIVE ASSISTANT Narrative 12/09/2024 12:22 PM LEGISLATIVE ASSISTANT EXAM DESCRIPTION: XR SPINE THORACIC 3 VIEWS; [...] seen. Dextroconvex thoracic and levoconvex lumbar curvature. Asxl-pk-msnqawdz intervertebral disc height loss with endplate degenerative [...] Ankit Ware D.O. AP: AP Report ID: [id number] Reading Location: [place] [address] Procedure Note Ankit Ware, DO - 12/09/2024 [...] the lumbar spine radiographs dated 11/05/2024. The [id number] body deformity appears more pronounced when compared to the previous MRIdated 08/09/2024. The T4 and T7 vertebral body deformities are again seen. Dextroconvex thoracic and levoconvex lumbar curvature. Fwvm-ts-cwemzbse intervertebral disc height loss with endplate degenerative [...] Ankit Ware D.O. AP: AP Report ID: [id number] Reading Location: [place] [address] Jyotsna De La Rosa NP IMG XR PROCEDURES Fin al Result * XR Knee Bilateral 4 or More Views (11/19/2024 9:45 AM LEGISLATIVE ASSISTANT) Anatomical Region Laterality Modality Lower Extremities, Knee Digital Radiography Narrative 11/19/2024 10:03 AM LEGISLATIVE ASSISTANT Four views of bilateral knees are negative for acute fracture dislocation or osseous lesion. Severe arthritic changes noted on the right side with a valgus deformity and remodeling of the lateral compartment. Left knee demonstrates moderate arthritic changes noted. Jay GILBERT IMG XR PROCEDURES Final Res ult * XR Spine Lumbar 2 or 3 Views (11/05/2024 10:22 AM LEGISLATIVE ASSISTANT) Anatomical Region Laterality Modality Spine N/A Computed Radiogr aphy 11/06/2024 5:34 AM LEGISLATIVE ASSISTANT Narrative 11/06/2024 5:38 AM LEGISLATIVE ASSISTANT EXAM DESCRIPTION: XR SPINE LUMBAR 2 OR [...] obscured. Other lumbar vertebra maintain height demonstrating bmes-fz-zwvkcwht degenerative changes along endplates most severe T12-L1, [...] Cosmo Beal M.D. RB: NICOLA Report ID: [id number] Reading Location: [id number] Procedure Note Cosmo Beal MD - 11/06/2024 [...] somewhatobscured. Other lumbar vertebra maintain height demonstrating knxl-xo-zqvqgqwg degenerative changes along endplates most severe T12-L1, [...] Cosmo Beal M.D. RB: NICOLA Report ID: [id number] Reading Location: [id number] [place] Jyotsna De La Rosa MOLLY IMG XR PROCEDURES Fin al Result * DEXA Axial Skeleton Bone Density Multi Site (10/24/2024 3:26 PM LEGISLATIVE ASSISTANT) Anatomical Region Laterality Modality Body N/A Radiographic Kaylah ging Narrative 10/24/2024 4:53 PM LEGISLATIVE ASSISTANT Patient Name: Cosmo Wade Date of : 1965 Date of scan: 10/24/2024 Bone mineral density was performed on a [employer] Densitometer. Based on machine cross-calibration and [...] by the International Society of Clinical Densitometry. [id number] Azael Newman NP IMG DXA PROCEDURES Final Result from Last 3 Months Insurance MEDICARE [facility] MEDICARE [facility] MEDICARE [place] MEDICARE [employer] Advance Directives For more information, please contact: [phone] * Full Code (Latest Code Status on [...] 1:37 AM 03/03/2024 7:33 AM Care Teams Arts Manager Relationship Specialty Start Date End Date Carla Pavon MD [address] [place] [address] [place] [address] PCP - General Family Medicine 02/28/24
== END 2025-01-01 14:28 | disposition home or self-care (01) ==
PROVIDERS: Emergency Provider Nurse Practitioner Family
DX: H10.9 Unspecified conjunctivitis (principal); I10 Essential (primary) hypertension; M19.90 Unspecified osteoarthritis, unspecified site; D64.9 Anemia, unspecified; F70 Mild intellectual disabilities; Z96.643 Presence of artificial hip joint, bilateral
CPT/HCPCS: 99213; G0463

== ENCOUNTER 2025-02-09 16:16 | Emergency (ER) | payer MEDICARE, MEDICAID, SELFPAY ==
[2025-02-09 16:34] VITALS: BP 105/60; PULSE 60; RESP 16; TEMP 36.2; O2SAT 100
--- NOTE | 2025-02-09 16:46 | ED.SKABFB ---
HPI - Skin/Abscess/Foreign Bdy General Chief complaint: Skin/Abscess/Foreign Body Stated complaint: Skin Sore/Right Leg Time Seen by Provider: 02/09/25 16:46 Source: patient Mode of arrival: ambulatory Limitations: no limitations History of Present Illness HPI narrative: 59-year-old male presents with staff from detention with concern for cellulitis to right knee. Has had redness, swelling and pain to medial aspect of right knee for the past 1-2 days. Staff reports that she worked with patient last on Sunday and at that time he did not have any of the symptoms. Patient denies injury. Patient is wheelchair-bound. All systems reviewed and negative except as noted above. Related Data Home Medications ?Medication ?Instructions ?Recorded ?Confirmed ?Last Taken ?Type alfuzosin 10 mg tablet,extended 10 mg PO DAILY 01/19/23 01/01/25 Unknown History release 24 hr ferrous sulfate 325 mg (65 mg 325 mg PO DAILY 01/19/23 01/01/25 Unknown History iron) tablet (Iron (ferrous sulfate)) potassium chloride 10 mEq 10 meq PO DAILY 01/19/23 06/13/24 Unknown History tablet,extended release sertraline 100 mg tablet 100 mg PO DAILY 01/19/23 01/01/25 Unknown History alendronate 70 mg tablet 70 mg PO DAILY 08/10/23 01/01/25 Unknown History aripiprazole 20 mg tablet 20 mg PO DAILY 08/10/23 01/01/25 Unknown History hydroxyzine HCl 25 mg tablet 25 mg PO DAILY 08/10/23 01/01/25 Unknown History multivitamin-iron sulfate 15 1 tablet PO DAILY 12/18/23 06/13/24 Unknown History mg-folic acid 400 mcg tablet (Tab-A-Daria Multivitamin w-iron) meloxicam 7.5 mg tablet 7.5 mg PO DAILY 02/06/24 06/13/24 Unknown History calcium 500 mg (as 1 tablet PO BID 05/22/24 01/01/25 Unknown History carbonate)-vitamin D3 15 mcg (600 unit) tablet cholecalciferol (vitamin D3) 25 25 mcg PO DAILY 05/22/24 06/13/24 Unknown History mcg (1,000 unit) tablet mirabegron 25 mg tablet,extended 25 mg PO DAILY 05/22/24 06/13/24 Unknown History release 24 hr (Myrbetriq) pantoprazole 40 mg tablet,delayed 40 mg PO DAILY 05/22/24 01/01/25 Unknown History release albuterol sulfate 2.5 mg/3 mL See Rx Instructions .Route .COMPLEX 06/13/24 06/13/24 Unknown History (0.083 %) solution for nebulization albuterol sulfate 90 mcg/actuation 1 puff inhalation PRN PRN Wheezing 06/13/24 06/13/24 Unknown History aerosol inhaler diphenhydramine HCl 25 mg capsule 25 mg PO QID PRN Constipation 06/13/24 06/13/24 Unknown History (Banophen) docusate sodium 100 mg capsule 100 mg PO DAILY PRN Constipation 06/13/24 01/01/25 Unknown History guaifenesin 100 mg/5 mL oral 200 mg PO Q4H PRN Cough 06/13/24 06/13/24 Unknown History liquid (Cici-Tussin) naltrexone 50 mg tablet 50 mg PO DAILY 06/13/24 01/01/25 Unknown History ondansetron HCl 4 mg tablet 4 mg PO DAILY PRN Nausea 06/13/24 06/13/24 Unknown History methocarbamol 500 mg tablet mg 02/09/25 Unknown History Allergies Allergy/AdvReac Type Severity Reaction Status Date / Time topiramate Allergy Intermediate Rash Verified 01/01/25 13:51 Review of Systems Review of Systems: CONSTITUTIONAL: Denies fever, chills, or sweats. EYES: Denies visual changes, redness, or discharge. ENT: Denies rhinorrhea, congestion, sore throat, or otalgia. CARDIOVASCULAR: Denies chest pain, palpitations, or edema. RESPIRATORY: Denies cough or dyspnea. GASTROINTESTINAL: Denies abdominal pain, nausea, vomiting, or diarrhea. GENITOURINARY: Denies dysuria or hematuria. SKIN: Denies rash or itching. Reports redness, warmth, swelling to right knee. MUSCULOSKELETAL: Denies back pain, joint pain, or myalgia. NEUROLOGIC: Denies headache, numbness, or weakness. PSYCHIATRIC: Denies anxiety or depression. All other systems reviewed are negative, except as documented in HPI. [facility] Past Medical History Medical History Anemia Bipolar disorder Eczema Hypertension Impaired vision Moderate intellectual disability Osteoarthritis Retinal detachment, left Urinary incontinence Surgical History Surgical History H/O bilateral hip replacements Social History Social History Living arrangements: detention Gender identity (if verbalized by the patient): Male Comments At time of signature, agree with nursing past medical, surgical, social and family history. There is no relevant family history pertinent to the presenting complaint. Exam Narrative: GENERAL: This is a well-nourished, well-developed patient, in no apparent distress. HEAD: normocephalic, atraumatic. EYES: PERRL. Sclera clear/white. Vision is grossly intact. EARS: External ears normal NOSE: External nose normal NECK: Neck supple, non-tender without lymphadenopathy, masses or thyromegaly. CARDIOVASCULAR: Regular rate and rhythm without murmurs, gallops, or rubs. RESPIRATORY: Clear to auscultation. Breath sounds equal bilaterally. No wheezes, rales, or rhonchi. SKIN: warm, Dry, intact with no suspicious lesions or rash, good texture and turgor. Erythema to medial aspect of right knee approximately 6 x 6 cm. Warm on palpation With swelling. No fluctuance concerning for abscess. Small abrasion noted to center. No drainage. NEURO: awake, alert, and oriented to person, place and time. There were no obvious focal neurologic abnormalities. EXTREMITIES: No joint tenderness, effusion, or edema noted. Course Course Level of Care: Express Care Visit Vital Signs Vital signs: Vital Signs Temperature 36.2 C L 02/09/25 16:34 Pulse Rate 60 02/09/25 16:34 Respiratory Rate 16 02/09/25 16:34 Blood Pressure 105/60 02/09/25 16:34 Pulse Oximetry 100 02/09/25 16:34 Oxygen Delivery Room Air 02/09/25 16:34 Temperature 36.2 C L 02/09/25 16:34 Pulse Rate 60 02/09/25 16:34 Respiratory Rate 16 02/09/25 16:34 Blood Pressure 105/60 02/09/25 16:34 Pulse Oximetry 100 02/09/25 16:34 Oxygen Delivery Room Air 02/09/25 16:34 Reviewed MDM - Skin/Abscess/Foreign Bdy MDM Narrative Medical decision making narrative: will treat cellulitis with Clindamycin. Patient lives at detention, not able to get antibiotic until tomorrow. Will give patient ceftriaxone IM today. Patient is alert, nontoxic. Please be advised this is a medical document. It is intended for iczf-hi-jnvh communication. It is written in medical language and may contain unfamiliar abbreviations or verbiage. Medical documents are intended to carry relevant information, facts as evident, and the clinical opinion of the practitioner at the time of the encounter. This report may have been done utilizing a voice recognition system. Attempts have been made to correct errors. However, there may be uncorrected grammatical, spelling, and recognition errors present. The file time of this note does not necessarily represent the time of service. Discharge Plan Discharge Clinical Impression: Cellulitis of knee, right Patient Disposition: Home Condition: Stable Instructions: Antibiotic Form, Cellulitis (ED) Additional Instructions: Give antibiotic as prescribed until gone. Give tylenol every 6 to 8 hours as needed for pain. Follow up with primary care physician in 1 week. For any worsening of infection or fever go to the ER. Patient Language: Portuguese Prescriptions: New clindamycin HCl [Cleocin HCl] 300 mg capsule 300 mg PO QID 7 Days Qty: 28 0RF No Action Tab-A-Daria Multivitamin w-iron 15 mg iron- 400 mcg tablet 1 tablet PO DAILY meloxicam 7.5 mg tablet 7.5 mg PO DAILY naltrexone 50 mg Tablet 50 mg PO DAILY albuterol sulfate 2.5 mg /3 mL (0.083 %) solution for nebulization See Rx Instructions .ROUTE .COMPLEX Rx Instructions: wheezing ondansetron HCl 4 mg tablet 4 mg PO DAILY PRN (Reason: Nausea) diphenhydramine HCl [Banophen] 25 mg capsule 25 mg PO QID PRN (Reason: Constipation) docusate sodium 100 mg capsule 100 mg PO DAILY PRN (Reason: Constipation) albuterol sulfate 90 mcg/actuation HFA aerosol inhaler 1 puff INHALATION PRN PRN (Reason: Wheezing) guaifenesin [Cici-Tussin] 100 mg/5 mL Liquid 200 mg PO Q4H PRN (Reason: Cough) sertraline 100 mg Tablet 100 mg PO DAILY potassium chloride 10 mEq Tablet Extended Release 10 meq PO DAILY ferrous sulfate [Iron (ferrous sulfate)] 325 mg (65 mg iron) Tablet 325 mg PO DAILY alfuzosin 10 mg Tablet Extended Release 24 Hr 10 mg PO DAILY Rx Instructions: administer after the same meal each day aripiprazole 20 mg tablet 20 mg PO DAILY alendronate 70 mg tablet 70 mg PO DAILY hydroxyzine HCl 25 mg tablet 25 mg PO DAILY pantoprazole 40 mg tablet,delayed release (DR/EC) 40 mg PO DAILY calcium carbonate-vitamin D3 500 mg-15 mcg (600 unit) tablet 1 tablet PO BID mirabegron [Myrbetriq] 25 mg tablet extended release 24 hr 25 mg PO DAILY cholecalciferol (vitamin D3) 25 mcg (1,000 unit) tablet 25 mcg PO DAILY mupirocin 2 % ointment 1 applic topical TID 7 Days Qty: 22 0RF polymyxin B sulf-trimethoprim 10,000 unit- 1 mg/mL drops 1 drp LEFT EYE Q3H 7 Days Qty: 10 0RF Rx Instructions: while awake; do not exceed 6 doses in 24 hours methocarbamol 500 mg tablet Follow-up/Referrals: PHYSICIAN NOT ON STAFF,NONSTAFF [Primary Care Provider] - Time of Disposition: 17:08
[2025-02-09] MEDS: cefTRIAXone 1 GM, LIDOCAINE 1% LOCAL INJ 2.1 ML IM (17:01)
--- OUTSIDE RECORDS SUMMARY | 2025-02-09 17:40 | XMS_ITS | Clinical Summary ---
Author Organization [facility] Medical Office Building B Address [address] [place] [address] Care Team Providers Care Extracorporeal Technician Name Role Phone Carla Pavon MD Primary Care Provider [phone] Allergies Active Allergy Reactions Criticality Noted Date Comments Topiramate Rash Medium 03/13/2011 Medications acetaminophen (TYLENOL) 325 mg tablet Take 2 tablets (650 mg total) by mouth every 4 (four) hours as needed for pain, headaches or fever Active ferrous sulfate 325 mg (65 mg [...] 2 % cream Apply topically daily Active mupirocin (BACTROBAN) 2 % ointment 05/22/20 [...] 07/25/20 24 Active Desitin 40 % paste 10/09/20 24 Active methocarbamoL (ROBAXIN) 500 mg tabletIndications :Compression fracture of L1 vertebra with delayed healing, subsequent encounter Take 1 tablet (500 mg total) by mouth 3 (three) times a day 90 tablet 1 09/11/20 24 Active celecoxib (CeleBREX) 100 mg capsuleIndication s:Osteoarthritis Take 1 capsule (100 mg total) by mouth 2 (two) times a day 60 capsule 1 12/24/19 25 025 Active alendronate (FOSAMAX) 70 mg tablet Take 1 tablet (70 mg total) by mouth every 7 days 1 tablet by mouth weekly on Sunday at least 30 minutes prior to meal with 8 oz water and sit upright for 1 hour. 025 Discontin ued(Thera py completed ) Tab-A-Daria Multivitamin w-iron 15 mg iron- 400 mcg tablet 08/15/20 24 025 Discontin ued(Dupli cindi order) Active Problems Problem Noted Date Diagnosed Date Osteoporosis 02/06/2025 Conductive hearing loss, external ear 08/27/2024 Dysphagia [...] Encounters Date Type Department Care Team Description 02/02/2025 9:45 AM CDT Lab [facility] at [address] [place] [address] Osteoporosis, unspecified osteoporosis type, unspecified pathological fracture presence 02/02/2025 8:00 AM CDT Office Visit [address] Medical Office Building [address] [place] [address] Thelma Bach MD Osteoporosis, unspecified osteoporosis type, unspecified pathological fracture presence (Primary Dx) 02/02/[address] Office Building [address] [place] [address] Thelma Bach MD Treatment Plan Update (New reclast) 01/09/[address] Medical Office Building [address] [place] [address] Thelma Bach MD 01/08/2025 Plan of Care Documentation [facility] Occupational Therapy [address] [place] [address] 12/31/2024 2:00 PM PICKER BOX OPERATOR Therapy [facility] Occupational Therapy [address] [place] [address] Juan Miguel Cabrera, OT Other specified arthritis, right knee; Other specified arthritis, left knee; Age-related osteoporosis with current pathological fracture, vertebra(e), sequela 12/30/2024 Telephone Radiology 1 [place] [address] Jyotsna De La Rosa NP 12/26/2024 12:30 PM PICKER BOX OPERATOR - 12/26/2024 11:59 PM PICKER BOX OPERATOR Hospital Encounter [facility] Nuclear Medicine [address] [place] [address] Discharge Disposition: Discharge to home or self care 12/26/2024 8:41 AM PICKER BOX OPERATOR - 12/26/2024 11:59 PM PICKER BOX OPERATOR Hospital Encounter [facility] Nuclear Medicine [address] [place] [address] Compression fracture of L1 lumbar vertebra, sequela Discharge Disposition: Discharge to home or self care 12/24/2024 10:00 AM PICKER BOX OPERATOR Office Visit [facility] Orthopedic and Sports Medicine [address] [place] [phone] Jay Lamas PA Primary osteoarthritis of right knee (Primary Dx); Acquired valgus deformity knee, right 12/24/2024 Orders Only [facility] Orthopedic and Sports Medicine [address] [place] [phone] Jay Lamas PA Primary osteoarthritis of right knee (Primary Dx); Acquired valgus deformity knee, right 12/15/2024 Telephone Radiology 1 [place] [address] Jyotsna De La Rosa NP 12/09/2024 8:36 AM PICKER BOX OPERATOR - 12/09/2024 11:59 PM PICKER BOX OPERATOR Hospital Encounter [facility] [address] [facility], [place] [place] [address] Warren Sullivan MD Primary osteoarthritis of right knee; Acquired valgus deformity knee, right Discharge Disposition: Discharge to home or self care 12/08/2024 7:52 AM PICKER BOX OPERATOR - 12/08/2024 11:59 PM PICKER BOX OPERATOR Hospital Encounter [facility] Imaging Center [address] [place] [address] Compression fracture of L1 vertebra with delayed healing, subsequent encounter Discharge Disposition: Discharge to home or self care 11/24/2024 Telephone [facility] Orthopedic [facility] Sports Medicine [address] [place] [phone] Jay Lamas PA 11/19/2024 9:40 AM PICKER BOX OPERATOR Ancillary Procedure [facility] Imaging at [address] [phone] Chronic pain of both knees 11/19/2024 9:30 AM PICKER BOX OPERATOR Office Visit [facility] Orthopedic [facility] Sports Medicine [address] [place] [phone] Jay Lamas PA Primary osteoarthritis of right knee (Primary Dx); Acquired valgus deformity knee, right 11/19/2024 Orders Only [facility] Orthopedic and Sports Medicine [facility] [place] [address] Jay Lamas PA Primary osteoarthritis of right knee (Primary Dx); Acquired valgus deformity knee, right 11/11/2024 Telephone Radiology 1 [place] [address] Jyotsna De La Rosa NP from Last 3 Months Immunizations Immunization Administration [...] retention Eczema Organic mental disorder Anxiety Depression Family History Medical History Relation Name Comments Broken bones Neg Hx Hip fracture Neg Hx Kyphosis Neg Hx Osteoporosis Neg Hx Scoliosis Neg Hx Social History Tobacco Use Types Packs/Day Years Used Date Smoking Tobacco: Never Smokeless Tobacco: Never Tobacco Cessation:Counseling Given: No Alcohol Use Standard Drinks/Week Comments No 0 (1 standard drink = 0.6 oz pur e alcohol) [facility] Utilities Answer Date Recorded In the past 12 months has [employer], gas, oil, or water [employer] threatened to shut off services in your [...] often do you attend chur ch or muslim services? Patient unable to answer 03/04/2024 Do you belong to any clubs o r organizations such as buddhist groups, unions, fraternal or athletic groups, or [...] place to sleep or slept in a long-term (including now)? Patient unable to answer 03/04/2024 [...] on file Legal Sex Male 3:46 AM PICKER BOX OPERATOR Gender Identity Not on file Sexual Orientation Not on file Obstetrics History Last Filed Vital Signs Vital Sign Reading Time Taken Comments Blood Pressure 105/64 12/24/2024 10:12 AM PICKER BOX OPERATOR Pulse 76 12/24/2024 10:12 AM PICKER BOX OPERATOR Temperature 37.1 C (98.8 F) 08/18/2024 12:56 PM CDT Respiratory Rate 17 12/09/2024 8:53 AM PICKER BOX OPERATOR Oxygen Saturation 98% 12/09/2024 8:53 AM PICKER BOX OPERATOR Inhaled Oxygen Concentration - - Weight 58.1 kg (128 lb) 02/02/2025 8:17 AM CDT Height 157.5 cm (5' 2 ) 02/02/2025 8:17 AM CDT Body Mass Index 23.41 02/02/2025 8:17 AM CDT Plan of Treatment Health Maintenance [...] Procedure Name Priority Date/Time Associated Diagnosis Comments IMMUNOTYPING Routine 02/02/2025 9:24 AM CDT Osteoporosis, unspecified osteoporosis type, unspecified pathological fracture presence EGFR Routine 02/02/2025 9:24 AM CDT Osteoporosis, unspecified osteoporosis type, unspecified pathological fracture presence PHOSPHORUS Routine 02/02/2025 9:24 AM CDT Osteoporosis, unspecified osteoporosis type, unspecified pathological fracture presence PROTEIN ELECTROPHORESIS, WITH REFLEX, SERUM Routine 02/02/2025 9:24 AM CDT Osteoporosis, unspecified osteoporosis type, unspecified pathological fracture presence PTH Routine 02/02/2025 9:24 AM CDT Osteoporosis, unspecified osteoporosis type, unspecified pathological fracture presence VITAMIN D 25 HYDROXY Routine 02/02/2025 9:24 AM CDT Osteoporosis, unspecified osteoporosis type, unspecified pathological fracture presence COMPREHENSIVE METABOLIC PANEL Routine 02/02/2025 9:24 AM CDT Osteoporosis, unspecified osteoporosis type, unspecified pathological fracture presence OSTEOCALCIN Routine 02/02/2025 9:24 AM CDT Osteoporosis, unspecified osteoporosis type, unspecified pathological fracture presence BETA-CROSSLAPS (BETA-CTX) Routine 02/02/2025 9:24 AM CDT Osteoporosis, unspecified osteoporosis type, unspecified pathological fracture presence NM BONE IMAGING SPECT/CT Schedule Routine, Read Routine (OP Routine) 12/26/2024 3:01 PM PICKER BOX OPERATOR Compression fracture of L1 lumbar vertebra, sequela XR SPINE THORACIC 3 VIEWS Schedule Routine, Read Routine (OP Routine) 12/08/2024 8:13 AM PICKER BOX OPERATOR Compression fracture of L1 vertebra with delayed healing, subsequent encounter XR SPINE LUMBAR 2 OR 3 VIEWS Schedule Routine, Read Routine (OP Routine) 12/08/2024 8:13 AM PICKER BOX OPERATOR Compression fracture of L1 vertebra with delayed healing, subsequent encounter XR KNEE BILATERAL 4 OR MORE VIEWS Schedule Routine, Read Routine (OP Routine) 11/19/2024 9:45 AM PICKER BOX OPERATOR Chronic pain of both knees from Last 3 Months Results * Immunotyping, serum with interpretation (02/02/2025 9:24 AM CDT) Immunosubtraction See Comment Comment: IMMUNOTYPING INTERPRETATION: No Monoclonal Protein Detected Testing performed by: [facility], [facility], [place]., [address] Blood 02/02/2025 9:24 AM CDT 02/02/2025 2:16 PM CDT Narrative ZULEMA HUANG - 02/03/2025 1:18 PM CDT Reflex Immunotyping, Ser Thelma Bach MD LAB BLOOD ORDERABLE S Final Result [facility] [address] [facility]. Department [place] [address] * eGFR (02/02/2025 9:24 AM CDT) eGFR >90 >=60 mL/min/1. 73 m2 Comment: Interpretive Data Reference Interval Normal >/= 90 mL/min/1.73m2 Mildly decreased* 60 - 89 mL/min/1.73m2 Mildly to moderately decreased 45 - 59 mL/min/1.73m2 Moderately to severely decreased 30 - 44 mL/min/1.73m2 Severely decreased 15 - 29 mL/min/1.73m2 Kidney Failure < 15 mL/min/1.73m2 *Relative to young adult level Estimated glomerular filtration rate is determined by the 2020 CKD-EPI equation recommended by the National Kidney Foundation (A Unifying Approach to GFR Estimation: Recommendations of the NKF-ASK Task Force on Reassessing the Inclusion of Race in Diagnosing Kidney Disease, JASN 2020). The CKD-EPI equation should not be used for patients with unstable renal function and has not been validated in children and those over 70. Current interpretive data was last reviewed 2021. Testing performed by: [facility], [address], [place] [address] Blood 02/02/2025 9:24 AM CDT 02/02/2025 9:41 AM CDT Thelma Bach MD LAB BLOOD ORDERABLE S Final Result Performing Organization Address [facility] Co de Phone Number [facility] [address] [facility] [facility] [employer] [place] [address] * Beta-CrossLaps (Beta-CTx) (02/02/2025 9:24 AM CDT) Beta-CTx 387 pg/mL Comment: Interpretive Data Female: Premenopausal: 136 - 689 pg/mL Postmenopausal: 177 - 1015 pg/mL Male: 30 - 50 years: 131 - 670 pg/mL 51 - 70 years: 171 - 1060 pg/mL > 70 years: 152 - 858 pg/mL Current interpretive data was last revised on 2024. Testing performed by: [facility], [address] [place]., [address] Blood 02/02/2025 9:24 AM CDT 02/02/2025 2:13 PM CDT Thelma Bach MD LAB BLOOD ORDERABLE S Final Result Performing Organization Address City/[facility] de Phone Number [facility] [address] [facility] [facility] [employer] [place] [address] * Osteocalcin (02/02/2025 9:24 AM CDT) Osteocalcin 24.5 ng/mL Comment: Interpretive Data Female: Premenopausal: 7.6 - 35.1 ng/mL Postmenopausal: 7.3 - 38.5 ng/mL Male: 30 - 50 years: 8.4 - 36.7 ng/mL > 50 years: 9.9 - 35.6 ng/mL Current interpretive data was last revised on 2022. Testing performed by: [facility], [address] [place]., [address] Blood 02/02/2025 9:24 AM CDT 02/02/2025 2:13 PM CDT Thelma Bach MD LAB BLOOD ORDERABLE S Final Result Performing Organization Address [facility]/ZIP Co de Phone Number [facility] [address] [facility]. Department of [facility] [employer] [place] [address] * Vitamin D 25 hydroxy (02/02/2025 9:24 AM CDT) Pathologist [facility] Vitamin D 25-OH 45 30 - 80 ng/mL Comment:Testing performed by : [facility], [address] [place] [address] Blood 02/02/2025 9:24 AM CDT 02/02/2025 9:41 AM CDT Thelma Bach MD LAB BLOOD ORDERABLE S Edited Result - Final Performing Organization Address [facility] Co de Phone Number [facility] [address] [facility]. Department of [facility] [employer] [place] [address] * Protein electrophoresis with reflex, serum with interpretation (02/02/2025 9:24 AM CDT) Pathologist [facility] Protein, sr 7.0 6.2 - 8.2 g/dL Comment:Testing performed by : [facility], [address] [place] [address]., [address] Albumin 3.7 3.2 - 5.0 g/dL [facility]ULEMA [facility] Comment:Testing performed by : [facility], [address] [place] [address]., [address] Alpha-1 globulin 0.3 0.2 - 0.4 g/dL ZULEMA HUANG Comment:Testing performed by : [facility], [address] [place] [address]., [address] Alpha-2 globulin 0.7 0.5 - 1.0 g/dL ZULEMA ROSARIO Comment:Testing performed by : [facility], [address] [place] [address]., [address] Beta-1 globulin 0.4 0.3 - 0.6 g/dL ZULEMA ROSARIO Comment:Testing performed by : [facility], [address] [place] [address]., [address] Beta-2 globulin 0.2 0.2 - 0.6 g/dL ZULEMA ROSARIO Comment:Testing performed by : [facility], [address] [place] [address]., [address] Gamma globulin 1.6 0.5 - 1.7 g/dL ZULEMA HUANG Comment:Testing performed by : [facility], [address] [place] [address]., [address] SPEP interp See Comment ZULEMA HUANG Comment: SPEP INTERPRETATION: No apparent monoclonal protein. Polyclonal increase in gamma globulins. Testing performed by: [facility], [address] [place] [address]., [id number] Immunotyping See Immunotyping Results [facility] Comment:Testing performed by : [facility], [address] [place] [address]., [id number] Blood 02/02/2025 9:24 AM CDT 02/02/2025 2:16 PM CDT us Thelma Bach MD LAB BLOOD ORDERABLE S Final Result [facility] [address] [facility] Department of Laboratories [place], [place] [id number] * Phosphorus (02/02/2025 9:24 AM CDT) Pathologist [facility] Phosphorus, pl 3.6 2.3 - 4.5 mg/dL Comment:Testing performed by : [facility], [address] [place] [address] Blood 02/02/2025 9:24 AM CDT 02/02/2025 9:41 AM CDT Thelma Bach MD LAB BLOOD ORDERABLE S Edited Result - Final Performing Organization Address [facility] Co de Phone Number [facility] [address] [facility] [place] [address] * PTH (02/02/2025 9:24 AM CDT) [facility] PTH 24 15 - 65 pg/mL Comment:Testing performed by : [facility], [address], [place], [place] [address] Blood 02/02/2025 9:24 AM CDT 02/02/2025 9:41 AM CDT Thelma Bach MD LAB BLOOD ORDERABLE S Final Result Performing Organization Address [facility] de Phone Number [facility] [address] [facility] [employer] [place] [address] * (ABNORMAL) Comprehensive metabolic panel (02/02/2025 9:24 AM CDT) Pathologist [facility] Sodium 133(L) 135 - 145 mmol/L Comment:Testing performed by : [facility], [address] [place] [address] Potassium, pl 4.2 3.3 - 4.9 mmol/L CERSETH [facility] Comment:Testing performed by : [facility], [address], [place] [address] Chloride 96(L) 97 - 110 mmol/L CERSETH [facility] Comment:Testing performed by : [facility], [address], [place] [address] CO2 28 22 - 32 mmol/L CERNER [facility] Comment:Testing performed by : [facility], [address], [place] [address] Anion gap 9 2 - 15 mmol/L CERNER [facility] Comment:Testing performed by : [facility], [address], [place] [address] BUN 17 6 - 25 mg/dL CERNER [facility] Comment:Testing performed by : [facility], [address], [place] [address] Creatinine 0.50(L) 0.80 - 1.30 mg/dL CERNER [facility] Comment:Testing performed by : [facility], [address], [place] [address] Glucose 90 70 - 199 mg/dL CERNER [facility] Comment: Interpretive Data Fasting glucose >/= 126 mg/dl is diagnostic for diabetes. Fasting is defined as no caloric intake for at least 8 hours. Fasting glucose between 100 mg/dl to 125 mg/dl is diagnostic of prediabetes. In a patient with classic symptoms of hyperglycemia or hyperglycemic crisis, a random glucose >/= 200 mg/dl is diagnostic for diabetes. In the absence of unequivocal hyperglycemia, results should be confirmed by repeat testing. The classification and Diagnosis of Diabetes Diabetes Care 202; 46: S19-S40. Current interpretive data was last revised 2022. Testing performed by: [facility], [address], [place] [address] Calcium 9.3 8.5 - 10.3 mg/dL CERNER [facility] Comment:Testing performed by : [facility], [address], [place] [address] Bilirubin, total 0.2 0.1 - 1.2 mg/dL CERNER [facility] Comment:Testing performed by : [facility], [address], [place] [address] Protein, pl 7.4 6.5 - 8.5 g/dL CERNER [facility] Comment:Testing performed by : [facility], [address], [place] [address] Albumin 4.0 3.5 - 5.0 g/dL CERNER [facility] Comment:Testing performed by : [facility], [address], [place] [address] Alk phos 103 40 - 130 Units/L ZULEMA [facility] Comment:Testing performed by : [facility], [address], [place] [address] ALT 15 7 - 55 Units/L CERSETH [facility] Comment:Testing performed by : [facility], [address], [place] [address] AST 23 10 - 50 Units/L ZULEMA [facility] Comment:Testing performed by : [facility], [address], [place] [address] Blood 02/02/2025 9:24 AM CDT 02/02/2025 9:41 AM CDT us Thelma Bach MD LAB BLOOD ORDERABLE S Edited Result - Final [facility]ULEMA [facility]AR[facility] [address]. Department [place] [address] * NM Bone Imaging SPECT/CT (12/26/2024 3:01 PM PICKER BOX OPERATOR) Anatomical Region Laterality Modality N/A Nuclear Medicine 12/26/2024 4:57 PM PICKER BOX OPERATOR Impressions 12/26/2024 4:57 PM PICKER BOX OPERATOR FINDINGS/IMPRESSION: Examination is compromised by significant degree [...] Toan Graham M.D. Narrative 12/26/2024 4:57 PM PICKER BOX OPERATOR EXAMINATION: NM BONE IMAGING SPECT/CT HISTORY: Multiple [...] Graham M.D. Jyotsna De La Rosa NP IMG NM PROCEDURES Fin al Result * XR Spine Lumbar 2 or 3 Views (12/08/2024 8:13 AM PICKER BOX OPERATOR) Anatomical Region Laterality Modality Spine N/A Computed Radiogr aphy 12/09/2024 12:1 1 PM PICKER BOX OPERATOR Narrative 12/09/2024 12:22 PM PICKER BOX OPERATOR EXAM DESCRIPTION: XR SPINE THORACIC 3 VIEWS; [...] seen. Dextroconvex thoracic and levoconvex lumbar curvature. Efgq-qj-jfwnfwea intervertebral disc height loss with endplate degenerative [...] Ankit Ware D.O. AP: AP Report ID: [id number] Reading Location: [id number] Procedure Note Ankit Ware, DO - 12/09/2024 [...] the lumbar spine radiographs dated 11/05/2024. The [id number] body deformity appears more pronounced when compared to the previous MRIdated 08/09/2024. The T4 and T7 vertebral body deformities are again seen. Dextroconvex thoracic and levoconvex lumbar curvature. Arcz-km-cvokuhmh intervertebral disc height loss with endplate degenerative [...] Ankit Ware D.O. AP: AP Report ID: [id number] Reading Location: [place] [address] [place] Jyotsna De La Rosa NP IMG XR PROCEDURES Fin al Result * XR Spine Thoracic 3 Vw (12/08/2024 8:13 AM PICKER BOX OPERATOR) Anatomical Region Laterality Modality Spine N/A Computed Radiogr aphy 12/09/2024 12:1 1 PM PICKER BOX OPERATOR Narrative 12/09/2024 12:22 PM PICKER BOX OPERATOR EXAM DESCRIPTION: XR SPINE THORACIC 3 VIEWS; [...] seen. Dextroconvex thoracic and levoconvex lumbar curvature. Mzdy-qo-xjtvuwwy intervertebral disc height loss with endplate degenerative [...] Ankit Ware D.O. AP: AP Report ID: [id number] Reading Location: [place] [address] Procedure Note Ankit Ware, DO - 12/09/2024 [...] the lumbar spine radiographs dated 11/05/2024. The [id number] body deformity appears more pronounced when compared to the previous MRIdated 08/09/2024. The T4 and T7 vertebral body deformities are again seen. Dextroconvex thoracic and levoconvex lumbar curvature. Wzeq-rz-tjqldkjq intervertebral disc height loss with endplate degenerative [...] Ankit Ware D.O. AP: AP Report ID: [id number] Reading Location: [place] [address] Jyotsna De La Rosa NP IMG XR PROCEDURES Fin al Result * XR Knee Bilateral 4 or More Views (11/19/2024 9:45 AM PICKER BOX OPERATOR) Anatomical Region Laterality Modality Lower Extremities, Knee Digital Radiography Narrative 11/19/2024 10:03 AM PICKER BOX OPERATOR Four views of bilateral knees are negative for acute fracture dislocation or osseous lesion. Severe arthritic changes noted on the right side with a valgus deformity and remodeling of the lateral compartment. Left knee demonstrates moderate arthritic changes noted. Jay GILBERT IMG XR PROCEDURES Final Res ult from Last 3 Months Insurance MEDICARE IDPA MEDICARE IDPA MEDICARE [place] MEDICARE [place] Advance Directives For more information, please contact: [phone] * Full Code (Latest Code Status on [...] 1:37 AM 03/03/2024 7:33 AM Care Teams Extracorporeal Technician Relationship Specialty Start Date End Date Carla Pavon MD [address] [place] [address] [address] SU[address]REZ [address] [place] [address] PCP - General Family Medicine 02/28/24
--- OUTSIDE RECORDS SUMMARY | 2025-02-09 17:40 | XMS_ITS | Encounter Summary ---
Author Organization [facility] Address [facility] [place] [address] Phone Care Team Providers Care Gas Distribution Plant Operator Name Role Phone Farhana Chino APN, SOFTWARE REVERSE ENGINEER Unavailable [phone] Faraz Ozuna MD Unavailable Jorje Hicks APRN, SOFTWARE REVERSE ENGINEER Unavailable [phone] Rebeca Chisholm MD Unavailable [phone] Kerrie Wilson APRN, SOFTWARE REVERSE ENGINEER Unavailable Carla Pavon MD Primary Care Provider Reason for Referral * Radiology Services (Routine) - Authorized Specialty Diagnoses / Procedures Referred By Hari lanza Referred To Contact Radiology Diagnoses Acquired renal cyst of right kidney Procedures US RENAL COMPLETE Jorje Hicks APRN, ROSIE [address] [place] [address] Phone: tel: fax: Referral ID Status Reason Start Date Expiration Date V isits Requested Visits Authorized [id number] Authorized 01/19/2025 1 1 Encounter Details Date Type Department Care Team (Late st Contact Info) Description 01/19/2025 Results Follow-Up [facility] [address] [place] [phone] Jorje Hicks APRN, SOFTWARE REVERSE ENGINEER [address] [place] [address] Acquired renal cyst of right kidney (Primary Dx) Social History Tobacco Use Types [...] Department Care Team (Latest Contact Info) Description 02/17/2025 4:15 PM CDT Physical [facility] [address] [facility], [place] [address] [phone] Jay Lamas, PAC [address] [place] [address] Melanie Vega, [place] Discharge Disposition: Discharged to home or Selfcare 02/25/2025 4:15 PM CDT Physical [facility] [address] [facility], [place] [address] [address] Jay Lamas, PAC [address] [place] [address] Melanie Vega, PT [place] 03/05/2025 4:15 PM CDT Physical [facility] [address] [facility], [place] [address] [place] [address] Jay Lamas, PAC [address] [place] [address] Melanie Vega, PT [place] 03/12/2025 4:15 PM CDT Physical Therapy [facility] [address] [facility], [place] [address] [place] [phone] Jay Lamas, PAC [address] [place] [address] Melanie Vega, PT [place] 03/16/2025 9:00 AM CDT Office Visit [facility] #2 [facility] [place] [address] Faraz Ozuna MD #[address] [address] 03/19/2025 4:15 PM CDT Physical [facility] [address] [facility], [place] [address] [phone] Jay Lamas, PAC [address] [place] [address] Melanie Vega, PT [place] 03/26/2025 3:30 PM CDT Physical [facility] [address] [facility], [place] [address] [phone] Jay Lamas, PAC [address] [place] [address] Melanie Vega, PT [place] 04/02/2025 4:15 PM CDT Physical [facility] [address] [facility], [place] [address] [place] [phone] Jay Lamas, PAC [address] [place] [address] Melanie Vega PT [place] 07/22/2025 9:30 AM CDT Appointment [facility] Ultrasound 1 [place] [address] Jorje Hicks APRN, SOFTWARE REVERSE ENGINEER [address] [place] [address] Discharge Disposition: Discharged to home or Selfcare 08/04/2025 10:00 AM CDT Office Visit [facility] [address] [place] [address] Jorje Hicks APRN, SOFTWARE REVERSE ENGINEER [address] [place] [address] Scheduled Orders Name Type Priority Associated Diagnoses Orde r Schedule US RENAL COMPLETE Imaging Routine Acquired renal cyst of right kidney Expected: 07/22/2025, Expires: 01/19/2026 documented as of this encounter Visit Diagnoses Diagnosis Acquired renal cyst of right kidney- Primary Acquired cyst of kidney documented in this encounter Additional Health Concerns Infection Onset Date Last Indicated Resolved Time 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 12/18/2024 documented as of this encounter Care Teams Gas Distribution Plant Operator Relationship Specialty Start Date End Date Carla Pavon MD [address] [place] [address] PCP - General Family Medicine 11/12/24 Farhana Chino, ORTHODONTIC LABORATORY TECHNICIAN, SOFTWARE REVERSE ENGINEER Nurse Practitioner Advanced Practice Nurse 04/07/16 Faraz Ozuna MD #2 [facility] [address] [place] [address] Consulting Physician Internal Medicine 06/23/16 Jorje Hicks APRN, SOFTWARE REVERSE ENGINEER [address] [place] [address] Nurse Practitioner Advanced Practice Nurse 06/06/22 Rebeca Chisholm MD #[address] [address] Consulting Physician Urology 09/15/22 Kerrie Wilson APRN, SOFTWARE REVERSE ENGINEER [address]2 [place] [address] Nurse Practitioner Advanced Practice Nurse 08/14/23 documented as of this encounter
--- OUTSIDE RECORDS SUMMARY | 2025-02-09 17:40 | XMS_ITS | Referral Summary ---
Author Organization [facility] Medical Office Building B Address [address] [place] [address] Care Team Providers Care Paint Roller Cover Machine Setter Name Role Phone Carla Pavon MD Primary Care Provider [phone] Encounters Date Type Department Care Team Description 02/02/[address] Medical Office Building [address] [place] [phone] Thelma Bach MD Treatment Plan Update (New reclast) 02/02/2025 9:45 AM CDT Lab [facility] at [address] [phone] Osteoporosis, unspecified osteoporosis type, unspecified pathological fracture presence 02/02/2025 8:00 AM CDT Office Visit [address] Medical Office Building [address] [place] [phone] Thelma Bach MD Osteoporosis, unspecified osteoporosis type, unspecified pathological fracture presence (Primary Dx) 01/09/[address] Office Building [address] [place] [phone] Thelma Bach MD 01/08/2025 Plan of Care Documentation [facility] Occupational Therapy [address] [place] [address] 12/31/2024 2:00 PM LIQUEFIED PETROLEUM GASFITTER Therapy [facility] Occupational Therapy 1 [place] [address] Juan Miguel Cabrera OT Other specified arthritis, right knee; Other specified arthritis, left knee; Age-related osteoporosis with current pathological fracture, vertebra(e), sequela 12/30/2024 Telephone Radiology 1 [place] [address] Jyotsna De La Rosa NP 12/26/2024 12:30 PM LIQUEFIED PETROLEUM GASFITTER - 12/26/2024 11:59 PM LIQUEFIED PETROLEUM GASFITTER Hospital Encounter [facility] Nuclear Medicine [id number] [place] [address] Discharge Disposition: Discharge to home or self care 12/26/2024 8:41 AM LIQUEFIED PETROLEUM GASFITTER - 12/26/2024 11:59 PM LIQUEFIED PETROLEUM GASFITTER Hospital Encounter [facility] Medicine [address] [place] [address] Compression fracture of L1 lumbar vertebra, sequela Discharge Disposition: Discharge to home or self care 12/24/2024 Orders Only [facility] Medical Group Orthopedic and Sports Medicine [address] [place] [phone] Jay Lamas PA Primary osteoarthritis of right knee (Primary Dx); Acquired valgus deformity knee, right 12/24/2024 10:00 AM LIQUEFIED PETROLEUM GASFITTER Office Visit [facility] Group Orthopedic and Sports Medicine [address] [place] [phone] Jay Lamas PA Primary osteoarthritis of right knee (Primary Dx); Acquired valgus deformity knee, right 12/15/2024 Telephone Radiology 1 [place] [address] Jyotsna De La Rosa NP 12/09/2024 8:36 AM LIQUEFIED PETROLEUM GASFITTER - 12/09/2024 11:59 PM LIQUEFIED PETROLEUM GASFITTER Hospital Encounter [facility] Pain Management Clinic [address] [facility] [address], [place] [place] [address] Warren Sullivan MD Primary osteoarthritis of right knee; Acquired valgus deformity knee, right Discharge Disposition: Discharge to home or self care 12/08/2024 7:52 AM LIQUEFIED PETROLEUM GASFITTER - 12/08/2024 11:59 PM LIQUEFIED PETROLEUM GASFITTER Hospital Encounter [facility] Imaging Center 1 [place] [address] Compression fracture of L1 vertebra with delayed healing, subsequent encounter Discharge Disposition: Discharge to home or self care 11/24/2024 Telephone [facility] Medical [facility] Orthopedic and Sports Medicine [address] [place] [phone] Jay Lamas PA 11/19/2024 Orders Only [facility] Orthopedic and Sports Medicine [address] [place] [phone] Jay Lamas PA Primary osteoarthritis of right knee (Primary Dx); Acquired valgus deformity knee, right 11/19/2024 9:40 AM LIQUEFIED PETROLEUM GASFITTER Ancillary Procedure [facility] Imaging at [address] [phone] Chronic pain of both knees 11/19/2024 9:30 AM LIQUEFIED PETROLEUM GASFITTER Office Visit [facility] Orthopedic and Sports Medicine [address] [place] [phone] Jay Lamas PA Primary osteoarthritis of right knee (Primary Dx); Acquired valgus deformity knee, right 11/11/2024 Telephone [address] [place] [address] Jyotsna De La Rosa NP from Last 3 Months Allergies Active Allergy [...] Immunization Administration Dates Next Due Influenza, Quadrivalent, Aly l Culture-based MDCK, Antibiotic Free, Intramuscular 08/21/2019 [...] drink = 0.6 oz pur e alcohol) [facility] Utilities Answer Date Recorded In the past 12 months has [email or web address], gas, oil, or water company threatened to [...] often do you attend chur ch or denominational services? Patient unable to answer 03/04/2024 Do you belong to any clubs o r organizations such as rastafarian groups, unions, fraternal or athletic groups, or [...] place to sleep or slept in a halfway (including now)? Patient unable to answer 03/04/2024 [...] on file Legal Sex Male 3:46 AM LIQUEFIED PETROLEUM GASFITTER Gender Identity Not on file Sexual Orientation Not on file Last Filed Vital Signs Vital Sign Reading Time Taken Comments Blood Pressure 105/64 12/24/2024 10:12 AM LIQUEFIED PETROLEUM GASFITTER Pulse 76 12/24/2024 10:12 AM LIQUEFIED PETROLEUM GASFITTER Temperature 37.1 C (98.8 F) 08/18/2024 12:56 PM CDT Respiratory Rate 17 12/09/2024 8:53 AM LIQUEFIED PETROLEUM GASFITTER Oxygen Saturation 98% 12/09/2024 8:53 AM LIQUEFIED PETROLEUM GASFITTER Inhaled Oxygen Concentration - - Weight 58.1 kg (128 lb) 02/02/2025 8:17 AM CDT Height 157.5 cm (5' 2 ) 02/02/2025 8:17 AM CDT Body Mass Index 23.41 02/02/2025 8:17 AM CDT Plan of Treatment Not on file Procedures [...] Read Routine (OP Routine) 12/26/2024 3:01 PM LIQUEFIED PETROLEUM GASFITTER Compression fracture of L1 lumbar vertebra, sequela XR SPINE THORACIC 3 VIEWS Schedule Routine, Read Routine (OP Routine) 12/08/2024 8:13 AM LIQUEFIED PETROLEUM GASFITTER Compression fracture of L1 vertebra with delayed healing, subsequent encounter XR SPINE LUMBAR 2 OR 3 VIEWS Schedule Routine, Read Routine (OP Routine) 12/08/2024 8:13 AM LIQUEFIED PETROLEUM GASFITTER Compression fracture of L1 vertebra with delayed healing, subsequent encounter XR KNEE BILATERAL 4 OR MORE VIEWS Schedule Routine, Read Routine (OP Routine) 11/19/2024 9:45 AM LIQUEFIED PETROLEUM GASFITTER Chronic pain of both knees from Last 3 Months Results * Immunotyping, serum with interpretation (02/02/2025 9:24 AM CDT) Immunosubtraction See Comment Comment: IMMUNOTYPING INTERPRETATION: No Monoclonal Protein Detected Testing performed by: [facility], [facility], [place]., [address] Blood 02/02/2025 9:24 AM CDT 02/02/2025 2:16 PM CDT Narrative ZULEMA HUANG - 02/03/2025 1:18 PM CDT Reflex Immunotyping, Ser us Thelma Bach MD LAB BLOOD ORDERABLE S Final Result ZULEMA VASQUEZCH [address] [facility]. [place] [address] * eGFR (02/02/2025 9:24 AM [...] was last reviewed 2021. Testing performed by: [facility], [address] [facility], [place] [address] Blood 02/02/2025 9:24 AM CDT 02/02/2025 9:41 AM CDT Thelma Bach MD LAB BLOOD ORDERABLE S Final Result [facility] [address] [facility]. Department [place] [address] * Beta-CrossLaps (Beta-CTx) (02/02/2025 9:24 AM CDT) Beta-CTx 387 pg/mL Comment: Interpretive Data Female: Premenopausal: 136 - 689 pg/mL Postmenopausal: 177 - 1015 pg/mL Male: 30 - 50 years: 131 - 670 pg/mL 51 - 70 years: 171 - 1060 pg/mL > 70 years: 152 - 858 pg/mL Current interpretive data was last revised on 2024. Testing performed by: [facility], [address] [place]., [address] Blood 02/02/2025 9:24 AM CDT 02/02/2025 2:13 PM CDT Thelma Bach MD LAB BLOOD ORDERABLE S Final Result Performing Organization Address [facility] Co de Phone Number [facility] [address] [facility] Department [place] [address] * Osteocalcin (02/02/2025 9:24 AM CDT) Osteocalcin 24.5 ng/mL Comment: Interpretive Data Female: Premenopausal: 7.6 - 35.1 ng/mL Postmenopausal: 7.3 - 38.5 ng/mL Male: 30 - 50 years: 8.4 - 36.7 ng/mL > 50 years: 9.9 - 35.6 ng/mL Current interpretive data was last revised on 2022. Testing performed by: [facility], [address] [facility], [place]., [address] Blood 02/02/2025 9:24 AM CDT 02/02/2025 2:13 PM CDT us Thelma Bach MD LAB BLOOD ORDERABLE S Final Result Performing Organization Address City/[facility] Co de Phone Number [facility] [address] [facility] Department [place] [address] * Vitamin D 25 hydroxy (02/02/2025 9:24 AM CDT) Vitamin D 25-OH 45 30 - 80 ng/mL Comment:Testing performed by : [facility], [address] [facility], [place] [address] Blood 02/02/2025 9:24 AM CDT 02/02/2025 9:41 AM CDT Thelma Bach MD LAB BLOOD ORDERABLE S Edited Result - Final [facility] [address] [facility] Department [place] [address] * Protein electrophoresis with reflex, serum with interpretation (02/02/2025 9:24 AM CDT) Protein, sr 7.0 6.2 - 8.2 g/dL Comment:Testing performed by : [facility], [address] [place] [address]., [address] Albumin 3.7 3.2 - 5.0 g/dL ZULEMA ROSARIOCH Comment:Testing performed by : [facility], [address] [place] [address]., [address] Alpha-1 globulin 0.3 0.2 - 0.4 g/dL ZULEMA ROSARIOCH Comment:Testing performed by : [facility], [address] [place] [address]., [address] Alpha-2 globulin 0.7 0.5 - 1.0 g/dL ZULEMA VASQUEZWCH Comment:Testing performed by : [facility], [address] [place] [address]., [address] Beta-1 globulin 0.4 0.3 - 0.6 g/dL ZULEMA BJWCH Comment:Testing performed by : [facility], [address] [place] [address]., [address] Beta-2 globulin 0.2 0.2 - 0.6 g/dL ZULEMA BJWCH Comment:Testing performed by : [facility], [address] [place] [address]., [address] Gamma globulin 1.6 0.5 - 1.7 g/dL ZULEMA BJWCH Comment:Testing performed by : [facility], [address] [place] [address]., [address] SPEP interp See Comment ZULEMA BJWCH Comment: SPEP INTERPRETATION: No apparent monoclonal protein. Polyclonal increase in gamma globulins. Testing performed by: [facility], [address] [place] [address]., [address] Immunotyping See Immunotyping Results ZULEMA HUANG Comment:Testing performed by : [facility], [address] [place] [address]., [address] Blood 02/02/2025 9:24 AM CDT 02/02/2025 2:16 PM CDT Thelma Bach MD LAB BLOOD ORDERABLE S Final Result [facility] [address] [facility]. Department [place] [address] * Phosphorus (02/02/2025 9:24 AM CDT) Phosphorus, pl 3.6 2.3 - 4.5 mg/dL Comment:Testing performed by : [facility], [address] [place] [address] Blood 02/02/2025 9:24 AM CDT 02/02/2025 9:41 AM CDT Thelma Bach MD LAB BLOOD ORDERABLE S Edited Result - Final Performing Organization Address [facility]/ZIP Co de Phone Number [facility] [address] [facility]. Department [place] [address] * PTH (02/02/2025 9:24 AM CDT) PTH 24 15 - 65 pg/mL Comment:Testing performed by : [facility], [address] [place] [address] Blood 02/02/2025 9:24 AM CDT 02/02/2025 9:41 AM CDT us Thelma Bach MD LAB BLOOD ORDERABLE S Final Result [facility] [address] [facility]. Department [place] [address] * (ABNORMAL) Comprehensive metabolic panel (02/02/2025 9:24 AM CDT) Sodium 133(L) 135 - 145 mmol/L Comment:Testing performed by : [facility], [address] [facility], [place] [address] Potassium, pl 4.2 3.3 - 4.9 mmol/L [facility] Comment:Testing performed by : [facility], [address], [place] [address] Chloride 96(L) 97 - 110 mmol/L CERSETH BJCH Comment:Testing performed by : [facility], [address], [place] [address] CO2 28 22 - 32 mmol/L CERSETH [facility] Comment:Testing performed by : [facility], [address] [facility], [place] [address] Anion gap 9 2 - 15 mmol/L [facility] Comment:Testing performed by : [facility], [address] [facility], [place] [address] BUN 17 6 - 25 mg/dL CERNER [facility] Comment:Testing performed by : [facility], [address] [facility], [place] [address] Creatinine 0.50(L) 0.80 - 1.30 mg/dL [facility] Comment:Testing performed by : [facility], [address] [facility], [place] [address] Glucose 90 70 - 199 mg/dL CERNER [...] was last revised 2022. Testing performed by: [facility], [address], [place] [address] Calcium 9.3 8.5 - 10.3 mg/dL CERNER BJW[facility] Comment:Testing performed by : [facility], [address], [place] [address] Bilirubin, total 0.2 0.1 - 1.2 mg/dL CERNER [facility] Comment:Testing performed by : [facility], [address], [place] [address] Protein, pl 7.4 6.5 - 8.5 g/dL CERNER [facility] Comment:Testing performed by : [facility], [address], [place] [address] Albumin 4.0 3.5 - 5.0 g/dL CERNER [facility] Comment:Testing performed by : [facility], [address], [place] [address] Alk phos 103 40 - 130 Units/L CERNER [facility] Comment:Testing performed by : [facility], [address], [place] [address] ALT 15 7 - 55 Units/L CERNER [facility] Comment:Testing performed by : [facility], [address], [place] [address] AST 23 10 - 50 Units/L CERNER [facility] Comment:Testing performed by : [facility], [address], [place] [address] Blood 02/02/2025 9:24 AM CDT 02/02/2025 9:41 AM CDT us Thelma Bach MD LAB BLOOD ORDERABLE S Edited Result - Final ZULEMA BJW[facility] [address] Department [place] [address] * NM Bone Imaging SPECT/CT (12/26/2024 3:01 PM LIQUEFIED PETROLEUM GASFITTER) Anatomical Region Laterality Modality N/A Nuclear Medicine 12/26/2024 4:57 PM LIQUEFIED PETROLEUM GASFITTER Impressions 12/26/2024 4:57 PM LIQUEFIED PETROLEUM GASFITTER FINDINGS/IMPRESSION: Examination is compromised by significant degree [...] Toan Graham M.D. Narrative 12/26/2024 4:57 PM LIQUEFIED PETROLEUM GASFITTER EXAMINATION: NM BONE IMAGING SPECT/CT HISTORY: Multiple [...] sternum.. Electronically signed by: Toan Graham M.D. us Jyotsna De La Rosa NP IMG NM PROCEDURES Fin al Result * XR Spine Lumbar 2 or 3 Views (12/08/2024 8:13 AM LIQUEFIED PETROLEUM GASFITTER) Anatomical Region Laterality Modality Spine N/A Computed Radiogr aphy 12/09/2024 12:1 1 PM LIQUEFIED PETROLEUM GASFITTER Narrative 12/09/2024 12:22 PM LIQUEFIED PETROLEUM GASFITTER EXAM DESCRIPTION: XR SPINE THORACIC 3 VIEWS; [...] seen. Dextroconvex thoracic and levoconvex lumbar curvature. Spro-fw-bffanqqy intervertebral disc height loss with endplate degenerative [...] Ankit Ware D.O. AP: AP Report ID: [id number] Reading Location: [place] [address] Procedure Note Ankit Ware, DO - 12/09/2024 [...] the lumbar spine radiographs dated 11/05/2024. The [id number] body deformity appears more pronounced when compared to the previous MRIdated 08/09/2024. The T4 and T7 vertebral body deformities are again seen. Dextroconvex thoracic and levoconvex lumbar curvature. Cgop-zd-txftbdju intervertebral disc height loss with endplate degenerative [...] Ankit Ware D.O. AP: AP Report ID: [id number] Reading Location: [place] [address] Jyotsna De La Rosa NP IMG XR PROCEDURES Fin al Result * XR Spine Thoracic 3 Vw (12/08/2024 8:13 AM LIQUEFIED PETROLEUM GASFITTER) Anatomical Region Laterality Modality Spine N/A Computed Radiogr aphy 12/09/2024 12:1 1 PM LIQUEFIED PETROLEUM GASFITTER Narrative 12/09/2024 12:22 PM LIQUEFIED PETROLEUM GASFITTER EXAM DESCRIPTION: XR SPINE THORACIC 3 VIEWS; [...] seen. Dextroconvex thoracic and levoconvex lumbar curvature. Kkev-di-yplrgemg intervertebral disc height loss with endplate degenerative [...] Ankit Ware D.O. AP: AP Report ID: [id number] Reading Location: [id number] Procedure Note Ankit Ware, DO - 12/09/2024 [...] the lumbar spine radiographs dated 11/05/2024. The [id number] body deformity appears more pronounced when compared to the previous MRIdated 08/09/2024. The T4 and T7 vertebral body deformities are again seen. Dextroconvex thoracic and levoconvex lumbar curvature. Qdju-yu-wvfdtqid intervertebral disc height loss with endplate degenerative [...] Ankit Ware D.O. AP: AP Report ID: [id number] Reading Location: [place] [address] us Jyotsna De La Rosa NP IMG XR PROCEDURES Fin al Result * XR Knee Bilateral 4 or More Views (11/19/2024 9:45 AM LIQUEFIED PETROLEUM GASFITTER) Anatomical Region Laterality Modality Lower Extremities, Knee Digital Radiography Narrative 11/19/2024 10:03 AM LIQUEFIED PETROLEUM GASFITTER Four views of bilateral knees are negative for acute fracture dislocation or osseous lesion. Severe arthritic changes noted on the right side with a valgus deformity and remodeling of the lateral compartment. Left knee demonstrates moderate arthritic changes noted. us Jay GILBERT IMG XR PROCEDURES Final Res ult from Last 3 Months Insurance MEDICARE [facility] MEDICARE [facility] MEDICARE [facility] MEDICARE [facility] Address: [address] [address] [place] [address] [employer] Advance Directives For more information, please contact: [phone] * Full Code (Latest Code Status on [...] 1:37 AM 03/03/2024 7:33 AM Care Teams Paint Roller Cover Machine Setter Relationship Specialty Start Date End Date Carla Pavon MD [address] [place] [address] [place] [address] PCP - General Family Medicine 02/28/24
--- OUTSIDE RECORDS SUMMARY | 2025-02-09 17:40 | XMS_ITS | Encounter Summary ---
Author Organization [facility] Address [facility] [place] [address] Phone Care Team Providers Care Merchandising Professor Name Role Phone Farhana Chino APN, CREW ATTENDANT Unavailable Faraz Ozuna MD Unavailable Jorje Hicks APRN, CREW ATTENDANT Unavailable [phone] Rebeca Chisholm MD Unavailable [phone] Kerrie Wilson APRN, CREW ATTENDANT Unavailable Carla Pavon MD Primary Care Provider [phone] Encounter Details Date Type Department Care Team (Late st Contact Info) Description 12/23/2024 Results Follow-Up [facility] UR[facility] #2 [place] [phone] Jorje Hicks APRN, CREW ATTENDANT #2 [place] [address] Pseudomonas (aeruginosa) (mallei) (pseudomallei) as the cause [...] Description 02/17/2025 4:15 PM CDT Physical Therapy [facility] at [address], [address] [place] [address] Jay Lamas, PAC #1 [place] [address] Melanie Vega, PT [place] Discharge Disposition: Discharged to home or Selfcare 02/25/2025 4:15 PM CDT Physical Therapy [facility] Rehab at [address], [address] [place] [phone] Jay Lamas, PAC #1 [place] [address] Melanie Vega, PT [place] 03/05/2025 4:15 PM CDT Physical Therapy [facility] Rehab at [address], [address] [place] [address] Jay Lamas, PAC #1 [place] [address] Melanie Vega, PT [place] 03/12/2025 4:15 PM CDT Physical Therapy [facility] Rehab at [address], [address] [place] [address] Jay Lamas, PAC #1 [place] [address] Melanie Vega, PT [place] 03/16/2025 9:00 AM CDT Office Visit [facility] #2 [place] [address] Faraz Ozuna MD #2 [facility] [address] [place] [address] 03/19/2025 4:15 PM CDT Physical Therapy [facility] Rehab at [facility] [address] [facility], [address] [place] [address] Jay Lamas, PAC #1 [place] [address] Melanie Vega, PT [place] 03/26/2025 3:30 PM CDT Physical Therapy [facility] Rehab at [facility] [address] [facility], [address] [place] [address] Jay Lamas, PAC #1 [place] [address] Melanie Vega, PT [place] 04/02/2025 4:15 PM CDT Physical Therapy [facility] Rehab at [facility] [address] [facility], [address] [place] [address] Jay Lamas, PAC #1 [place] [address] Melanie Vega, PT [place] 07/22/2025 9:30 AM CDT Appointment [facility] Ultrasound 1 [place] [address] Jorje Hicks APRN, CREW ATTENDANT #2 [place] [address] Discharge Disposition: Discharged to home or Selfcare 08/04/2025 10:00 AM CDT Office Visit [facility] #2 [place] [address] Jorje Hicks APRN, CREW ATTENDANT #2 [place] [address] documented as of this encounter Visit Diagnoses Diagnosis 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 diseases classified elsewhere- Primary documented in this encounter Additional Health Concerns Infection Onset Date Last Indicated Resolved Time 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 12/18/2024 documented as of this encounter Care Teams Merchandising Professor Relationship Specialty Start Date End Date Carla Pavon MD [address] [place] [address] PCP - General Family Medicine 11/12/24 Farhana Chino APN, CREW ATTENDANT Nurse Practitioner Advanced Practice Nurse 04/07/16 Faraz Ozuna MD #[address] [phone] Consulting Physician Internal Medicine 06/23/16 Jorje Hicks APRN, CREW ATTENDANT #2 [place] [address] Nurse Practitioner Advanced Practice Nurse 06/06/22 Rebeca Chisholm MD #2 [facility] [address] [place] [address] Consulting Physician Urology 09/15/22 Kerrie Wilson APRN, CREW ATTENDANT #2 [place] [address] Nurse Practitioner Advanced Practice Nurse 08/14/23 documented as of this encounter
--- OUTSIDE RECORDS SUMMARY | 2025-02-09 17:40 | XMS_ITS | Encounter Summary ---
Author Organization [facility] Address [address] [place], [place] [address]n [place] [address] Phone Care Team Providers Care Cover Stripper Name Role Phone Farhana Chino APN, FLEET SERVICE CLERK Unavailable Faraz Ozuna MD Unavailable Jorje Hicks SAFETY INVESTIGATOR/CAUSE ANALYST, FLEET SERVICE CLERK Unavailable Rebeca Chisholm MD Unavailable [phone] Kerrie Wilson APRN, FLEET SERVICE CLERK Unavailable Carla Pavon MD Primary Care Provider Reason for Referral * PT/OT/ST (Routine) - Authorized Specialty Diagnoses / Procedures Referred By Hari lanza Referred To Contact Physical Therapy Diagnoses Primary osteoarthritis of right knee Acquired valgus deformity knee, right Jay Lamas PAC #1 [place] [address] Phone: tel: fax: [facility] at [facility] [address], [address] [address] Phone: tel: fax: Referral ID Status Reason Start Date Expiration Date V isits Requested Visits Authorized [id number] Authorized 12/24/2024 50 50 Scheduling Instructions T RUNNER Encounter Details Date Type Department Care Team (Latest Contact Info) Description 12/24/2024 Transcribe Orders [facility] [address] [place] [address] Jay Lamas, PAC [address] [place] [address] Primary osteoarthritis of right knee (Primary Dx); [...] Description 02/17/2025 4:15 PM CDT Physical [facility] at [address], [address] [place] [address] Jay Lamas, PAC #1 [place] [address] Melanie Vega, PT [place] Discharge Disposition: Discharged to home or Selfcare 02/25/2025 4:15 PM CDT Physical Therapy [facility] [address], [address] [place] [address] Jay Lamas, PAC #1 [place] [address] Melanie Vega, PT [place] 03/05/2025 4:15 PM CDT Physical Therapy [facility] at [facility] [address], [address] [place] [address] Jay Lamas, PAC #1 [place] [address] Melanie Vega, PT [place] 03/12/2025 4:15 PM CDT Physical Therapy [facility] at [facility] [address], [address] [place] [address] Jay Lamas, PAC #1 [place] [address] Melanie Vega, PT [place] 03/16/2025 9:00 AM CDT Office Visit [facility] - Endocrinology [facility] [place] #2 [place] [address] Faraz Ozuna MD #[address] [address] 03/19/2025 4:15 PM CDT Physical Therapy [facility] [address] [facility], [address] [place] [address] Jay Lamas, PAC #1 [place] [address] Melanie Vega, PT [place] 03/26/2025 3:30 PM CDT Physical Therapy [facility] at [facility] [address], [address] [place] [address] Jay Lamas, PAC #1 [place] [address] Melanie Vega, PT [place] 04/02/2025 4:15 PM CDT Physical Therapy [facility] at [facility] [address], [address] [place] [address] Jay Lamas, PAC #1 [place] [address] Melanie Vega PT [place] 07/22/2025 9:30 AM CDT Appointment [facility] Ultrasound 1 [place] [address] Jorje Hicks APRN, FLEET SERVICE CLERK #2 [place] [address] Discharge Disposition: Discharged to home or Selfcare 08/04/2025 10:00 AM CDT Office Visit [facility] #2 [place] [address] Jorje Hicks APRN, FLEET SERVICE CLERK #2 [place] [address] Scheduled Referrals Name Type Priority Associated Diagnoses [...] documented as of this encounter Care Teams Cover Stripper Relationship Specialty Start Date End Date Carla Pavon MD [address] [place] [address] PCP - General Family Medicine 11/12/24 Farhana Chino, COUNSELOR MARRIAGE AND FAMILY, FLEET SERVICE CLERK Nurse Practitioner Advanced Practice Nurse 04/07/16 Faraz Ozuna MD #2 [facility] [address] [place] [address] Consulting Physician Internal Medicine 06/23/16 Jorje Hicks APRN, FLEET SERVICE CLERK #2 [place] [address] Nurse Practitioner Advanced Practice Nurse 06/06/22 Rebeca Chisholm MD #[address] [address] Consulting Physician Urology 09/15/22 Kerrie Wilson APRN, FLEET SERVICE CLERK #2 [place] [address] Nurse Practitioner Advanced Practice Nurse 08/14/23 documented as of this encounter
--- OUTSIDE RECORDS SUMMARY | 2025-02-09 17:40 | XMS_ITS | Encounter Summary ---
Author Organization [facility] Address [address] [place] [address] Phone Care Team Providers Care Drapery Estimator Name Role Phone Aparna Lester MD Primary Care Provider Farhana Chino SOFTWARE ENGINEER BACKEND, FINANCIAL SECRETARY Unavailable Faraz Ozuna MD Unavailable Jorje Hicks PRODUCTION COST ESTIMATOR, FINANCIAL SECRETARY Unavailable Rebeca Chisholm MD Unavailable [phone] Kerrie Wilson APRN, FINANCIAL SECRETARY Unavailable Carla Pavon MD Primary Care Provider [phone] Encounter Details Date Type Department Care Team (Late st Contact Info) Description 07/25/2024 Telephone [facility] #2 [place] [address] Rebeca Chisholm MD #[address] [address] Social History Tobacco Use Types Packs/Day Years [...] Description 02/17/2025 4:15 PM CDT [facility] [address], [address] [place] [address] Jya Lamas, PAC #1 [place] [address] Melanie Vega, PT [place] Discharge Disposition: Discharged to home or Selfcare 02/25/2025 4:15 PM CDT [facility] [address], [address] [place] [address] Jay Lamas, PAC #1 [place] [address] Melanie Vega, PT [place] 03/05/2025 4:15 PM CDT [facility] [address], [address] [place] [address] Jay Lamas, PAC #1 [place] [address] Melanie Vega, PT [place] 03/12/2025 4:15 PM CDT Physical [facility] [address], [address] [place] [address] Jay Lamas, PAC #1 [facility] [address] Melanie Vega, PT [place] 03/16/2025 9:00 AM CDT Office Visit [facility] #2 [place] [address] Faraz Ozuna MD #[address] [address] 03/19/2025 4:15 PM CDT Physical Therapy [facility] at [facility] [address], [address] [place] [address] Jay Lamas, PAC #1 [place] [address] Melanie Vega, PT [place] 03/26/2025 3:30 PM CDT Physical Therapy [facility] at [facility] [address], [address] [address] Jay Lamas, PAC #1 [place] [address] Melanie Vega, PT [place] 04/02/2025 4:15 PM CDT Physical [facility] [address], [address] [place] [address] Jay Lamas, PAC #1 [place] [address] Melanie Vega, [place] 07/22/2025 9:30 AM CDT Appointment [facility] Ultrasound 1 [place] [address] Jorje Hicks, PRODUCTION COST ESTIMATOR, FINANCIAL SECRETARY #2 [place] [address] Discharge Disposition: Discharged to home or Selfcare 08/04/2025 10:00 AM CDT Office Visit [facility] UR[facility] #2 [place] [address] Jorje Hicks, PRODUCTION COST ESTIMATOR, FINANCIAL SECRETARY #2 [place] [address] documented as of this encounter Visit Diagnoses Not on filedocumented in this encounter Additional Health Concerns Infection Onset Date Last Indicated Resolved Time 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 12/18/2024 documented as of this encounter Care Teams Drapery Estimator Relationship Specialty Start Date End Date Aparna Lester MD [address] [facility] [address] [place] [address] PCP - General Internal Medicine 10/26/15 11/11/24 Carla Pavon MD [address] [place] [address] [address] [place] [address] PCP - General Family Medicine 11/12/24 Farhana Chino APN, FINANCIAL SECRETARY [address] [place] [address] [place] [address] Nurse Practitioner Advanced Practice Nurse 04/07/16 Faraz Ozuna MD #2 [facility] [address] [place] [address] Consulting Physician Internal Medicine 06/23/16 Jorje Hicks APRN, FINANCIAL SECRETARY #2 [place] [address] Nurse Practitioner Advanced Practice Nurse 06/06/22 Rebeca Chisholm MD #[address] [address] Consulting Physician Urology 09/15/22 Kerrie Wilson APRN, FINANCIAL SECRETARY #2 [place] [address] Nurse Practitioner Advanced Practice Nurse 08/14/23 documented as of this encounter
--- OUTSIDE RECORDS SUMMARY | 2025-02-09 17:40 | XMS_ITS | Clinical Summary ---
Author Organization [facility] Address [address] [place] [address] Care Team Providers Care Marzipan Molder Name Role Phone Unavailable Primary Care Provider Unavailabl e Source Comments [facility],non-owned Affiliates and Associated Physician Practices is amultiple site organization consisting of ambulatory clinics and hospital sitesin [place], [place], [place] and [place]. This disclosure is being madepursuant to the Care Everywhere program and may not contain all information available regarding this patient. Last updated 18.[facility] Allergies Active Allergy Reactions Criticality Noted Date Comments Topiramate Rash Low 03/13/2011 Medications * Be aware that medications may not be up to date on this document. Alwaysverify current medications with the patient. alendronate (FOSAMAX) 70 MG tablet Take 70 [...] 10 mEq by mouth at bedtime. Active hydrocodone-ketan taminophen (NORCO) 5-325 MG tablet Take 1-2 Tabs by mouth every 6 hours as needed for Pain. 03/31/2011 Active ranitidine (ZANTAC) 150 MG tablet Take 1 Tab by mouth at bedtime. FOR 6 WEEKS 30 Tab 0 03/31/2011 Active calcium carbonate-vitam in D (OYSTER CALCIUM 500 + D) 500-200 MG-UNIT tablet Take 1 Tab by mouth 2 times daily. Active Simethicone LIQD Use 30 mL every 4 hours. Active ferrous sulfate 325 (65 FE) MG tablet Take 1 Tab by mouth daily with breakfast. 30 0 06/02/2011 Active docusate sodium (COLACE) 100 MG capsule Take 1 Cap by mouth 2 times daily as needed for Constipation . 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 Gender Identity Not on file Sexual Orientation [...] VACCINE (1 - 2023-2 5 season) 2024 DEPRESSION SCREENING 10/29/2024 INFLUENZA VACCINE (Season Ended) 2025 PNEUMOCOCCAL VACCINE Aged Out 08/28/2009 No long er eligible based on patient's age to complete this topic HIB VACCINE Aged Out No longer eligi ble based on patient's age to complete this topic HPV VACCINE Aged Out No longer eligi ble based on patient's age to complete this topic MENINGOCOCCAL (Group B) VACC INE SHARED DECISION-MAKING Aged Out No longer eligibl e based on patient's age to complete this topic MENINGOCOCCAL GROUPS A/C/Y/W VACCINE Aged Out No longer eligible b ased on patient's age to complete this topic Additional Health Concerns Infection Onset Date Last Indicated MRSA 03/15/2011 03/15/2011 Insurance [place] Advance Directives Documents on File Type Date Recorded Patient Production Helper Expl anation Adv Directive/Living Will/POA 04/01/2011 11:57 AM * FULL RESUSCITATION (Latest Code Status on File) Date Activated Date Inactivated Comments 05/30/2011 12:47 PM 06/03/2011 12:27 AM * Full Code Date Activated Date Inactivated Comments 03/28/2011 2:15 PM 04/01/2011 5:27 AM
--- OUTSIDE RECORDS SUMMARY | 2025-02-09 17:40 | XMS_ITS | Clinical Summary ---
Author Organization [facility] Address [address] [place] [address] Phone Care Team Providers Care Railway Switch Operator Name Role Phone Farhana Chino APN, PICTURE PAINTER Unavailable [phone] Faraz Ozuna MD Unavailable Jorje Hicks PLANT CONTROLS SPECIALIST, PICTURE PAINTER Unavailable Rebeca Chisholm MD Unavailable [phone] Kerrie Wilson APRN, PICTURE PAINTER Unavailable Carla Pavon MD Primary Care Provider [phone] Allergies Active Allergy Reactions Criticality Noted Date Comments Topiramate Unknown 11/16/2015 Medications acetaminophen (TYLENOL) 325 MG Tablet Take 650 mg by mouth every 4 hours as needed. Active alendronate (FOSAMAX) 70 MG Tablet Take 70 mg by mouth once a week. Takes on Sunday Active calcium carbonate (TUMS) 500 MG Chewable Tablet 1 Tablet daily. Active ferrous sulfate 325 (65 FE) MG Tablet Take 325 mg by mouth every morning. Active Potassium Chloride (KLOR-CON 10 PO) Take 10 mg by mouth every evening. Active bisacodyl EC (DULCOLAX) 5 MG Tablet Delayed ResponseIndicatio ns:IF NO BM FOR 2 DAYS Take 10 [...] 06/26/20 Active Nutritional Supplements (ENSURE NUTRITION SHAKE PO)Indications:va nilla Take 1 Can by mouth 2 times [...] mouth as needed. Active aluminum & magnesium hydroxide-simethi cone (MAALOX, MYLANTA) 200-200-20 MG/5ML Suspension Take 30 [...] 10 mg by mouth nightly. Active Calcium Carb-Cholecalcife rol (CALCIUM + VITAMIN D3 PO) Take 2 [...] needed for Constipation - 1st line. Active Neomycin-Bacitrac in-Polymyxin (HCA TRIPLE ANTIBIOTIC OINTMENT EX) Apply 2 times daily as needed for Other (MINOR WOUNDS). Active polyethylene glycol (MiraLax) 17 GM/SCOOP PowderIndications :Anal bleeding Disepense two 238 gram bottle of Miralax (Polyethylene Glycol) 238 g 1 11/06/19 24 Active Additional Information Patient not taking.Reported on 09/15/2024 simethicone (Gas-X Ultra Strength) 180 MG CapsuleIndication s:Anal bleeding Take as directed per double colon [...] ER (Myrbetriq) 25 MG TABLET SR 24 HRIndications:Urg e incontinence of urine,Nocturnal enuresis Take 25 mg by mouth daily. 30 Tablet 1 05/05/20 24 Active naltrexone (DEPADE) 50 MG Tablet Take 50 mg by mouth daily. Active pantoprazole (PROTONIX) 40 MG Tablet Delayed Response Take 40 mg by mouth daily. Active OMEPRAZOLE PO Take 1 Tablet by mouth daily. Active traMADol (ULTRAM) 50 MG TabletIndications :Phimosis Take 1 Tablet by mouth every 6 hours as needed for Severe pain. 10 Tablet 07/25/20 24 Active bacitracin 500 UNIT/GM Ointment Apply 2 times daily. Application Site: Apply to penis incision twice a day (Description and Location) 30 g 1 07/25/20 24 Active bacitracin 500 UNIT/GM OintmentIndicatio ns:Phimosis Apply 3 times daily. Application Site: foreskin 28 g 1 08/12/20 24 Active zinc 0xide (Desitin) 40 % Paste 08/06/20 24 Active nystatin (MYCOSTATIN) 641695 UNIT/GM Ointment 07/15/20 24 Active Active Problems Problem Noted Date Diagnosed Date [...] Encounters Date Type Department Care Team Description 01/30/2025 Plan of Care Documentation [facility] [address], [address] [place] [address] 01/29/2025 4:15 PM CDT Physical Therapy [facility] [address], [address] [place] [address] Jay Lamas PAC Bogowith, Kelly A, PT Gait difficulty (Primary Dx); Primary osteoarthritis of right knee; Acquired valgus deformity knee, right Discharge Disposition: Discharged to home or Selfcare 01/29/2025 Travel 01/19/2025 Results Follow-Up [facility] [address] [place] [address] Jorje Hicks APRN, CNP Acquired renal cyst of right kidney (Primary Dx) 01/07/2025 7:40 AM CDT - 01/07/2025 11:59 PM CDT Hospital Encounter [facility] [address] [place] [address] Jorje Hicks APRN, CNP Discharge Disposition: Discharged to home or Selfcare 01/07/2025 Travel 12/24/2024 Transcribe Orders [facility] [address] [place] [address] Jay Lamas PAC Primary osteoarthritis of right knee (Primary Dx); Acquired valgus deformity knee, right 12/23/2024 Results Follow-Up [facility] [address] [place] [address] Jorje Hicks APRN, CNP 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) 12/18/2024 11:00 AM INSEMINATOR Clinical Support [facility] [place] [phone] NurseChaitanya Urology Burning with urination (Primary Dx) Discharge Disposition: Discharged to home or Selfcare 12/18/2024 Travel 11/11/2024 Results Follow-Up [facility] [address] [place] [address] Jorje Hicks, PLANT CONTROLS SPECIALIST, PICTURE PAINTER Acquired renal cyst of right kidney (Primary Dx) from Last 3 Months Immunizations Immunization Administration [...] Comments Blood Pressure 112/76 09/15/2024 2:06 PM INSEMINATOR Pulse 72 09/15/2024 2:06 PM INSEMINATOR Temperature 36.3 C (97.3 F) 09/15/2024 2:06 PM INSEMINATOR Respiratory Rate 22 09/15/2024 2:06 PM INSEMINATOR Oxygen Saturation 98% 09/15/2024 2:06 PM INSEMINATOR Inhaled Oxygen Concentration - - Weight 45.4 kg (100 lb) 12/18/2024 10:56 AM INSEMINATOR Height 157.5 cm (5' 2 ) 12/18/2024 10:56 AM INSEMINATOR Body Mass Index 18.29 12/18/2024 10:56 AM INSEMINATOR Plan of Treatment Upcoming Encounters Date Type Department Care Team (Latest Contact Info) Description 02/17/2025 4:15 PM CDT Physical Therapy [facility] [address] [facility], [address] [place] [address] Jay Lamas, PAC [address] [place] [address] Melanie Vega, PT [place] Discharge Disposition: Discharged to home or Selfcare 02/25/2025 4:15 PM CDT Physical Therapy [facility] [address] [facility], [address] [place] [address] Jay Lamas, PAC [address] [place] [address] Melanie Vega, PT [place] 03/05/2025 4:15 PM CDT Physical Therapy [facility] [address], [address] [place] [address] Jay Lamas, PAC [address] [place] [address] Melanie Vega, PT [place] 03/12/2025 4:15 PM CDT Physical Therapy [facility] [address] [facility], [address] [address] Jay Lamas, PAC [address] [place] [address] Melanie Vega, PT [place] 03/16/2025 9:00 AM CDT [facility] Visit [facility] [address] [facility] [place] [address] Faraz Ozuna MD [address] [address] 03/19/2025 4:15 PM CDT Physical Therapy [facility] [address] [facility], [address] [address] Jay Lamas, PAC [address] [place] [address] Melanie Vega, PT [place] 03/26/2025 3:30 PM CDT Physical Therapy [facility] [address] [facility], [address] [address] Jay Lamas, PAC [address] [place] [address] Melanie Vega, PT [place] 04/02/2025 4:15 PM CDT Physical Therapy [facility] [address] [facility], [address] [place] [address] Jay Lamas, PAC [address] [place] [address] Melanie Vega, PT [place] 07/22/2025 9:30 AM CDT Appointment [facility] [address] [place] [address] Jorje Hicks APRN, PICTURE PAINTER [address] [place] [address] Discharge Disposition: Discharged to home or Selfcare 08/04/2025 10:00 AM CDT Office Visit [facility] [address] [place] [address] Jorje Hicks APRN, PICTURE PAINTER [address] [place] [address] Health Maintenance Due Date Last Done Comments [...] Completed 08/29/2023, 09/30, 07/18/2016 Influenza Immunization Completed , 07/27/2023, 07/19/2023, Additional history exists SARS-COV-2 Immunization Completed 07/23/20 24, 09/24/2023, 12/27/2022, Additional history exists Meningococcal Immunization (ACWY) Aged Out No longer eligible based on patient's age to complete this topic Rotavirus Immunization Aged Out No lo nger eligible based on patient's age to complete this topic Procedures Procedure Name Priority Date/Time Associated Diagnosis Comments CT ABDOMEN PELVIS W/WO CONTRAST Routine 01/07/2025 8:10 AM CDT Acquired renal cyst of right kidney POCT CREATININE Routine 01/07/2025 7:58 AM CDT CULTURE, URINE Routine 12/18/2024 10:47 AM INSEMINATOR Burning with urination PSA SCREEN 08/29/2023 12:00 AM CDT from Last 3 Months or Most Recently Relevant to Health Maintenance Results * CT ABDOMEN PELVIS W/WO CONTRAST (01/07/2025 8:10 AM CDT) Anatomical Region Laterality Modality Abdomen N/A Computed Tomogra phy 01/11/2025 12:2 0 PM CDT Impressions 01/11/2025 12:23 PM CDT IMPRESSION: The previously described 1.5 cm lesion in the lower pole of the right kidney shows no significant enhancement and likely represents a hemorrhagic or proteinaceous cyst. This previously measured 1.2 cm in 2018. There is a 5 mm interpolar intermediate attenuation lesion in the right kidney which was not definitely seen previously and is too small to characterize. Consider follow-up renal ultrasound in 6 months if clinically warranted. Nonobstructing 4 mm calculus in the interpolar right kidney. There are two calculi in a bladder diverticulum measuring 4 mm. Previously there were 4 calculi in this bladder diverticulum. Bilateral hip prostheses. The right prosthesis may be partially subluxed posteriorly. Correlation with symptoms recommended. Narrative 01/11/2025 12:23 PM CDT EXAM DESCRIPTION: CT ABDOMEN PELVIS W/WO CONTRAST REASON FOR STUDY: Follow-up of right renal cyst from 05/05/2024. TECHNIQUE: CT scan of the abdomen and pelvis performed without and with intravenous and without oral contrast using helical scanning technique with dynamic intravenous contrast injection. Precontrast, nephrographic phase, and excretory phases were acquired. Reconstructed coronal and sagittal MPR images reviewed. All images stored on PACS. Automated exposure control was used as a dose optimization technique for this examination. CONTRAST TYPE/DOSE: 100mL of IOPAMIDOL 76 % IV SOLN injected via Intravenous COMPARISON: CT abdomen and pelvis 08/01/2018, renal ultrasound 11/05/2024, 05/05/2024 FINDINGS: KIDNEYS: The previously described 1.5 cm lesion in the lower pole of the right kidney shows no significant enhancement and likely represents a hemorrhagic or proteinaceous cyst. This previously measured 1.2 cm in 2018. Nonobstructing 4 mm calculus in the interpolar right kidney. There is a 5 mm interpolar intermediate attenuation lesion in the right kidney (image 51) which was not definitely seen previously and is too small to characterize. Low-attenuation lesion measuring 6 mm in the anterior interpolar right kidney (image 49) is unchanged from 2018 and likely a cyst. No hydronephrosis. URETERS AND BLADDER: Portions of the distal ureter are not well evaluated due to streak artifact. There are two calculi in a bladder diverticulum measuring 4 mm. Previously there were 4 calculi in this bladder diverticulum. ABDOMEN/PELVIS: LOWER CHEST: No significant pulmonary abnormalities. No pleural effusion. LIVER: No focal liver lesion. GALLBLADDER: No calcified gallstones. BILE DUCTS: No intrahepatic or extrahepatic ductal dilatation. SPLEEN: Normal size. No focal lesions. PANCREAS: No masses. No adjacent inflammation or peripancreatic fluid collections. No pancreatic ductal dilatation. ADRENALS: Normal. GI: Portions of the lower pelvis are obscured by streak artifact. Moderate to large amount of stool within the rectal vault. No dilated loops of bowel to suggest obstruction. The appendix is not seen with certainty. No pericecal inflammatory change. PERITONEUM: No ascites or free air. RETROPERITONEUM: No mass or lymphadenopathy. REPRODUCTIVE: No significant abnormality. VASCULATURE: No abdominal aortic aneurysm. MUSCULOSKELETAL: Bilateral hip prostheses. The right prosthesis may be partially subluxed posteriorly. Moderate thoracolumbar spondylosis. Severe compression fracture of L1 is unchanged with retropulsion and moderate narrowing of the spinal canal. OTHER: No other abnormality. THIS IS AN ELECTRONICALLY VERIFIED FINAL REPORT 01/11/2025 12:20 PM - Electronically signed by Jaspreet Merchant M.D. LB: MEET Report ID: [id number] Reading Location: [id number] Procedure Note Jaspreet Merchant MD - 01/11/2025 EXAM DESCRIPTION: CT ABDOMEN PELVIS W/WO CONTRAST REASON FOR STUDY: Follow-up of right renal cyst from 05/05/2024. TECHNIQUE: CT scan of the abdomen and pelvis performed without and with intravenous and without oral contrast using helical scanning technique with dynamic intravenous contrast injection. Precontrast, nephrographic phase, and excretory phases were acquired. Reconstructed coronal and sagittal MPR images reviewed. All images stored on PACS. Automated exposure control was used as a dose optimization technique for this examination. CONTRAST TYPE/DOSE: 100mL of IOPAMIDOL 76 % IV SOLN injected via Intravenous COMPARISON: CT abdomen and pelvis 08/01/2018, renal ultrasound 11/05/2024, 05/05/2024 FINDINGS: KIDNEYS: The previously described 1.5 cm lesion in the lower pole of the right kidney shows no significant enhancement and likely represents a hemorrhagic or proteinaceous cyst. This previously measured 1.2 cm in 2018. Nonobstructing 4 mm calculus in the interpolar right kidney. There is a 5 mm interpolar intermediate attenuation lesion in the right kidney (image 51) which was not definitely seen previously and is too small to characterize. Low-attenuation lesion measuring 6 mm in the anterior interpolar right kidney (image 49) is unchanged from 2018 and likely a cyst. No hydronephrosis. URETERS AND BLADDER: Portions of the distal ureter are not well evaluated due to streak artifact. There are two calculi in a bladder diverticulum measuring 4 mm. Previously there were 4 calculi in this bladder diverticulum. ABDOMEN/PELVIS: LOWER CHEST: No significant pulmonary abnormalities. No pleural effusion. LIVER: No focal liver lesion. GALLBLADDER: No calcified gallstones. BILE DUCTS: No intrahepatic or extrahepatic ductal dilatation. SPLEEN: Normal size. No focal lesions. PANCREAS: No masses. No adjacent inflammation or peripancreatic fluid collections. No pancreatic ductal dilatation. ADRENALS: Normal. GI: Portions of the lower pelvis are obscured by streak artifact. Moderate to large amount of stool within the rectal vault. No dilated loops of bowel to suggest obstruction. The appendix is not seen with certainty. No pericecal inflammatory change. PERITONEUM: No ascites or free air. RETROPERITONEUM: No mass or lymphadenopathy. REPRODUCTIVE: No significant abnormality. VASCULATURE: No abdominal aortic aneurysm. MUSCULOSKELETAL: Bilateral hip prostheses. The right prosthesis may be partially subluxed posteriorly. Moderate thoracolumbar spondylosis. Severe compression fracture of L1 is unchanged with retropulsion and moderate narrowing of the spinal canal. OTHER: No other abnormality. THIS IS AN ELECTRONICALLY VERIFIED FINAL REPORT 01/11/2025 12:20 PM - Electronically signed by Jaspreet Merchant M.D. LB: MEET Report ID: [id number] Reading Location: [id number] IMPRESSION: The previously described 1.5 cm lesion in the lower pole of the right kidney shows no significant enhancement and likely represents a hemorrhagic or proteinaceous cyst. This previously measured 1.2 cm in 2018. There is a 5 mm interpolar intermediate attenuation lesion in the right kidney which was not definitely seen previously and is too small to characterize. Consider follow-up renal ultrasound in 6 months if clinically warranted. Nonobstructing 4 mm calculus in the interpolar right kidney. There are two calculi in a bladder diverticulum measuring 4 mm. Previously there were 4 calculi in this bladder diverticulum. Bilateral hip prostheses. The right prosthesis may be partially subluxed posteriorly. Correlation with symptoms recommended. us Jorje Hicks PLANT CONTROLS SPECIALIST, PICTURE PAINTER IMG CT ORDERABLES Kendra cheng Result * POCT Creatinine (01/07/2025 7:58 AM CDT) CREATININE - POCT 0.6 0.6 - 1.3 mg/dL 01/07/2025 8:00 AM CDT [facility] Blood 01/07/2025 7:58 AM CDT 01/07/2025 7:59 AM CDT us None Provider POINT OF CARE TESTING Final Resu lt [facility] [address] [place] [address] * CULTURE, URINE (12/18/2024 10:47 AM INSEMINATOR) CULTURE RESULTS PSEUDOMONAS AERUGINOSA 12/20/2024 9:22 PM INSEMINATOR [facility] CULTURE RESULTS METHICILLIN RESISTANT STAPHYLOCOCCUS AUREUS 12/20/2024 9:22 PM INSEMINATOR [facility] Comment:SENSITIVITY NOT PERF ORMED Culture URINE SPECIMEN OBTAINED BY CLEAN CATCH PROCEDURE / Unknown Non-Phlebotomy Collection / Unknown 12/18/2024 10:47 AM INSEMINATOR 12/18/2024 10:47 AM INSEMINATOR Narrative Organism Antibiotic Method Susceptibility Pseudomonas aeruginosa Cefepime ETEST 2 mcg/ml: Susceptible Pseudomonas aeruginosa Levofloxacin ETEST 0.25 mcg/ml: Susceptible Pseudomonas aeruginosa Meropenem ETEST 0.5 mcg/ml: Susceptible Pseudomonas aeruginosa Piperacillin/Tazobactam RAMONE FORBES 32 mm: Susceptible Pseudomonas aeruginosa Tobramycin RAOMNE GAINES 26 mm: Susceptible Jorje Hicks PLANT CONTROLS SPECIALIST, PICTURE PAINTER MICROBIOLOGY - GENERAL ORDERABLES Final Result [facility] [address] [place] [address], * PSA SCREEN (08/29/2023 12:00 AM CDT) PSA (PROSTATE SPECIFIC ANTIGEN) 0.2 ng/mL 08/29/2023 Provider Scan CHEMISTRY ORDERABLES Final Resul t from Last 3 Months or Most Recently Relevant to Health Maintenance Additional Health Concerns Infection Onset Date Last Indicated 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 12/18/2024 Insurance [place]ICAID [place] Advance Directives Documents on File Type Date Recorded Patient Pricing Supervisor Expl anation Guardian of Person 03/21/2023 4:50 PM GUAR [employer]IP, 04/25/2022 * Full Code (Latest Code Status on File) Date Activated Date Inactivated Comments 03/21/2023 4:58 PM 03/23/2023 5:10 PM CPR-Full Jostin atment: FULL ARREST: Attempt Resuscitation/CPR wit intubation and mechanical ventilation. PRE-ARREST: Use entire range of life support measures to stabilize the patient. Care Teams Railway Switch Operator Relationship Specialty Start Date End Date Carla Pavon MD [address] [place] [id number] PCP - General Family Medicine 11/12/24 Farhana Chino, CUSTOMER SUPPORT TECHNICIAN, PICTURE PAINTER Nurse Practitioner Advanced Practice Nurse 04/07/16 Faraz Ozuna MD [address] [address] Consulting Physician Internal Medicine 06/23/16 Jorje Hicks APRN, PICTURE PAINTER [address] [place] [address] Nurse Practitioner Advanced Practice Nurse 06/06/22 Rebeca [facility]isholm MD [address] [facility] [address] Consulting Physician Urology 09/15/22 Kerrie Wilson APRN, PICTURE PAINTER [address] [facility] [place] [address] Nurse Practitioner Advanced Practice Nurse 08/14/23
== END 2025-02-09 17:20 | disposition home or self-care (01) ==
PROVIDERS: Emergency Provider Nurse Practitioner Family
DX: L03.115 Cellulitis of right lower limb (principal); I10 Essential (primary) hypertension; D64.9 Anemia, unspecified; F31.9 Bipolar disorder, unspecified; Z99.3 Dependence on wheelchair
CPT/HCPCS: 96372; 99213; G0463; J0696; J2003

== ENCOUNTER 2025-03-09 17:15 | Emergency (ER) | payer MEDICARE, MEDICAID, SELFPAY ==
[2025-03-09 17:23] VITALS: BP 96/52; PULSE 57; RESP 20; TEMP 36.1; O2SAT 97
--- OUTSIDE RECORDS SUMMARY | 2025-03-09 17:30 | XMS_ITS | Referral Summary ---
Author Organization [facility] Building B Address [address] [place] [address] Care Team Providers Care Power Wheelchair Mechanic Name Role Phone Carla Pavon MD Primary Care Provider [phone] Encounters Date Type Department Care Team Description 03/05/2025 9:12 AM CDT - 03/05/2025 11:59 PM CDT Hospital Encounter [address] [address] Osteoporosis, unspecified osteoporosis type, unspecified pathological fracture presence (Primary Dx) Discharge Disposition: Discharge to home or self care 03/03/[address] [address] Jyotsna Power MA 02/12/[address] [place] [address] Thelma Bach MD 02/11/2025 Orders Only [address] [address] Melly Shannon RN 02/02/[address] [place] [address] Thelma Bach MD Treatment Plan Update (New reclast) 02/02/2025 9:45 AM CDT Lab [facility] at [address] [phone] Osteoporosis, unspecified osteoporosis type, unspecified pathological fracture presence 02/02/2025 8:00 AM CDT Office Visit [address] [place] [phone] Thelma Bach MD Osteoporosis, unspecified osteoporosis type, unspecified pathological fracture presence (Primary Dx) 01/09/[address] [place] [phone] Thelma Bach MD 01/08/2025 Plan of Care Documentation [facility] Occupational Therapy [address] [place] [address] 12/31/2024 2:00 PM GROUND LAYER Therapy [facility] Occupational Therapy [address] [place] [phone] Juan Miguel Cabrera OT Other specified arthritis, right knee; Other specified arthritis, left knee; Age-related osteoporosis with current pathological fracture, vertebra(e), sequela 12/30/2024 Telephone Radiology 1 [place] [address] Jyotsna De La Rosa NP 12/26/2024 12:30 PM GROUND LAYER - 12/26/2024 11:59 PM GROUND LAYER Hospital Encounter [facility] Nuclear Medicine [address] [place] [address] Discharge Disposition: Discharge to home or self care 12/26/2024 8:41 AM GROUND LAYER - 12/26/2024 11:59 PM GROUND LAYER Hospital Encounter [facility] Nuclear Medicine [address] [place] [address] Compression fracture of L1 lumbar vertebra, sequela Discharge Disposition: Discharge to home or self care 12/24/2024 Orders Only [facility] Orthopedic and Sports Medicine [address] [place] [phone] Jay Lamas PA Primary osteoarthritis of right knee (Primary Dx); Acquired valgus deformity knee, right 12/24/2024 10:00 AM GROUND LAYER Office Visit [facility] Orthopedic and Sports Medicine [address] [place] [phone] Jay Lamas PA Primary osteoarthritis of right knee (Primary Dx); Acquired valgus deformity knee, right 12/15/2024 Telephone Radiology 1 [place] [address] Jyotsna De La Rosa NP from Last [...] (two) times a day 60 tablet 3 05/08/20 24 Active mirabegron ER (MYRBETRIQ) 25 mg [...] a day 60 capsule 1 12/24/19 25 Active Active Problems Problem Noted Date Diagnosed [...] drink = 0.6 oz pur e alcohol) [facility] Utilities Answer Date Recorded In the past [...] often do you attend chur ch or jainism services? Patient unable to answer 03/04/2024 Do you belong to any clubs o r organizations such as yarsanism groups, unions, fraternal or athletic groups, or [...] place to sleep or slept in a custodial (including now)? Patient unable to answer 03/04/2024 [...] on file Legal Sex Male 3:46 AM GROUND LAYER Gender Identity Not on file Sexual Orientation Not on file Last Filed Vital Signs Vital Sign Reading Time Taken Comments Blood Pressure 115/63 03/05/2025 10:45 AM CDT Pulse 63 03/05/2025 10:45 AM CDT Temperature 36.9 C (98.5 F) 03/05/2025 10:45 AM CDT Respiratory Rate 18 03/05/2025 10:45 AM CDT Oxygen Saturation 97% 03/05/2025 10:45 AM CDT Inhaled Oxygen Concentration - - Weight 58.1 [...] Read Routine (OP Routine) 12/26/2024 3:01 PM GROUND LAYER Compression fracture of L1 lumbar vertebra, sequela from Last 3 Months Results * Immunotyping, serum with interpretation (02/02/2025 9:24 AM CDT) Immunosubtraction See Comment Comment: IMMUNOTYPING INTERPRETATION: No Monoclonal Protein Detected Testing performed by: [facility], [address] [facility], [place]., [address] Blood 02/02/2025 9:24 AM CDT 02/02/2025 2:16 PM CDT Narrative ZULEMA VASQUEZWCH - 02/03/2025 1:18 PM CDT Reflex Immunotyping, Ser Thelma Bach MD LAB BLOOD ORDERABLE S Final Result Performing Organization Address [facility] Co de Phone Number ZULEMA [facility] [address] [facility]. Department [place] [address] * eGFR (02/02/2025 9:24 AM CDT) eGFR [...] was last reviewed 2021. Testing performed by: [facility], [address] [facility], [place] [address] Blood 02/02/2025 9:24 AM CDT 02/02/2025 9:41 AM CDT Thelma Bach MD LAB BLOOD ORDERABLE S Final Result Performing Organization Address [facility] Co de Phone Number ZULEMA [facility] [address] [facility]. [place] [address] * Beta-CrossLaps (Beta-CTx) (02/02/2025 9:24 AM CDT) Beta-CTx 387 pg/mL Comment: Interpretive Data Female: Premenopausal: 136 - 689 pg/mL Postmenopausal: 177 - 1015 pg/mL Male: 30 - 50 years: 131 - 670 pg/mL 51 - 70 years: 171 - 1060 pg/mL > 70 years: 152 - 858 pg/mL Current interpretive data was last revised on 2024. Testing performed by: [facility], [address] [place]., [address] Blood 02/02/2025 9:24 AM CDT 02/02/2025 2:13 PM CDT Thelma Bach MD LAB BLOOD ORDERABLE S Final Result Performing Organization Address City/[facility]/ZIP Co de Phone Number [facility] [address] [address]. [place] [address] * Osteocalcin (02/02/2025 9:24 AM CDT) Osteocalcin 24.5 ng/mL Comment: Interpretive Data Female: Premenopausal: 7.6 - 35.1 ng/mL Postmenopausal: 7.3 - 38.5 ng/mL Male: 30 - 50 years: 8.4 - 36.7 ng/mL > 50 years: 9.9 - 35.6 ng/mL Current interpretive data was last revised on 2022. Testing performed by: [facility], [address] [place]., [address] Blood 02/02/2025 9:24 AM CDT 02/02/2025 2:13 PM CDT Thelma Bach MD LAB BLOOD ORDERABLE S Final Result [facility] [address] [address]. [place] [address] * Vitamin D 25 hydroxy (02/02/2025 9:24 AM CDT) Vitamin D 25-OH 45 30 - 80 ng/mL Comment:Testing performed by : [facility], [address] [place] [address] Blood 02/02/2025 9:24 AM CDT 02/02/2025 9:41 AM CDT Thelma Bach MD LAB BLOOD ORDERABLE S Edited Result - Final [facility] [address] [facility] Department [place] [address] * Protein electrophoresis with reflex, serum with interpretation (02/02/2025 9:24 AM CDT) Pathologist [facility] Protein, sr 7.0 6.2 - 8.2 g/dL Comment:Testing performed by : [facility], [address] [place] [address]., [address] Albumin 3.7 3.2 - 5.0 g/dL CERNER BJWCH Comment:Testing performed by : [facility], [address] [place] [address]., [address] Alpha-1 globulin 0.3 0.2 - 0.4 g/dL CERNER BJWCH Comment:Testing performed by : [facility], [address] [place] [address]., [address] Alpha-2 globulin 0.7 0.5 - 1.0 g/dL CERNER BJWCH Comment:Testing performed by : [facility], [address] [place] [address]., [address] Beta-1 globulin 0.4 0.3 - 0.6 g/dL CERNER BJWCH Comment:Testing performed by : [facility], [address] [place] [address]., [address] Beta-2 globulin 0.2 0.2 - 0.6 g/dL CERNER BJW[facility] Comment:Testing performed by : [facility], [address] [place] [address]., [address] Gamma globulin 1.6 0.5 - 1.7 g/dL CERNER BJWCH Comment:Testing performed by : [facility], [address] [place] [address]., [address] SPEP interp See Comment ZULEMA HUANG Comment: SPEP INTERPRETATION: No apparent monoclonal protein. Polyclonal increase in gamma globulins. Testing performed by: [facility], [address] [place] [address]., [address] Immunotyping See Immunotyping Results ZULEMA HUANG Comment:Testing performed by : [facility], [address] [place] [address]., [id number] Blood 02/02/2025 9:24 AM CDT 02/02/2025 2:16 PM CDT Thelma Bach MD LAB BLOOD ORDERABLE S Final Result Performing Organization Address [facility] Co de Phone Number ZULEMA [facility] [address] [facility]. [facility] [place] [address] * Phosphorus (02/02/2025 9:24 AM CDT) Phosphorus, pl 3.6 2.3 - 4.5 mg/dL Comment:Testing performed by : [facility], [address] [place] [address] Blood 02/02/2025 9:24 AM CDT 02/02/2025 9:41 AM CDT Thelma Bach MD LAB BLOOD ORDERABLE S Edited Result - Final Performing Organization Address City/[facility] Co de Phone Number [facility] [address] [facility]. [facility] [place] [address] * PTH (02/02/2025 9:24 AM CDT) PTH 24 15 - 65 pg/mL Comment:Testing performed by : [facility], [address] [place] [address] Blood 02/02/2025 9:24 AM CDT 02/02/2025 9:41 AM CDT us Thelma Bach MD LAB BLOOD ORDERABLE S Final Result [facility] [address] [address]. Department [place] [address] * (ABNORMAL) Comprehensive metabolic panel (02/02/2025 9:24 AM CDT) Sodium 133(L) 135 - 145 mmol/L Comment:Testing performed by : [facility], [address], [place] [address] Potassium, pl 4.2 3.3 - 4.9 mmol/L CERSETH BJWCH Comment:Testing performed by : [facility], [address], [place] [address] Chloride 96(L) 97 - 110 mmol/L CERSETH BJWCH Comment:Testing performed by : [facility], [address], [place] [address] CO2 28 22 - 32 mmol/L CERNER BJWCH Comment:Testing performed by : [facility], [address], [place] [address] Anion gap 9 2 - 15 mmol/L CERNER BJWCH Comment:Testing performed by : [facility], [address], [place] [address] BUN 17 6 - 25 mg/dL CERNER BJWCH Comment:Testing performed by : [facility], [address], [place] [address] Creatinine 0.50(L) 0.80 - 1.30 mg/dL CERNER BJW[facility] Comment:Testing performed by : [facility], [address], [place] [address] Glucose 90 70 - 199 mg/dL CERNER [...] was last revised 2022. Testing performed by: [facility], [address], [place] [address] Calcium 9.3 8.5 - 10.3 mg/dL CERNER BJWCH Comment:Testing performed by : [facility], [address], [place] [address] Bilirubin, total 0.2 0.1 - 1.2 mg/dL CERNER BJWCH Comment:Testing performed by : [facility], [address], [place] [address] Protein, pl 7.4 6.5 - 8.5 g/dL CERNER BJWCH Comment:Testing performed by : [facility], [address], [place] [address] Albumin 4.0 3.5 - 5.0 g/dL CERNER BJW[facility] Comment:Testing performed by : [facility], [address], [place] [address] Alk phos 103 40 - 130 Units/L CERNER BJWCH Comment:Testing performed by : [facility], [address], [place] [address] ALT 15 7 - 55 Units/L CERNER BJWCH Comment:Testing performed by : [facility], [address], [place] [address] AST 23 10 - 50 Units/L CERNER BJWCH Comment:Testing performed by : [facility], [address], [place] [address] Blood 02/02/2025 9:24 AM CDT 02/02/2025 9:41 AM CDT us Thelma Bach MD LAB BLOOD ORDERABLE S Edited Result - Final [facility] [address] Department [place] [address] * NM Bone Imaging SPECT/CT (12/26/2024 3:01 PM GROUND LAYER) Anatomical Region Laterality Modality N/A Nuclear Medicine 12/26/2024 4:57 PM GROUND LAYER Impressions 12/26/2024 4:57 PM GROUND LAYER FINDINGS/IMPRESSION: Examination is compromised by significant degree [...] Toan Graham M.D. Narrative 12/26/2024 4:57 PM GROUND LAYER EXAMINATION: NM BONE IMAGING SPECT/CT HISTORY: Multiple [...] Toan Graham M.D. Jyotsna De La Rosa DINING SERVER IMG NM PROCEDURES Fin al Result from Last 3 Months Insurance MEDICARE [facility] MEDICARE [facility] MEDICARE [facility] MEDICARE IDPA Advance Directives For more information, please contact: [phone] * Full Code (Latest Code Status on [...] 1:37 AM 03/03/2024 7:33 AM Care Teams Power Wheelchair Mechanic Relationship Specialty Start Date End Date Carla Pavon MD [address] [place] [address] [place] [address] PCP - General Family Medicine 02/28/24
--- OUTSIDE RECORDS SUMMARY | 2025-03-09 17:30 | XMS_ITS | Encounter Summary ---
Author Organization [facility] Address [facility] [address] Phone Care Team Providers Care Manager Storage Name Role Phone Farhana Chino APN, BOOKER Unavailable Faraz Ozuna MD Unavailable Jorje Hicks APRN, BOOKER Unavailable Rebeca Chisholm MD Unavailable [phone] Kerrie Wilson APRN, BOOKER Unavailable Carla Pavon MD Primary Care Provider Reason for Visit * Reason Onset Date Comments Results 03/08/2025 Encounter Details Date Type Department Care Team (Late st Contact Info) Description 03/08/2025 Results Follow-Up [facility] - Endocrinology - [place] [address] [place] [address] Faraz Ozuna MD [address] [phone] CMP (COMPREHENSIVE METABOLIC PANEL), OSMOLALITY SERUM, UR OSMOLALITY, UR SODIUM (NA) RANDOM Social History Tobacco Use Types Packs/Day Years [...] encounter Miscellaneous Notes * Telephone Encounter - Faraz Ozuna MD - 03/08/2025 11:17 PM CDT Please inform him that laboratory test showed mild hyponatremia. However, simultaneously measured serum osmolality was within the reference range. We will discuss it further at the next visit. documented in this encounter Plan of Treatment Upcoming Encounters Date Type Department Care Team (Latest Contact Info) Description 03/12/2025 4:15 PM CDT [facility] [address] [facility], [address] [place] [phone] Jay Lamas, PAC [address] [place] [address] Melanie Vega, PT [place] 03/16/2025 9:00 AM CDT Office Visit [facility] - Endocrinology - [place] [address] [facility] [place] [address] Faraz Ozuna MD [address] [place] [address] 03/19/2025 4:15 PM CDT Physical Therapy [facility] [address], [address] [place] [address] Jay Lmaas, PAC [address] [place] [address] Melanie Vega, PT [place] 03/26/2025 3:30 PM CDT Physical Therapy [facility] [address], [address] [place] [phone] Jay Lamas, PAC [address] [place] [address] Melanie Vega, PT [place] 04/02/2025 4:15 PM CDT Physical Therapy [facility] [address], [facility] [address] [place] [phone] Jay Lamas, PAC [address] [place] [address] Melanie Vega, PT [place] 07/22/2025 9:30 AM CDT [facility]ment [facility] 1 [place] [phone] Jorje Hicks APRN, BOOKER [address] [place] [address] Discharge Disposition: Discharged to home or Selfcare 08/04/2025 10:00 AM CDT Office Visit 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 documented as of this encounter Care Teams Manager Storage Relationship Specialty Start Date End Date Carla Pavon MD [address] [place] [address] [address] PCP - General Family Medicine 11/12/24 Farhana Chino, SUPERVISOR TANK STORAGE, BOOKER Nurse Practitioner Advanced Practice Nurse 6/10/16 Faraz Ozuna MD [address] [phone] Consulting Physician Internal Medicine 06/23/16 Jorje Hicks APRN, BOOKER [address] [place] [address] Nurse Practitioner Advanced Practice Nurse 06/06/22 Rebeca Chisholm MD #[address] [address] Consulting Physician Urology 09/15/22 Kerrie Wilson APRN, BOOKER [address] [place] [address] Nurse Practitioner Advanced Practice Nurse 08/14/23 documented as of this encounter
--- OUTSIDE RECORDS SUMMARY | 2025-03-09 17:30 | XMS_ITS | Clinical Summary ---
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 [address] [place] [address] Osteoporosis, unspecified osteoporosis type, unspecified pathological fracture presence (Primary Dx) Discharge Disposition: Discharge to home or self care 03/03/2025 Documentation [facility] [address] [place] [address] Jyotsna Power MA 02/12/[address] Medical Office Building [address] [place] [address] Thelma Bach MD 02/11/2025 Orders Only [address] [address] Melly Shannon RN 02/02/2025 9:45 AM CDT Lab [facility] at [address] [phone] Osteoporosis, unspecified osteoporosis type, unspecified pathological fracture presence 02/02/2025 8:00 AM CDT Office Visit [address] Medical Office Building [address] [place] [phone] Thelma Bach MD Osteoporosis, unspecified osteoporosis type, unspecified pathological fracture presence (Primary Dx) 02/02/[address] Medical Office Building [address] [place] [address] Thelma Bach MD Treatment Plan Update (New reclast) 01/09/[address] Medical Office Building [address] [place] [address] Thelma Bach MD 01/08/2025 Plan of Care Documentation [facility] Occupational Therapy [address] [place] [address] 12/31/2024 2:00 PM OIL RIGGER Therapy [facility] Occupational Therapy [address] [place] [address] Juan Miguel Cabrera, SONAL Other specified arthritis, right knee; Other specified arthritis, left knee; Age-related osteoporosis with current pathological fracture, vertebra(e), sequela 12/30/2024 Telephone Radiology [address] [place] [address] Jyotsna De La Rosa NP 12/26/2024 12:30 PM OIL RIGGER - 12/26/2024 11:59 PM OIL RIGGER Hospital Encounter [address] [address] Discharge Disposition: Discharge to home or self care 12/26/2024 8:41 AM OIL RIGGER - 12/26/2024 11:59 PM OIL RIGGER Hospital Encounter [address] [address] Compression fracture of L1 lumbar vertebra, sequela Discharge Disposition: Discharge to home or self care 12/24/2024 10:00 AM OIL RIGGER Office Visit [facility] Medical [facility] [address] [place] [phone] Jay Lamas PA Primary osteoarthritis of right knee (Primary Dx); Acquired valgus deformity knee, right 12/24/2024 Orders Only [facility] [address] [place] [phone] Jay Lamas PA Primary osteoarthritis of right knee (Primary Dx); Acquired valgus deformity knee, right 12/15/2024 Telephone Radiology [address] [place] [address] Jyotsna De La Rosa, MOLLY from Last 3 Months Immunizations Immunization Administration [...] drink = 0.6 oz pur e alcohol) [facility] Utilities Answer Date Recorded In the past [...] often do you attend chur ch or mu-ism services? Patient unable to answer 03/04/2024 Do [...] place to sleep or slept in a care home (including now)? Patient unable to answer 03/04/2024 [...] on file Legal Sex Male 3:46 AM OIL RIGGER Gender Identity Not on file Sexual Orientation [...] Vaccine (1 of 2) 2017 Covid-19 Vaccine (4 - 2023- season) 2024 09/20/2021, 12/29/2020, 11/30/2020 [...] Read Routine (OP Routine) 12/26/2024 3:01 PM OIL RIGGER Compression fracture of L1 lumbar vertebra, sequela from Last 3 Months Results * Immunotyping, serum with interpretation (02/02/2025 9:24 AM CDT) Immunosubtraction See Comment Comment: IMMUNOTYPING INTERPRETATION: No Monoclonal Protein Detected Testing performed by: [facility], [address] [place] [address]., [address] Blood 02/02/2025 9:24 AM CDT 02/02/2025 2:16 PM CDT Narrative ZULEMA VASQUEZWCH - 02/03/2025 1:18 PM CDT Reflex Immunotyping, Ser us Thelma Bach MD LAB BLOOD ORDERABLE S Final Result [facility]LEMA VASQUEZ[facility] [address] [facility]. [place] [address] * eGFR (02/02/2025 9:24 AM [...] was last reviewed 2021. Testing performed by: [facility], [address] [facility], [place] [address] Blood 02/02/2025 9:24 AM CDT 02/02/2025 9:41 AM CDT Thelma Bach MD LAB BLOOD ORDERABLE S Final Result Performing Organization Address [facility] de Phone Number [facility] [address] [facility]. [place] [address] * Beta-CrossLaps (Beta-CTx) (02/02/2025 9:24 AM CDT) Beta-CTx 387 pg/mL Comment: Interpretive Data Female: Premenopausal: 136 - 689 pg/mL Postmenopausal: 177 - 1015 pg/mL Male: 30 - 50 years: 131 - 670 pg/mL 51 - 70 years: 171 - 1060 pg/mL > 70 years: 152 - 858 pg/mL Current interpretive data was last revised on 2024. Testing performed by: [facility], [address] [place]., [address] Blood 02/02/2025 9:24 AM CDT 02/02/2025 2:13 PM CDT Thelma Bach MD LAB BLOOD ORDERABLE S Final Result Performing Organization Address [facility] de Phone Number [facility] [address] [facility]. [facility] [place] [address] * Osteocalcin (02/02/2025 9:24 AM CDT) Osteocalcin 24.5 ng/mL Comment: Interpretive Data Female: Premenopausal: 7.6 - 35.1 ng/mL Postmenopausal: 7.3 - 38.5 ng/mL Male: 30 - 50 years: 8.4 - 36.7 ng/mL > 50 years: 9.9 - 35.6 ng/mL Current interpretive data was last revised on 2022. Testing performed by: [facility], [address] [place]., [address] Blood 02/02/2025 9:24 AM CDT 02/02/2025 2:13 PM CDT Thelma Bach MD LAB BLOOD ORDERABLE S Final Result Performing Organization Address City/[facility]/ZIP Co de Phone Number [facility] [address] [facility]. Department [employer] [place], [place] [id number] * Vitamin D 25 hydroxy (02/02/2025 9:24 AM CDT) [facility] Vitamin D 25-OH 45 30 - 80 ng/mL Comment:Testing performed by : [facility], [address] [place] [address] Blood 02/02/2025 9:24 AM CDT 02/02/2025 9:41 AM CDT Thelma Bach MD LAB BLOOD ORDERABLE S Edited Result - Final [facility] [address] [facility] [address] * Protein electrophoresis with reflex, serum with interpretation (02/02/2025 9:24 AM CDT) [facility] Protein, sr 7.0 6.2 - 8.2 g/dL Comment:Testing performed by : [facility], [address] [facility], [place]., [address] Albumin 3.7 3.2 - 5.0 g/dL ZULEMA HUANG Comment:Testing performed by : [facility], [address] [place] [address]., [address] Alpha-1 globulin 0.3 0.2 - 0.4 g/dL ZULEMA HUANG Comment:Testing performed by : [facility], [address] [place] [address]., [address] Alpha-2 globulin 0.7 0.5 - 1.0 g/dL ZULEMA HUANG Comment:Testing performed by : [facility], [address] [place] [address]., [address] Beta-1 globulin 0.4 0.3 - 0.6 g/dL ZULEMA ROSARIO Comment:Testing performed by : [facility], [address] [place] [address]., [address] Beta-2 globulin 0.2 0.2 - 0.6 g/dL ZULEMA HUANG Comment:Testing performed by : [facility], [address] [place] [address]., [address] Gamma globulin 1.6 0.5 - 1.7 g/dL ZULEMA ROSAIRO Comment:Testing performed by : [facility], [address] [place] [address]., [address] SPEP interp See Comment ZULEMA HUANG Comment: SPEP INTERPRETATION: No apparent monoclonal protein. Polyclonal increase in gamma globulins. Testing performed by: [facility], [address] [place] [address]., [address] Immunotyping See Immunotyping Results ZULEMA HUANG Comment:Testing performed by : [facility], [address] [place] [address]., [address] Blood 02/02/2025 9:24 AM CDT 02/02/2025 2:16 PM CDT us Thelma Bach MD LAB BLOOD ORDERABLE S Final Result [facility] [address] [facility] [place] [address] * Phosphorus (02/02/2025 9:24 AM CDT) Pathologist [facility] Phosphorus, pl 3.6 2.3 - 4.5 mg/dL Comment:Testing performed by : [facility], [address] [place] [address] Blood 02/02/2025 9:24 AM CDT 02/02/2025 9:41 AM CDT Thelma Bach MD LAB BLOOD ORDERABLE S Edited Result - Final [facility] [address] [place] [address] * PTH (02/02/2025 9:24 AM CDT) [facility] PTH 24 15 - 65 pg/mL Comment:Testing performed by : [facility], [address] [place] [address] Blood 02/02/2025 9:24 AM CDT 02/02/2025 9:41 AM CDT Thelma Bach MD LAB BLOOD ORDERABLE S Final Result [facility] [address] [place] [address] * (ABNORMAL) Comprehensive metabolic panel (02/02/2025 9:24 AM CDT) [facility] Sodium 133(L) 135 - 145 mmol/L Comment:Testing performed by : [facility], [address] [place] [address] Potassium, pl 4.2 3.3 - 4.9 mmol/L ZULEMA VASQUEZWCH Comment:Testing performed by : [facility], [address] [place] [address] Chloride 96(L) 97 - 110 mmol/L CERNER [facility] Comment:Testing performed by : [facility], [address], [place] [address] CO2 28 22 - 32 mmol/L CERNER [facility] Comment:Testing performed by : [facility], [address], [place] [address] Anion gap 9 2 - 15 mmol/L CERNER [facility] Comment:Testing performed by : [facility], [address], [place] [address] BUN 17 6 - 25 mg/dL CERNER [facility] Comment:Testing performed by : [facility], [address], [place] [address] Creatinine 0.50(L) 0.80 - 1.30 mg/dL CERNER [facility] Comment:Testing performed by : [facility], [address], [place] [address] Glucose 90 70 - 199 mg/dL CERNER [...] classification and Diagnosis of Diabetes Diabetes Care 2021; 46: S19-S40. Current interpretive data was last revised 2022. Testing performed by: [facility], [address], [place] [address] Calcium 9.3 8.5 - 10.3 mg/dL CERNER [facility] Comment:Testing performed by : [facility], [address], [place] [address] Bilirubin, total 0.2 0.1 - 1.2 mg/dL CERNER [facility] Comment:Testing performed by : [facility], [address], [place] [address] Protein, pl 7.4 6.5 - 8.5 g/dL CERNER [facility] Comment:Testing performed by : [facility], [address], [place] [address] Albumin 4.0 3.5 - 5.0 g/dL C[facility]ER [facility] Comment:Testing performed by : [facility], [address], [place] [address] Alk phos 103 40 - 130 Units/L [facility]ER [facility] Comment:Testing performed by : [facility], [address], [place] [address] ALT 15 7 - 55 Units/L [facility]ER [facility] Comment:Testing performed by : [facility], [address], [place] [address] AST 23 10 - 50 Units/L CERNER [facility] Comment:Testing performed by : [facility], [address], [place] [address] Blood 02/02/2025 9:24 AM CDT 02/02/2025 9:41 AM CDT us Thelma Bach MD LAB BLOOD ORDERABLE S Edited Result - Final [facility] [address] [place] [address] * NM Bone Imaging SPECT/CT (12/26/2024 3:01 PM OIL RIGGER) Anatomical Region Laterality Modality N/A Nuclear Medicine 12/26/2024 4:57 PM OIL RIGGER Impressions 12/26/2024 4:57 PM OIL RIGGER FINDINGS/IMPRESSION: Examination is compromised by significant degree [...] Toan Graham M.D. Narrative 12/26/2024 4:57 PM OIL RIGGER EXAMINATION: NM BONE IMAGING SPECT/CT HISTORY: Multiple [...] NP IMG NM PROCEDURES Fin al Result from Last 3 Months Insurance MEDICARE IDPA MEDICARE IDPA MEDICARE [employer] MEDICARE [facility] Advance Directives For more information, please contact: [phone] * Full Code (Latest Code Status on [...] 1:37 AM 03/03/2024 7:33 AM Care Teams Pipe Wrapping Machine Operator Relationship Specialty Start Date End Date Carla Pavon MD [address] [place] [address] [place] [address] PCP - General Family Medicine 02/28/24
--- OUTSIDE RECORDS SUMMARY | 2025-03-09 17:30 | XMS_ITS | Clinical Summary ---
Author Organization [facility] Address [address]1 [place] [address] Phone Care Team Providers Care Seismograph Chief Name Role Phone Farhana Chino APN, MECHANICAL ENGINEERING COOP Unavailable [phone] Faraz Ozuna MD Unavailable Jorje Hicks BUNDLE TIER AND LABELER, MECHANICAL ENGINEERING COOP Unavailable Rebeca Chisholm MD Unavailable [phone] Kerrie Wilson APRN, MECHANICAL ENGINEERING COOP Unavailable Carla Pavon MD Primary Care Provider [phone] Allergies Active Allergy Reactions Criticality Noted Date [...] % Paste 08/06/20 24 Active nystatin (MYCOSTATIN) 688842 UNIT/GM Ointment 07/15/20 24 Active Active Problems [...] Encounters Date Type Department Care Team Description 03/08/2025 Results Follow-Up [facility] Medical [facility] Endocrinology [facility] #2 [facility] [place] [address] Faraz Ozuna MD CMP (COMPREHENSIVE METABOLIC PANEL), OSMOLALITY SERUM, UR OSMOLALITY, UR SODIUM (NA) RANDOM 03/05/2025 4:15 PM CDT Physical Therapy [facility] [address], [place] [address] [place] [address] Jay Lamas PAC Bogowith, Kelly A, PT Primary osteoarthritis of right knee (Primary Dx); Acquired valgus deformity knee, right; Gait difficulty; Chronic pain of right knee Discharge Disposition: Discharged to home or Selfcare 03/04/2025 Travel 02/25/2025 4:15 PM CDT Physical Therapy [facility] at [address], [place] [address] [place] [address] Jay Lamas PAC Bogowith, Kelly A, PT Primary osteoarthritis of right knee (Primary Dx); Acquired valgus deformity knee, right; Gait difficulty; Chronic pain of right knee Discharge Disposition: Discharged to home or Selfcare 02/25/2025 Travel 02/17/2025 Telephone [facility] 200 [facility], [place] [address] [place] [address] Melanie Vega, PT No Show 01/30/2025 Plan of Care Documentation [facility] [address], [place] [address] [place] [address] 01/29/2025 4:15 PM CDT Physical Therapy [facility] [address], [address] [place] [address] Jay Lamas PAC Bogowith, Kelly A, PT Gait difficulty (Primary Dx); Primary osteoarthritis of right knee; Acquired valgus deformity knee, right Discharge Disposition: Discharged to home or Selfcare 01/29/2025 Travel 01/19/2025 Results Follow-Up [facility] [address] [place] [address] Jorje Hicks APRN, MECHANICAL ENGINEERING COOP CT ABDOMEN PELVIS W/WO CONTRAST 01/07/2025 7:40 AM CDT - 01/07/2025 11:59 PM CDT Hospital Encounter [facility] CT 1 [facility] [address] Jorje Hicks, BUNDLE TIER AND LABELER, MECHANICAL ENGINEERING COOP Discharge Disposition: Discharged to home or Selfcare 01/07/2025 Travel 12/24/2024 Transcribe Orders [facility] [address] [place] [address] Jay Lamas, JAIMIE Primary osteoarthritis of right knee (Primary Dx); Acquired valgus deformity knee, right 12/23/2024 Results Follow-Up [facility] [address]2 [place] [address] Jorje Hicks APRN, MECHANICAL ENGINEERING COOP CULTURE, URINE 12/18/2024 11:00 AM MAMMAL CONTROL AGENT Clinical Support [facility] [address]2 [place] [address] Nurse, Chaitanya Urology Burning with urination (Primary Dx) Discharge Disposition: Discharged to home or Selfcare 12/18/2024 Travel from Last 3 Months Immunizations Immunization Administration Dates Next Due Covid-19, Mrna, Lnp-s, Pf, 1 00 Mcg Or 50 Mcg Dose (MODERNA) 09/20/2021 Influenza Vaccine greater than 3 yrs 08/10/2015 Influenza Vaccine, Quadrivalent, PF 06/30,08/03/2022,08/01/2021,08/12,07/25/2018,08/16/2017 Influenza Vaccine,unspecifie d Formulation 07/27/2023,08/17/2022,08/09/2016 Influenza, Injectable, Mdck,quadrivalent,with Preservative 08/21/2019 Influenza, Injectable, Quadrivalent 11/2020,07/30/2019,08/13/2017,08/25 Influenza, Seasonal, Injecta ble, Undefined 07/28/2015,08/04/2014,10/10/2013 Influenza,Split Virus,Trivalent,Injectable,PF 07/23/2024 Pneumococcal Vaccine Adult - 23 Valent 9 Pneumococcal conjugate PCV20 , polysaccharide [id number] conjugate, adjuvant, PF 12/08/2024 Sars-cov-2 (Covid-19) Vaccin e, Unspecified 12/27/2022 TDAP [...] Comments Blood Pressure 112/76 09/15/2024 2:06 PM MAMMAL CONTROL AGENT Pulse 72 09/15/2024 2:06 PM MAMMAL CONTROL AGENT Temperature 36.3 C (97.3 F) 09/15/2024 2:06 PM MAMMAL CONTROL AGENT Respiratory Rate 22 09/15/2024 2:06 PM MAMMAL CONTROL AGENT Oxygen Saturation 98% 09/15/2024 2:06 PM MAMMAL CONTROL AGENT Inhaled Oxygen Concentration - - Weight 45.4 kg (100 lb) 12/18/2024 10:56 AM MAMMAL CONTROL AGENT Height 157.5 cm (5' 2 ) 12/18/2024 10:56 AM MAMMAL CONTROL AGENT Body Mass Index 18.29 12/18/2024 10:56 AM MAMMAL CONTROL AGENT Plan of Treatment Upcoming Encounters Date Type Department Care Team (Latest Contact Info) Description 03/12/2025 4:15 PM CDT [facility] [address], [place] [address] [address] Jay Lamas, PAC [address]1 [place] [address] Melanie Vega, PT [place] 03/16/2025 9:00 AM CDT Office Visit [facility] Medical Group - Endocrinology [facility] [address]2 [place] [address] Faraz Ozuna MD [address] [address] 03/19/2025 4:15 PM CDT Physical Therapy [facility] [address], [address] [place] [address] Jay Lamas, PAC [address]1 [place] [address] Melanie Vega, PT [place] 03/26/2025 3:30 PM CDT Physical Therapy [facility] 200 [facility], [address] [place] [address] Jay Lamas, PAC [address]1 [place] [address] Melanie Vega, PT [place] 04/02/2025 4:15 PM CDT Physical Therapy [facility] [address], [address] [place] [address] Jay Lamas, PAC [address]1 [place] [address] Melanie Vega, PT [place] 07/22/2025 9:30 AM CDT [facility]ointment [facility] 1 [place] [address] Jorje Hicks APRN, MECHANICAL ENGINEERING COOP [address]2 [place] [address] Discharge Disposition: Discharged to home or Selfcare 08/04/2025 10:00 AM CDT Office Visit [facility] [address]2 [place] [address] Jorje Hicks APRN, MECHANICAL ENGINEERING COOP [address]2 [place] [address] Health Maintenance Due Date Last Done Comments Hepatitis C Virus (HCV) Screening 1967 Hepatitis B Immunization (1 of 3 - 19+ 3-dose series) 1986 Cologuard 2017 Immunochemical Fecal Occult Blood 2017 Zoster Immunization (1 of 2) 2017 Td Immunization Every 10 Years (Adults With 1 Tdap) 04/23/2025 04/23/2015, 03/27/2013, 07/08/2007 Colonoscopy 11/27/2033 11/27/2023, 03/23/2023 Colorectal Cancer Screening 11/27/2033 Respiratory Syncytial Virus (RSV) Immunization (Adult) (1 - 1-dose 75+ series) 2042 11/27/2023, 03/23/2023 DTaP/Tdap/Td Immunization Discontinued 2014, 03/27/2013, 07/08/2007 PSA Discussion Completed 08/29/2023, 09/30, 07/18/2016 Influenza Immunization Completed , 07/27/2023, 07/19/2023, Additional history exists SARS-COV-2 Immunization Completed 07/23/20 24, 09/24/2023, 12/27/2022, Additional history exists Pneumococcal Immunization (50+ years) Completed 12/08/2024, 08/28/2009 Pneumococcal Immunization Combined Discontinued 12/08/2024, 08/28/2009 Human Papillomavirus (HPV) Immunization Aged Out No longer eligible based on patient's age to complete this topic Meningococcal Immunization (ACWY) Aged Out No longer eligible based on patient's age to complete this topic Rotavirus Immunization Aged Out No lo nger eligible based on patient's age to complete this topic Procedures Procedure Name Priority Date/Time Associated Diagnosis Comments UR SODIUM (NA) RANDOM Routine 03/04/2025 7:31 AM CDT Hyponatremia UR OSMOLALITY Routine 03/04/2025 7:31 AM CDT Hyponatremia OSMOLALITY SERUM Routine 03/04/2025 7:31 AM CDT Hyponatremia CMP (COMPREHENSIVE METABOLIC PANEL) Routine 03/04/2025 7:[address] ABDOMEN PELVIS W/WO CONTRAST Routine 01/07/2025 8:10 AM CDT Acquired renal cyst of right kidney POCT CREATININE Routine 01/07/2025 7:58 AM CDT CULTURE, URINE Routine 12/18/2024 10:47 AM MAMMAL CONTROL AGENT Burning with urination PSA SCREEN 08/29/2023 12:00 AM CDT from Last 3 Months or Most Recently Relevant to Health Maintenance Results * UR SODIUM (NA) RANDOM (03/04/2025 7:31 AM CDT) SODIUM, RANDOM URINE 112 mmol/L 03/04/2025 4:34 PM CDT [facility] Comment:No reference range h as been established. Consider Clinical Correlation. Urine Non-Phlebotomy Collection / Unknown 03/04/2025 7:31 AM CDT 03/04/2025 7:43 AM CDT us Faraz Ozuna MD URINE ORDERABLES Final Result [facility] [address] [place] [address], [place] * UR OSMOLALITY (03/04/2025 7:31 AM CDT) OSMOLALITY, URINE 424 50 - 1,400 mOsm/kg 03/04/2025 4:06 PM CDT [facility] Urine Non-Phlebotomy Collection / Unknown 03/04/2025 7:31 AM CDT 03/04/2025 7:43 AM CDT us Faraz Ozuna MD URINE ORDERABLES Final Result Performing Organization Address [facility] Co de Phone Number [facility] [address] [place] [address], [place] * OSMOLALITY SERUM (03/04/2025 7:31 AM CDT) Pathologist [facility] OSMOLALITY 292 275 - 295 mOsm/kg 03/04/2025 2:45 PM CDT [facility] Blood Venipuncture / Unknown 03/04/2025 7:31 AM CDT 03/04/2025 7:41 AM CDT us Faraz Ozuna MD CHEMISTRY ORDERABLES Final Resul t Performing Organization Address [facility] Co de Phone Number [facility] [address] [place] [address], [place] * (ABNORMAL) CMP (COMPREHENSIVE METABOLIC PANEL) (03/04/2025 7:31 AM CDT) Pathologist [facility] SODIUM 134(L) 136 - 145 mmol/L 03/04/2025 8:04 AM CDT [facility] POTASSIUM 4.0 3.5 - 5.1 mmol/L 03/04/2025 8:04 AM CDT [facility] CHLORIDE 100 98 - 107 mmol/L 03/04/2025 8:04 AM CDT [facility] CO2, VENOUS 30 22 - 30 mmol/L 03/04/2025 8:04 AM CDT [facility] ANION GAP 8.0 <18.0 mmol/L 03/04/2025 8:04 AM CDT [facility] GLUCOSE 97 70 - 99 mg/dL 03/04/2025 8:04 AM [facility] BUN 17 8 - 26 mg/dL 03/04/2025 8:04 AM [facility] CREATININE, BLOOD 0.57(L) 0.70 - 1.30 mg/dL 03/04/2025 8:04 AM [facility] BUN/CREATININE RATIO 30(H) 12 - 20 ratio 03/04/2025 8:04 AM [facility] TOTAL PROTEIN 7.4 6.0 - 8.0 g/dL 03/04/2025 8:04 AM [facility] ALBUMIN 3.7 3.5 - 5.0 g/dL 03/04/2025 8:04 AM [facility] A/G RATIO 1.0 1.0 - 2.2 03/04/2025 8:04 AM [facility] CALCIUM 9.0 8.7 - 10.5 mg/dL 03/04/2025 8:04 AM [facility] T BILI 0.4 0.2 - 1.2 mg/dL 03/04/2025 8:04 AM [facility] SGOT (AST) 26 <43 U/L 03/04/2025 8:04 AM [facility] SGPT (ALT) 13 <56 U/L 03/04/2025 8:04 AM [facility] ALKALINE PHOSPHATASE 84 40 - 150 U/L 03/04/2025 8:04 AM [facility] IS THE PATIENT REQUIRED TO BE FASTING? No 03/04/2025 8:04 AM [facility] GFR, ESTIMATED >60 >=60 03/04/2025 8:04 AM [facility] Comment: Creatinine Clearance is the preferred criteria for selecting drug dose adjustments in renally impaired patients. The GFR is provided as additional pertinent clinical information. GFR is reported in mL/min/1.73 sq m. Calculation based on the Chronic Kidney Disease Epidemiology Collaboration (CKD- EPI) equation refit without adjustment for race. GFR, EST. >60 >=60 025 8:04 AM CDT [facility] GFR, EST. NONAFRICAN >60 >=60 03/04/2025 8:04 AM CDT [facility] Blood Venipuncture / Unknown 03/04/2025 7:31 AM CDT 03/04/2025 7:41 AM CDT us Faraz Ozuna MD CHEMISTRY ORDERABLES Final Resul t [facility] [address] [place] [address] * CT ABDOMEN PELVIS W/WO CONTRAST (01/07/2025 [...] Jaspreet Merchant M.D. LB: MEET Report ID: [id number] Reading Location: [id number] Procedure Note Jaspreet Merchant MD - 01/11/2025 [...] Electronically signed by Jaspreet Merchant M.D. LB: LB Report ID: [id number] Reading Location: [id number] IMPRESSION: The previously described 1.5 cm lesion [...] Correlation with symptoms recommended. us Jorje Hicks APRN, ROSIE IMG CT ORDERABLES Kendra cheng Result * POCT Creatinine (01/07/2025 7:58 AM CDT) CREATININE - POCT 0.6 0.6 - 1.3 mg/dL 01/07/2025 8:00 AM CDT [facility] Blood 01/07/2025 7:58 AM CDT 01/07/2025 7:59 AM CDT us None Provider POINT OF CARE TESTING Final Resu lt [facility] #[address] [place] [address] * CULTURE, URINE (12/18/2024 10:47 AM MAMMAL CONTROL AGENT) CULTURE RESULTS PSEUDOMONAS AERUGINOSA 12/20/2024 9:22 PM MAMMAL CONTROL AGENT [facility] CULTURE RESULTS METHICILLIN RESISTANT STAPHYLOCOCCUS AUREUS 12/20/2024 9:22 PM MAMMAL CONTROL AGENT [facility] Comment:SENSITIVITY NOT PERF ORMED Culture URINE SPECIMEN OBTAINED BY CLEAN CATCH PROCEDURE / Unknown Non-Phlebotomy Collection / Unknown 12/18/2024 10:47 AM MAMMAL CONTROL AGENT 12/18/2024 10:47 AM MAMMAL CONTROL AGENT Narrative Organism Antibiotic Method Susceptibility Pseudomonas aeruginosa Cefepime ETEST 2 mcg/ml: Susceptible Pseudomonas aeruginosa Levofloxacin ETEST 0.25 mcg/ml: Susceptible Pseudomonas aeruginosa Meropenem ETEST 0.5 mcg/ml: Susceptible Pseudomonas aeruginosa Piperacillin/Tazobactam RAMONE FORBES 32 mm: Susceptible Pseudomonas aeruginosa Tobramycin RAMONE GAINES 26 mm: Susceptible Jorje Hicks BUNDLE TIER AND LABELER, MECHANICAL ENGINEERING COOP MICROBIOLOGY - GENERAL ORDERABLES Final Result Performing Organization Address City/State/[facility] Co de Phone Number [facility] [address] [place] [address], * PSA SCREEN (08/29/2023 12:00 AM CDT) PSA (PROSTATE SPECIFIC ANTIGEN) 0.2 ng/mL 08/29/2023 us Provider Scan CHEMISTRY ORDERABLES Final Resul t from Last 3 Months or Most Recently Relevant to Health Maintenance Additional Health Concerns Infection Onset Date Last Indicated 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 12/18/2024 Insurance [place] Advance Directives Documents on File Type Date Recorded 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 PRE-ARREST: Use entire range of life support measures to stabilize the patient. Care Teams Seismograph Chief Relationship Specialty Start Date End Date Carla Pavon MD [address] [place] [address] PCP - General Family Medicine 11/12/24 Frahana Chino ORDER MANAGER, MECHANICAL ENGINEERING COOP Nurse Practitioner Advanced Practice Nurse 04/07/16 Faraz Ozuna MD #[address] [address] Consulting Physician Internal Medicine 06/23/16 Jorje Hicks APRN, MECHANICAL ENGINEERING COOP [address] [place] [address] Nurse Practitioner Advanced Practice Nurse 06/06/22 Rebeca Chisholm MD #[address] [address] Consulting Physician Urology 09/15/22 Kerrie Wilson APRN, MECHANICAL ENGINEERING COOP [address] [place] [address] Nurse Practitioner Advanced Practice Nurse 08/14/23
--- OUTSIDE RECORDS SUMMARY | 2025-03-09 17:30 | XMS_ITS | Encounter Summary ---
Author Organization [facility] Address [address] [place] [address] Phone Care Team Providers Care Law Enforcement Instructor Name Role Phone Aparna Lester MD Primary Care Provider [phone] Farhana Chino BILINGUAL OFFICE ASSISTANT, ENVIRONMENTAL ANALYST Unavailable Fraaz Ozuna MD Unavailable Jorje Hicks PREANALYTICS TEAM LEAD, ENVIRONMENTAL ANALYST Unavailable Rebeca Chisholm MD Unavailable [phone] Kerrie Wilson APRN, ENVIRONMENTAL ANALYST Unavailable Carla Pavon MD Primary Care Provider Encounter Details Date Type Department Care Team (Late st Contact Info) Description 07/25/2024 Telephone [facility] #[address] [place] [address] Rebeca Chisholm MD #[address] [address] Social History Tobacco Use Types Packs/Day Years [...] Description 03/12/2025 4:15 PM CDT Physical [facility] [address] [facility], [address] [place] [address] Jay Lamas, PAC [address] [place] [address] Melanie Vega, PT [place] 03/16/2025 9:00 AM CDT Office Visit [facility] Medical Group - Endocrinology [facility] #[address] [place] [address] Faraz Ozuna MD #[address] [address] 03/19/2025 4:15 PM CDT [facility] [address], [address] [place] [address] Jay Lamas, PAC [address] [place] [address] Melanie Vega, PT [place] 03/26/2025 3:30 PM CDT Physical [facility] [address], [address] [place] [address] Jay Lamas, PAC [address] [place] [address] Melanie Vega, PT [place] 04/02/2025 4:15 PM CDT Physical Therapy [facility] [address], [address] [place] [address] Jay Lamas, PAC [address] [place] [address] Melanie Vega, PT [place] 07/22/2025 9:30 AM CDT Appointment [facility]ound 1 [place] [address] Jorje Hicks APRN, ENVIRONMENTAL ANALYST #[address] [place] [address] Discharge Disposition: Discharged to home or Selfcare 08/04/2025 10:00 AM CDT Office Visit [facility] #[address] [place] [address] Jorje Hicks APRN, ENVIRONMENTAL ANALYST [address] [place] [address] documented as of this encounter Visit Diagnoses Not on filedocumented in this encounter Additional Health Concerns Infection Onset Date Last Indicated Resolved Time 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 12/18/2024 documented as of this encounter Care Teams Law Enforcement Instructor Relationship Specialty Start Date End Date Aparna Lester MD [address] [place] [address] [address] [place] [address] PCP - General Internal Medicine 10/26/15 11/11/24 Carla Pavon MD [address] [facility] [address] [place] [address] PCP - General Family Medicine 11/12/24 Farhana Chino APN, ENVIRONMENTAL ANALYST [address] [facility] [address] [place] [address] Nurse Practitioner Advanced Practice Nurse 04/07/16 Faraz Ozuna MD #2 [facility] [address] [place] [address] Consulting Physician Internal Medicine 06/23/16 Jorje Hicks APRN, ENVIRONMENTAL ANALYST #[address] [place] [address] Nurse Practitioner Advanced Practice Nurse 06/06/22 Rebeca Chisholm MD #[address] [facility] [address] [place] [address] Consulting Physician Urology 09/15/22 Kerrie Wilson APRN, ENVIRONMENTAL ANALYST [address] [place] [address] Nurse Practitioner Advanced Practice Nurse 08/14/23 documented as of this encounter
--- OUTSIDE RECORDS SUMMARY | 2025-03-09 17:30 | XMS_ITS | Encounter Summary ---
Author Organization [facility] Address [facility] [address] Phone Care Team Providers Care Guide Alpine Name Role Phone Farhana Chino APN, SENIOR PORTFOLIO ANALYST Unavailable Faraz Ozuna MD Unavailable Jorje Hicks APRN, SENIOR PORTFOLIO ANALYST Unavailable [phone] Rebeca Chisholm MD Unavailable [phone] Kerrie Wilson APRN, SENIOR PORTFOLIO ANALYST Unavailable Carla Pavon MD Primary Care Provider [phone] Reason for Referral * Radiology Services (Routine) - Authorized Specialty Diagnoses / Procedures Referred By Hari lanza Referred To Contact Radiology Diagnoses Acquired renal cyst of right kidney Procedures US RENAL COMPLETE Jorje Hicks APRN, ROSIE [address] [place] [address] Phone: tel: fax: Referral ID Status Reason Start Date Expiration Date V isits Requested Visits Authorized [id number] Authorized 01/19/2025 1 1 Encounter Details Date Type Department Care Team (Late st Contact Info) Description 01/19/2025 Results [facility]-Up [facility] #[address] [place] [address] Jorje Hicks APRN, SENIOR PORTFOLIO ANALYST #[address] [place] [address] CT ABDOMEN PELVIS W/WO CONTRAST Social History Tobacco Use Types Packs/Day Years [...] Description 03/12/2025 4:15 PM CDT [facility] [address], [address] [address] Jay Lamas, PAC [address] [place] [address] Melanie Vega, PT [place] 03/16/2025 9:00 AM CDT Office Visit [facility] Medical Group - Endocrinology [facility] #2 [place] [address] Faraz Ozuna MD #[address] [address] 03/19/2025 4:15 PM CDT Physical [facility] [address], [address] [address] Jay Lamas, PAC [address] [place] [address] Melanie Vega, PT [place] 03/26/2025 3:30 PM CDT [facility] [address] [facility], [address] [address] Jay Lamas, PAC [address] [place] [address] Melanie Vega, PT [place] 04/02/2025 4:15 PM CDT Physical Therapy [facility] [address], [address] [place] [address] Jay Lamas, PAC [address] [place] [address] Melanie Vega, PT [place] 07/22/2025 9:30 AM CDT [facility]ointment [facility] 1 [place] [address] Jorje Hicks APRN, SENIOR PORTFOLIO ANALYST [address] [place] [address] Discharge Disposition: Discharged to home or Selfcare 08/04/2025 10:00 AM CDT Office Visit [facility] #[address] [place] [address] Jorje Hicks, POULTRY PROCESSOR, SENIOR PORTFOLIO ANALYST [address] [place] [address] Scheduled Orders Name Type Priority Associated Diagnoses [...] documented as of this encounter Care Teams Guide Alpine Relationship Specialty Start Date End Date Carla Pavon MD [address] [place] [address] [address] [place] [address] PCP - General Family Medicine 11/12/24 Farhana Chino APN, SENIOR PORTFOLIO ANALYST Nurse Practitioner Advanced Practice Nurse 04/07/16 Faraz Ozuna MD #[address] [phone] Consulting Physician Internal Medicine 06/23/16 Jorje Hicks APRN, SENIOR PORTFOLIO ANALYST [address] [place] [address] Nurse Practitioner Advanced Practice Nurse 06/06/22 Rebeca Chisholm MD #[address] [address] Consulting Physician Urology 09/15/22 Kerrie Wilson APRN, SENIOR PORTFOLIO ANALYST [address] [place] [address] Nurse Practitioner Advanced Practice Nurse 08/14/23 documented as of this encounter
--- OUTSIDE RECORDS SUMMARY | 2025-03-09 17:30 | XMS_ITS | Encounter Summary ---
Author Organization [facility] Address [address] [facility] [place] [address] Phone Care Team Providers Care Lead Clinical Research Coordinator Name Role Phone Farhana Chino APN, PRODUCTION CLERK Unavailable Faraz Ozuna MD Unavailable Jorje Hicks KNOCK OUT HAND, PRODUCTION CLERK Unavailable Rebeca Chisholm MD Unavailable [phone] Kerrie Wilson APRN, PRODUCTION CLERK Unavailable Carla Pavon MD Primary Care Provider [phone] Reason for Referral * PT/OT/ST (Routine) - Authorized Specialty Diagnoses / Procedures Referred By Hari lanza Referred To Contact Physical Therapy Diagnoses Primary osteoarthritis of right knee Acquired valgus deformity knee, right Jay Lamas PAC [address] [place] [address] Phone: tel: fax: [facility] [address], [place] [address] [address] Phone: tel: fax: Referral ID Status Reason Start Date Expiration Date V isits Requested Visits Authorized [id number] Authorized 12/24/2024 50 50 Scheduling Instructions NING SUPPORT AIDE Encounter Details Date Type Department Care Team (Latest Contact Info) Description 12/24/2024 Transcribe Orders [facility] [address] [place] [address] Jay Lamas, PAC [address] [place] [address] Primary osteoarthritis of right knee (Primary Dx); [...] Description 03/12/2025 4:15 PM CDT Physical Therapy [facility] [address] [facility], [address] [address] Jay Lamas, PAC [address] [place] [address] Melanie Vega, [facility] 03/16/2025 9:00 AM CDT Office Visit [facility] [address] [place] [address] Faraz Ozuna MD #[address] [address] 03/19/2025 4:15 PM CDT Physical Therapy [facility] [address], [place] [address] [address] Jay Lamas, PAC [address] [place] [address] Melanie Vega, PT [place] 03/26/2025 3:30 PM CDT Physical Therapy [facility] [address], [place] [address] [place] [address] Jay Lamas, PAC [address] [place] [address] Melanie Vega, PT [place] 04/02/2025 4:15 PM CDT Physical Therapy [facility] [address], [place] [address] [place] [address] Jay Lamas, PAC [address] [place] [address] Melanie eVga, PT [place] 07/22/2025 9:30 AM CDT Appointment [facility] Ultrasound [address] [place] [address] Jorje Hicks APRN, PRODUCTION CLERK [address] [place] [address] Discharge Disposition: Discharged to home or Selfcare 08/04/2025 10:00 AM CDT Office Visit [facility] #[address] [place] [address] Jorje Hicks APRN, PRODUCTION CLERK [address] [place] [address] Scheduled Referrals Name Type Priority Associated Diagnoses [...] documented as of this encounter Care Teams Lead Clinical Research Coordinator Relationship Specialty Start Date End Date Carla Pavon MD [address] [place] [address] [address] [place] [address] PCP - General Family Medicine 11/12/24 Farhana Chino APN, PRODUCTION CLERK Nurse Practitioner Advanced Practice Nurse 04/07/16 Faraz Ozuna MD #2 [facility] [address] [place] [id number] Consulting Physician Internal Medicine 06/23/16 Jorje Hicks APRN, PRODUCTION CLERK [address] [place] [address] Nurse Practitioner Advanced Practice Nurse 06/06/22 Rebeca Chisholm MD #2 [facility] [address] [place] [address] Consulting Physician Urology 09/15/22 Kerrie Wilson APRN, PRODUCTION CLERK [address] [place] [address] Nurse Practitioner Advanced Practice Nurse 08/14/23 documented as of this encounter
--- OUTSIDE RECORDS SUMMARY | 2025-03-09 17:30 | XMS_ITS | Clinical Summary ---
Author Organization [facility] Address [address] [place] [address] Care Team Providers Care Senior Lead Software Engineer Name Role Phone Unavailable Primary Care Provider Unavailabl e Source Comments [facility],non-owned Affiliates and Associated Physician Practices is amultiple site organization consisting of ambulatory clinics and hospital sitesin [place], [place], [place] and [place]. This disclosure is being madepursuant to the Care Everywhere program and may not contain all information available regarding this patient. 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
--- NOTE | 2025-03-09 18:06 | ED.SKABFB ---
HPI - Skin/Abscess/Foreign Bdy General Chief complaint: Extremity Problem,Nontraumatic Stated complaint: rt foot swelling and irritation Time Seen by Provider: 03/09/25 18:06 Source: patient, RN notes reviewed, old records reviewed and other (intermediate caregiver) Mode of arrival: wheelchair Limitations: altered mental status and other (blind and heard of hearing) History of Present Illness HPI narrative: 59 year old male from intermediate with complaints of rash and irritation between the toes of the right foot with some crusting for the past 2 days. 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 Caregiver states that patient is bathed daily since he has problems with incontinency. MD complaint: rash (right foot between toes) Onset (ago): day(s) (2) Location: R foot (between toes) Severity: moderate Treatments prior to arrival: none Related Data Home Medications ?Medication ?Instructions ?Recorded ?Confirmed ?Last Taken ?Type alfuzosin 10 mg tablet,extended 10 mg PO DAILY 01/19/23 01/01/25 Unknown History release 24 hr ferrous sulfate 325 mg (65 mg 325 mg PO DAILY 01/19/23 01/01/25 Unknown History iron) tablet (Iron (ferrous sulfate)) potassium chloride 10 mEq 10 meq PO DAILY 01/19/23 06/13/24 Unknown History tablet,extended release sertraline 100 mg tablet 100 mg PO DAILY 01/19/23 01/01/25 Unknown History aripiprazole 20 mg tablet 20 mg PO DAILY 08/10/23 01/01/25 Unknown History hydroxyzine HCl 25 mg tablet 25 mg PO DAILY 08/10/23 01/01/25 Unknown History calcium 500 mg (as 1 tablet PO BID 05/22/24 01/01/25 Unknown History carbonate)-vitamin D3 15 mcg (600 unit) tablet cholecalciferol (vitamin D3) 25 25 mcg PO DAILY 05/22/24 06/13/24 Unknown History mcg (1,000 unit) tablet mirabegron 25 mg tablet,extended 25 mg PO DAILY 05/22/24 06/13/24 Unknown History release 24 hr (Myrbetriq) pantoprazole 40 mg tablet,delayed 40 mg PO DAILY 05/22/24 01/01/25 Unknown History release albuterol sulfate 2.5 mg/3 mL See Rx Instructions .Route .COMPLEX 06/13/24 06/13/24 Unknown History (0.083 %) solution for nebulization albuterol sulfate 90 mcg/actuation 1 puff inhalation PRN PRN Wheezing 06/13/24 06/13/24 Unknown History aerosol inhaler docusate sodium 100 mg capsule 100 mg PO DAILY PRN Constipation 06/13/24 01/01/25 Unknown History naltrexone 50 mg tablet 50 mg PO DAILY 06/13/24 01/01/25 Unknown History ondansetron HCl 4 mg tablet 4 mg PO DAILY PRN Nausea 06/13/24 06/13/24 Unknown History methocarbamol 500 mg tablet mg 02/09/25 Unknown History polyethylene glycol 3350 17 g 03/09/25 Unknown History gram/dose oral powder Allergies Allergy/AdvReac Type Severity Reaction Status Date / Time topiramate Allergy Intermediate Rash Verified 03/09/25 17:29 Review of Systems Review of Systems: CONSTITUTIONAL: Denies fever, chills, or sweats. CARDIOVASCULAR: Denies chest pain, palpitations, or edema. RESPIRATORY: Denies cough or dyspnea. SKIN: Reports red scaly skin between toes of right foot especially between his 1-2,2-3 toes with no drainage noted.some noted irritated tissue between other toes also, none to bottom of foot MUSCULOSKELETAL: Denies joint pain or myalgia. NEUROLOGIC: Denies headache, numbness, or weakness. All systems reviewed & are unremarkable except as noted in HPI and below PMFSH Past Medical History Medical History Anemia Eczema Osteoarthritis Retinal detachment, left Moderate intellectual disability Bipolar disorder Urinary incontinence Hypertension Impaired vision Surgical History Surgical History H/O bilateral hip replacements Social History Social History Smoking status: Never smoker Alcohol intake: never Substance use: never Living arrangements: intermediate Gender identity (if verbalized by the patient): Male Comments At time of signature, agree with nursing past medical, surgical, social and family history. There is no relevant family history pertinent to the presenting complaint Exam Narrative: GENERAL: Well-appearing, well-nourished, and in no acute distress. HEAD: Normocephalic, atraumatic. EYES: PERRLA, conjunctivae clear, and EOMI. ENT: Mucous membranes moist. Oropharynx without edema, erythema or lesions. NECK: Supple. No lymphadenopathy CHEST: Clear to auscultation. No respiratory distress.SAO2 97% on room air HEART: Regular rate and rhythm. SKIN: Warm, dry.? Patches of erythema scaly rash between toes of right foot no drainage noted with foot having minimal swelling. NEURO:? Alert and oriented x3. PSYCH: Normal mood and affect has intellectual disbility and history of Bipolar disease/ Course Course Emergency Course: Patient is aware of diagnosis, understands and agrees to treatment plan.? Anticipatory guidance given.? Patient agrees to follow-up as directed and is aware of reasons to seek care at the emergency department. Portions of this record may have been created with voice recognition software Level of Care: Express Care Visit Vital Signs Vital signs: Vital Signs Temperature 36.1 C L 03/09/25 17:23 Pulse Rate 57 L 03/09/25 17:23 Respiratory Rate 20 03/09/25 17:23 Blood Pressure 96/52 L 03/09/25 17:23 Pulse Oximetry 97 03/09/25 17:23 Oxygen Delivery Room Air 03/09/25 17:23 Temperature 36.1 C L 03/09/25 17:23 Pulse Rate 57 L 03/09/25 17:23 Respiratory Rate 20 03/09/25 17:23 Blood Pressure 96/52 L 03/09/25 17:23 Pulse Oximetry 97 03/09/25 17:23 Oxygen Delivery Room Air 03/09/25 17:23 Reviewed MDM - Skin/Abscess/Foreign Bdy MDM Narrative Medical decision making narrative: Does not appear at this time to be erythema multiforme, bullous, SJS, TEN; no evidence at this time to suggest RMSF, endocarditis or Lyme disease; patient looks well, nontoxic and is tolerating oral intake; no neurologic signs or symptoms; no headache, photophobia or neck pain; afebrile; appropriate for initial outpatient treatment; discussed the importance of follow-up, patient agrees; question, viral exanthema, contact dermatitis, allergic dermatitis, eczema, urticaria, [ xx ]. No soft palate or uvula edema, no tongue, lip edema or other mucosal involvement, no respiratory compromise, no stridor, no wheezing, no wheezing, no history of syncope, no hypotension, no nausea, vomiting, or diarrhea.? Instructed patient to go to nearest ER immediately for any worsening symptoms including but not limited to: fever, spreading rash, pain, sore throat, headache, dizziness, chest pain, trouble breathing, or any symptoms concerning to the patient. Differential Diagnosis Differential diagnosis: Likely dermatophytosis, cellulitis, contact dermatitis and other (tinea pedis) Medical Records Attestation: I reviewed the patient's medical records. Critical Care Time Critical Care Time Critical Care Time: No Discharge Plan Discharge Clinical Impression: Tinea pedis Qualifiers: Laterality: right Qualified Code(s): B35.3 - Tinea pedis Patient Disposition: Home Condition: Stable Instructions: Antibiotic Form, Skin Yeast Infection (ED) Additional Instructions: Soap right foot in warm soapy water rinse well pat dry make sure to dry between toes well apply ointment as prescribed watch for any increasing infection--redness, swelling, drainage Tylenol or ibuprofen for any fever pain Monitor for temperatures follow up with PCP in 7-10 days for a wound check recheck if develop fever, chills, increasing symptom Go to the ER if your symptoms become worse of if ANY new symptoms develop Patient Language: Greenlandic Prescriptions: New clobetasol 0.05 % ointment 1 applic topical QAM AND QPM Qty: 60 1RF Rx Instructions: use for one week longer after healed No Action naltrexone 50 mg Tablet 50 mg PO DAILY albuterol sulfate 2.5 mg /3 mL (0.083 %) solution for nebulization See Rx Instructions .ROUTE .COMPLEX Rx Instructions: wheezing ondansetron HCl 4 mg tablet 4 mg PO DAILY PRN (Reason: Nausea) docusate sodium 100 mg capsule 100 mg PO DAILY PRN (Reason: Constipation) albuterol sulfate 90 mcg/actuation HFA aerosol inhaler 1 puff INHALATION PRN PRN (Reason: Wheezing) sertraline 100 mg Tablet 100 mg PO DAILY potassium chloride 10 mEq Tablet Extended Release 10 meq PO DAILY ferrous sulfate [Iron (ferrous sulfate)] 325 mg (65 mg iron) Tablet 325 mg PO DAILY alfuzosin 10 mg Tablet Extended Release 24 Hr 10 mg PO DAILY Rx Instructions: administer after the same meal each day aripiprazole 20 mg tablet 20 mg PO DAILY hydroxyzine HCl 25 mg tablet 25 mg PO DAILY pantoprazole 40 mg tablet,delayed release (DR/EC) 40 mg PO DAILY calcium carbonate-vitamin D3 500 mg-15 mcg (600 unit) tablet 1 tablet PO BID mirabegron [Myrbetriq] 25 mg tablet extended release 24 hr 25 mg PO DAILY cholecalciferol (vitamin D3) 25 mcg (1,000 unit) tablet 25 mcg PO DAILY methocarbamol 500 mg tablet polyethylene glycol 3350 17 gram/dose powder Follow-up/Referrals: Librado,Carla [Other] Time of Disposition: 18:12 [place] Coma Scale Eyes: Open Verbal: Oriented and Alert Motor: Localizes Pain Carlos Coma Total Score: 14
== END 2025-03-09 18:26 | disposition home or self-care (01) ==
PROVIDERS: Emergency Provider Registered Nurse
DX: B35.3 Tinea pedis (principal); M19.90 Unspecified osteoarthritis, unspecified site; I10 Essential (primary) hypertension; F71 Moderate intellectual disabilities; D64.9 Anemia, unspecified; H54.8 Legal blindness, as defined in USA; Z96.643 Presence of artificial hip joint, bilateral
CPT/HCPCS: 99213; G0463

== ENCOUNTER 2025-03-25 15:45 | Emergency (ER) | payer MEDICARE, MEDICAID, SELFPAY ==
--- OUTSIDE RECORDS SUMMARY | 2025-03-25 15:49 | XMS_ITS | Encounter Summary ---
Author Organization [facility] Address [address] [place] [address] Phone Care Team Providers Care Or Assistant Name Role Phone Aparna Lester MD Primary Care Provider Farhana Chino CABLE TELEVISION TECHNICIAN, HYDROGRAPHER Unavailable Faraz Ozuna MD Unavailable Jorje Hicks SODA WORKER, HYDROGRAPHER Unavailable Rebeca Chisholm MD Unavailable [phone] Kerrie Wilson APRN, HYDROGRAPHER Unavailable Carla Pavon MD Primary Care Provider Encounter Details Date Type Department Care Team (Late st Contact Info) Description 07/25/2024 Telephone [facility] #2 [place] [address] Rebeca Chisholm MD #[address] [address] Social History Tobacco Use Types Packs/Day Years [...] Department Care Team (Latest Contact Info) Description 03/26/2025 3:30 PM CDT [facility] [address] [facility], [place] [place] [address] Jay Lamas, PAC [address] [place] [address] Melanie Vega, PT [place] 04/02/2025 4:15 PM CDT [facility] [address] [facility], [place] [address] [place] [address] Jay Lamas, PAC [address] [place] [address] Melanie Vega, PT [place] 07/22/2025 9:30 AM CDT [facility] 1 [place] [address] Jorje Hicks APRN, HYDROGRAPHER [address] [place] [address] Discharge Disposition: Discharged to home or Selfcare 08/04/2025 10:00 AM CDT Office Visit [facility] #2 [place] [address] Jorje Hicks APRN, HYDROGRAPHER [address] [facility] [place] [address] 09/16/2025 8:15 AM SCRAPER TENDER Office Visit [facility] - [place] #[address] [place] [phone] Faraz Ozuna MD #[address] [place] [address] documented as of this encounter Visit Diagnoses Not on filedocumented in this encounter Additional Health Concerns Infection Onset Date Last Indicated Resolved Time 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 12/18/2024 documented as of this encounter Care Teams Or Assistant Relationship Specialty Start Date End Date Aparna Lester MD [address] [facility] [address] [place] [address] PCP - General Internal Medicine 10/26/15 11/11/24 Carla Pavon MD [address] [place] [address] [place] [address] PCP - General Family Medicine 11/12/24 Farhana Chino APN, HYDROGRAPHER [address] [place] [address] [address] [place] [address] Nurse Practitioner Advanced Practice Nurse 04/07/16 Faraz Ozuna MD [address] [phone] Consulting Physician Internal Medicine 06/23/16 Jorje Hicks APRN, HYDROGRAPHER [address]2 [place] [address] Nurse Practitioner Advanced Practice Nurse 06/06/22 Rebeca Chisholm MD #[address] [address] Consulting Physician Urology 09/15/22 Kerrie Wilson APRN, HYDROGRAPHER #2 [place] [address] Nurse Practitioner Advanced Practice Nurse 08/14/23 documented as of this encounter
--- OUTSIDE RECORDS SUMMARY | 2025-03-25 15:49 | XMS_ITS | Clinical Summary ---
Author Organization [facility] Address [address] [place] [address] Care Team Providers Care Nursing Technician Name Role Phone Carla Pavon MD Primary Care Provider [phone] Allergies Active Allergy Reactions Criticality Noted Date [...] Encounters Date Type Department Care Team Description 03/25/2025 9:00 AM CDT Office Visit [facility] Orthopedic and Sports Medicine [address] [place] [phone] Jay Lamas PA Primary osteoarthritis of right knee (Primary Dx); Acquired valgus deformity knee, right 03/05/2025 9:12 AM CDT - 03/05/2025 11:59 PM CDT Hospital Encounter [address] [address] Osteoporosis, unspecified osteoporosis type, unspecified pathological fracture presence (Primary Dx) Discharge Disposition: Discharge to home or self care 03/03/[address] [address] Jyotsna Power MA 02/12/[address] Medical Office Building [address] [place] [address] Thelma Bach MD 02/11/2025 Orders Only [address] [address] Melly Shannon RN 02/02/2025 9:45 AM CDT [facility] at [address] [phone] Osteoporosis, unspecified osteoporosis type, unspecified pathological fracture presence 02/02/2025 8:00 AM CDT Office Visit [address] Medical Office Building [address] [place] [address] Thelma Bach MD Osteoporosis, unspecified osteoporosis type, unspecified pathological fracture presence (Primary Dx) 02/02/[address] Medical Office Building [address] [place] [address] Thelma Bach MD Treatment Plan Update (New reclast) 01/09/[address] Medical Office Building [address] [place] [address] Thelma Bach MD 01/08/2025 Plan of Care Documentation [facility] [address] [place] [address] 12/31/2024 2:00 PM NIP WRAPPER Therapy [facility] [address] [place] [phone] Juan Miguel Cabrera OT Other specified arthritis, right knee; Other specified arthritis, left knee; Age-related osteoporosis with current pathological fracture, vertebra(e), sequela 12/30/2024 Telephone Radiology [address] [place] [address] Jyotsna De La Rosa NP 12/26/2024 12:30 PM NIP WRAPPER - 12/26/2024 11:59 PM NIP WRAPPER Hospital Encounter [facility] [address] [place] [phone] Discharge Disposition: Discharge to home or self care 12/26/2024 8:41 AM NIP WRAPPER - 12/26/2024 11:59 PM NIP WRAPPER Hospital Encounter [facility] [address] [place] [phone] Compression fracture of L1 lumbar vertebra, sequela Discharge Disposition: Discharge to home or self care from Last 3 Months Immunizations Immunization Administration [...] drink = 0.6 oz pur e alcohol) [facility] Utilities Answer Date Recorded In the [...] answer 03/04/2024 How often do you attend [facility] or advent services? Patient unable to answer 03/04/2024 Do you belong to any clubs o r organizations such as zoroastrianism groups, unions, fraternal or athletic groups, or [...] place to sleep or slept in a group home (including now)? Patient unable to answer [...] on file Legal Sex Male 3:46 AM NIP WRAPPER Gender Identity Not on file Sexual Orientation Not on file Obstetrics History Last Filed Vital Signs Vital Sign Reading Time Taken Comments Blood Pressure 94/61 03/25/2025 9:07 AM CDT Pulse 76 03/25/2025 9:07 AM CDT Temperature 36.9 C (98.5 F) 03/05/2025 10:45 AM CDT Respiratory Rate 18 03/05/2025 10:45 AM CDT Oxygen Saturation 97% 03/05/2025 10:45 AM CDT Inhaled Oxygen Concentration - - Weight 61.2 kg (135 lb) 03/25/2025 9:07 AM CDT Height 157.5 cm (5' 2) 03/25/2025 9:07 AM CDT Body Mass Index 24.69 03/25/2025 9:07 AM CDT Plan of Treatment Health Maintenance Due Date Last Done Comments Colon Cancer Screening-Colonoscopy 1967 Hepatitis C Screening 1967 Prostate Cancer Screening-PSA 1967 Hepatitis B Screening 1985 Regular Well Visit/Exam 18-64 1985 Zoster Vaccine (1 of 2) 2017 Covid-19 Vaccine ( season) 2024 09/20/2021, 12/29/2020, 11/30/2020 DTaP/Tdap/Td Vaccine [...] Read Routine (OP Routine) 12/26/2024 3:01 PM NIP WRAPPER Compression fracture of L1 lumbar vertebra, sequela from Last 3 Months Results * Immunotyping, serum with interpretation (02/02/2025 9:24 AM CDT) Immunosubtraction See Comment Comment: IMMUNOTYPING INTERPRETATION: No Monoclonal Protein Detected Testing performed by: [facility], [facility][note 3]5 [facility], [place]., [address] Blood 02/02/2025 9:24 AM CDT 02/02/2025 2:16 PM CDT Narrative DAVIDSETH SAL - 02/03/2025 1:18 PM CDT Reflex Immunotyping, Ser us Thelma Bach MD LAB BLOOD ORDERABLE S Final Result [facility] [address]. Department [place] [address] * eGFR (02/02/2025 9:24 AM [...] was last reviewed 2021. Testing performed by: [facility], [address] [place] [address] Blood 02/02/2025 9:24 AM CDT 02/02/2025 9:41 AM CDT Thelma Bach MD LAB BLOOD ORDERABLE S Final Result Performing Organization Address [facility] Phone Number [facility] [address] [facility] [place] [address] * Beta-CrossLaps (Beta-CTx) (02/02/2025 9:24 AM CDT) Beta-CTx 387 pg/mL Comment: Interpretive Data Female: Premenopausal: 136 - 689 pg/mL Postmenopausal: 177 - 1015 pg/mL Male: 30 - 50 years: 131 - 670 pg/mL 51 - 70 years: 171 - 1060 pg/mL > 70 years: 152 - 858 pg/mL Current interpretive data was last revised on 2024. Testing performed by: [facility], [address] [place]., [address] Blood 02/02/2025 9:24 AM CDT 02/02/2025 2:13 PM CDT Thelma Bach MD LAB BLOOD ORDERABLE S Final Result Performing Organization Address [facility] de Phone Number [facility] [address] [facility] [place] [address] * Osteocalcin (02/02/2025 9:24 AM CDT) Osteocalcin 24.5 ng/mL Comment: Interpretive Data Female: Premenopausal: 7.6 - 35.1 ng/mL Postmenopausal: 7.3 - 38.5 ng/mL Male: 30 - 50 years: 8.4 - 36.7 ng/mL > 50 years: 9.9 - 35.6 ng/mL Current interpretive data was last revised on 2022. Testing performed by: [facility], [address] [facility], [place]., [address] Blood 02/02/2025 9:24 AM CDT 02/02/2025 2:13 PM CDT Thelma Bach MD LAB BLOOD ORDERABLE S Final Result [facility] [address] [facility]. Department [place] [address] * Vitamin D 25 hydroxy (02/02/2025 9:24 AM CDT) Pathologist [facility] Vitamin D 25-OH 45 30 - 80 ng/mL Comment:Testing performed by : [facility], [address] [place] [address] Blood 02/02/2025 9:24 AM CDT 02/02/2025 9:41 AM CDT Thelma Bach MD LAB BLOOD ORDERABLE S Edited Result - Final [facility] [address] [facility]. [place] [address] * Protein electrophoresis with reflex, serum with interpretation (02/02/2025 9:24 AM CDT) Protein, sr 7.0 6.2 - 8.2 g/dL Comment:Testing performed by : [facility], [address] [place] [address]., [address] Albumin 3.7 3.2 - 5.0 g/dL ZULEMA HUANG Comment:Testing performed by : [facility], [address] [place] [address]., [address] Alpha-1 globulin 0.3 0.2 - 0.4 g/dL ZULEMA HUANG Comment:Testing performed by : [facility], [address] [place] [address]., [address] Alpha-2 globulin 0.7 0.5 - 1.0 g/dL ZULEMA ROSARIO Comment:Testing performed by : [facility], [address] [place] [address]., [address] Beta-1 globulin 0.4 0.3 - 0.6 g/dL ZULEMA ROSARIO Comment:Testing performed by : [facility], [address] [place] [address]., [address] Beta-2 globulin 0.2 0.2 - 0.6 g/dL [facility] Comment:Testing performed by : [facility], [address] [place] [address]., [address] Gamma globulin 1.6 0.5 - 1.7 g/dL [facility] Comment:Testing performed by : [facility], [address] [place] [address]., [id number] SPEP interp See Comment ZULEMA HUANG Comment: SPEP INTERPRETATION: No apparent monoclonal protein. Polyclonal increase in gamma globulins. Testing performed by: [facility], [address] [place] [address]., [address] Immunotyping See Immunotyping Results [facility] Comment:Testing performed by : [facility], [address] [place] [address]., [address] Blood 02/02/2025 9:24 AM CDT 02/02/2025 2:16 PM CDT Thelma Bach MD LAB BLOOD ORDERABLE S Final Result [facility] [address] [address] [facility]. Department of Laboratories [place], [place] [id number] * Phosphorus (02/02/2025 9:24 AM CDT) Pathologist [facility] Phosphorus, pl 3.6 2.3 - 4.5 mg/dL Comment:Testing performed by : [facility], [address], [place] [address] Blood 02/02/2025 9:24 AM CDT 02/02/2025 9:41 AM CDT us Thelma Bach MD LAB BLOOD ORDERABLE S Edited Result - Final Performing Organization Address [facility] Co de Phone Number [facility] [address] [facility] [place] [address] * PTH (02/02/2025 9:24 AM CDT) Pathologist [facility] PTH 24 15 - 65 pg/mL Comment:Testing performed by : [facility], [address] [place] [address] Blood 02/02/2025 9:24 AM CDT 02/02/2025 9:41 AM CDT Thelma Bach MD LAB BLOOD ORDERABLE S Final Result Performing Organization Address [facility] de Phone Number [facility] [address] [facility] [place] [address] * (ABNORMAL) Comprehensive metabolic panel (02/02/2025 9:24 AM CDT) Pathologist [facility] Sodium 133(L) 135 - 145 mmol/L Comment:Testing performed by : [facility], [address], [place] [address] Potassium, pl 4.2 3.3 - 4.9 mmol/L CERNER [facility] Comment:Testing performed by : [facility], [address] [place] [address] Chloride 96(L) 97 - 110 mmol/L CERNER [facility] Comment:Testing performed by : [facility], [address] [place] [address] CO2 28 22 - 32 mmol/L CERNER [facility] Comment:Testing performed by : [facility], [address] [place] [address] Anion gap 9 2 - 15 mmol/L CERNER [facility] Comment:Testing performed by : [facility], [address], [place] [address] BUN 17 6 - 25 mg/dL CERNER [facility] Comment:Testing performed by : [facility], [address], [place] [address] Creatinine 0.50(L) 0.80 - 1.30 mg/dL CERNER [facility] Comment:Testing performed by : [facility], [address], [place] [address] Glucose 90 70 - 199 mg/dL CERNER [...] was last revised 2022. Testing performed by: [facility], [address], [place] [address] Calcium 9.3 8.5 - 10.3 mg/dL CERNER [facility] Comment:Testing performed by : [facility], [address], [place] [address] Bilirubin, total 0.2 0.1 - 1.2 mg/dL CERNER [facility] Comment:Testing performed by : [facility], [address], [place] [address] Protein, pl 7.4 6.5 - 8.5 g/dL CERNER [facility] Comment:Testing performed by : [facility], [address], [place] [address] Albumin 4.0 3.5 - 5.0 g/dL C[facility]ER [facility] Comment:Testing performed by : [facility], [address], [place] [address] Alk phos 103 40 - 130 Units/L CERNER [facility] Comment:Testing performed by : [facility], [address] [place] [address] ALT 15 7 - 55 Units/L ZULEMA HUANG Comment:Testing performed by : [facility], [address] [place], [place] [address] AST 23 10 - 50 Units/L ZULEMA HUANG Comment:Testing performed by : [facility], [address], [place] [address] Blood 02/02/2025 9:24 AM CDT 02/02/2025 9:41 AM CDT us Thelma Bach MD LAB BLOOD ORDERABLE S Edited Result - Final [facility] [address]. Department [place] [address] * NM Bone Imaging SPECT/CT (12/26/2024 3:01 PM NIP WRAPPER) Anatomical Region Laterality Modality N/A Nuclear Medicine 12/26/2024 4:57 PM NIP WRAPPER Impressions 12/26/2024 4:57 PM NIP WRAPPER FINDINGS/IMPRESSION: Examination is compromised by significant degree [...] Toan Graham M.D. Narrative 12/26/2024 4:57 PM NIP WRAPPER EXAMINATION: NM BONE IMAGING SPECT/CT HISTORY: Multiple [...] Graham M.D. Jyotsna De La Rosa NP [facility] PROCEDURES Fin al Result from Last 3 Months Insurance MEDICARE [place] MEDICARE [facility] Address: [address] [place] [phone] [facility] MEDICARE [place] MEDICARE [facility] Advance Directives For more information, please contact: [phone] * Full Code (Latest Code Status on [...] 1:37 AM 03/03/2024 7:33 AM Care Teams Nursing Technician Relationship Specialty Start Date End Date Carla Pavon MD [address] [place] [address] [address] SU[address]REZ [address] [place] [address] PCP - General Family Medicine 02/28/24
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
--- OUTSIDE RECORDS SUMMARY | 2025-03-25 15:49 | XMS_ITS | Encounter Summary ---
Author Organization [facility] Healthcare Address [address] [place] [address] Care Team Providers Care Brim Buster Name Role Phone Carla Pavon MD Primary Care Provider [phone] Reason for Visit * Reason Comments Follow-up Encounter Details Date Type Department Care Team (Late st Contact Info) Description 03/25/2025 9:00 AM CDT Office Visit [facility] Medical Group Orthopedic and Sports Medicine [address] [place] [address] Jay Lamas PA [address] [place] [address] [address] Primary osteoarthritis of right knee (Primary Dx); Acquired valgus deformity knee, right Social History Tobacco Use Types Packs/Day Years Used Date Smoking Tobacco: Never Smokeless Tobacco: Never Alcohol Use Standard Drinks/Week Comments No 0 (1 standard drink = 0.6 oz pur e alcohol) [facility] Utilities Answer Date Recorded In the past 12 months has [employer], gas, oil, or water [employer] threatened to shut off services in your [...] How often do you attend chur or adventist services? Patient unable to answer 03/04/2024 Do you belong to any clubs o r organizations such as mandaeism groups, unions, fraternal or athletic groups, or [...] place to sleep or slept in a senior living (including now)? Patient unable to answer 03/04/2024 [...] on file Legal Sex Male 3:46 AM DRUM DRIER Gender Identity Not on file Sexual Orientation Not on file documented as of this encounter Last Filed Vital Signs Vital Sign Reading Time Taken Comments Blood Pressure 94/61 03/25/2025 9:07 AM CDT Pulse 76 03/25/2025 9:07 AM CDT Temperature - - Respiratory Rate - - Oxygen Saturation - - Inhaled Oxygen Concentration - - Weight 61.2 kg (135 lb) 03/25/2025 9:07 AM CDT Height 157.5 cm (5' 2) 03/25/2025 9:07 AM CDT Body Mass Index 24.69 03/25/2025 9:07 AM CDT documented in this encounter Progress Notes * Jay Lamas PA - 03/25/2025 9:00 AM CDT Images from the original note were not included. FOLLOW UP VISIT This patient has verbally consented to recording this visit in order to utilize AI technology in generating this note. Subjective CHIEF COMPLAINT He had concerns including Follow-up of the Right Knee. HISTORY OF PRESENT ILLNESS History of Present Illness Patient follows up for his right knee. He has completed physical therapy. Per his caregiver he was not very good at participating in physical therapy but he did reach his goal to be able to get up out of his wheelchair and ambulate with his walker. He has been walking daily at his care facility. However, his caregiver states that he often fights her about getting up and walking. Per the patient he states his knee does not bother him when he is walking. Pain Assessment Pain Assessment: 0-10 Pain Score: 0 - No pain MEDICATIONS He has a current medication list which includes the following prescription(s): acetaminophen, albuterol, albuterol hfa, alfuzosin er, aluminum-magnesium hydroxide-simethicone, aripiprazole, bacitracin, lixpvkuuwh-azpmomhk-jghdbdfwn b, bisacodyl ec, bismuth subsalicylate, calcium carbonate-vitamin d3, cefdinir, celecoxib, cephalexin, cholecalciferol (vitamin d3), desitin, diphenhydramine, docusatesodium, ferrous sulfate, guaifenesin, hydrocortisone, hydroxyzine, ketoconazole, methocarbamol, mirabegron er, multivitamin with iron, mupirocin, naltrexone, nystatin, ondansetron, pantoprazole dr, polyethylene glycol, potassium chloride er, senna-docusate, sertraline, tinactin, tramadol, triamcinolone, carbamide peroxide, miconazole, and simethicone. REVIEW OF SYSTEMS All appropriate ROS addressed in the HPI Objective PHYSICAL EXAM BP 94/61 Pulse 76 Ht 157.5 cm (5' 2) Wt 61.2 kg (135 lb) BMI 24.69 kg/m?? Right knee Inspection Swelling: mild Surgical scar/wound: absent. Skin temperature: normal Alignment: valgus Gait: antalgic Palpation Tenderness: present. The tenderness is located in the condyle, lateral joint line and medial joint line. Crepitus: positive Patella grind: positive Range of motion The patient has reduced range of motion of the right knee. Active extension: 10 Active flexion: 106-110 Flexion contracture: yes. Degrees: 6-10 Stability AP stability: stable ML stability: stable Strength Knee extension: 4/5 and 3/5 Knee flexion: 4/5 Neurovascular The patient has normal vascular on the right side of their body. The patient has normal sensation on the right side of their body. Left knee Inspection The patient has normal inspection of the left knee. Surgical scar/wound: absent. Skin temperature: normal Alignment: neutral Patient is able to stand up independently from his wheelchair today. REVIEW OF X-RAYS/STUDIES/LABS Assessment/Plan Jovani was seen today for follow-up. Diagnoses and all orders for this visit: Primary osteoarthritis of right knee Acquired valgus deformity knee, right Procedures PLAN Assessment & Plan Continue with home exercise program, continue with Celebrex and follow up in 3 months to re-evaluate and determine if we need change our course of plan. All questions were addressed today and the patient was instructed to call the office with any questions or concerns. OFELIA Velazquez documented in this encounter Plan of Treatment Not on file documented as of this encounter Visit Diagnoses Diagnosis Primary osteoarthritis of right knee- Primary Acquired valgus deformity knee, right documented in this encounter Care Teams Brim Buster Relationship Specialty Start Date End Date Carla Pavon MD 4 [facility] [address] [address] PCP - General Family Medicine 02/28/24 documented as of this encounter
--- OUTSIDE RECORDS SUMMARY | 2025-03-25 15:49 | XMS_ITS | Clinical Summary ---
Author Organization [facility] Address [address] [place] [address] Care Team Providers Care Jewelry Manager Name Role Phone Unavailable Primary Care Provider Unavailabl e Source Comments [facility],non-owned Affiliates and Associated Physician Practices is amultiple site organization consisting of ambulatory clinics and hospital sitesin [place], [place], [place] and [place]. This disclosure is being madepursuant to the Care Everywhere program and may not contain all information available regarding this patient. Last updated 18.[facility] Allergies Active Allergy Reactions Criticality Noted Date [...] on file Legal Sex Male 11:38 AM CHARCOAL KILN BURNER Gender Identity Not on file Sexual Orientation [...] 8:59 AM CDT Height 165.1 cm (5' 5) 05/30/2011 8:59 AM CDT Body Mass Index [...] Documents on File Type Date Recorded Patient Field Placement Director Expl anation Adv Directive/Living Will/POA 04/01/2011 11:57 AM * FULL RESUSCITATION (Latest Code Status on File) Date Activated Date Inactivated Comments 05/30/2011 12:47 PM 06/03/2011 12:27 AM * Full Code Date Activated Date Inactivated Comments 03/28/2011 2:15 PM 04/01/2011 5:27 AM
--- OUTSIDE RECORDS SUMMARY | 2025-03-25 15:49 | XMS_ITS | Encounter Summary ---
Author Organization [facility] Address [address] [address] [place] [address] Phone Care Team Providers Care Road Machinery Inspector Name Role Phone Farhana Chino APN, NEEDLE GRINDER Unavailable [phone] Faraz Ozuna MD Unavailable Jorje Hicks CHILDREN'S AUTHOR, NEEDLE GRINDER Unavailable Rebeca Chisholm MD Unavailable [phone] Kerrie Wilson APRN, NEEDLE GRINDER Unavailable Carla Pavon MD Primary Care Provider [phone] Reason for Referral * PT/OT/ST (Routine) - Authorized Specialty Diagnoses / Procedures Referred By Hari lanza Referred To Contact Physical Therapy Diagnoses Primary osteoarthritis of right knee Acquired valgus deformity knee, right Jay Lamas PAC [address] [place] [address] Phone: tel: fax: [facility] at [facility] [address], [place] [address] [address] Phone: tel: fax: Referral ID Status Reason Start Date Expiration Date V isits Requested Visits Authorized [id number] Authorized 12/24/2024 50 50 Scheduling Instructions GER PURCHASING Encounter Details Date Type Department Care Team (Latest Contact Info) Description 12/24/2024 Transcribe Orders [facility] [address] [place] [address] Jay Lamas, PAC [address] [place] [address] Primary osteoarthritis of right knee (Primary Dx); [...] 03/26/2025 3:30 PM CDT [facility] [address], [place] [place] [address] Jay Lamas, PAC [address] [place] [address] Melanie Vega, PT [place] 04/02/2025 4:15 PM CDT [facility] [address], [place] [place] [address] Jay Lamas, PAC [address] [place] [address] Melanie Vega, PT [place] 07/22/2025 9:30 AM CDT [facility] 1 [place] [address] Jorje Hicks, CHILDREN'S AUTHOR, NEEDLE GRINDER [address] [place] [address] Discharge Disposition: Discharged to home or Selfcare 08/04/2025 10:00 AM CDT [facility] [place] [address] Jorje Hicks APRN, NEEDLE GRINDER [address] [place] [address] 09/16/2025 8:15 AM MANAGER PURCHASING Office Visit [facility] [place] [address] [place] [phone] Faraz Ozuna MD [address] [place] [address] [phone] Scheduled Referrals Name Type Priority Associated Diagnoses [...] documented as of this encounter Care Teams Road Machinery Inspector Relationship Specialty Start Date End Date Carla Pavon MD [address] [place] [address] PCP - General Family Medicine 11/12/24 Farhana Chino, VACUUM METALIZER OPERATOR, NEEDLE GRINDER Nurse Practitioner Advanced Practice Nurse 04/07/16 Faraz Ozuna MD #[address] [address] [phone] Consulting Physician Internal Medicine 06/23/16 Jorje Hicks APRN, NEEDLE GRINDER [address] [place] [address] Nurse Practitioner Advanced Practice Nurse 06/06/22 Rebeca Chisholm MD #[address] [address] Consulting Physician Urology 09/15/22 Kerrie Wilson APRN, NEEDLE GRINDER [address] [place] [address] Nurse Practitioner Advanced Practice Nurse 08/14/23 documented as of this encounter
--- OUTSIDE RECORDS SUMMARY | 2025-03-25 15:49 | XMS_ITS | Referral Summary ---
Author Organization [facility] Medical Office Building B Address [address] [place] [address] Care Team Providers Care Bus Escort Name Role Phone Carla Pavon MD Primary Care Provider [phone] Encounters Date Type Department Care Team Description 03/25/2025 9:00 AM CDT Office Visit [facility] Orthopedic and Sports Medicine [address] [place] [phone] Jay Lamas PA Primary osteoarthritis of right knee (Primary Dx); Acquired valgus deformity knee, right 03/05/2025 9:12 AM CDT - 03/05/2025 11:59 PM CDT Hospital Encounter [address] [address] Osteoporosis, unspecified osteoporosis type, unspecified pathological fracture presence (Primary Dx) Discharge Disposition: Discharge to home or self care 03/03/[address] [address] Jyotsna Power MA 02/12/[address] Medical Office Building [address] [place] [address] Thelma Bach MD 02/11/2025 Orders Only [address] [address] Melly Shannon RN 02/02/[address] Medical Office Building [address] [place] [address] Thelma Bach MD Treatment Plan Update (New reclast) 02/02/2025 9:45 AM CDT Lab [facility] at [address] [place] [address] Osteoporosis, unspecified osteoporosis type, unspecified pathological fracture presence 02/02/2025 8:00 AM CDT Office Visit [address] Medical Office Building [address] [place] [address] Thelma Bach MD Osteoporosis, unspecified osteoporosis type, unspecified pathological fracture presence (Primary Dx) 01/09/[address] Office Building [address] [place] [address] Thelma Bach MD 01/08/2025 Plan of Care Documentation [facility] Occupational Therapy [address] [place] [id number] 12/31/2024 2:00 PM STEEL FABRICATING SUPERVISOR Therapy [facility] Occupational Therapy [address] [place] [address] Juan Miguel Cabrera, SONAL Other specified arthritis, right knee; Other specified arthritis, left knee; Age-related osteoporosis with current pathological fracture, vertebra(e), sequela 12/30/2024 Telephone Radiology [address] [place] [address] Jyotsna De La Rosa NP 12/26/2024 12:30 PM STEEL FABRICATING SUPERVISOR - 12/26/2024 11:59 PM STEEL FABRICATING SUPERVISOR Hospital Encounter [facility] Nuclear Medicine [address] [place] [phone] Discharge Disposition: Discharge to home or self care 12/26/2024 8:41 AM STEEL FABRICATING SUPERVISOR - 12/26/2024 11:59 PM STEEL FABRICATING SUPERVISOR Hospital Encounter [facility] Nuclear Medicine [address] [place] [id number] Compression fracture of L1 lumbar vertebra, sequela Discharge Disposition: Discharge to home or self care from Last 3 Months Allergies Active Allergy [...] drink = 0.6 oz pur e alcohol) [facility] Utilities Answer Date Recorded In the past 12 months has e [employer], gas, oil, or water company threatened to [...] often do you attend chur ch or cheondoism services? Patient unable to answer 03/04/2024 Do you belong to any clubs o r organizations such as methodist groups, unions, fraternal or athletic groups, or [...] place to sleep or slept in a fdc (including now)? Patient unable to answer 03/04/2024 [...] on file Legal Sex Male 3:46 AM STEEL FABRICATING SUPERVISOR Gender Identity Not on file Sexual Orientation [...] 03/25/2025 9:07 AM CDT Plan of Treatment Not on [...] Read Routine (OP Routine) 12/26/2024 3:01 PM STEEL FABRICATING SUPERVISOR Compression fracture of L1 lumbar vertebra, sequela from Last 3 Months Results * Immunotyping, serum with interpretation (02/02/2025 9:24 AM CDT) Immunosubtraction See Comment Comment: IMMUNOTYPING INTERPRETATION: No Monoclonal Protein Detected Testing performed by: [facility], [address] [place] [address]., [id number] Blood 02/02/2025 9:24 AM CDT 02/02/2025 2:16 PM CDT Narrative ZULEMA HUANG - 02/03/2025 1:18 PM CDT Reflex Immunotyping, Ser us Thelma Bach MD LAB BLOOD ORDERABLE S Final Result ZULEMA VASQUEZW[facility] [address] [facility]. [place] [address] * eGFR (02/02/2025 9:24 AM [...] was last reviewed 2021. Testing performed by: [facility], [address] [facility], [place] [address] Blood 02/02/2025 9:24 AM CDT 02/02/2025 9:41 AM CDT Thelma Bach MD LAB BLOOD ORDERABLE S Final Result [facility] [address] [facility]. [place] [address] * Beta-CrossLaps (Beta-CTx) (02/02/2025 9:24 AM CDT) Beta-CTx 387 pg/mL Comment: Interpretive Data Female: Premenopausal: 136 - 689 pg/mL Postmenopausal: 177 - 1015 pg/mL Male: 30 - 50 years: 131 - 670 pg/mL 51 - 70 years: 171 - 1060 pg/mL > 70 years: 152 - 858 pg/mL Current interpretive data was last revised on 2024. Testing performed by: [facility], [address] [place]., [address] Blood 02/02/2025 9:24 AM CDT 02/02/2025 2:13 PM CDT Thelma Bach MD LAB BLOOD ORDERABLE S Final Result Performing Organization Address City/[facility]/ZIP Co de Phone Number ZULEMA [facility] [address] [facility]. Department [place] [address] * Osteocalcin (02/02/2025 9:24 AM CDT) Osteocalcin 24.5 ng/mL Comment: Interpretive Data Female: Premenopausal: 7.6 - 35.1 ng/mL Postmenopausal: 7.3 - 38.5 ng/mL Male: 30 - 50 years: 8.4 - 36.7 ng/mL > 50 years: 9.9 - 35.6 ng/mL Current interpretive data was last revised on 2022. Testing performed by: [facility], [address] [place]., [address] Blood 02/02/2025 9:24 AM CDT 02/02/2025 2:13 PM CDT Thelma Bach MD LAB BLOOD ORDERABLE S Final Result Performing Organization Address [facility] Co de Phone Number [facility] [address] [facility]. [place] [employer] [place] [address] * Vitamin D 25 hydroxy (02/02/2025 9:24 AM CDT) Vitamin D 25-OH 45 30 - 80 ng/mL Comment:Testing performed by : [facility], [address] [facility], [place] [address] Blood 02/02/2025 9:24 AM CDT 02/02/2025 9:41 AM CDT Thelma Bach MD LAB BLOOD ORDERABLE S Edited Result - Final [facility] [id number] [place] [address]. Department [place] [address] * Protein electrophoresis with reflex, serum with interpretation (02/02/2025 9:24 AM CDT) [facility] Protein, sr 7.0 6.2 - 8.2 g/dL Comment:Testing performed by : [facility], [address] [place] [address]., [id number] Albumin 3.7 3.2 - 5.0 g/dL ZULEMA ROSARIOCH Comment:Testing performed by : [facility], [address] [place] [address]., [id number] Alpha-1 globulin 0.3 0.2 - 0.4 g/dL ZULEMA BJWCH Comment:Testing performed by : [facility], [address] [place] [address]., [address] Alpha-2 globulin 0.7 0.5 - 1.0 g/dL ZULEMA HUANG Comment:Testing performed by : [facility], [address] [place] [address]., [address] Beta-1 globulin 0.4 0.3 - 0.6 g/dL ZULEMA BJBraydonCH Comment:Testing performed by : [facility], [address] [place] [address]., [address] Beta-2 globulin 0.2 0.2 - 0.6 g/dL ZULEMA BJWCH Comment:Testing performed by : [facility], [address] [place] [address]., [address] Gamma globulin 1.6 0.5 - 1.7 g/dL ZULEMA BJWCH Comment:Testing performed by : [facility], [address] [place] [address]., [address] SPEP interp See Comment ZULEMA BJWSUDHIR Comment: SPEP INTERPRETATION: No apparent monoclonal protein. Polyclonal increase in gamma globulins. Testing performed by: [facility], [address] [place] [address]., [id number] Immunotyping See Immunotyping Results ZULEMA VASQUEZWSUDHIR Comment:Testing performed by : [facility], [address] [place] [address]., [id number] Blood 02/02/2025 9:24 AM CDT 02/02/2025 2:16 PM CDT Thelma Bach MD LAB BLOOD ORDERABLE S Final Result [facility] [address] [facility]. [facility] [place] [address] * Phosphorus (02/02/2025 9:24 AM CDT) Phosphorus, pl 3.6 2.3 - 4.5 mg/dL Comment:Testing performed by : [facility], [address] [place] [address] Blood 02/02/2025 9:24 AM CDT 02/02/2025 9:41 AM CDT Thelma Bach MD LAB BLOOD ORDERABLE S Edited Result - Final ZULEMA [facility] [address] [facility] [place] [address] * PTH (02/02/2025 9:24 AM CDT) Pathologist [facility] PTH 24 15 - 65 pg/mL Comment:Testing performed by : [facility], [address] [facility] [place] [address] Blood 02/02/2025 9:24 AM CDT 02/02/2025 9:41 AM CDT us Thelma Bach MD LAB BLOOD ORDERABLE S Final Result ZULEMA BJWCH [address] [facility]. Department [place] [address] * (ABNORMAL) Comprehensive metabolic panel (02/02/2025 9:24 AM CDT) Sodium 133(L) 135 - 145 mmol/L Comment:Testing performed by : [facility], [address], [place] [address] Potassium, pl 4.2 3.3 - 4.9 mmol/L CERNER BJW Comment:Testing performed by : [facility], [address], [place] [address] Chloride 96(L) 97 - 110 mmol/L CERNER BJWCH Comment:Testing performed by : [facility], [address], [place] [address] CO2 28 22 - 32 mmol/L CERNER BJWCH Comment:Testing performed by : [facility], [address], [place] [address] Anion gap 9 2 - 15 mmol/L [facility] Comment:Testing performed by : [facility], [address], [place] [address] BUN 17 6 - 25 mg/dL CERNER BJWCH Comment:Testing performed by : [facility], [address], [place] [address] Creatinine 0.50(L) 0.80 - 1.30 mg/dL CERNER BJW Comment:Testing performed by : [facility], [address], [place] [address] Glucose 90 70 - 199 mg/dL CERNER [facility] Comment: Interpretive Data Fasting glucose >/= 126 [...] was last revised 2022. Testing performed by: [facility], [address], [place] [address] Calcium 9.3 8.5 - 10.3 mg/dL CERNER BJWCH Comment:Testing performed by : [facility], [address], [place] [address] Bilirubin, total 0.2 0.1 - 1.2 mg/dL CERNER BJWCH Comment:Testing performed by : [facility], [address], [place] [address] Protein, pl 7.4 6.5 - 8.5 g/dL CERNER BJWCH Comment:Testing performed by : [facility], [address], [place] [address] Albumin 4.0 3.5 - 5.0 g/dL CERNER BJWCH Comment:Testing performed by : [facility], [address], [place] [address] Alk phos 103 40 - 130 Units/L CERNER BJWCH Comment:Testing performed by : [facility], [address], [place] [address] ALT 15 7 - 55 Units/L CERNER BJWCH Comment:Testing performed by : [facility], [address], [place] [address] AST 23 10 - 50 Units/L CERNER BJWCH Comment:Testing performed by : [facility], [address], [place] [address] Blood 02/02/2025 9:24 AM CDT 02/02/2025 9:41 AM CDT Thelma Bach MD LAB BLOOD ORDERABLE S Edited Result - Final [facility] [address] Department [place] [address] * NM Bone Imaging SPECT/CT (12/26/2024 3:01 PM STEEL FABRICATING SUPERVISOR) Anatomical Region Laterality Modality N/A Nuclear Medicine 12/26/2024 4:57 PM STEEL FABRICATING SUPERVISOR Impressions 12/26/2024 4:57 PM STEEL FABRICATING SUPERVISOR FINDINGS/IMPRESSION: Examination is compromised by significant degree [...] Toan Graham M.D. Narrative 12/26/2024 4:57 PM STEEL FABRICATING SUPERVISOR EXAMINATION: NM BONE IMAGING SPECT/CT HISTORY: Multiple compression fractures suspected especially at L1 with back pain ORDER DATE: 12/26/2024 9:30 AM TECHNIQUE: A thoracoabdominal SPECT nuclear bone scan is obtained. The imaging study utilized 24.9 mCi of technetium labeled MDP. Procedure Note Toan Graham MD - 12/26/2024 EXAMINATION: CO BONE IMAGING SPECT/CT HISTORY: Multiple compression fractures [...] Toan Graham M.D. Jyotsna De La Rosa CASINO CONTROLLER IMG NM PROCEDURES Fin al Result from Last 3 Months Insurance MEDICARE [facility] MEDICARE [facility] MEDICARE [facility] Address: [address] [address] [place] [address] [facility] MEDICARE [employer] Advance Directives For more information, please contact: [phone] * Full Code (Latest Code Status on [...] 1:37 AM 03/03/2024 7:33 AM Care Teams Bus Escort Relationship Specialty Start Date End Date Carla Pavon MD [address] [facility] [address] [place] [address] PCP - General Family Medicine 02/28/24
[2025-03-25 15:56] VITALS: BP 122/78; PULSE 66; RESP 20; TEMP 36.7; O2SAT 97
--- NOTE | 2025-03-25 16:02 | ED_ITS ---
HPI - Eye Problem General Chief complaint: Eye Problems Stated complaint: lt eye irritation Time Seen by Provider: 03/25/25 16:02 Source: patient Mode of arrival: ambulatory Limitations: no limitations History of Present Illness HPI Narrative: 59-year-old male presents with complaint of redness and drainage from left eye. patient here with staff member from long term. Patient was at work and another staff member noticed eye symptoms. Patient denies pain, reports itching. Concern for infection. Patient is legally blind. All systems reviewed and negative except as noted above. Related Data Home Medications ?Medication ?Instructions ?Recorded ?Confirmed ?Last Taken ?Type alfuzosin 10 mg tablet,extended 10 mg PO DAILY 01/19/23 01/01/25 Unknown History release 24 hr ferrous sulfate 325 mg (65 mg 325 mg PO DAILY 01/19/23 01/01/25 Unknown History iron) tablet (Iron (ferrous sulfate)) potassium chloride 10 mEq 10 meq PO DAILY 01/19/23 06/13/24 Unknown History tablet,extended release sertraline 100 mg tablet 100 mg PO DAILY 01/19/23 01/01/25 Unknown History aripiprazole 20 mg tablet 20 mg PO DAILY 08/10/23 01/01/25 Unknown History hydroxyzine HCl 25 mg tablet 25 mg PO DAILY 08/10/23 01/01/25 Unknown History calcium 500 mg (as 1 tablet PO BID 05/22/24 01/01/25 Unknown History carbonate)-vitamin D3 15 mcg (600 unit) tablet cholecalciferol (vitamin D3) 25 25 mcg PO DAILY 05/22/24 06/13/24 Unknown History mcg (1,000 unit) tablet mirabegron 25 mg tablet,extended 25 mg PO DAILY 05/22/24 06/13/24 Unknown History release 24 hr (Myrbetriq) pantoprazole 40 mg tablet,delayed 40 mg PO DAILY 05/22/24 01/01/25 Unknown History release albuterol sulfate 2.5 mg/3 mL See Rx Instructions .Route .COMPLEX 06/13/24 06/13/24 Unknown History (0.083 %) solution for nebulization albuterol sulfate 90 mcg/actuation 1 puff inhalation PRN PRN Wheezing 06/13/24 0 06/13/24 Unknown History aerosol inhaler docusate sodium 100 mg capsule 100 mg PO DAILY PRN Constipation 06/13/24 01/01/25 Unknown History naltrexone 50 mg tablet 50 mg PO DAILY 06/13/24 01/01/25 Unknown History ondansetron HCl 4 mg tablet 4 mg PO DAILY PRN Nausea 06/13/24 06/13/24 Unknown History methocarbamol 500 mg tablet mg 02/09/25 Unknown History polyethylene glycol 3350 17 g 03/09/25 Unknown History gram/dose oral powder Allergies Allergy/AdvReac Type Severity Reaction Status Date / Time topiramate Allergy Intermediate Rash Verified 03/25/25 16:00 Review of Systems Review of Systems: CONSTITUTIONAL: Denies fever, chills, or sweats. EYES: Denies visual changes . Reports redness and discharge left eye. ENT: Denies rhinorrhea, congestion, sore throat, or otalgia. CARDIOVASCULAR: Denies chest pain, palpitations, or edema. RESPIRATORY: Denies cough or dyspnea. GASTROINTESTINAL: Denies abdominal pain, nausea, vomiting, or diarrhea. GENITOURINARY: Denies dysuria or hematuria. SKIN: Denies rash or itching. MUSCULOSKELETAL: Denies back pain, joint pain, or myalgia. NEUROLOGIC: Denies headache, numbness, or weakness. PSYCHIATRIC: Denies anxiety or depression. All other systems reviewed are negative, except as documented in HPI. [facility] Past Medical History Medical History Anemia Eczema Osteoarthritis Retinal detachment, left Moderate intellectual disability Bipolar disorder Urinary incontinence Hypertension Impaired vision Surgical History Surgical History H/O bilateral hip replacements Social History Social History Smoking status: Never smoker Alcohol intake: never Substance use: never Living arrangements: long term Gender identity (if verbalized by the patient): Male Comments At time of signature, agree with nursing past medical, surgical, social and family history. There is no relevant family history pertinent to the presenting complaint. Exam Narrative: GENERAL: This is a well-nourished, well-developed patient, in no apparent distress. HEAD: normocephalic, atraumatic. EYES: PERRL. sclera and conjunctiva erythematous to left eye. Right eye is normal. There is purulent drainage from left eye and matting to eyelashes. No drainage from right eye. Vision is grossly intact. EARS: External ears normal NOSE: External nose normal NECK: Neck supple, non-tender without lymphadenopathy, masses or thyromegaly. CARDIOVASCULAR: Regular rate and rhythm without murmurs, gallops, or rubs. RESPIRATORY: Clear to auscultation. Breath sounds equal bilaterally. No wheezes, rales, or rhonchi. SKIN: warm, Dry, intact with no suspicious lesions or rash, good texture and turgor. NEURO: awake, alert, and oriented to person, place and time. There were no obvious focal neurologic abnormalities. EXTREMITIES: No joint tenderness, effusion, or edema noted. Course Course Level of Care: Express Care Visit Vital Signs Vital signs: reviewed MDM - Eye Problem MDM Narrative Medical decision making narrative: Will treat left bacterial conjunctivitis with antibiotic eyedrop. Differential Diagnosis Differential diagnosis: Likely corneal abrasion, conjunctivitis and periorbital cellulitis Discharge Plan Discharge Clinical Impression: Acute bacterial conjunctivitis of left eye Patient Disposition: Home Condition: Stable Instructions: Antibiotic Form, Conjunctivitis (ED) Additional Instructions: place antibiotic eyedrops as prescribed. Wash hands before and after placing eyedrops. Follow up with aircraft electrical systems specialist if not improving. Patient Language: Malay Prescriptions: New polymyxin B sulf-trimethoprim 10,000 unit- 1 mg/mL drops 1 drp LEFT EYE Q3H 7 Days Qty: 10 0RF Rx Instructions: while awake; do not exceed 6 doses in 24 hours No Action naltrexone 50 mg Tablet 50 mg PO DAILY albuterol sulfate 2.5 mg /3 mL (0.083 %) solution for nebulization See Rx Instructions .ROUTE .COMPLEX Rx Instructions: wheezing ondansetron HCl 4 mg tablet 4 mg PO DAILY PRN (Reason: Nausea) docusate sodium 100 mg capsule 100 mg PO DAILY PRN (Reason: Constipation) albuterol sulfate 90 mcg/actuation HFA aerosol inhaler 1 puff INHALATION PRN PRN (Reason: Wheezing) sertraline 100 mg Tablet 100 mg PO DAILY potassium chloride 10 mEq Tablet Extended Release 10 meq PO DAILY ferrous sulfate [Iron (ferrous sulfate)] 325 mg (65 mg iron) Tablet 325 mg PO DAILY alfuzosin 10 mg Tablet Extended Release 24 Hr 10 mg PO DAILY Rx Instructions: administer after the same meal each day aripiprazole 20 mg tablet 20 mg PO DAILY hydroxyzine HCl 25 mg tablet 25 mg PO DAILY pantoprazole 40 mg tablet,delayed release (DR/EC) 40 mg PO DAILY calcium carbonate-vitamin D3 500 mg-15 mcg (600 unit) tablet 1 tablet PO BID mirabegron [Myrbetriq] 25 mg tablet extended release 24 hr 25 mg PO DAILY cholecalciferol (vitamin D3) 25 mcg (1,000 unit) tablet 25 mcg PO DAILY methocarbamol 500 mg tablet polyethylene glycol 3350 17 gram/dose powder clobetasol 0.05 % ointment 1 applic topical QAM AND QPM Qty: 60 1RF Rx Instructions: use for one week longer after healed Follow-up/Referrals: Librado,MD Carla [Primary Care Provider] - Time of Disposition: 16:11
== END 2025-03-25 16:14 | disposition home or self-care (01) ==
PROVIDERS: Emergency Provider Nurse Practitioner Family; PCP Hospitalist
DX: H10.32 Unspecified acute conjunctivitis, left eye (principal); M19.90 Unspecified osteoarthritis, unspecified site; I10 Essential (primary) hypertension; F71 Moderate intellectual disabilities; H54.8 Legal blindness, as defined in USA; Z96.643 Presence of artificial hip joint, bilateral
CPT/HCPCS: 99213; G0463

== ENCOUNTER 2025-04-24 16:13 | Emergency (ER) | payer MEDICARE, MEDICAID, SELFPAY ==
[2025-04-24 16:20] VITALS: BP 105/67; PULSE 63; RESP 16; TEMP 36.2; O2SAT 98
--- NOTE | 2025-04-24 16:24 | ED.LOWEXIN ---
HPI - Extremity Injury (Lower) General Chief Complaint: Extremity Injury, Lower Stated Complaint: Right Knee Swelling /Skin Problem Time Seen by Provider: 04/24/25 16:24 Source: patient Mode of arrival: ambulatory Limitations: no limitations History of Present Illness HPI Narrative: 59 yo M presents with erythema, swelling and pain to medial aspect R thigh. pt is from assisted. Staff noticed symptoms today. hx of cellulitis. All systems reviewed and negative except as noted above. Related Data Home Medications ?Medication ?Instructions ?Recorded ?Confirmed ?Last Taken ?Type alfuzosin 10 mg tablet,extended 10 mg PO DAILY 01/19/23 01/01/25 Unknown History release 24 hr ferrous sulfate 325 mg (65 mg 325 mg PO DAILY 01/19/23 01/01/25 Unknown History iron) tablet (Iron (ferrous sulfate)) potassium chloride 10 mEq 10 meq PO DAILY 01/19/23 06/13/24 Unknown History tablet,extended release aripiprazole 20 mg tablet 20 mg PO DAILY 08/10/23 01/01/25 Unknown History hydroxyzine HCl 25 mg tablet 25 mg PO DAILY 08/10/23 01/01/25 Unknown History calcium 500 mg (as 1 tablet PO BID 05/22/24 01/01/25 Unknown History carbonate)-vitamin D3 15 mcg (600 unit) tablet cholecalciferol (vitamin D3) 25 25 mcg PO DAILY 05/22/24 06/13/24 Unknown History mcg (1,000 unit) tablet mirabegron 25 mg tablet,extended 25 mg PO DAILY 05/22/24 06/13/24 Unknown History release 24 hr (Myrbetriq) pantoprazole 40 mg tablet,delayed 40 mg PO DAILY 05/22/24 01/01/25 Unknown History release albuterol sulfate 2.5 mg/3 mL See Rx Instructions .Route .COMPLEX 06/13/24 06/13/24 Unknown History (0.083 %) solution for nebulization albuterol sulfate 90 mcg/actuation 1 puff inhalation PRN PRN Wheezing 06/13/24 06/13/24 Unknown History aerosol inhaler docusate sodium 100 mg capsule 100 mg PO DAILY PRN Constipation 06/13/24 01/01/25 Unknown History naltrexone 50 mg tablet 50 mg PO DAILY 06/13/24 01/01/25 Unknown History methocarbamol 500 mg tablet mg 02/09/25 Unknown History polyethylene glycol 3350 17 g 05/12/25 Unknown History gram/dose oral powder aripiprazole 30 mg tablet mg 04/24/25 Unknown History celecoxib 100 mg capsule mg 04/24/25 Unknown History sertraline 50 mg tablet mg 04/24/25 Unknown History Allergies Allergy/AdvReac Type Severity Reaction Status Date / Time topiramate Allergy Intermediate Rash Verified 04/24/25 16:26 Review of Systems Review of Systems: CONSTITUTIONAL: Denies fever, chills, or sweats. EYES: Denies visual changes, redness, or discharge. ENT: Denies rhinorrhea, congestion, sore throat, or otalgia. CARDIOVASCULAR: Denies chest pain, palpitations, or edema. RESPIRATORY: Denies cough or dyspnea. GASTROINTESTINAL: Denies abdominal pain, nausea, vomiting, or diarrhea. GENITOURINARY: Denies dysuria or hematuria. SKIN: Denies rash or itching. Reports redness, swelling and tenderness to right knee MUSCULOSKELETAL: Denies back pain, joint pain, or myalgia. NEUROLOGIC: Denies headache, numbness, or weakness. PSYCHIATRIC: Denies anxiety or depression. All other systems reviewed are negative, except as documented in HPI. PMFSH Past Medical History Medical History Anemia Eczema Osteoarthritis Retinal detachment, left Moderate intellectual disability Bipolar disorder Urinary incontinence Hypertension Impaired vision Surgical History Surgical History H/O bilateral hip replacements Social History Social History Smoking status: Never smoker Alcohol intake: never Substance use: never Living arrangements: assisted Gender identity (if verbalized by the patient): Male Comments At time of signature, agree with nursing past medical, surgical, social and family history. There is no relevant family history pertinent to the presenting complaint. Exam Narrative: GENERAL: This is a well-nourished, well-developed patient, in no apparent distress. HEAD: normocephalic, atraumatic. EYES: PERRL. Sclera clear/white. Vision is grossly intact. EARS: External ears normal NOSE: External nose normal NECK: Neck supple, non-tender without lymphadenopathy, masses or thyromegaly. CARDIOVASCULAR: Regular rate and rhythm without murmurs, gallops, or rubs. RESPIRATORY: Clear to auscultation. Breath sounds equal bilaterally. No wheezes, rales, or rhonchi. SKIN: warm, Dry, intact with no suspicious lesions or rash, good texture and turgor. 6 cm diameter area of erythema, swelling, tenderness on palpation to medial aspect R knee. No fluctuation concerning for abscess. Warm to touch. No drainage. NEURO: awake, alert, and oriented to person, place and time. There were no obvious focal neurologic abnormalities. EXTREMITIES: No joint tenderness, effusion, or edema noted. Course Course Level of Care: Express Care Visit Vital Signs Vital signs: Vital Signs Temperature 36.2 C L 04/24/25 16:20 Pulse Rate 63 04/24/25 16:20 Respiratory Rate 16 04/24/25 16:20 Blood Pressure 105/67 04/24/25 16:20 Pulse Oximetry 98 04/24/25 16:20 Oxygen Delivery Room Air 04/24/25 16:20 Temperature 36.2 C L 04/24/25 16:20 Pulse Rate 63 04/24/25 16:20 Respiratory Rate 16 04/24/25 16:20 Blood Pressure 105/67 04/24/25 16:20 Pulse Oximetry 98 04/24/25 16:20 Oxygen Delivery Room Air 04/24/25 16:20 reviewed MDM - Extremity Injury (Lower) MDM Narrative Medical decision making narrative: Will prescribe cephalexin for cellulitis to right knee. Patient is well-appearing, nontoxic. Discharge Plan Discharge Clinical Impression: Cellulitis of knee, right Patient Disposition: Home Condition: Stable Instructions: Antibiotic Form, Cellulitis (ED) Additional Instructions: Give antibiotic as prescribed until gone. Give ibuprofen or Tylenol every 6-8 hours as needed for pain. Follow-up with primary care provider if not improving. For any worsening of symptoms or fever go to the ER. Patient Language: Montenegrin Prescriptions: New cephalexin 500 mg capsule 500 mg PO QID 7 Days Qty: 28 0RF No Action naltrexone 50 mg Tablet 50 mg PO DAILY albuterol sulfate 2.5 mg /3 mL (0.083 %) solution for nebulization See Rx Instructions .ROUTE .COMPLEX Rx Instructions: wheezing docusate sodium 100 mg capsule 100 mg PO DAILY PRN (Reason: Constipation) albuterol sulfate 90 mcg/actuation HFA aerosol inhaler 1 puff INHALATION PRN PRN (Reason: Wheezing) potassium chloride 10 mEq Tablet Extended Release 10 meq PO DAILY ferrous sulfate [Iron (ferrous sulfate)] 325 mg (65 mg iron) Tablet 325 mg PO DAILY alfuzosin 10 mg Tablet Extended Release 24 Hr 10 mg PO DAILY Rx Instructions: administer after the same meal each day aripiprazole 20 mg tablet 20 mg PO DAILY hydroxyzine HCl 25 mg tablet 25 mg PO DAILY pantoprazole 40 mg tablet,delayed release (DR/EC) 40 mg PO DAILY calcium carbonate-vitamin D3 500 mg-15 mcg (600 unit) tablet 1 tablet PO BID mirabegron [Myrbetriq] 25 mg tablet extended release 24 hr 25 mg PO DAILY cholecalciferol (vitamin D3) 25 mcg (1,000 unit) tablet 25 mcg PO DAILY methocarbamol 500 mg tablet polyethylene glycol 3350 17 gram/dose powder clobetasol 0.05 % ointment 1 applic topical QAM AND QPM Qty: 60 1RF Rx Instructions: use for one week longer after healed celecoxib 100 mg capsule sertraline 50 mg tablet aripiprazole 30 mg tablet Follow-up/Referrals: Librado,MD Carla [Primary Care Provider] - Time of Disposition: 16:32
== END 2025-04-24 16:38 | disposition home or self-care (01) ==
PROVIDERS: Emergency Provider Nurse Practitioner Family; PCP Hospitalist
DX: L03.115 Cellulitis of right lower limb (principal); I10 Essential (primary) hypertension; Z79.899 Other long term (current) drug therapy
CPT/HCPCS: 99213; G0463

== ENCOUNTER 2025-07-06 16:40 | Emergency (ER) | payer MEDICARE, MEDICAID, SELFPAY ==
--- NOTE | 2025-07-06 16:42 | ED.MALEGU ---
HPI - Male Genitourinary General Chief complaint: Urogenital-Male Stated complaint: poss UTI Time Seen by Provider: 07/06/25 16:42 Source: patient Mode of arrival: ambulatory Limitations: no limitations History of Present Illness HPI Narrative: Jovani is a 60-year-old developmentally disabled male patient presenting to the clinic today with complaints of a possible UTI x1 day. He reported to the worker today that he was having some burning with urination. He has a history of urinary incontinence. He denies any fevers, chills, nausea, vomiting, back pain, or abdominal pain. Related Data Home Medications ?Medication ?Instructions ?Recorded ?Confirmed ?Last Taken ?Type alfuzosin 10 mg tablet,extended 10 mg PO DAILY 01/19/23 01/01/25 Unknown History release 24 hr ferrous sulfate 325 mg (65 mg 325 mg PO DAILY 01/19/23 01/01/25 Unknown History iron) tablet (Iron (ferrous sulfate)) potassium chloride 10 mEq 10 meq PO DAILY 01/19/23 06/13/24 Unknown History tablet,extended release aripiprazole 20 mg tablet 20 mg PO DAILY 08/10/23 01/01/25 Unknown History hydroxyzine HCl 25 mg tablet 25 mg PO DAILY 08/10/23 01/01/25 Unknown History calcium 500 mg (as 1 tablet PO BID 05/22/24 01/01/25 Unknown History carbonate)-vitamin D3 15 mcg (600 unit) tablet cholecalciferol (vitamin D3) 25 25 mcg PO DAILY 05/22/24 06/13/24 Unknown History mcg (1,000 unit) tablet mirabegron 25 mg tablet,extended 25 mg PO DAILY 05/22/24 06/13/24 Unknown History release 24 hr (Myrbetriq) pantoprazole 40 mg tablet,delayed 40 mg PO DAILY 05/22/24 01/01/25 Unknown History release albuterol sulfate 2.5 mg/3 mL See Rx Instructions .Route .COMPLEX 06/13/24 06/13/24 Unknown History (0.083 %) solution for nebulization albuterol sulfate 90 mcg/actuation 1 puff inhalation PRN PRN Wheezing 06/13/24 06/13/24 Unknown History aerosol inhaler docusate sodium 100 mg capsule 100 mg PO DAILY PRN Constipation 06/13/24 01/01/25 Unknown History naltrexone 50 mg tablet 50 mg PO DAILY 06/13/24 01/01/25 Unknown History methocarbamol 500 mg tablet mg 02/09/25 Unknown History polyethylene glycol 3350 17 g 03/09/25 Unknown History gram/dose oral powder aripiprazole 30 mg tablet mg 04/24/25 Unknown History celecoxib 100 mg capsule mg 04/24/25 Unknown History sertraline 50 mg tablet mg 04/24/25 Unknown History Allergies Allergy/AdvReac Type Severity Reaction Status Date / Time topiramate Allergy Intermediate Rash Verified 07/06/25 16:49 Review of Systems Review of Systems: Pertinent positives per HPI. Patient denies any fever, chills, rash, headache, visual changes, dizziness, cough, runny nose, sore throat, shortness of breath, chest pain, palpitations, nausea, vomiting, diarrhea, constipation, abdominal pain PMFSH Past Medical History Medical History Anemia Eczema Osteoarthritis Retinal detachment, left Moderate intellectual disability Bipolar disorder Urinary incontinence Hypertension Impaired vision Surgical History Surgical History H/O bilateral hip replacements Social History Social History Smoking status: Never smoker Alcohol intake: never Substance use: never Living arrangements: [facility] Gender identity (if verbalized by the patient): Male Comments At the time of my signature, I reviewed and agree with the nursing past medical, surgical, social, and family history. There is no relevant family history pertinent to the patient complaint. Exam Narrative: General: Well-developed, well nourished, in no apparent distress. Head: Normocephalic, atraumatic. Cardio: Regular rate and rhythm, s1 and s2 normal, no murmur appreciated. Resp: Clear to auscultation bilaterally, no rhonchi, rales, wheezing or rubs. Abdomen: Soft, pliable, bowel sounds present in all quadrants, non-tender to palpation, no organomegly, no CVAT tenderness. Course Course Emergency Course: Portions of this record may have been created with voice recognition software. Level of Care: Express Care Visit Vital Signs Vital signs: Vital Signs Temperature 36.1 C L 07/06/25 16:46 Pulse Rate 56 L 07/06/25 16:46 Respiratory Rate 20 07/06/25 16:46 Blood Pressure 110/72 07/06/25 16:46 Pulse Oximetry 98 07/06/25 16:46 Oxygen Delivery Room Air 07/06/25 16:46 Temperature 36.1 C L 07/06/25 16:46 Pulse Rate 56 L 07/06/25 16:46 Respiratory Rate 20 07/06/25 16:46 Blood Pressure 110/72 07/06/25 16:46 Pulse Oximetry 98 07/06/25 16:46 Oxygen Delivery Room Air 07/06/25 16:46 Vital signs reviewed MDM - Male Genitourinary MDM Narrative Medical decision making narrative: At the time of visit patient is resting comfortably on the exam table. Patient appears to be nontoxic. Complaints of a possible UTI x1 day. He reported to the worker today that he was having some burning with urination. He has a history of urinary incontinence. He denies any fevers, chills, nausea, vomiting, back pain, or abdominal pain. Urine dip ordered Labs: Urinalysis will was positive for trace of leukocytes and trace of intact blood. We will send urine for culture Plan: I suspect patient has UTI. Prescription for cephalexin was sent to the pharmacy. Will send urine for culture. Supportive measures were discussed with the patient and they voiced understanding discharge instructions and agrees to treatment plan. Return precautions reviewed Differential Diagnosis Differential diagnosis: Likely urinary tract infection, urethritis, epididymitis, prostatitis and acute retention of urine Lab Data Labs: Lab Results 07/06/25 Range/Units 16:56 POC Urine Color Yellow POC Urine Clarity Cloudy POC Urine pH 7.0 POC Ur Specif [place] 1.025 POC Urine Protein Negative (Negative) POC Ur Glucose (UA) Negative (Negative) POC Urine Ketones Negative (Negative) POC Urine Blood Trace (Negative) POC Urine Nitrite Negative (Negative) POC Urine Bilirubin Negative (Negative) POC Urine Urobilinogen 0.2 POC U Leukocyte Esteras Trace (Negative) Discharge Plan Discharge Clinical Impression: Acute UTI Patient Disposition: Home Condition: Stable Instructions: Antibiotic Form, Urinary Tract Infection in Men (ED) Additional Instructions: Take Bactrim as prescribed Increase fluids and stay well hydrated Wear cotton underwear or if your wearing depends change them frequently Avoid tight clothing up against the genitals Follow up with your PCP in 1 week if symptoms persist. Patient Language: Croatian Prescriptions: New cephalexin 500 mg capsule 500 mg PO Q12H 7 Days Qty: 14 0RF No Action naltrexone 50 mg Tablet 50 mg PO DAILY albuterol sulfate 2.5 mg /3 mL (0.083 %) solution for nebulization See Rx Instructions .ROUTE .COMPLEX Rx Instructions: wheezing docusate sodium 100 mg capsule 100 mg PO DAILY PRN (Reason: Constipation) albuterol sulfate 90 mcg/actuation HFA aerosol inhaler 1 puff INHALATION PRN PRN (Reason: Wheezing) potassium chloride 10 mEq Tablet Extended Release 10 meq PO DAILY ferrous sulfate [Iron (ferrous sulfate)] 325 mg (65 mg iron) Tablet 325 mg PO DAILY alfuzosin 10 mg Tablet Extended Release 24 Hr 10 mg PO DAILY Rx Instructions: administer after the same meal each day aripiprazole 20 mg tablet 20 mg PO DAILY hydroxyzine HCl 25 mg tablet 25 mg PO DAILY pantoprazole 40 mg tablet,delayed release (DR/EC) 40 mg PO DAILY calcium carbonate-vitamin D3 500 mg-15 mcg (600 unit) tablet 1 tablet PO BID mirabegron [Myrbetriq] 25 mg tablet extended release 24 hr 25 mg PO DAILY cholecalciferol (vitamin D3) 25 mcg (1,000 unit) tablet 25 mcg PO DAILY methocarbamol 500 mg tablet polyethylene glycol 3350 17 gram/dose powder clobetasol 0.05 % ointment 1 applic topical QAM AND QPM Qty: 60 1RF Rx Instructions: use for one week longer after healed celecoxib 100 mg capsule sertraline 50 mg tablet aripiprazole 30 mg tablet cephalexin 500 mg capsule 500 mg PO QID 7 Days Qty: 28 0RF Follow-up/Referrals: UNKNOWN,DOCTOR [Non-Staff] Time of Disposition: 17:10 Quality NIHSS Nursing Documentation ED NIHSS nursing documentation: reviewed/agree
--- OUTSIDE RECORDS SUMMARY | 2025-07-06 16:45 | XMS_ITS | Encounter Summary ---
Author Organization [facility] Address [address] [place] [address] Phone Care Team Providers Care Blanket Cutting Machine Operator Name Role Phone Aparna Lester MD Primary Care Provider Farhana Chino DRYWALL WORKER, ROUSTABOUT Unavailable Faraz Ozuna MD Unavailable Jorje Hicks LOADING DOCK HELPER, ROUSTABOUT Unavailable [phone] Rebeca Chisholm MD Unavailable [phone] Kerrie Wilson APRN, ROUSTABOUT Unavailable Carla Pavon MD Primary Care Provider Encounter Details Date Type Department Care Team (Late st Contact Info) Description 07/25/2024 Telephone [facility] [address] [place] [address] Rebeca Chisholm MD [address] [address] Social History Tobacco Use Types Packs/Day Years [...] Upcoming Encounters Date Type Department Care Team (Late st Contact Info) Description 07/08/2025 2:45 PM CDT Office Visit [facility] - [facility] - [place] [address] [place] [address] Jovan Stephens MD [address] [place] [address] 07/22/2025 9:30 AM CDT [facility]ointment [facility] [address] [place] [phone] Jorje Hicks APRN, ROUSTABOUT [address] [place] [address] Discharge Disposition: Discharged to home or Selfcare 08/04/2025 10:00 AM CDT Office Visit [facility] [address] [place] [phone] Jorje Hicks APRN, ROUSTABOUT [address] [place] [address] 09/16/2025 8:15 AM GEAR DESIGN ENGINEER Office Visit [facility] Endocrinology [facility] [address] [place] [address] Faraz Ozuna MD [address] [address] documented as of this encounter Visit Diagnoses Not on filedocumented in this encounter Additional Health Concerns Infection Onset Date Last Indicated Resolved Time 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 12/18/2024 documented as of this encounter Care Teams Blanket Cutting Machine Operator Relationship Specialty Start Date End Date Aparna Lester MD PCP - General Internal Medicine 10/26/15 11/11/24 Carla Pavon MD [address] [place] [address] PCP - General Family Medicine 11/12/24 Farhana Chino APN, ROUSTABOUT Nurse Practitioner Advanced Practice Nurse 04/07/16 Faraz Ozuna MD [address] [address] Consulting Physician Internal Medicine 06/23/16 Jorje Hicks APRN, ROUSTABOUT [address] [place] [address] Nurse Practitioner Advanced Practice Nurse 06/06/22 Rebeca Chisholm MD #[address] [address] Consulting Physician Urology 09/15/22 Kerrie Wilson APRN, ROUSTABOUT [address] [place] [address] Nurse Practitioner Advanced Practice Nurse 08/14/23 documented as of this encounter
--- OUTSIDE RECORDS SUMMARY | 2025-07-06 16:45 | XMS_ITS | Clinical Summary ---
Author Organization [facility] Address [address] [place] [address] Care Team Providers Care Display Carver Name Role Phone Unavailable Primary Care Provider Unavailabl e Source Comments [facility],non-owned Affiliates and Associated Physician Practices is amultiple site organization consisting of ambulatory clinics and hospital sitesin [place], [place], [place] and [place]. This disclosure is being madepursuant to the Care Everywhere program and may not contain all information available regarding this patient. Last updated 18.[facility] Allergies Active Allergy Reactions Criticality Noted Date [...] on file Legal Sex Male 11:38 AM TECHNICAL IMPLEMENTATION LEAD Gender Identity Not on file Sexual Orientation [...] 08/28/2009 ZOSTER VACCINE (1 of 2) 2017 DEPRESSION SCREENING 10/29/2024 COVID-19 VACCINE (1 - 2023-2 5 season) 2025 INFLUENZA VACCINE (#1) 2025 HIB VACCINE Aged Out No longer [...] Documents on File Type Date Recorded Patient Paper Cone Maker Expl anation Adv Directive/Living Will/POA 04/01/2011 11:57 AM * FULL RESUSCITATION (Latest Code Status on File) Date Activated Date Inactivated Comments 05/30/2011 12:47 PM 06/03/2011 12:27 AM * Full Code Date Activated Date Inactivated Comments 03/28/2011 2:15 PM 04/01/2011 5:27 AM
--- OUTSIDE RECORDS SUMMARY | 2025-07-06 16:45 | XMS_ITS | Encounter Summary ---
Author Organization [facility] Address [address] [place] [address] Phone Care Team Providers Care Junior Mechanical Engineer Name Role Phone Farhana Chino APN, MENTAL HEALTH AIDES TEACHER Unavailable Faraz Ozuna MD Unavailable Jorje Hicks APRN, MENTAL HEALTH AIDES TEACHER Unavailable Rebeca Chisholm MD Unavailable [phone] Kerrie Wilson APRN, MENTAL HEALTH AIDES TEACHER Unavailable Carla Pavon MD Primary Care Provider [phone] Reason for Referral * PT/OT/ST (Routine) - Authorized Specialty Diagnoses / Procedures Referred By Hari lanza Referred To Contact Physical Therapy Diagnoses Primary osteoarthritis of right knee Acquired valgus deformity knee, right Jay Lamas PAC [address] [place] [address] Phone: tel: fax: [facility] [place] [address], [place] [address] [address] Phone: tel: fax: Referral ID Status Reason Start Date Expiration Date V isits Requested Visits Authorized [id number] Authorized 12/24/2024 50 50 Scheduling Instructions YARD OPERATOR Encounter Details Date Type Department Care Team (Latest Contact Info) Description 12/24/2024 Transcribe Orders [facility] [address] [place] [address] Jay Lamas PAC [address] [place] [address] Primary osteoarthritis of right knee (Primary Dx); [...] Description 07/08/2025 2:45 PM CDT [facility] [place] [address] [place] [address] Jovan Stephens MD [address] [place] [address] 07/22/2025 9:30 AM CDT [facility]ointment [facility] [address] [place] [address] Jorje Hicks APRN, MENTAL HEALTH AIDES TEACHER [address] [place] [address] Discharge Disposition: Discharged to home or Selfcare 08/04/2025 10:00 AM CDT Office Visit [facility] [address] [place] [phone] Jorje Hicks APRN, MENTAL HEALTH AIDES TEACHER [address] [place] [address] 09/16/2025 8:15 AM FUEL YARD OPERATOR Office Visit [facility] - Endocrinology - [place] [address] [place] [address] Faraz Ozuna MD [address] [facility] [address] [place] [address] Scheduled Referrals Name Type Priority Associated Diagnoses [...] documented as of this encounter Care Teams Junior Mechanical Engineer Relationship Specialty Start Date End Date Carla Pavon MD [address] [place] [address] [address] [place] [address] PCP - General Family Medicine 11/12/24 Farhana Chino, EGG BREAKING MACHINE OPERATOR, MENTAL HEALTH AIDES TEACHER Nurse Practitioner Advanced Practice Nurse 04/07/16 Faraz Ozuna MD [address] [address] Consulting Physician Internal Medicine 06/23/16 Jorje Hicks, CLAY ARTIST, MENTAL HEALTH AIDES TEACHER [address] [place] [address] Nurse Practitioner Advanced Practice Nurse 06/06/22 Rebeca Chisholm MD #2 [facility] [address] [place] [address] Consulting Physician Urology 09/15/22 Kerrie Wilson APRN, MENTAL HEALTH AIDES TEACHER [address] [place] [address] Nurse Practitioner Advanced Practice Nurse 08/14/23 documented as of this encounter
--- OUTSIDE RECORDS SUMMARY | 2025-07-06 16:45 | XMS_ITS | Clinical Summary ---
[facility] Organization [facility] [address] Address [address] [place] [address] Care Team Providers Care Analyst Business Analysis Name Role Phone Carla Pavon MD Primary Care Provider [phone] Allergies Active Allergy Reactions Criticality Noted Date [...] day 60 capsule 1 12/24/19 25 Active Hospital, Clinic, or Other Facility Administered Medication Ordered Dose Route Frequency Start Date End Date Status lidocaine (XYLOCAINE) 20 mg/mL (2 %) injection 3 mLIndications:Admini stration of Local Anesthesia 3 mL One-Time Injection 06/24/2025 5 Ended methylPREDNISolone acetate (DEPO-medrol) injection 80 mgIndications:Primar y osteoarthritis of right knee 80 mg intra-artic One-Time Injection 06/24/2025 5 Ended Active Problems Problem Noted Date Diagnosed Date [...] Encounters Date Type Department Care Team Description 06/24/2025 9:15 AM CDT Office Visit [facility] Orthopedic and Sports Medicine [address] [place] [phone] Jay Lamas PA Primary osteoarthritis of right knee (Primary Dx); Acquired valgus deformity knee, right from Last 3 Months Immunizations Immunization Administration [...] drink = 0.6 oz pur e alcohol) [facility] Utilities Answer Date Recorded In the past 12 months has e [email or web address], gas, oil, or water company threatened to shut off services in your home? No 03/04/2024 Social Connection and Isolation Panel Answer Date Recorded In a typical week, how many times do you talk on the phone with family, friends, or neighbors? Patient unable to answer 03/04/2024 How often do you get togethe r with friends or relatives? Patient unable to answer 03/04/2024 How often do you attend chur ch or voodoo services? Patient unable to answer 03/04/2024 Do you belong to any clubs o r organizations such as restorationism groups, unions, fraternal or athletic groups, or [...] place to sleep or slept in a correction (including now)? Patient unable to answer 03/04/2024 [...] on file Legal Sex Male 3:46 AM BEHAVIORAL HEALTH COUNSELOR Gender Identity Not on file Sexual Orientation Not on file Obstetrics History Last Filed Vital Signs Vital Sign Reading Time Taken Comments Blood Pressure 102/61 06/24/2025 9:18 AM CDT Pulse 72 06/24/2025 9:18 AM CDT Temperature 36.9 C (98.5 F) 03/05/2025 10:45 AM CDT Respiratory Rate 18 03/05/2025 10:45 AM CDT Oxygen Saturation 97% 03/05/2025 10:45 AM CDT Inhaled Oxygen Concentration - - Weight 61.2 kg (135 lb) 06/24/2025 9:18 AM CDT Height 157.5 cm (5' 2) 06/24/2025 9:18 AM CDT Body Mass Index 24.69 06/24/2025 9:18 AM CDT Plan of Treatment Health Maintenance Due Date Last Done Comments Colon Cancer Screening-Colonoscopy 1967 Hepatitis C Screening 1967 Prostate Cancer Screening-PSA 1967 Hepatitis B Screening 1985 Regular Well Visit/Exam 18-64 1985 Zoster Vaccine (1 of 2) 2017 DTaP/Tdap/Td Vaccine (4 - Td or Tdap) 04/23/2025 04/23/2015, 03/27/2013, 07/08/2007 Covid-19 Vaccine (4 - 2024- season) 2025 09/20/2021, 12/29/2020, 11/30/2020 Influenza Vaccine (#1) 2025 , 07/27/2023, 07/19/2023, Additional history exists Depression Screening 12/09/2025 12/09/2024, 12/09/19 25 Pneumococcal vaccine <65 Aged Out 08/28/2009 No longer eligible based on patient's age to complete this topic Procedures Procedure Name Priority Date/Time Associated Diagnosis Comments TX ARTHROCENTESIS ASPIR&/INJ MAJOR JT/BURSA W/O US Routine 06/24/2025 9:15 AM CDT Primary osteoarthritis of right knee from Last 3 Months Results * TX ARTHROCENTESIS ASPIR&/INJ MAJOR JT/BURSA W/O US (06/24/2025 9:15 AM CDT) Narrative Jay Lamas PA - 06/24/2025 9:15 AM CDT Jay Lamas PA 06/24/2025 10:43 AM Large Joint (Hip, Knee, Shoulder) Injection: R knee Performed by: Jay Lamas PA Authorized by: Jay Lamas PA Large Joint Injection/Aspiration: Consent Given by: Patient Timeout: prior to procedure the correct patient, procedure, and site was verified Verbal consent obtained: Yes Supporting Documentation: Indications: Pain Procedure Details: Location: Knee Site: R knee Prep: patient was prepped using a clean technique Needle Size: 22 G Approach: Superior lateral Ultrasound guided: No Fluroscopic guidance: No Medications: 80 mg methylPREDNISolone acetate 80 mg/mL; 3 mL lidocaine 20 mg/mL (2 %) Patient tolerance: Patient tolerated the procedure well with no immediate complications Jay [facility]/BEDSIDE ORDERABLE S Final Result from Last 3 Months Insurance MEDICARE [facility] MEDICARE [facility] Address: [address] [address] [place] [address] [facility] MEDICARE [employer] MEDICARE [employer] Advance Directives For more information, please contact: [phone] * Full Code (Latest Code Status on [...] 1:37 AM 03/03/2024 7:33 AM Care Teams Analyst Business Analysis Relationship Specialty Start Date End Date Carla Pavon MD [address] [place] [address] [address] SU[address]REZ [address] [place] [id number] PCP - General Family Medicine 02/28/24
--- OUTSIDE RECORDS SUMMARY | 2025-07-06 16:45 | XMS_ITS | Clinical Summary ---
Author Organization [facility] Address [address] [place] [address] Phone Care Team Providers Care Cone Marker Name Role Phone Farhana Chino APN, LINE CAMERA OPERATOR Unavailable Faraz Ozuna MD Unavailable Jorje Hicks CREATIVE ASSISTANT, LINE CAMERA OPERATOR Unavailable [phone] Rebeca Chisholm MD Unavailable [phone] Kerrie Wilson CREATIVE ASSISTANT, LINE CAMERA OPERATOR Unavailable Carla Pavon MD Primary Care Provider [phone] Allergies Active Allergy Reactions Criticality Noted Date [...] % Paste 08/06/20 24 Active nystatin (MYCOSTATIN) 391257 UNIT/GM Ointment 07/15/20 24 Active Active Problems [...] Encounters Date Type Department Care Team Description 07/06/2025 Telephone [facility] - Family Medicine [place] [address] [place] [phone] Jovan Stephens MD 06/10/2025 Telephone [facility] Central Call Center [address] [place] [phone] Provider, None New Patient 04/28/2025 Results Follow-Up [facility] UROLOGY [address] [place] [phone] Jorje Hicks APRN, LINE CAMERA OPERATOR CULTURE, URINE 04/24/2025 3:45 PM CDT Clinical Support [facility] UROLOGY [address] [place] [phone] NurseChaitanya Urology UTI symptoms (Primary Dx) Discharge Disposition: Discharged to home or Selfcare 04/24/2025 Telephone [facility] UROLOGY [address] [place] [phone] Jorje Hicks, CREATIVE ASSISTANT, LINE CAMERA OPERATOR 04/24/2025 Travel from Last 3 Months Immunizations Immunization [...] Valent 9 Pneumococcal conjugate PCV20 , polysaccharide [id number] conjugate, adjuvant, PF 12/08/2024 Sars-cov-2 (Covid-19) Vaccin [...] 45.4 kg (100 lb) 12/18/2024 10:56 AM PLATING INSPECTOR Height 157.5 cm (5' 2) 12/18/2024 10:56 AM PLATING INSPECTOR Body Mass Index 18.29 12/18/2024 10:56 AM PLATING INSPECTOR Plan of Treatment Upcoming Encounters Date Type Department Care Team (Late st Contact Info) Description 07/08/2025 2:45 PM CDT Office Visit [facility] - Primary Care - [place] [address] [place] [phone] Jovan Stephens MD [address] [place] [address] 07/22/2025 9:30 AM CDT [facility] [address] [facility] [place] [phone] Jorje Hicks APRN, LINE CAMERA OPERATOR [address] [place] [address] Discharge Disposition: Discharged to home or Selfcare 08/04/2025 10:00 AM CDT Office Visit [facility] UROLOGY [address] [place] [address] Jorje Hicks CREATIVE ASSISTANT, LINE CAMERA OPERATOR [address] [place] [address] 09/16/2025 8:15 AM PLATING INSPECTOR Office Visit [facility] - Endocrinology - [place] [address] [place] [address] Faraz Ozuna MD [address] [address] Health Maintenance Due Date Last Done Comments Hepatitis C Virus (HCV) Screening 1967 Hepatitis B Immunization (1 of 3 - 19+ 3-dose series) 1986 Cologuard 2012 Immunochemical Fecal Occult Blood 2012 Zoster Immunization (1 of 2) 2017 Td Immunization Every 10 Years (Adults With 1 Tdap) 04/23/2025 04/23/2015, 03/27/2013, 07/08/2007 Influenza Immunization (#1) 06/29/202506/30, 07/27/2023, 07/19/2023, Additional history exists Colonoscopy 11/27/2033 11/27/2023, 03/23/2023 Colorectal Cancer Screening 11/27/2033 Respiratory Syncytial Virus (RSV) Immunization (Adult) (1 - 1-dose 75+ series) 2042 DTaP/Tdap/Td Immunization Discontinued 2014, 03/27/2013, 07/08/2007 PSA Discussion Completed 08/29/2023, 09/30, 07/18/2016 SARS-COV-2 Immunization Completed 07/23/20 24, 09/24/2023, 12/27/2022, [...] Date/Time Associated Diagnosis Comments CULTURE, URINE Routine 04/24/2025 4:13 PM CDT UTI symptoms PSA SCREEN 08/29/2023 12:00 AM CDT from Last 3 Months or Most Recently Relevant to Health Maintenance Results * CULTURE, URINE (04/24/2025 4:13 PM CDT) CULTURE RESULTS ENTEROCOCCUS FAECALIS 04/26/2025 8:06 PM CDT [facility] CULTURE RESULTS STAPHYLOCOCCUS HAEMOLYTICUS 04/26/2025 8:06 PM CDT [facility] Comment:SENSITIVITY NOT PERF ORMED Culture URINE SPECIMEN OBTAINED BY CLEAN CATCH PROCEDURE / Unknown Non-Phlebotomy Collection / Unknown 04/24/2025 4:13 PM CDT 04/24/2025 4:13 PM CDT Narrative [facility] - 04/26/2025 8:06 PM CDT Susceptibility not performed on enterococcus species. Due to high achievable concentrations in urine, Ampicillin is the drug of choice for treating infections limited to the lower urinary tract (regardless of Vancomycin susceptibility). For allergic patients, Nitrofurantoin or a quinolone may be substituted. us Jorje Hicks APRN, LINE CAMERA OPERATOR MICROBIOLOGY - GENERAL ORDERABLES Final Result [facility] [address] [place] [address], * PSA SCREEN (08/29/2023 12:00 AM CDT) PSA (PROSTATE SPECIFIC ANTIGEN) 0.2 ng/mL 08/29/2023 us Provider Scan CHEMISTRY ORDERABLES Final Resul t from Last 3 Months or Most Recently Relevant to Health Maintenance Additional Health Concerns Infection Onset Date Last Indicated 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 12/18/2024 Insurance MEDICAID [place] MEDICARE Advance Directives Documents on File Type Date Recorded Patient Tape Stringer Expl anation Guardian of Person 03/21/2023 4:50 PM GUAR DIANSHIP, 04/25/2022 * Full Code (Latest Code Status on File) Date Activated Date Inactivated Comments 03/21/2023 4:58 PM 03/23/2023 5:10 PM CPR-Full Jostin atment: FULL ARREST: Attempt Resuscitation/CPR wit intubation and mechanical ventilation. PRE-ARREST: Use entire range of life support measures to stabilize the patient. Care Teams Cone Marker Relationship Specialty Start Date End Date Carla Pavon MD [address] [place] [address] [place] [address] PCP - General Family Medicine 11/12/24 Farhana Chino APN, LINE CAMERA OPERATOR Nurse Practitioner Advanced Practice Nurse 04/07/16 Faraz Ozuna MD [address] [phone] Consulting Physician Internal Medicine 06/23/16 Jorje Hicks APRN, LINE CAMERA OPERATOR [address] [place] [address] Nurse Practitioner Advanced Practice Nurse 06/06/22 Rebeca Chisholm MD [address] [address] Consulting Physician Urology 09/15/22 Kerrie Wilson APRN, LINE CAMERA OPERATOR [address] [place] [address] Nurse Practitioner Advanced Practice Nurse 08/14/23
--- OUTSIDE RECORDS SUMMARY | 2025-07-06 16:45 | XMS_ITS | Encounter Summary ---
Author Organization [facility] Address [address] [place] [address] Phone Care Team Providers Care Dining Room Captain Name Role Phone Farhana Chino APN, NATIONAL VAN TRUCK DRIVER Unavailable Faraz Ozuna MD Unavailable Jorje Hicks PRESSROOM FOREMAN, NATIONAL VAN TRUCK DRIVER Unavailable Rebeca Chisholm MD Unavailable [phone] Kerrie Wilson APRN, NATIONAL VAN TRUCK DRIVER Unavailable Carla Pavon MD Primary Care Provider Encounter Details Date Type Department Care Team (Late st Contact Info) Description 07/06/2025 Telephone [facility] [address] [place] [address] Jovan Stephens MD [address] [place] [address] Social History Tobacco Use Types Packs/Day Years [...] encounter Miscellaneous Notes * Telephone Encounter - [facility] - 07/06/2025 1:41 PM CDT Called to pre-visit,left msg documented in this encounter Plan of Treatment Upcoming Encounters Date Type Department Care Team (Late st Contact Info) Description 07/08/2025 2:45 PM CDT Office Visit [facility] - Primary Care - [place] [address] [place] [address] Jovan Stephens MD [address] [place] [address] 07/22/2025 9:30 AM CDT [facility] Ul[facility]ound [address] [place] [address] Jorje Hicks APRN, NATIONAL VAN TRUCK DRIVER [address] [place] [address] Discharge Disposition: Discharged to home or Selfcare 08/04/2025 10:00 AM CDT Office Visit [facility] UROLOGY [address] [place] [address] Jorje Hicks APRN, NATIONAL VAN TRUCK DRIVER [address] [place] [address] 09/16/2025 8:15 AM SITE ACQUISITION MANAGER Office Visit [facility] Medical [facility] - Endocrinology - [place] [address] [place] [address] Faraz Ozuna MD [address] [phone] documented as of this encounter Visit Diagnoses Not on filedocumented in this encounter Additional Health Concerns Infection Onset Date Last Indicated Resolved Time 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 12/18/2024 documented as of this encounter Care Teams Dining Room Captain Relationship Specialty Start Date End Date Carla Pavon MD [address] [place] [address] [address] [place] [address] PCP - General Family Medicine 11/12/24 Farhana Chino APN, NATIONAL VAN TRUCK DRIVER Nurse Practitioner Advanced Practice Nurse 04/07/16 Faraz Ozuna MD [address] [facility] [address] [place] [phone] Consulting Physician Internal Medicine 06/23/16 Jorje Hicks APRN, NATIONAL VAN TRUCK DRIVER [address] [place] [address] Nurse Practitioner Advanced Practice Nurse 06/06/22 Rebeca Chisholm MD [address]2 [facility] [address] [place] [address] Consulting Physician Urology 09/15/22 Kerrie Wilson APRN, NATIONAL VAN TRUCK DRIVER [address] [place] [address] Nurse Practitioner Advanced Practice Nurse 08/14/23 documented as of this encounter
[2025-07-06 16:46] VITALS: BP 110/72; PULSE 56; RESP 20; TEMP 36.1; O2SAT 98
[2025-07-06 17:03] LABS: EDUAAPPEAR Cloudy; EDUABILI Negative (Negative); EDUABLOOD Trace (Negative); EDUACOLOR1 Yellow; EDUAGLUCOSE Negative (Negative); EDUAKETONE Negative (Negative); EDUALEUKO Trace (Negative); EDUANITRATE Negative (Negative); EDUAPH 7.0; EDUAPROTEIN Negative (Negative); EDUASPGRAVITY 1.025; EDUAUROBILI 0.2
== END 2025-07-06 17:15 | disposition home or self-care (01) ==
PROVIDERS: Emergency Provider Nurse Practitioner Family; PCP Internal Medicine
DX: N39.0 Urinary tract infection, site not specified (principal); I10 Essential (primary) hypertension; F71 Moderate intellectual disabilities; D64.9 Anemia, unspecified; M19.90 Unspecified osteoarthritis, unspecified site; Z96.643 Presence of artificial hip joint, bilateral
CPT/HCPCS: 81003; 87086; 99213; G0463

== ENCOUNTER 2025-08-13 09:53 | Emergency (ER) | payer MEDICARE, MEDICAID, SELFPAY ==
[2025-08-13 10:07] VITALS: BP 104/51; PULSE 65; RESP 18; TEMP 36.3; O2SAT 97
--- NOTE | 2025-08-13 10:12 | ED.EYEPROB ---
HPI - Eye Problem General Chief complaint: Eye Problems Stated complaint: Left Eye Problem Time Seen by Provider: 08/13/25 10:13 Source: patient and RN notes reviewed Mode of arrival: ambulatory Limitations: no limitations History of Present Illness HPI Narrative: 60-year-old male with intellectual disability presents concern for bilateral eye redness. Caregiver reports the nurse noticed his eyes were red, but they have been cleaning the eyes with a warm washcloth yesterday morning and this morning. Patient is not verbalizing any discomfort. Caregiver denies any cold symptoms. Patient is legally blind. chief complaint: eye redness Related Data Home Medications ?Medication ?Instructions ?Recorded ?Confirmed ?Last Taken ?Type alfuzosin 10 mg tablet,extended 10 mg PO DAILY 01/19/23 08/13/25 Unknown History release 24 hr ferrous sulfate 325 mg (65 mg 325 mg PO DAILY 01/19/23 08/13/25 Unknown History iron) tablet (Iron (ferrous sulfate)) potassium chloride 10 mEq 10 meq PO DAILY 01/19/23 08/13/25 Unknown History tablet,extended release aripiprazole 20 mg tablet 20 mg PO DAILY 08/10/23 08/13/25 Unknown History hydroxyzine HCl 25 mg tablet 25 mg PO DAILY 08/10/23 08/13/25 Unknown History calcium 500 mg (as 1 tablet PO BID 05/22/24 08/13/25 Unknown History carbonate)-vitamin D3 15 mcg (600 unit) tablet cholecalciferol (vitamin D3) 25 25 mcg PO DAILY 05/22/24 08/13/25 Unknown History mcg (1,000 unit) tablet mirabegron 25 mg tablet,extended 25 mg PO DAILY 05/22/24 08/13/25 Unknown History release 24 hr (Myrbetriq) pantoprazole 40 mg tablet,delayed 40 mg PO DAILY 05/22/24 08/13/25 Unknown History release albuterol sulfate 2.5 mg/3 mL See Rx Instructions .Route .COMPLEX 06/13/24 08/13/25 Unknown History (0.083 %) solution for nebulization albuterol sulfate 90 mcg/actuation 1 puff inhalation PRN PRN Wheezing 06/13/24 08/13/25 Unknown History aerosol inhaler docusate sodium 100 mg capsule 100 mg PO DAILY PRN Constipation 06/13/24 08/13/25 Unknown History naltrexone 50 mg tablet 50 mg PO DAILY 06/13/24 08/13/25 Unknown History methocarbamol 500 mg tablet mg 02/09/25 Unknown History polyethylene glycol 3350 17 g 03/09/25 Unknown History gram/dose oral powder aripiprazole 30 mg tablet mg 04/24/25 Unknown History celecoxib 100 mg capsule mg 04/24/25 Unknown History sertraline 50 mg tablet mg 04/24/25 Unknown History Banophen 08/13/25 Unknown History Zofran 08/13/25 Unknown History bisacodyl 08/13/25 Unknown History multivitamin-iron sulfate 15 tablet PO 08/13/25 Unknown History mg-folic acid 400 mcg tablet (Tab-A-Daria Multivitamin w-iron) neomycin-bacitracn Zn-polymyx 3.5 topical 08/13/25 Unknown History mg-400 unit-5,000 unit/gram top oint (Triple Antibiotic) nystatin-triamcinolone 100,000 applic topical 08/13/25 Unknown History unit/g-0.1 % topical cream Allergies Allergy/AdvReac Type Severity Reaction Status Date / Time topiramate Allergy Intermediate Rash Verified 08/13/25 10:14 Review of Systems Review of Systems: CONSTITUTIONAL: Denies malaise, chills, sweats, or fever. EYES: Denies visual changes. Bilateral Reports redness, discharge. ENT: Denies rhinorrhea, congestion, sinus pain, otalgia or sore throat. SKIN: Denies rash or itching. NEUROLOGIC: Denies numbness, weakness, or headache. PSYCHIATRIC: Denies anxiety or depression. All systems reviewed & are unremarkable except as noted in HPI and below PMFSH Past Medical History Medical History Anemia Eczema Osteoarthritis Retinal detachment, left Moderate intellectual disability Bipolar disorder Urinary incontinence Hypertension Impaired vision Surgical History Surgical History H/O bilateral hip replacements Social History Social History Smoking status: Never smoker Alcohol intake: never Substance use: never Living arrangements: usp Gender identity (if verbalized by the patient): Male Comments At time of signature, agree with nursing past medical, surgical, social and family history. There is no relevant family history pertinent to the presenting complaint Exam Narrative: GENERAL: Well-appearing, well-nourished, and in no acute distress. HEAD: Normocephalic, atraumatic. EYES: PERRLA and EOMI. No nystagmus. Bilateral sclera and conjunctivae injected. Left upper eyelid slightly erythematous and edematous, Right Upper and lower eyelid unremarkable, no periorbital edema noted ENT: Nares clear, turbinates pink, no rhinorrhea or epistaxis. Mucous membranes moist. TM pearly solis with sharp light reflex bilaterally; no tragal tenderness. NECK: Supple. CHEST: No respiratory distress. Speaks in full sentences. HEART: Regular rate and rhythm. SKIN: Warm, dry, no visible rash. NEURO: Alert and oriented x3. PSYCH: Normal mood and affect Course Course Emergency Course: Patient is aware of diagnosis, understands and agrees to treatment plan. Anticipatory guidance given. Patient agrees to follow-up as directed and is aware of reasons to seek care at the emergency department. Portions of this record may have been created with voice recognition software Level of Care: Express Care Visit Vital Signs Vital signs: Vital Signs Temperature 97.3 F L 08/13/25 10:07 Pulse Rate 65 08/13/25 10:07 Respiratory Rate 18 08/13/25 10:07 Blood Pressure 104/51 L 08/13/25 10:07 Pulse Oximetry 97 08/13/25 10:07 Oxygen Delivery Room Air 08/13/25 10:07 Temperature 97.3 F L 08/13/25 10:07 Pulse Rate 65 08/13/25 10:07 Respiratory Rate 18 08/13/25 10:07 Blood Pressure 104/51 L 08/13/25 10:07 Pulse Oximetry 97 08/13/25 10:07 Oxygen Delivery Room Air 08/13/25 10:07 Reviewed. MDM - Eye Problem MDM Narrative Medical decision making narrative: Consideration of the following conditions may be warranted for the presenting problem, they are not final diagnoses: Bacterial conjunctivitis, allergic conjunctivitis, viral conjunctivitis, foreign body, blepharitis, chalazion, hordeolum, corneal abrasion, preseptal cellulitis, orbital cellulitis. No evidence of proptosis, ophthalmoplegia, vision loss, pain with eye movement. Exam findings show no acute concerns or changes; patient is non-toxic appearing and is in no distress. Patient is appropriate for outpatient treatment and follow-up. Critical Care Time Critical Care Time Critical Care Time: No Discharge Plan Discharge Clinical Impression: Conjunctivitis Patient Disposition: Home Condition: Stable Instructions: How to Use Eye Drops (ED) Additional Instructions: Do not touch or rub your eye. Use a warm or cool washcloth on your eye for comfort Use eyedrops as directed Practice good handwashing and hygiene to prevent spread of infection You may take Tylenol or ibuprofen for pain Follow-up with PCP or sales incentive analyst if condition is not improving in 2-3days. Go to the emergency room if you have pain behind your eye, pressure behind your eye, difficulty seeing, or other severe symptoms Patient Language: Romanian Prescriptions: New polymyxin B sulf-trimethoprim 10,000 unit- 1 mg/mL drops 1 drp EACH EYE Q3H 7 Days Qty: 10 0RF Rx Instructions: while awake; do not exceed 6 doses in 24 hours No Action naltrexone 50 mg Tablet 50 mg PO DAILY albuterol sulfate 2.5 mg /3 mL (0.083 %) solution for nebulization See Rx Instructions .ROUTE .COMPLEX Rx Instructions: wheezing docusate sodium 100 mg capsule 100 mg PO DAILY PRN (Reason: Constipation) albuterol sulfate 90 mcg/actuation HFA aerosol inhaler 1 puff INHALATION PRN PRN (Reason: Wheezing) potassium chloride 10 mEq Tablet Extended Release 10 meq PO DAILY ferrous sulfate [Iron (ferrous sulfate)] 325 mg (65 mg iron) Tablet 325 mg PO DAILY alfuzosin 10 mg Tablet Extended Release 24 Hr 10 mg PO DAILY Rx Instructions: administer after the same meal each day aripiprazole 20 mg tablet 20 mg PO DAILY hydroxyzine HCl 25 mg tablet 25 mg PO DAILY pantoprazole 40 mg tablet,delayed release (DR/EC) 40 mg PO DAILY calcium carbonate-vitamin D3 500 mg-15 mcg (600 unit) tablet 1 tablet PO BID mirabegron [Myrbetriq] 25 mg tablet extended release 24 hr 25 mg PO DAILY cholecalciferol (vitamin D3) 25 mcg (1,000 unit) tablet 25 mcg PO DAILY methocarbamol 500 mg tablet polyethylene glycol 3350 17 gram/dose powder celecoxib 100 mg capsule sertraline 50 mg tablet aripiprazole 30 mg tablet Triple Antibiotic 3.5mg-400 unit- 5,000 unit/gram ointment TOPICAL nystatin-triamcinolone 100,000-0.1 unit/g-% cream TOPICAL Tab-A-Daria Multivitamin w-iron 15 mg iron- 400 mcg tablet PO Banophen bisacodyl Zofran Follow-up/Referrals: Kat,Jovan Curry MD [Primary Care Provider, Unknown] Stand Alone Forms: Work/School Release IP Time of Disposition: 10:22
--- OUTSIDE RECORDS SUMMARY | 2025-08-13 11:04 | XMS_ITS | Encounter Summary ---
Author Organization [facility] Address [address] [place] [address] Phone Care Team Providers Care Estate Planning Director Name Role Phone Faraz Ozuna MD Unavailable Jorje Hicks APRN, BOAT OPERATOR Unavailable Rebeca Chisholm MD Unavailable [phone] Kerrie Wilson APRN, BOAT OPERATOR Unavailable Nguyen Starr MD Unavailable [phone] Jovan Stephens MD Primary Care Provider [phone] Jay Lamas [facility] Unavailable [phone] Thelma Bach MD Unavailable [phone] Reason for Visit * Reason Onset Date Comments Appointment 08/13/2025 Encounter Details Date Type Department Care Team (Late st Contact Info) Description 08/13/2025 [facility] [address] [place] [address] Jovan Stephens MD [address] [place] [address] Appointment Social History Tobacco Use Types Packs/Day Years [...] encounter Miscellaneous Notes * Telephone Encounter - Yuliet Serrano - 08/13/2025 8:08 AM CDT Symptoms: Eye Redness Without Pus or Discharge, Eye Swelling Outcome: Schedule an urgent appointment within same day Reason: Eyelid is red and swollen The caller accepted this outcome. Caller Denied: * Chemical or something in the eye * Can't open the eye * Can't see * Nonstop tears or blinking * Severe pain now documented in this encounter Plan of Treatment Upcoming Encounters Date Type Department Care Team (Late st Contact Info) Description 08/13/2025 3:15 PM CDT Office Visit [facility] - Primary Care - [place] [address] [place] [address] Irma Cantrell PAC [address] [place] [address] 09/16/2025 8:15 AM HAT AND CAP PARTS CUTTER HAND Office Visit [facility] Medical [facility] - Endocrinology - [place] [address] [place] [address] Faraz Oznua MD #[address] [address] 07/12/2026 1:00 PM CDT Office Visit [facility] - Primary Care - [place] [address] [place] [address] Jovan Stephens MD [address] [place] [address] 08/10/2026 10:30 AM CDT Office Visit [facility] UROLOGY #[address] [place] [address] Jorje Hicks, SOFTWARE TESTING SPECIALIST, BOAT OPERATOR [address] [place] [address] documented as of this encounter Visit Diagnoses Not on filedocumented in this encounter Additional Health Concerns Infection Onset Date Last Indicated Resolved Time 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 12/18/2024 documented as of this encounter Care Teams Estate Planning Director Relationship Specialty Start Date End Date Jovan Stephens MD [address] [place] [address] PCP - General Internal Medicine 07/08/25 Faraz Ozuna MD #[address] [address] Consulting Physician Endocrinology 06/23/16 Jorje Hicks APRN, BOAT OPERATOR [address] [place] [address] Nurse Practitioner Urology 06/06/22 Rebeca Chisholm MD #2 [facility] [address] [address] Consulting Physician Urology 09/15/22 Kerrie Wilson APRN, BOAT OPERATOR [address] [place] [address] Nurse Practitioner Gastroenterology 08/14/23 Nguyen Starr MD [address] [place] [address] [address] [place] [address] Consulting Physician Psychiatry 07/08/25 Jay Lamas, [facility] [address] [place] [address] Physician Line Construction Engineer Orthopaedic Surgery 07/08/25 Thelma Bach MD 10 [facility] OFFICE [address] [address] Consulting Physician Internal Medicine 07/08/25 documented as of this encounter
--- OUTSIDE RECORDS SUMMARY | 2025-08-13 11:04 | XMS_ITS | Encounter Summary ---
Author Organization [facility] Address [address] [place] [address] Phone Care Team Providers Care Stockroom Coordinator Name Role Phone Aaprna Lester MD Primary Care Provider Farhana ChinoN, MARKET MANAGER Unavailable Faraz Ozuna MD Unavailable Jorje Hicks APRN, MARKET MANAGER Unavailable [phone] Rebeca Chisholm MD Unavailable [phone] Kerrie Wilson APRN, MARKET MANAGER Unavailable Carla Pavon MD Primary Care Provider [phone] Nguyen Starr MD Unavailable [phone] Jovan Stephens MD Primary Care Provider Jay Lamas [facility] Unavailable [phone] Thelma Bach MD Unavailable [phone] Encounter Details Date Type Department Care Team (Late st Contact Info) Description 07/25/2024 Telephone [facility] [address] [place] [address] Rebeca Chisholm MD [address] [address] Social History Tobacco Use Types Packs/Day Years [...] 08-05-2024 with Ari * Telephone Encounter - Reebca Chisholm MD - 07/25/2024 3:53 PM CDT OV with Ari in 1-2 weeks for voiding trial, wound check documented in this encounter Plan of Treatment Upcoming Encounters Date Type Department Care Team (Late st Contact Info) Description 08/13/2025 3:15 PM CDT Office Visit [facility] - Primary Care - [place] [address] [place] [address] Irma Cantrell PAC [address] [place] [address] 09/16/2025 8:15 AM WREATH MAKER Office Visit [facility] - Endocrinology - [place] [address] [place] [address] Faraz Ozuna MD #[address] [address] 07/12/2026 1:00 PM CDT Office Visit [facility] - Primary Care - [place] [address] [place] [address] Jovan Stephens MD [address] [place] [address] 08/10/2026 10:30 AM CDT [facility] [address] [place] [address] Jorje Hicks, CHILD DEVELOPMENT INSTRUCTOR, MARKET MANAGER [address] [place] [address] documented as of this encounter Visit Diagnoses Not on filedocumented in this encounter Additional Health Concerns Infection Onset Date Last Indicated Resolved Time 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 12/18/2024 documented as of this encounter Care Teams Stockroom Coordinator Relationship Specialty Start Date End Date Aparna Lester MD PCP - General Internal Medicine 10/26/15 11/11/24 Carla Pavon MD [address] [place] [address] PCP - General Family Medicine 11/12/24 07/07/25 Jovan Stephens MD [address] [place] [address] PCP - General Internal Medicine 07/08/25 Farhana Chino APN, MARKET MANAGER Nurse Practitioner Advanced Practice Nurse 04/07/1607/07/25 Faraz Ozuna MD #[address] [address] Consulting Physician Endocrinology 06/23/16 Jorje Hicks APRN, MARKET MANAGER [address] [place] [address] Nurse Practitioner Urology 06/06/22 Rebeca Chisholm MD #2 [facility] [address] [place] [address] Consulting Physician Urology 09/15/22 Kerrie Wilson APRN, MARKET MANAGER [address] [place] [address] Nurse Practitioner Gastroenterology 08/14/23 Nguyen Starr MD [address] [place] [address] [facility] [address] [place] [address] Consulting Physician Psychiatry 07/08/25 Jay Lamas PAC [address] [place] [address] Physician Diesel Engine Ii Pipe Fitter Orthopaedic Surgery 07/08/25 Thelma Bach MD [address] [place] [address] OFFICE BUILDING [address] [address] Consulting Physician Internal Medicine 07/08/25 documented as of this encounter
--- OUTSIDE RECORDS SUMMARY | 2025-08-13 11:04 | XMS_ITS | Clinical Summary ---
Author Organization [facility] Office Building [address] Address [address] [place] [address] Care Team Providers Care Volleyball Commentator Name Role Phone Carla Pavon MD Primary Care Provider [phone] Allergies Active Allergy Reactions Criticality Noted Date [...] [facility] Orthopedic and Sports Medicine [address] [place] [address] Jay Lamas PA Primary osteoarthritis of [...] 0.6 oz pur e alcohol) [facility] Utilities Answer Date Recorded In the past 12 months has [employer], [employer], or water [employer] threatened to shut off services in your home? No 03/04/2024 Social Connection and Isolation Panel Answer Date Recorded In a typical week, how many times do you talk on the phone with family, friends, or neighbors? Patient unable to answer 03/04/2024 How often do you get togethe r with friends or relatives? Patient unable to answer 03/04/2024 How often do you attend [facility] or rastafarian services? Patient unable to answer 03/04/2024 Do you belong to any clubs o r organizations such as christian groups, unions, fraternal or athletic groups, or [...] place to sleep or slept in a snf (including now)? 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 Gender Identity Not on file Sexual Orientation [...] Procedure Name Priority Date/Time Associated Diagnosis Comments MT ARTHROCENTESIS ASPIR&/INJ MAJOR JT/BURSA W/O US Routine 06/24/2025 9:15 AM CDT Primary osteoarthritis of right knee from Last 3 Months Results * MT ARTHROCENTESIS ASPIR&/INJ MAJOR JT/BURSA W/O US (06/24/2025 [...] Result from Last 3 Months Insurance MEDICARE [facility] Address: [address] [address] [place] [address] [facility] MEDICARE [employer] MEDICARE [employer] MEDICARE [facility] Address: [address] [address] [place] [address] [employer] Advance Directives For more information, please contact: [phone] * Full Code (Latest Code Status on [...] 1:37 AM 03/03/2024 7:33 AM Care Teams Volleyball Commentator Relationship Specialty Start Date End Date Carla Pavon MD [address] [place] [address] [address] PCP - General Family Medicine 02/28/24
--- OUTSIDE RECORDS SUMMARY | 2025-08-13 11:04 | XMS_ITS | Clinical Summary ---
Author Organization [facility] Address [address] [address] Care Team Providers Care Hospice Rn Name Role Phone Unavailable Primary Care Provider Unavailabl e Source Comments [facility],non-owned Affiliates and Associated Physician Practices is amultiple site organization consisting of ambulatory clinics and hospital sitesin [place], [place], [place] and [place]. This disclosure is being madepursuant to the Care Everywhere program and may not contain all information available regarding this patient. 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
--- OUTSIDE RECORDS SUMMARY | 2025-08-13 11:04 | XMS_ITS | Encounter Summary ---
Author Organization [facility] Address [address] [place] [address] Phone Care Team Providers Care Tape Cutter Name Role Phone Faraz Ozuna MD Unavailable Jorje Hicks APRN, CHILDREN'S SERVICE WORKER Unavailable Rebeca Chisholm MD Unavailable [phone] Kerrie Wilson APRN, CHILDREN'S SERVICE WORKER Unavailable Nguyen Starr MD Unavailable [phone] Jovan Stephens MD Primary Care Provider [phone] Jay Lamas PAC Unavailable [phone] Thelma Bach MD Unavailable Encounter Details Date Type Department Care Team (Late st Contact Info) Description 08/07/2025 Telephone [facility] [address] [place] [address] Jorje Hicks APRN, CHILDREN'S SERVICE WORKER [address] [place] [address] Social History Tobacco Use Types Packs/Day Years [...] * Telephone Encounter - Serena Morales - 08/13/2025 8:56 AM CDT Rafael at [facility] made aware of scripts, no questions at this time. * Telephone Encounter - Serena Morales - 08/11/2025 11:23 AM CDT Message left for fpc to call the office. * Addendum Note - Jorje Hicks APRN, CNP - 08/11/2025 9:36 AM CDTAddended by: JORJE HICKS on: 08/11/2025 09:36 AM Modules accepted: Orders * Telephone Encounter - Jorje Hicks APRN, CNP - 08/11/2025 9:36 AM CDT Rx sent. Use bid for 2-4 weeks * Telephone Encounter - Sreena Morales - 08/07/2025 9:53 AM CDT Yaneth left message from pts fpc, I returned call and left message. Per the voicemail that was left, Yaneth is request cream for pts groin. She states his groin is raw. Please advise documented in this encounter Plan of Treatment Upcoming Encounters Date Type Department Care Team (Late st Contact Info) Description 08/13/2025 3:15 PM CDT Office Visit [facility] - Primary Care - [place] [address] [place] [address] Irma Cantrell [facility] [address] [place], [place] [address] 09/16/2025 8:15 AM RING SPINNER Office Visit [facility] - Endocrinology - [place] [address] [place] [address] Faraz Ozuna MD #[address] [address] 07/12/2026 1:00 PM CDT Office Visit [facility] - Primary Care - [place] [address] [place] [address] Jovan Stephens MD [address] [place] [address] 08/10/2026 10:30 AM CDT Office Visit [facility] PHYSICIAN [facility] UROLOGY #[address] [place] [address] Jorje Hicks, JOLEEN, CHILDREN'S SERVICE WORKER [address] [place] [address] documented as of this encounter Visit Diagnoses Diagnosis Tinea cruris- Primary Dermatophytosis of groin and perianal area documented in this encounter Additional Health Concerns Infection Onset Date Last Indicated Resolved Time 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 12/18/2024 documented as of this encounter Care Teams Tape Cutter Relationship Specialty Start Date End Date Jovan Stephens MD [address] [place] [address] PCP - General Internal Medicine 07/08/25 Faraz Ozuna MD #[address] [phone] Consulting Physician Endocrinology 06/23/16 Jorje Hicks APRN, CHILDREN'S SERVICE WORKER #2 [facility] [place] [address] Nurse Practitioner Urology 06/06/22 Rebeca Chisholm MD #[address] [address] Consulting Physician Urology 09/15/22 Kerrie Wilson APRN, CHILDREN'S SERVICE WORKER [address] [place] [address] Nurse Practitioner Gastroenterology 08/14/23 Nguyen Starr MD [address] [place] [address] [place] [address] Consulting Physician Psychiatry 07/08/25 Jay Lamas PAC [address] [place] [address] Physician Supervisor [employer] Orthopaedic Surgery 07/08/25 Thelma Bach MD [address] [place] [address] MEDICAL OFFICE BUILDING [address] [address] Consulting Physician Internal Medicine 07/08/25 documented as of this encounter
--- OUTSIDE RECORDS SUMMARY | 2025-08-13 11:04 | XMS_ITS | Clinical Summary ---
Author Organization [facility] Address [address] [place] [address] Phone Care Team Providers Care Damage Assessor Name Role Phone Faraz Ozuna MD Unavailable Jorje Hicks APRN, SUPERINTENDENT QUARRY Unavailable [phone] Rebeca Chisholm MD Unavailable [phone] Kerrie Wilson APRN, SUPERINTENDENT QUARRY Unavailable Nguyen Starr MD Unavailable [phone] Jovan Stephens MD Primary Care Provider [phone] Jay Lamas PAC Unavailable [phone] Thelma Bach MD Unavailable [phone] Allergies Active Allergy Reactions Criticality Noted Date Comments Topiramate Unknown 11/16/2015 Medications acetaminophen (TYLENOL) 325 MG Tablet Take 650 mg by mouth every 4 hours as needed. Active calcium carbonate (TUMS) 500 MG Chewable [...] days, then monthly x 3 months. Active Nutritional Supplements (ENSURE NUTRITION SHAKE PO)Indications:va [...] 4 hours as needed for Cough. Active Aripiprazole 20 MG Tablet Take 20 mg by mouth every evening. 12/16/19 20 Active hydrOXYzine (ATARAX) 25 MG Tablet Take 25 mg by mouth nightly. 06/07/20 21 Active hydrocortisone (ANUSOL-HC) 25 MG Suppository 25 mg by Rectal route daily. 30 Suppository 1 03/23/20 23 Active ondansetron (ZOFRAN-ODT) 4 MG TABLET DISPERSIBLE Take 1 Tablet by mouth every 6 hours as needed for Nausea - 1st line. 10 Tablet 03/23/20 23 Active alfuzosin (UROXATRAL) 10 MG TABLET [...] needed for Constipation - 1st line. Active miconazole 2 % Powder Apply 2 [...] Take 40 mg by mouth daily. Active zinc 0xide (Desitin) 40 % Paste 08/06/20 24 Active nystatin (MYCOSTATIN) 775823 UNIT/GM Ointment 07/15/20 24 Active celecoxib (CeleBREX) 100 MG Capsule Take 100 mg by mouth 2 times daily. Active methocarbamol (ROBAXIN) 500 MG Tablet Take 1,000 mg by mouth 3 times daily. Active nystatin-triamcin olone (MYCOLOG II) 044981-5.1 UNIT/GM-% CreamIndications: Tinea cruris Apply 2 times daily for 14 days. 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 stricture 9 Incontinence 04/07/2016 Obsessive-compulsive disorder 12/30/2009 Bipolar affective disorder 12/30/2009 Conductive hearing loss, external ear Resolved Problems Problem Noted Date Diagnosed Date Resolved Date Esophagitis 03/06/2024 07/08/2025 Schatzki's ring 03/06/2024 07/08/2025 Food impaction of esophagus 03/04/2024 07/08/2025 Lower GI bleed 03/21/2023 07/08/2025 Pain of left great toe 11/16/201507/08 Skin ulcer of left great toe with fat layer exposed 11/16/2015 07/08/2025 Impacted cerumen of both ears 07/08/2025 Encounters Date Type Department Care Team Description 08/13/2025 [facility]phone [facility] [address] [place] [address] Jovan Stephens MD Appointment 08/07/2025 Telephone [facility] PHYSICIAN [facility] UROLOGY [address] [place] [address] Jorje Hicks APRN, SUPERINTENDENT QUARRY 08/04/2025 10:00 AM CDT Office Visit [facility] PHYSICIAN [facility] UROLOGY [address] [place] [address] Jorje Hicks APRN, SUPERINTENDENT QUARRY Recurrent UTI (Primary Dx); Acquired renal cyst of right kidney Discharge Disposition: Discharged to home or Selfcare 08/04/2025 Travel 07/28/2025 Results Follow-Up [facility] PHYSICIAN [facility] UROLOGY [address] [place] [address] Jorje Hicks APRN, SUPERINTENDENT QUARRY US RENAL COMPLETE 07/22/2025 9:00 AM CDT - 07/22/2025 11:59 PM CDT Hospital Encounter [facility] Ultrasound [address] [place] [address] Jorje Hicks APRN, SUPERINTENDENT QUARRY Discharge Disposition: Discharged to home or Selfcare 07/22/2025 Travel 07/13/2025 Results Follow-Up [facility] Endocrinology [facility] [address] [place] [address] Faraz Ozuna MD CMP (COMPREHENSIVE METABOLIC PANEL), OSMOLALITY SERUM, UR OSMOLALITY, UR SODIUM (NA) RANDOM 07/09/2025 Results Follow-Up [address] [phone] Jovan Stephens MD FOLIC ACID (FOLATE), VITAMIN B12, CBC WITH AUTO DIFFERENTIAL, IRON,TRANSFERN,CALC.T IBC,%SAT 07/08/2025 3:30 PM CDT Lab [address] [phone] Hyponatremia; Anemia, unspecified type Discharge Disposition: Discharged to home or Selfcare 07/08/2025 2:45 PM CDT Office Visit [address] [phone] Jovan Stephens MD Moderate intellectual disability (Primary Dx); Obsessive-compulsive disorder, unspecified type; Bipolar affective disorder, remission status unspecified (HCC); Syndrome of inappropriate vasopressin secretion (HCC); Age-related osteoporosis without current pathological fracture; Anemia, unspecified type; Encounter for vaccination Discharge Disposition: Discharged to home or Selfcare 07/08/2025 Travel 07/06/2025 Telephone [facility] Family Medicine [facility] [address] [place] [address] Jovan Stephens MD 06/10/2025 Telephone [facility] Central Call Center [address] [place] [phone] Provider, None New Patient from Last 3 Months Immunizations Immunization Administration Dates Next Due Covid-19, Mrna, Lnp-s, Pf, 1 00 Mcg Or 50 Mcg Dose (MODERNA) 09/20/2021 Influenza Vaccine greater than 3 yrs 08/10/2015 Influenza Vaccine, Quadrivalent, PF 06/30,08/03/2022,08/01/2021,08/12,07/25/2018,08/16/2017 Influenza Vaccine,unspecifie d Formulation 07/27/2023,08/17/2022,08/09/2016 Influenza, Injectable, Mdck,quadrivalent,with Preservative 08/21/2019 Influenza, Injectable, Quadrivalent 11/2020,07/30/2019,08/13/2017,08/25 Influenza, Seasonal, Injecta ble, Undefined 07/28/2015,08/04/2014,10/10/2013 Influenza,Split Virus,Trivalent,Injectable,PF 07/08/2025,07/23/2024 Pneumococcal Vaccine Adult - 23 Valent 9 Pneumococcal conjugate PCV20 , polysaccharide LPS051 conjugate, adjuvant, PF 12/08/2024 Sars-cov-2 (Covid-19) Vaccin [...] Sign Reading Time Taken Comments Blood Pressure 114/75 08/04/2025 10:02 AM CDT Pulse 68 08/04/2025 10:02 AM CDT Temperature 36.1 C (97 F) 07/08/2025 2:54 PM CDT Respiratory Rate 16 08/04/2025 10:02 AM CDT Oxygen Saturation 95% 07/08/2025 2:54 PM CDT Inhaled Oxygen Concentration - - Weight 45.4 kg (100 lb) 08/04/2025 10:02 AM CDT Height 157.5 cm (5' 2) 08/04/2025 10:02 AM CDT Body Mass Index 18.29 08/04/2025 10:02 AM CDT Plan of Treatment Upcoming Encounters Date Type Department Care Team (Late st Contact Info) Description 08/13/2025 3:15 PM CDT [facility] [place] [address] [place] [phone] Irma Cantrell PAC [address] [place] [address] 09/16/2025 8:15 AM STOCKROOM SELECTOR Office Visit [facility] Endocrinology [facility] [address] [place] [phone] Faraz Ozuna MD [address] [phone] 07/12/2026 1:00 PM CDT [facility] [place] [address] [place] [phone] Jovan Stephens MD [address] [place] [address] 08/10/2026 10:30 AM CDT Office Visit [facility] PHYSICIAN [facility] UROLOGY [address] [place] [phone] Jorje Hicks, DIRECTOR OF MANUFACTURING, SUPERINTENDENT QUARRY [address] [place] [address] Health Maintenance Due Date Last Done Comments Hepatitis C Virus (HCV) Screening 1967 Hepatitis B Immunization (1 of 3 - 19+ 3-dose series) 1986 Medicare Initial AWV [id number] 02/27/2012 Cologuard 2012 Immunochemical Fecal Occult Blood 2012 Zoster Immunization (1 of 2) 2017 Td Immunization Every 10 Years (Adults With 1 Tdap) 04/23/2025 04/23/2015, 03/27/2013, 07/08/2007 SARS-COV-2 Immunization ( season) 2025 07/23/2024, 09/24/2023, 12/27/2022, Additional history exists Colonoscopy 11/27/2033 11/27/2023, 03/23/2023 Colorectal Cancer Screening 11/27/2033 Respiratory Syncytial Virus (RSV) Immunization (Adult) (1 - 1-dose 75+ series) 2042 DTaP/Tdap/Td Immunization Discontinued 2014, 03/27/2013, 07/08/2007 PSA Discussion Completed 08/29/2023, 09/30, 07/18/2016 Pneumococcal Immunization (50+ years) Completed 12/08/2024, 08/28/2009 Pneumococcal Immunization Combined Discontinued 12/08/2024, 08/28/2009 Influenza Immunization Completed , 07/08/2025, 07/23/2024, Additional history exists Human Papillomavirus (HPV) Immunization Aged Out No longer eligible based on patient's age to complete this topic Meningococcal Immunization (ACWY) Aged Out No longer eligible based on patient's age to complete this topic Rotavirus Immunization Aged Out No lo nger eligible based on patient's age to complete this topic Procedures Procedure Name Priority Date/Time Associated Diagnosis Comments POCT UA AUTOMATED W/O MICRO Routine 08/04/2025 10:08 AM CDT Recurrent UTI US RENAL COMPLETE Routine 07/22/2025 9:2 6 AM CDT Acquired renal cyst of right kidney UR SODIUM (NA) RANDOM Routine 07/08/2025 3:53 PM CDT Hyponatremia UR OSMOLALITY Routine 07/08/2025 3:53 PM CDT Hyponatremia CBC WITH AUTO DIFFERENTIAL Today 07/08/2025 3:46 PM CDT Anemia, unspecified type IRON,TRANSFERN,CALC.T IBC,%SAT Routine 07/08/2025 3:46 PM CDT Hyponatremia Anemia, unspecified type VITAMIN B12 Today 07/08/2025 3:46 PM CDT Anemia, unspecified type FOLIC ACID (FOLATE) Routine 07/08/2025 3 :46 PM CDT Anemia, unspecified type COMPLETE BLOOD COUNT (CBC) WITH DIFF Today 07/08/2025 3:46 PM CDT Anemia, unspecified type OSMOLALITY SERUM Routine 07/08/2025 3:46 PM CDT Hyponatremia CMP (COMPREHENSIVE METABOLIC PANEL) Routine 07/08/2025 3:46 PM CDT Hyponatremia URINALYSIS (UA) RANDOM 07/06/2025 12:00 AM CDT CULTURE, URINE 07/06/2025 12:00 AM CDT PSA SCREEN 08/29/2023 12:00 AM CDT from Last 3 Months or Most Recently Relevant to Health Maintenance Results * (ABNORMAL) POCT UA AUTOMATED W/O MICRO (08/04/2025 10:08 AM CDT) POC UA SPECIFIC GRAVITY 1.015 URINE PH 6.0 5.0 - 9.0 POC URINE LEUKOCYTES 75 /uL(A) Negative Pee/uL POC URINE NITRITE Negative Negative POC URINE PROTEIN Trace(A) Negative mg/dL POC URINE GLUCOSE Norm Negative, Norm mg/dL POC URINE KETONE Negative Negative mg/dL POC URINE UROBILINOGEN Norm Norm, 0.2 E.U./dL (mg/dL), 1 E.U./dL (mg/dL) POC URINE BILIRUBIN Negative Negative mg/dL POC URINE BLOOD INSTRUMENT 250 George/uL(A) Negative George/uL POC URINE COLOR Yellow POC URINE CLARITY Slightly Cloudy 08/04/2025 10:0 8 AM CDT us Jorje Hicks DIRECTOR OF MANUFACTURING, SUPERINTENDENT QUARRY POINT OF CARE TESTING (MANUAL) Final Result * US RENAL COMPLETE (07/22/2025 9:26 AM CDT) Anatomical Region Laterality Modality , Abdomen N/A Ultrasound 07/22/2025 9:26 AM CDT Impressions 07/22/2025 2:13 PM CDT IMPRESSION: 1. Technically limited exam. 2. Right lower pole cyst measures up to 1.5 cm, similar to prior, and without suspicious features to warrant imaging follow-up. 3. Previously described right interpolar lesion is not visualized on today's exam, possibly due to small size. Narrative 07/22/2025 2:13 PM CDT EXAMINATION: US RENAL COMPLETE DATE: 07/22/2025 2:06 PM INTERPRETING RADIOLOGIST: Fauzia Campbell MD. INDICATION: 60 years old Male with Cyst of kidney, acquired COMPARISON: CT abdomen/pelvis 01/07/2025 TECHNIQUE: A sonogram of the kidneys was performed assessing solis-scale appearance and color doppler flow. FINDINGS: Examination limited by overlying bowel gas, reduce penetration, and limited positioning. Right- The kidney measures 11.5 cm in length. Echogenicity is normal and corticomedullary differentiation is intact. There is no hydronephrosis. Lower pole cyst measures up to 1.5 cm without suspicious features to warrant imaging follow-up. Left- The left kidney measures 10.7 cm in length. Echogenicity is normal and corticomedullary differentiation is intact. There is no hydronephrosis. No solid or cystic renal lesions are visualized. Other- Partially distended. Contents are anechoic. Procedure Note Thomas Campbell MD - 07/22/2025 EXAMINATION: US RENAL COMPLETE DATE: 07/22/2025 2:06 PM INTERPRETING RADIOLOGIST: Fauzia Campbell MD. INDICATION: 60 years old Male with Cyst of kidney, acquired COMPARISON: CT abdomen/pelvis 01/07/2025 TECHNIQUE: A sonogram of the kidneys was performed assessing solis- scaleappearance and color doppler flow. FINDINGS: Examination limited by overlying bowel gas, reduce penetration, andlimited positioning. Right- The kidney measures 11.5 cm in length. Echogenicity is normal andcorticomedullary differentiation is intact. There is no hydronephrosis.Lower pole cyst measures up to 1.5 cm without suspicious features towarrant imaging follow-up. Left- The left kidney measures 10.7 cm in length. Echogenicity is normal andcorticomedullary differentiation is intact. There is no hydronephrosis.No solid or cystic renal lesions are visualized. Other- Partially distended. Contents are anechoic. IMPRESSION: 1. Technically limited exam. 2. Right lower pole cyst measures up to 1.5 cm, similar to prior, andwithout suspicious features to warrant imaging follow-up. 3. Previously described right interpolar lesion is not visualized ontoday's exam, possibly due to small size. us Jorje Hicks DIRECTOR OF MANUFACTURING, SUPERINTENDENT QUARRY IMG US ORDERABLES Kendra cheng Result * UR SODIUM (NA) RANDOM (07/08/2025 3:53 PM CDT) SODIUM, RANDOM URINE 138 mmol/L 07/09/2025 3:51 PM CDT [facility] Comment:No reference range h as been established. Consider Clinical Correlation. Urine Non-Phlebotomy Collection / Unknown 07/08/2025 3:53 PM CDT 07/08/2025 3:53 PM CDT Faraz Ozuna MD URINE ORDERABLES Final Result Performing Organization Address City/[facility]/ZIP Co de Phone Number [facility] [address] [place] [address], [place] * UR OSMOLALITY (07/08/2025 3:53 PM CDT) OSMOLALITY, URINE 705 50 - 1,400 mOsm/kg 07/09/2025 3:26 PM CDT [facility] Urine Non-Phlebotomy Collection / Unknown 07/08/2025 3:53 PM CDT 07/08/2025 3:53 PM CDT us Faraz Ozuna MD URINE ORDERABLES Final Result Performing Organization Address City/[facility] Co de Phone Number [facility] [address] [place] [address], [place] * IRON,TRANSFERN,CALC.TIBC,%SAT (07/08/2025 3:46 PM CDT) IRON 64 31 - 144 mcg/dL 07/09/2025 10:26 AM CDT [facility] TRANSFERRIN 230 174 - 364 mg/dL 07/09/2025 10:26 AM CDT [facility] TIBC, CALCULATED 288 261 - 462 mcg/dL 07/09/2025 10:26 AM CDT [facility] % SATURATION * 22 15 - 62 % 07/09/2025 10:26 AM CDT [facility] Blood Venipuncture / Unknown 07/08/2025 3:46 PM CDT 07/09/2025 7:58 AM CDT us Jovan Stephens MD CHEMISTRY ORDERABLES Kendra skylar Result [facility] [address] [place] [address] * (ABNORMAL) CBC WITH AUTO DIFFERENTIAL (07/08/2025 3:46 PM CDT) WBC 6.70 4.00 - 12.00 10(3)/[facility] 07/09/2025 7:54 AM CDT [facility] RBC 4.64 4.40 - 5.80 10(6)/[facility] 07/09/2025 7:54 AM CDT [facility] HEMOGLOBIN (HGB) 13.7 13.0 - 16.5 g/dL 07/09/2025 7:54 AM CDT [facility] HEMATOCRIT (HCT) 40.1 38.0 - 50.0 % 07/09/2025 7:54 AM CDT [facility] MCV 86.4 82.0 - 96.0 fL 07/09/2025 7:54 AM CDT [facility] MCH 29.5 26.0 - 32.0 pg 07/09/2025 7:54 AM CDT [facility] MCHC 34.2 31.0 - 36.0 g/dL 07/09/2025 7:54 AM CDT [facility] PLATELET COUNT 190 140 - 440 10(3)/[facility] 07/09/2025 7:54 AM CDT [facility] RDW 13.0 11.8 - 15.5 % 07/09/2025 7:54 AM CDT [facility] MPV 9.2 8.0 - 12.6 fL 07/09/2025 7:54 AM CDT [facility] NEUTROPHILS 62.8 40.0 - 68.0 % 07/09/2025 7:54 AM CDT [facility] LYMPHOCYTES 25.8 19.0 - 49.0 % 07/09/2025 7:54 AM CDT [facility] MONOCYTES 6.4 3.0 - 13.0 % 07/09/2025 7:54 AM CDT [facility] EOSINOPHILS 3.7 0.0 - 8.0 % 07/09/2025 7:54 AM CDT [facility] BASOPHILS 1.2(H) 0.0 - 1.0 % 07/09/2025 7:54 AM CDT [facility] IMMATURE GRANULOCYTE 0.1 0.0 - 0.4 % 07/09/2025 7:54 AM CDT [facility] ABSOLUTE NEUTROPHILS 4.20 1.40 - 5.30 10(3)/[facility] 07/09/2025 7:54 AM CDT [facility] ABSOLUTE LYMPHOCYTES 1.73 0.90 - 3.30 10(3)/[facility] 07/09/2025 7:54 AM CDT [facility] ABSOLUTE MONOCYTES 0.43 0.10 - 0.90 10(3)/[facility] 07/09/2025 7:54 AM CDT [facility] ABSOLUTE EOSINOPHIL 0.25 0.00 - 0.50 10(3)/[facility] 07/09/2025 7:54 AM CDT [facility] ABSOLUTE BASOPHILS 0.08 0.00 - 0.10 10(3)/[facility] 07/09/2025 7:54 AM CDT [facility] ABSOLUTE IMMATURE GRANULOCYTE 0.01 0.00 - 0.03 10 (3) mcL. 07/09/2025 7:54 AM CDT [facility] NRBC PER 100 WBC 0 07/09/20 7:54 AM CDT [facility] Blood Venipuncture / Unknown 07/08/2025 3:46 PM CDT 07/08/2025 3:46 PM CDT us Jovan Stephens MD HEMATOLOGY ORDERABLES Fin al Result Performing Organization Address City/[facility]/ZIP Co de Phone Number [facility] [address] [place] [address] * VITAMIN B12 (07/08/2025 3:46 PM CDT) VITAMIN B12 405 213 - 816 pg/mL 07/09/2025 9:14 AM CDT [facility] Blood Venipuncture / Unknown 07/08/2025 3:46 PM CDT 07/08/2025 3:46 PM CDT us Jovan Stephens MD CHEMISTRY ORDERABLES Kendra l Result Performing Organization Address [facility] Co de Phone Number [facility] [address] [place] [address] * OSMOLALITY SERUM (07/08/2025 3:46 PM CDT) OSMOLALITY 293 275 - 295 mOsm/kg 07/09/2025 3:31 PM CDT [facility] Blood Venipuncture / Unknown 07/08/2025 3:46 PM CDT 07/08/2025 3:46 PM CDT us Faraz Ozuna MD CHEMISTRY ORDERABLES Final Resul t Performing Organization Address City/[facility]/ZIP Co de Phone Number [facility] [address] [facility] [place] [address], [place] * FOLIC ACID (FOLATE) (07/08/2025 3:46 PM CDT) FOLATE 15.0 7.0 - 31.4 ng/mL 07/09/2025 9:14 AM CDT [facility] IS THE PATIENT REQUIRED TO BE FASTING? No 07/09/2025 9:14 AM CDT [facility] Blood Venipuncture / Unknown 07/08/2025 3:46 PM CDT 07/08/2025 3:46 PM CDT us Jovan Stephens MD CHEMISTRY ORDERABLES Kendra cheng Result [facility] [address] [place] [address] * (ABNORMAL) CMP (COMPREHENSIVE METABOLIC PANEL) (07/08/2025 3:46 PM CDT) Pathologist [facility] SODIUM 135(L) 136 - 145 mmol/L 07/09/2025 8:44 AM CDT [facility] POTASSIUM 5.0 3.5 - 5.1 mmol/L 07/09/2025 8:44 AM CDT [facility] CHLORIDE 98 98 - 107 mmol/L 07/09/2025 8:44 AM CDT [facility] CO2, VENOUS 30 22 - 30 mmol/L 07/09/2025 8:44 AM CDT [facility] ANION GAP 12.0 <18.0 mmol/L 07/09/2025 8:44 AM CDT [facility] GLUCOSE 92 70 - 99 mg/dL 07/09/2025 8:44 AM CDT [facility] BUN 21 8 - 26 mg/dL 07/09/2025 8:44 AM CDT [facility] CREATININE, BLOOD 0.48(L) 0.70 - 1.30 mg/dL 07/09/2025 8:44 AM CDT [facility] BUN/CREATININE RATIO 44(H) 12 - 20 ratio 07/09/2025 8:44 AM T [facility] TOTAL PROTEIN 7.0 6.0 - 8.0 g/dL 07/09/2025 8:44 AM T [facility] ALBUMIN 3.9 3.5 - 5.0 g/dL 07/09/2025 8:44 AM [facility] A/G RATIO 1.3 1.0 - 2.2 07/09/2025 8:44 AM CDT [facility] CALCIUM 8.7 8.7 - 10.5 mg/dL 07/09/2025 8:44 AM [facility] T BILI 0.2 0.2 - 1.2 mg/dL 07/09/2025 8:44 AM [facility] SGOT (AST) 7 <43 U/L 07/09/2025 8:44 AM [facility] SGPT (ALT) 14 <56 U/L 07/09/2025 8:44 AM [facility] ALKALINE PHOSPHATASE 89 40 - 150 U/L 07/09/2025 8:44 AM [facility] IS THE PATIENT REQUIRED TO BE FASTING? No 07/09/2025 8:44 AM [facility] GFR, ESTIMATED >60 >=60 07/09/2025 8:44 AM [facility] Comment: Creatinine Clearance is the preferred criteria for selecting drug dose adjustments in renally impaired patients. The GFR is provided as additional pertinent clinical information. GFR is reported in mL/min/1.73 sq m. Calculation based on the 2020 Chronic Kidney Disease Epidemiology Collaboration (CKD-EPI) equation refit without adjustment for race. GFR, EST. >60 >=60 025 8:44 AM [facility] Comment: Creatinine Clearance is the preferred criteria for selecting drug dose adjustments in renally impaired patients. The GFR is provided as additional pertinent clinical information. GFR is reported in mL/min/1.73 sq m. Calculation based on the 2009 Chronic Kidney Disease Epidemiology Collaboration (CKD-EPI). GFR, EST. NONAFRICAN >60 >=60 07/09/2025 8:44 AM CDT [facility] Comment: Creatinine Clearance is the preferred criteria for selecting drug dose adjustments in renally impaired patients. The GFR is provided as additional pertinent clinical information. GFR is reported in mL/min/1.73 sq m. Calculation based on the 2009 Chronic Kidney Disease Epidemiology Collaboration (CKD-EPI). Blood Venipuncture / Unknown 07/08/2025 3:46 PM CDT 07/08/2025 3:46 PM CDT Faraz Ozuna MD CHEMISTRY ORDERABLES Final Resul t Performing Organization Address [facility] de Phone Number [facility] [address] [place] [address] * URINALYSIS (UA) RANDOM (07/06/2025 12:00 AM CDT) 07/06/2025 us Provider Scan URINE ORDERABLES Final Result Performing Organization Address [facility] de Phone Number SCAN * CULTURE, URINE (07/06/2025 12:00 AM CDT) 07/06/2025 us Provider Scan MICROBIOLOGY - GENERAL ORDERABLE S Final Result Performing Organization Address [facility] de Phone Number SCAN * PSA SCREEN (08/29/2023 12:00 AM CDT) PSA (PROSTATE SPECIFIC ANTIGEN) 0.2 ng/mL 08/29/2023 us Provider Scan CHEMISTRY ORDERABLES Final Resul t from Last 3 Months or Most Recently Relevant to Health Maintenance Additional Health Concerns Infection Onset Date Last Indicated 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 12/18/2024 Insurance MEDICAID [place] MED[place] Advance Directives Documents on File Type Date Recorded Patient Clinical Cytogeneticist Scientist Expl anation Guardian of Person 03/21/2023 4:50 PM [employer], 04/25/2022 * Full Code (Latest Code Status on File) Date Activated Date Inactivated Comments 03/21/2023 4:58 PM 03/23/2023 5:10 PM CPR-Full Jostin atment: FULL ARREST: Attempt Resuscitation/CPR wit intubation and mechanical ventilation. PRE-ARREST: Use entire range of life support measures to stabilize the patient. Care Teams Damage Assessor Relationship Specialty Start Date End Date Jovan Stephens MD [address] [place] [address] PCP - General Internal Medicine 07/08/25 Faraz Ozuna MD [address] [phone] Consulting Physician Endocrinology 06/23/16 Jorje Hicks APRN, SUPERINTENDENT QUARRY [address] [place] [address] Nurse Practitioner Urology 06/06/22 Rebeca Chisholm MD #[address] [address] Consulting Physician Urology 09/15/22 Kerrie Wilson APRN, SUPERINTENDENT QUARRY [address] [place] [address] Nurse Practitioner Gastroenterology 08/14/23 Nguyen Starr MD [address] [place] [address] [address] [place] [address] Consulting Physician Psychiatry 07/08/25 Jay Lamas PAC [address] [place] [address] Physician Office Equipment Technician Orthopaedic Surgery 07/08/25 Thelma Bach MD [address] [place] [address] MEDICAL OFFICE BUILDING [address] [address] Consulting Physician Internal Medicine 07/08/25
--- OUTSIDE RECORDS SUMMARY | 2025-08-13 11:04 | XMS_ITS | Encounter Summary ---
Author Organization [facility] Address [address] [place] [address] Phone Care Team Providers Care Lieutenant Fire Fighter Name Role Phone Farhana Chino APN, DIRECTOR COLLEGE Unavailable [phone] Faraz Ozuna MD Unavailable Jorje Hicks APRN, DIRECTOR COLLEGE Unavailable Rebeca Chisholm MD Unavailable [phone] Kerrie Wilson APRN, DIRECTOR COLLEGE Unavailable Carla Pavon MD Primary Care Provider [phone] Nguyen Starr MD Unavailable [phone] Jovan Stephens MD Primary Care Provider Jay Lamas PAC Unavailable [phone] Thelma Bach MD Unavailable [phone] Reason for Referral * PT/OT/ST (Routine) - Authorized Specialty Diagnoses / Procedures Referred By Contac t Referred To Contact Physical Therapy Diagnoses Primary osteoarthritis of right knee Acquired valgus deformity knee, right Jay Lamas, PAC [address] [place] [address] Phone: tel: fax: [facility] [address], [address] [address] Phone: tel: fax: Referral ID Status Reason Start Date Expiration Date V isits Requested Visits Authorized [id number] Authorized 12/24/2024 50 50 Scheduling Instructions IC CUTTER Encounter Details Date Type Department Care Team (Latest Contact Info) Description 12/24/2024 Transcribe Orders [facility] [address] [place] [address] Jay Lamas, PAC [address] [place] [address] Primary osteoarthritis of right knee (Primary Dx); [...] Description 08/13/2025 3:15 PM CDT Office Visit [facility] - Primary Care - [place] [address] [place] [address] Irma Cantrell, PAC [address] [place] [address] 09/16/2025 8:15 AM FABRIC CUTTER Office Visit [facility] Medical [facility] - Endocrinology - [place] [address] [place] [address] Faraz Ozuna MD #[address] [address] 07/12/2026 1:00 PM CDT Office Visit [facility] Primary Care - [address] [place] [address] Jovan Stephens MD [address] [place] [address] 08/10/2026 10:30 AM CDT Office Visit [facility] [address] [place] [address] Jorje Hicks GRAPHIC USER INTERFACE DESIGNER, DIRECTOR COLLEGE [address] [place] [address] Scheduled Referrals Name Type Priority Associated Diagnoses [...] documented as of this encounter Care Teams Lieutenant Fire Fighter Relationship Specialty Start Date End Date Carla Pavon MD [address] [place] [address] PCP - General Family Medicine 11/12/24 07/07/25 Jovan Stephens MD [address] [place] [address] PCP - General Internal Medicine 07/08/25 Farhana Chino, DIRECTOR OF PHYSICIAN PRACTICES, DIRECTOR COLLEGE Nurse Practitioner Advanced Practice Nurse 04/07/1607/07/25 Faraz Ozuna MD #2 [facility] [address] [place] [id number] Consulting Physician Endocrinology 06/23/16 Jorje Hicks APRN, DIRECTOR COLLEGE [address] [place] [address] Nurse Practitioner Urology 06/06/22 Rebeca Chisholm MD #[address] [address] Consulting Physician Urology 09/15/22 Kerrie Wilson APRN, DIRECTOR COLLEGE [address] [place] [address] Nurse Practitioner Gastroenterology 08/14/23 Nguyen Starr MD [address] [place] [address] [facility] [address] [place] [address] Consulting Physician Psychiatry 07/08/25 Jay Lamas PAC [address] [place] [address] Physician Director Traffic And Planning Orthopaedic Surgery 07/08/25 Thelma Bach MD [address] [place] [address] MEDICAL OFFICE BUILDING [address] [address] Consulting Physician Internal Medicine 07/08/25 documented as of this encounter
== END 2025-08-13 10:25 | disposition home or self-care (01) ==
PROVIDERS: Emergency Provider Nurse Practitioner; PCP Internal Medicine
DX: H10.9 Unspecified conjunctivitis (principal); I10 Essential (primary) hypertension; Z79.899 Other long term (current) drug therapy
CPT/HCPCS: 99213; G0463